=== PATIENT | male | born 1955 | race Caucasian/White ===

== ENCOUNTER 2016-09-24 15:32 | Emergency (ER) | payer MEDICARE, OTHER ==
[2016-09-24] MEDS ORDERED: RX INFO: IV CONTRAST WAS GIVEN 1 EACH MISC MISCELLANE PRN (15:55)
[2016-09-24] MEDS ORDERED: SODIUM CHLORIDE 0.9% 2,000 ML IV ONE (15:57)
[2016-09-24 16:23] LABS: Basophils # (A) 0.1 k/uL (0-0.2); Basophils % (A) 1 %; CH 29.2; CHCM 34.8; Eosinophils # (A) 0.1 k/uL (0-0.7); Eosinophils % (A) 1 %; HCT 47.5 % (39.0-53.0); HDW 3.15; HGB 16.2 gm/dL (13.0-17.5); Luc # (Auto) 0.24; Luc % (Auto) 3; Lymphocytes # (A) 1.4 k/uL (1.0-4.8); Lymphocytes % (A) 15 %; MCH 28.8 pg (25.0-35.0); MCHC 34.2 g/dL (31.0-37.0); MCV 84.3 fL (80.0-100.0); Mean Platelet Volume 6.3; Monocytes # (A) 0.7 k/uL (0-1.0); Monocytes % (A) 8 %; Neutrophils # (A) 6.5 k/uL (1.3-7.7); Neutrophils % (A) 73 %; RBC 5.64 m/uL (4.30-5.90); RDW 13.4 % (11.5-15.5); WBC (Perox) 8.76
[2016-09-24 16:24] LABS: ALT 68 U/L (21-72); AST 43 U/L (17-59); Alkaline Phosphatase 96 U/L (38-126); Anion Gap 14 mmol/L; Blood Urea Nitrogen 24 mg/dL (9-20); Calcium 10.1 mg/dL (8.4-10.2); Carbon Dioxide 19 mmol/L (22-30); Chloride 106 mmol/L (98-107); Glucose 245 mg/dL (74-99); Non-African American GFR(MDRD) >60 (>60 ml/min/1.73 sqM); Potassium 4.2 mmol/L (3.5-5.1); Sodium 139 mmol/L (137-145); Total Bilirubin 0.6 mg/dL (0.2-1.3); Total Protein 7.5 g/dL (6.3-8.2)
[2016-09-24 16:25] LABS: Prothrombin Time 10.3 sec (9.0-12.0)
--- NOTE | 2016-09-24 16:27 | CT ---
EXAMINATION TYPE: CT abdomen pelvis w con DATE OF EXAM: 09/24/2016 4:17 PM COMPARISON: NONE INDICATION: Abdominal pain and distension DLP: 2273.5 mGycm, Automated exposure control for dose reduction was used. CONTRAST: 100 mL of Omnipaque 300. Study performed without Oral Contrast TECHNIQUE: Axial images were obtained from above the diaphragm to the pubic rami in the axial plane a t 5 mm thick sections. Reconstructed images are reviewed on the computer in the coronal plane. FINDINGS: Limited CT sections are obtained the lung bases. The lung bases are clear. Minimal pericardial effu syl is noted. CT ABDOMEN: Liver: Moderate fatty infiltration liver. No discrete masses or cysts are evident. Spleen: Normal Pancreas: Normal Adrenal glands: There is a low density structure from the posterior limb left adrenal gland measuring 1.5 cm. Lipoma and adenolipoma could be considered. Right adrenal gland appears normal. Gallbladder: Normal Kidneys: No masses are evident. No hydronephrosis is present. No cysts are present. Delayed images were obtained through the kidneys which remain unremarkable. Aorta: Vascular calcification is within the aorta. Inferior vena cava: Normal. CT PELVIS: Loops of bowel within the abdomen and pelvis containing fluid. Dilated loops are not evident. Clinica l consideration for ileus and gastroenteritis could be considered. Appendix: Normal as visualized. Urinary bladder: Decompressed with limited evaluation. Genitourinary structures: Prostate is unremarkable. Osseous structures: No suspicious lytic or sclerotic lesions. IMPRESSIONS: 1. Clinical consideration for gastroenteritis and ileus is recommended. No suspicious changes for ob struction. 2. Normal appendix. 3. Moderate fatty infiltration of the liver.
[2016-09-24 16:40] LABS: Partial Thromboplastin Time 20.6 sec (22.0-30.0)
--- NOTE | 2016-09-24 16:58 | XR ---
EXAMINATION TYPE: XR chest 2V DATE OF EXAM: 09/24/2016 4:43 PM COMPARISON: 09/08/2015 INDICATION: Chest pain TECHNIQUE: 2 view chest FINDINGS: The heart size is normal. The pulmonary vasculature is normal. The lungs are clear. IMPRESSION: 1. No acute pulmonary process.
[2016-09-24 17:54] VITALS: PULSE 113
--- NOTE | 2016-09-24 18:21 | ED ---
General Adult HPI - General Chief complaint: Nausea/Vomiting/Diarrhea Stated complaint: abd pain Source: patient, EMS Mode of arrival: EMS Limitations: no limitations - History of Present Illness Initial comments: 60-year-old male presenting with significant past medical history asthma, COPD, diabetes, GERD, hyperlipidemia, hypertension, osteoarthritis, and chronic diarrhea presented for evaluation of abdominal pain. Family states that he's been having his usual diarrhea but the last few days he's been having constipation. Today he had a bowel movement but at 2:30 had sudden onset abdominal pain that is generalized and without focality. He states he had a bowel movement but was small without blood or melena. He also had nausea and an episode of emesis with this. EMS was called for transport. There are no alleviating or exacerbating factors. He does state a past medical history of a hernia repair but denies any other abdominal surgeries. - Related Data Home Medications Medication Instructions Recorded Confirmed Montelukast [Singulair] 10 mg PO DAILY 09/25/13 09/24/16 Acetaminophen-Codeine 300-30mg 1 - 2 tab PO Q6H PRN 02/21/14 09/24/16 [Tylenol w/codeine #3] Albuterol Sulfate [Ventolin HFA] 1 puff INHALATION RT-QID PRN 02/21/14 09/24/16 Fenofibrate [Lofibra] 160 mg PO DAILY 02/21/14 09/24/16 Lisinopril 10 mg PO DAILY 02/21/14 09/24/16 Insulin Detemir [Levemir] 90 unit SQ HS 04/18/15 09/24/16 Fluticasone/Salmeterol [Advair 1 puff INHALATION RT-BID 09/08/15 09/24/16 250-50 Diskus] Diphenox-Atrop 2.5-0.025 mg 1 tab PO Q6H PRN 10/20/15 09/24/16 [Lomotil] Doxazosin Mesylate [Cardura] 16 mg PO HS 10/20/15 09/24/16 Atorvastatin [Lipitor] 80 mg PO HS 09/24/16 09/24/16 Cetirizine HCl [Zyrtec] 10 - 20 mg PO HS PRN 09/24/16 09/24/16 Desvenlafaxine [Pristiq ER] 100 mg PO DAILY 09/24/16 09/24/16 Omeprazole [PriLOSEC] 20 mg PO AC-BID 09/24/16 09/24/16 clonazePAM [KlonoPIN] 1 mg PO BID PRN 09/24/16 09/24/16 sitaGLIPtin PHOS/metFORMIN HCL 2 tab PO HS 09/24/16 09/24/16 [Janumet Xr 50-1,000 mg Tablet] Previous Rx's Medication Instructions Recorded Ciprofloxacin HCl [Cipro] 500 mg PO Q12HR #14 tablet 09/24/16 HYDROcodone/APAP 5-325MG [[place] 1 - 2 tab PO Q6HR PRN #14 tab 09/24/16 5-325] metroNIDAZOLE [Flagyl] 500 mg PO Q8HR #21 tab 09/24/16 Allergies Allergy/AdvReac Type Severity Reaction Status Date / Time No Known Allergies Allergy Verified 09/24/16 22:08 Review of Systems ROS Statement: Those systems with pertinent positive or pertinent negative responses have been documented in the HPI. ROS Other: All systems not noted in ROS Statement are negative. Constitutional: Denies: fever, chills, weakness Eyes: Denies: eye pain, eye discharge, vision change ENT: Denies: ear pain, throat pain Respiratory: Denies: cough, dyspnea Cardiovascular: Denies: chest pain, palpitations, dyspnea on exertion, orthopnea Endocrine: Denies: fatigue, polydipsia, polyuria Gastrointestinal: Reports: abdominal pain, nausea, vomiting, diarrhea, constipation Genitourinary: Denies: urgency, dysuria Musculoskeletal: Denies: back pain, arthralgia, myalgia Skin: Denies: rash, lesions Neurological: Denies: headache, weakness Psychiatric: Denies: anxiety, depression Hematological/Lymphatic: Denies: easy bleeding, easy bruising Past Medical History Past Medical History: Asthma, COPD, Diabetes Mellitus, GERD/Reflux, Hyperlipidemia, Hypertension, Osteoarthritis (OA), Prostate Disorder, Skin Disorder Additional Past Medical History / Comment(s): diarrhea, sores on arms, DDD History of Any Multi-Drug Resistant Organisms: None Reported Past Surgical History: Hernia Repair, Orthopedic Surgery, Tonsillectomy Additional Past Surgical History / Comment(s): right chest wall cyst removed, nerve surgery left elbow Past Anesthesia/Blood Transfusion Reactions: No Reported Reaction Past Psychological History: Anxiety, Panic Disorder Smoking Status: Former smoker Past Alcohol Use History: None Reported Additional Past Alcohol Use History / Comment(s): quit smoking 25 yrs ago, smoked for 17 yrs- 2 PPD Past Drug Use History: None Reported - Past Family History Father Family Medical History: Myocardial Infarction ([place]) Mother Family Medical History: No Reported History General Exam Limitations: no limitations General appearance: alert, in distress, obese Head exam: Present: atraumatic, normocephalic, normal inspection Eye exam: Present: normal appearance, PERRL, EOMI. Absent: scleral icterus, conjunctival injection, periorbital swelling ENT exam: Present: normal exam, mucous membranes moist Neck exam: Present: normal inspection. Absent: tenderness, meningismus, lymphadenopathy Respiratory exam: Present: normal lung sounds bilaterally. Absent: respiratory distress, wheezes, rales, rhonchi, stridor Cardiovascular Exam: Present: regular rate, normal rhythm, normal heart sounds. Absent: systolic murmur, diastolic murmur, rubs, gallop, clicks GI/Abdominal exam: Present: soft, distended, tenderness, normal bowel sounds. Absent: guarding, rebound, rigid Rectal exam: Present: deferred Extremities exam: Present: normal inspection, full ROM, normal capillary refill. Absent: tenderness, pedal edema, joint swelling, calf tenderness Back exam: Present: normal inspection Neurological exam: Present: alert, oriented X3, CN II-XII intact Psychiatric exam: Present: normal affect, normal mood Skin exam: Present: warm, dry, intact, normal color. Absent: rash Course Vital Signs 09/24/16 09/24/16 09/24/16 15:46 15:57 17:52 Temperature 97.7 F 97.6 F Pulse Rate 97 116 H 113 H Respiratory 16 18 16 Rate Blood Pressure 95/53 124/56 131/64 O2 Sat by Pulse 96 94 L 97 Oximetry 09/24/16 18:28 Temperature 97.8 F Pulse Rate Respiratory 116 H Rate Blood Pressure 133/75 O2 Sat by Pulse 95 Oximetry Medical Decision Making - Medical Decision Making 60-year-old male with past medical history of ventral hernia repair presented for evaluation of sudden onset abdominal pain at 2:30 today. EMS was called for transport and upon arrival to the ED he was markedly hypotensive. Upon arrival the patient does appear in mild distress and he does have a large abdomen which is difficult to determine whether it is distended or chest and obese patient. There is [id number] abdominal tenderness to palpation but no peritoneal signs of guarding, rigidity, or rebound. IV access was obtained, labs drawn, and patient was rushed to CT as there was concern for AAA rupture given his hypotension abdominal pain and distended abdomen. Also of concern was bowel obstruction versus perforation. Patient was moved back to exam room and repeat blood pressures were markedly improved despite only a minor amount of IV fluid infusion. This may be explained by the possibility of him producing vagal stimulation while moving from EMS cot to bed. Labs started to return and there was no elevated WBC and lactic acid was only 2.1. The remainder of his labs revealed no significant abnormalities. CT abdomen and pelvis showed clinical consideration for gastroenteritis versus ileus but no suspicious changes for obstruction. There is a normal appendix and only moderate fatty infiltration of the liver. The patient was reevaluated and stated his pain had resolved. He is informed of all labs results and through shared decision making it was determined that he be discharged with instructions to follow-up with his primary care physician but return if his symptoms should worsen or persist. He is further informed to get his prescriptions for anabiotic spelled and to take them as prescribed. The patient acknowledged an understanding of this information and agreed with this plan of care. - Lab Data Result diagrams: 09/24/16 16:05 09/24/16 16:05 Lab Results 09/24/16 09/24/16 09/24/16 Range/Units 16:05 16:05 16:05 WBC 9.0 (3.8-10.6) k/uL RBC 5.64 (4.30-5.90) m/uL Hgb 16.2 (13.0-17.5) gm/dL Hct 47.5 (39.0-53.0) % MCV 84.3 (80.0-100.0) fL MCH 28.8 (25.0-35.0) pg MCHC 34.2 (31.0-37.0) g/dL RDW 13.4 (11.5-15.5) % Plt Count 287 (150-450) k/uL Neutrophils % 73 % Lymphocytes % 15 % Monocytes % 8 % Eosinophils % 1 % Basophils % 1 % Neutrophils # 6.5 (1.3-7.7) k/uL Lymphocytes # 1.4 (1.0-4.8) k/uL Monocytes # 0.7 (0-1.0) k/uL Eosinophils # 0.1 (0-0.7) k/uL Basophils # 0.1 (0-0.2) k/uL PT (9.0-12.0) sec INR (<1.1) APTT (22.0-30.0) sec Sodium 139 (137-145) mmol/L Potassium 4.2 (3.5-5.1) mmol/L Chloride 106 (98-107) mmol/L Carbon Dioxide 19 L (22-30) mmol/L Anion Gap 14 mmol/L BUN 24 H (9-20) mg/dL Creatinine 1.11 (0.66-1.25) mg/dL Est GFR (MDRD) Af Amer >60 (>60 ml/min/1.73 sqM) Est GFR (MDRD) Non-Af >60 (>60 ml/min/1.73 sqM) Glucose 245 H (74-99) mg/dL Plasma Lactic Acid Brooks 2.1 H (0.7-2.0) mmol/L Calcium 10.1 (8.4-10.2) mg/dL Total Bilirubin 0.6 (0.2-1.3) mg/dL AST 43 (17-59) U/L ALT 68 (21-72) U/L Alkaline Phosphatase 96 (38-126) U/L Troponin I (0.000-0.034) ng/mL NT-Pro-B Natriuret Pep pg/mL Total Protein 7.5 (6.3-8.2) g/dL Albumin 4.4 (3.5-5.0) g/dL Lipase 153 (23-300) U/L Blood Type Blood Type Confirm Blood Type Recheck Antibody Screen Spec Expiration Date 09/24/16 09/24/16 09/24/16 Range/Units 16:05 16:05 16:05 WBC (3.8-10.6) k/uL RBC (4.30-5.90) m/uL Hgb (13.0-17.5) gm/dL Hct (39.0-53.0) % MCV (80.0-100.0) fL MCH (25.0-35.0) pg MCHC (31.0-37.0) g/dL RDW (11.5-15.5) % Plt Count (150-450) k/uL Neutrophils % % Lymphocytes % % Monocytes % % Eosinophils % % Basophils % % Neutrophils # (1.3-7.7) k/uL Lymphocytes # (1.0-4.8) k/uL Monocytes # (0-1.0) k/uL Eosinophils # (0-0.7) k/uL Basophils # (0-0.2) k/uL PT 10.3 (9.0-12.0) sec INR 1.0 (<1.1) APTT 20.6 L (22.0-30.0) sec Sodium (137-145) mmol/L Potassium (3.5-5.1) mmol/L Chloride (98-107) mmol/L Carbon Dioxide (22-30) mmol/L Anion Gap mmol/L BUN (9-20) mg/dL Creatinine (0.66-1.25) mg/dL Est GFR (MDRD) Af Amer (>60 ml/min/1.73 sqM) Est GFR (MDRD) Non-Af (>60 ml/min/1.73 sqM) Glucose (74-99) mg/dL Plasma Lactic Acid Brooks (0.7-2.0) mmol/L Calcium (8.4-10.2) mg/dL Total Bilirubin (0.2-1.3) mg/dL AST (17-59) U/L ALT (21-72) U/L Alkaline Phosphatase (38-126) U/L Troponin I <0.012 (0.000-0.034) ng/mL NT-Pro-B Natriuret Pep 41 pg/mL Total Protein (6.3-8.2) g/dL Albumin (3.5-5.0) g/dL Lipase (23-300) U/L Blood Type Blood Type Confirm Blood Type Recheck Antibody Screen Spec Expiration Date 09/24/16 09/24/16 Range/Units 16:05 16:50 WBC (3.8-10.6) k/uL RBC (4.30-5.90) m/uL Hgb (13.0-17.5) gm/dL Hct (39.0-53.0) % MCV (80.0-100.0) fL MCH (25.0-35.0) pg MCHC (31.0-37.0) g/dL RDW (11.5-15.5) % Plt Count (150-450) k/uL Neutrophils % % Lymphocytes % % Monocytes % % Eosinophils % % Basophils % % Neutrophils # (1.3-7.7) k/uL Lymphocytes # (1.0-4.8) k/uL Monocytes # (0-1.0) k/uL Eosinophils # (0-0.7) k/uL Basophils # (0-0.2) k/uL PT (9.0-12.0) sec INR (<1.1) APTT (22.0-30.0) sec Sodium (137-145) mmol/L Potassium (3.5-5.1) mmol/L Chloride (98-107) mmol/L Carbon Dioxide (22-30) mmol/L Anion Gap mmol/L BUN (9-20) mg/dL Creatinine (0.66-1.25) mg/dL Est GFR (MDRD) Af Amer (>60 ml/min/1.73 sqM) Est GFR (MDRD) Non-Af (>60 ml/min/1.73 sqM) Glucose (74-99) mg/dL Plasma Lactic Acid Brooks (0.7-2.0) mmol/L Calcium (8.4-10.2) mg/dL Total Bilirubin (0.2-1.3) mg/dL AST (17-59) U/L ALT (21-72) U/L Alkaline Phosphatase (38-126) U/L Troponin I (0.000-0.034) ng/mL NT-Pro-B Natriuret Pep pg/mL Total Protein (6.3-8.2) g/dL Albumin (3.5-5.0) g/dL Lipase (23-300) U/L Blood Type A Positive Blood Type Confirm A Positive Blood Type Recheck CABO Indicated Antibody Screen NEGATIVE Spec Expiration Date 09/27/2016 - 2304 Disposition Clinical Impression: Abdominal pain, Nausea and vomiting Disposition: HOME SELF-CARE Condition: Stable Instructions: Abdominal Pain (ED) Additional Instructions: Please use medication as discussed. Please follow up with family doctor if symptoms have not improved over the next two days. Please return to the emergency room if your symptoms increase or worsen or for any other concerns. Prescriptions: Ciprofloxacin HCl [Cipro] 500 mg PO Q12HR #14 tablet HYDROcodone/APAP 5-325MG [[place]raham 5-325] 1 - 2 tab PO Q6HR PRN #14 tab PRN Reason: Analgesia metroNIDAZOLE [Flagyl] 500 mg PO Q8HR #21 tab Referrals: Anu Plata MD [Primary Care Provider] - 1-2 days Time of Disposition: 18:21
[2016-09-24 18:29] VITALS: BP 133/75; RESP 116; TEMP 97.8
[2016-09-25 21:51] LABS: Glucose,Whole Blood 297 mg/dL (75-99)
== END 2016-09-24 18:47 | disposition home or self-care (01) ==
LOC: EC 15:32
DX: R10.84 Generalized abdominal pain (principal); R11.2 Nausea with vomiting, unspecified; K76.0 Fatty (change of) liver, not elsewhere classified; K59.00 Constipation, unspecified; E78.5 Hyperlipidemia, unspecified; I10 Essential (primary) hypertension; E11.9 Type 2 diabetes mellitus without complications; J45.909 Unspecified asthma, uncomplicated; J44.9 Chronic obstructive pulmonary disease, unspecified; K21.9 Gastro-esophageal reflux disease without esophagitis; N42.9 Disorder of prostate, unspecified; Z87.891 Personal history of nicotine dependence; Z79.4 Long term (current) use of insulin; Z79.51 Long term (current) use of inhaled steroids; Z79.84 Long term (current) use of oral hypoglycemic drugs; Z79.899 Other long term (current) drug therapy; Z68.34 Body mass index [BMI] 34.0-34.9, adult; Z98.890 Other specified postprocedural states
CPT/HCPCS: 36415; 93005; 86900; 86901; 83880; 80053; 83605; 83690; 84484; 85025; 85610; 85730; 86850; 87040; 71020; 74177; 99285; 96360; 96361; Q9967

== ENCOUNTER 2016-09-24 22:07 | Emergency (ER) | payer MEDICARE, OTHER ==
[2016-09-24 22:12] VITALS: RESP 20
[2016-09-24 23:44] LABS: HDW 2.91; HGB 14.2 gm/dL (13.0-17.5); Immature Gran Flag Marked; MCH 28.5 pg (25.0-35.0); MCHC 32.3 g/dL (31.0-37.0); MCV 88.4 fL (80.0-100.0); Mean Platelet Volume 6.5; RBC 4.98 m/uL (4.30-5.90); RDW 13.6 % (11.5-15.5); WBC 10.6 k/uL (3.8-10.6)
[2016-09-24 23:55] LABS: ALT 62 U/L (21-72); AST 32 U/L (17-59); Alkaline Phosphatase 62 U/L (38-126); Amylase 38 U/L (30-110); Anion Gap 10 mmol/L; Blood Urea Nitrogen 27 mg/dL (9-20); Calcium 8.2 mg/dL (8.4-10.2); Carbon Dioxide 19 mmol/L (22-30); Chloride 110 mmol/L (98-107); Glucose 199 mg/dL (74-99); Non-African American GFR(MDRD) >60 (>60 ml/min/1.73 sqM); Potassium 4.6 mmol/L (3.5-5.1); Sodium 139 mmol/L (137-145); Total Bilirubin 0.6 mg/dL (0.2-1.3)
[2016-09-25 00:06] LABS: Appearance,Urine Clear (Clear); Bilirubin,Urine Negative (Negative); Glucose,Urine (UA) 4+ (Negative); Ketones,Urine Negative (Negative); Leukocyte Esterase,Urine Negative (Negative); Nitrite,Urine Negative (Negative); Protein,Urine Negative (Negative); Specific Gravity,Urine 1.033 (1.001-1.035); UA Billing (MACRO vs. MICRO) CHEM; Urobilinogen,Urine <2.0 mg/dL (<2.0)
--- NOTE | 2016-09-25 00:42 | ED ---
Abdominal Pain HPI - General Chief Complaint: Abdominal Pain Stated Complaint: Abdominal Pain Time Seen by Provider: 09/24/16 22:09 Source: patient, EMS Mode of arrival: EMS Limitations: no limitations - History of Present Illness MD Complaint: abdominal pain Onset/Timin -: year(s) Location: diffuse Radiation: none Migration to: no migration Severity: moderate Quality: cramping, other (Bloating) Consistency: intermittent, now resolved Improves With: nothing Worsens With: nothing Associated Symptoms: nausea - Related Data Home Medications Medication Instructions Recorded Confirmed Montelukast [Singulair] 10 mg PO DAILY 09/25/13 09/24/16 Acetaminophen-Codeine 300-30mg 1 - 2 tab PO Q6H PRN 02/21/14 09/24/16 [Tylenol w/codeine #3] Albuterol Sulfate [Ventolin HFA] 1 puff INHALATION RT-QID PRN 02/21/14 09/24/16 Fenofibrate [Lofibra] 160 mg PO DAILY 02/21/14 09/24/16 Lisinopril 10 mg PO DAILY 02/21/14 09/24/16 Insulin Detemir [Levemir] 90 unit SQ HS 04/18/15 09/24/16 Fluticasone/Salmeterol [Advair 1 puff INHALATION RT-BID 09/08/15 09/24/16 250-50 Diskus] Diphenox-Atrop 2.5-0.025 mg 1 tab PO Q6H PRN 10/20/15 09/24/16 [Lomotil] Doxazosin Mesylate [Cardura] 16 mg PO HS 10/20/15 09/24/16 Atorvastatin [Lipitor] 80 mg PO HS 09/24/16 09/24/16 Cetirizine HCl [Zyrtec] 10 - 20 mg PO HS PRN 09/24/16 09/24/16 Desvenlafaxine [Pristiq ER] 100 mg PO DAILY 09/24/16 09/24/16 Omeprazole [PriLOSEC] 20 mg PO AC-BID 09/24/16 09/24/16 clonazePAM [KlonoPIN] 1 mg PO BID PRN 09/24/16 09/24/16 sitaGLIPtin PHOS/metFORMIN HCL 2 tab PO HS 09/24/16 09/24/16 [Janumet Xr 50-1,000 mg Tablet] Previous Rx's Medication Instructions Recorded Ciprofloxacin HCl [Cipro] 500 mg PO Q12HR #14 tablet 09/24/16 HYDROcodone/APAP 5-325MG [[place] 1 - 2 tab PO Q6HR PRN #14 tab 09/24/16 5-325] metroNIDAZOLE [Flagyl] 500 mg PO Q8HR #21 tab 09/24/16 Allergies Allergy/AdvReac Type Severity Reaction Status Date / Time No Known Allergies Allergy Verified 09/24/16 22:08 Review of Systems ROS Statement: Those systems with pertinent positive or pertinent negative responses have been documented in the HPI. ROS Other: All systems not noted in ROS Statement are negative. Constitutional: Denies: fever, chills, weakness Respiratory: Denies: cough, dyspnea Cardiovascular: Denies: chest pain, palpitations, edema Gastrointestinal: Reports: abdominal pain, nausea. Denies: vomiting, diarrhea, melena, hematochezia Genitourinary: Denies: dysuria, hematuria Musculoskeletal: Denies: back pain Skin: Denies: rash Neurological: Denies: headache, weakness Past Medical History Past Medical History: Asthma, COPD, Diabetes Mellitus, GERD/Reflux, Hyperlipidemia, Hypertension, Osteoarthritis (OA), Prostate Disorder, Skin Disorder Additional Past Medical History / Comment(s): diarrhea, sores on arms, DDD History of Any Multi-Drug Resistant Organisms: None Reported Past Surgical History: Hernia Repair, Orthopedic Surgery, Tonsillectomy Additional Past Surgical History / Comment(s): right chest wall cyst removed, nerve surgery left elbow Past Anesthesia/Blood Transfusion Reactions: No Reported Reaction Past Psychological History: Anxiety, Panic Disorder Smoking Status: Former smoker Past Alcohol Use History: None Reported Additional Past Alcohol Use History / Comment(s): quit smoking 25 yrs ago, smoked for 17 yrs- 2 PPD Past Drug Use History: None Reported - Past Family History Father Family Medical History: Myocardial Infarction ([place]) Mother Family Medical History: No Reported History General Exam Limitations: no limitations General appearance: alert, in no apparent distress Head exam: Present: atraumatic, normocephalic Eye exam: Present: normal appearance. Absent: scleral icterus, conjunctival injection Neck exam: Present: normal inspection Respiratory exam: Present: normal lung sounds bilaterally. Absent: respiratory distress, wheezes, rales, rhonchi Cardiovascular Exam: Present: regular rate, normal rhythm, normal heart sounds. Absent: systolic murmur, diastolic murmur, rubs, gallop GI/Abdominal exam: Present: soft, normal bowel sounds. Absent: distended, tenderness, guarding, rebound, rigid, mass, pulsatile mass, hernia Extremities exam: Present: normal inspection, normal capillary refill. Absent: pedal edema, calf tenderness Back exam: Present: normal inspection. Absent: CVA tenderness (R), CVA tenderness (L) Neurological exam: Present: alert, CN II-XII intact. Absent: normal gait, motor sensory deficit Skin exam: Present: warm, dry, intact, normal color. Absent: rash Course Vital Signs 09/24/16 22:08 Temperature 98.3 F Pulse Rate 121 H Respiratory 20 Rate Blood Pressure 145/67 O2 Sat by Pulse 97 Oximetry Medical Decision Making - Lab Data Result diagrams: 09/24/16 23:10 09/24/16 23:10 Lab Results 09/24/16 09/24/16 09/24/16 Range/Units 23:10 23:10 23:10 WBC 10.6 (3.8-10.6) k/uL RBC 4.98 (4.30-5.90) m/uL Hgb 14.2 (13.0-17.5) gm/dL Hct 44.0 (39.0-53.0) % MCV 88.4 (80.0-100.0) fL MCH 28.5 (25.0-35.0) pg MCHC 32.3 (31.0-37.0) g/dL RDW 13.6 (11.5-15.5) % Plt Count 228 (150-450) k/uL Neutrophils % (Manual) 51.0 % Band Neutrophils % 31.0 % Lymphocytes % (Manual) 5.5 % Monocytes % (Manual) 10.0 % Eosinophils % (Manual) 2.5 % Neutrophils # (Manual) 8.7 H (1.3-7.7) k/uL Lymphocytes # (Manual) 0.6 L (1.0-4.8) k/uL Monocytes # (Manual) 1.1 H (0-1.0) k/uL Eosinophils # (Manual) 0.3 (0-0.7) k/uL Nucleated RBCs 0 (0-0) /100 WBC Poikilocytosis (manual Present Anisocytosis (manual) Present Sodium 139 (137-145) mmol/L Potassium 4.6 (3.5-5.1) mmol/L Chloride 110 H (98-107) mmol/L Carbon Dioxide 19 L (22-30) mmol/L Anion Gap 10 mmol/L BUN 27 H (9-20) mg/dL Creatinine 0.90 (0.66-1.25) mg/dL Est GFR (MDRD) Af Amer >60 (>60 ml/min/1.73 sqM) Est GFR (MDRD) Non-Af >60 (>60 ml/min/1.73 sqM) Glucose 199 H (74-99) mg/dL Plasma Lactic Acid Brooks 1.9 (0.7-2.0) mmol/L Calcium 8.2 L (8.4-10.2) mg/dL Total Bilirubin 0.6 (0.2-1.3) mg/dL AST 32 (17-59) U/L ALT 62 (21-72) U/L Alkaline Phosphatase 62 (38-126) U/L Total Protein 6.0 L (6.3-8.2) g/dL Albumin 3.5 (3.5-5.0) g/dL Amylase 38 (30-110) U/L Lipase 74 (23-300) U/L Urine Color Urine Appearance (Clear) Urine pH (5.0-8.0) Ur Specific [place] (1.001-1.035) Urine Protein (Negative) Urine Glucose (UA) (Negative) Urine Ketones (Negative) Urine Blood (Negative) Urine Nitrite (Negative) Urine Bilirubin (Negative) Urine Urobilinogen (<2.0) mg/dL Ur Leukocyte Esterase (Negative) 09/24/16 Range/Units 23:40 WBC (3.8-10.6) k/uL RBC (4.30-5.90) m/uL Hgb (13.0-17.5) gm/dL Hct (39.0-53.0) % MCV (80.0-100.0) fL MCH (25.0-35.0) pg MCHC (31.0-37.0) g/dL RDW (11.5-15.5) % Plt Count (150-450) k/uL Neutrophils % (Manual) % Band Neutrophils % % Lymphocytes % (Manual) % Monocytes % (Manual) % Eosinophils % (Manual) % Neutrophils # (Manual) (1.3-7.7) k/uL Lymphocytes # (Manual) (1.0-4.8) k/uL Monocytes # (Manual) (0-1.0) k/uL Eosinophils # (Manual) (0-0.7) k/uL Nucleated RBCs (0-0) /100 WBC Poikilocytosis (manual Anisocytosis (manual) Sodium (137-145) mmol/L Potassium (3.5-5.1) mmol/L Chloride (98-107) mmol/L Carbon Dioxide (22-30) mmol/L Anion Gap mmol/L BUN (9-20) mg/dL Creatinine (0.66-1.25) mg/dL Est GFR (MDRD) Af Amer (>60 ml/min/1.73 sqM) Est GFR (MDRD) Non-Af (>60 ml/min/1.73 sqM) Glucose (74-99) mg/dL Plasma Lactic Acid Brooks (0.7-2.0) mmol/L Calcium (8.4-10.2) mg/dL Total Bilirubin (0.2-1.3) mg/dL AST (17-59) U/L ALT (21-72) U/L Alkaline Phosphatase (38-126) U/L Total Protein (6.3-8.2) g/dL Albumin (3.5-5.0) g/dL Amylase (30-110) U/L Lipase (23-300) U/L Urine Color Yellow Urine Appearance Clear (Clear) Urine pH 5.0 (5.0-8.0) Ur Specific [place] 1.033 (1.001-1.035) Urine Protein Negative (Negative) Urine Glucose (UA) 4+ H (Negative) Urine Ketones Negative (Negative) Urine Blood Negative (Negative) Urine Nitrite Negative (Negative) Urine Bilirubin Negative (Negative) Urine Urobilinogen <2.0 (<2.0) mg/dL Ur Leukocyte Esterase Negative (Negative) Disposition Clinical Impression: Abdominal pain Disposition: HOME SELF-CARE Condition: Fair Instructions: Abdominal Pain (ED) Referrals: Anu Plata MD [Primary Care Provider] - 1-2 days
[2016-09-25 02:14] LABS: Add Differential Manual Differential
[2016-09-25 02:20] LABS: Nucleated Red Blood Cells 0 /100 WBC (0-0); Total Cells Counted 200
[2016-09-25 04:51] VITALS: BP 142/75; PULSE 124
[2016-09-25 04:55] VITALS: TEMP 100.3
== END 2016-09-25 03:32 | disposition home or self-care (01) ==
LOC: EC 22:07
DX: R10.84 Generalized abdominal pain (principal); R11.0 Nausea; R14.0 Abdominal distension (gaseous); E78.5 Hyperlipidemia, unspecified; I10 Essential (primary) hypertension; E11.9 Type 2 diabetes mellitus without complications; J45.909 Unspecified asthma, uncomplicated; J44.9 Chronic obstructive pulmonary disease, unspecified; N42.9 Disorder of prostate, unspecified; K21.9 Gastro-esophageal reflux disease without esophagitis; Z87.891 Personal history of nicotine dependence; Z79.4 Long term (current) use of insulin; Z79.51 Long term (current) use of inhaled steroids; Z79.84 Long term (current) use of oral hypoglycemic drugs; Z79.899 Other long term (current) drug therapy
CPT/HCPCS: 99284 ×2; 96360; 96361; 99285; 36415; 93005; 86900; 86901; 83880; 80053; 82150; 83605; 83690; 84484; 85025; 85610; 85730; 86850; 81003; 87040; 71020; 74177; Q9967

== ENCOUNTER 2016-10-29 14:06 | Emergency (ER) | payer MEDICARE, OTHER ==
[2016-10-29] MEDS ORDERED: SODIUM CHLORIDE 0.9% 500 ML IV STA (15:15)
--- NOTE | 2016-10-29 15:38 | ED ---
Nausea/Vomiting/Diarrhea HPI - General Chief complaint: Nausea/Vomiting/Diarrhea Stated complaint: Abd Pain Time Seen by Provider: 10/29/16 14:55 Source: patient Mode of arrival: ambulatory Limitations: no limitations - History of Present Illness Initial comments: This patient is a 61-year-old man who states that he has had years of chronic intermittent diarrhea. At times she has been told that this is due to irritable bowel, at times she has been told that he has colitis. The patient states that he has had a flareup of the diarrhea and also a few episodes of vomiting going on for nearly a week. The patient states that he came in because he does not want to get so dehydrated that he needs an ambulance this time. Patient denies significant abdominal pain though he does have some intermittent cramping. He did recently complete course of azithromycin for some bronchitis. MD complaint: vomiting, diarrhea -: year(s) Description of Vomiting: watery Description of Diarrhea: water Associated Abdominal Pain: No Improves with: none Worsens with: none Associated Symptoms: denies other symptoms - Related Data Home Medications Medication Instructions Recorded Confirmed Montelukast [Singulair] 10 mg PO DAILY 09/25/13 10/29/16 Acetaminophen-Codeine 300-30mg 1 - 2 tab PO Q6H PRN 02/21/14 10/29/16 [Tylenol w/codeine #3] Albuterol Sulfate [Ventolin HFA] 1 puff INHALATION RT-QID PRN 02/21/14 10/29/16 Fenofibrate [Lofibra] 160 mg PO DAILY 02/21/14 10/29/16 Lisinopril 10 mg PO DAILY 02/21/14 10/29/16 Insulin Detemir [Levemir] 95 unit SQ HS 04/18/15 10/29/16 Fluticasone/Salmeterol [Advair 1 puff INHALATION RT-BID 09/08/15 10/29/16 250-50 Diskus] Diphenox-Atrop 2.5-0.025 mg 1 tab PO Q6H PRN 10/20/15 10/29/16 [Lomotil] Doxazosin Mesylate [Cardura] 16 mg PO HS 10/20/15 10/29/16 Atorvastatin [Lipitor] 80 mg PO HS 09/24/16 10/29/16 Cetirizine HCl [Zyrtec] 10 - 20 mg PO HS PRN 09/24/16 10/29/16 Desvenlafaxine [Pristiq ER] 100 mg PO DAILY 09/24/16 10/29/16 Omeprazole [PriLOSEC] 20 mg PO AC-BID 09/24/16 10/29/16 clonazePAM [KlonoPIN] 1 mg PO BID PRN 09/24/16 10/29/16 sitaGLIPtin PHOS/metFORMIN HCL 2 tab PO HS 09/24/16 10/29/16 [Janumet Xr 50-1,000 mg Tablet] Azithromycin [Zithromax] 500 mg PO DAILY 10/29/16 10/29/16 predniSONE See Taper PO DIRECTED 10/29/16 10/29/16 Previous Rx's Medication Instructions Recorded HYDROcodone/APAP 5-325MG [[place] 1 - 2 tab PO Q6HR PRN #14 tab 09/24/16 5-325] Ondansetron Odt [Zofran ODT] 4 mg PO Q8HR PRN #10 tab 10/29/16 Allergies Allergy/AdvReac Type Severity Reaction Status Date / Time No Known Allergies Allergy Verified 10/29/16 14:50 Review of Systems ROS Statement: Those systems with pertinent positive or pertinent negative responses have been documented in the HPI. ROS Other: All systems not noted in ROS Statement are negative. Constitutional: Denies: fever, chills, weakness Respiratory: Denies: cough, dyspnea, wheezes Cardiovascular: Denies: chest pain, palpitations, edema Gastrointestinal: Reports: vomiting, diarrhea. Denies: constipation, melena, hematochezia Genitourinary: Denies: dysuria, hematuria Musculoskeletal: Denies: back pain Skin: Denies: rash Neurological: Denies: headache Past Medical History Past Medical History: Asthma, COPD, Diabetes Mellitus, GERD/Reflux, Hyperlipidemia, Hypertension, Osteoarthritis (OA), Prostate Disorder, Skin Disorder Additional Past Medical History / Comment(s): diarrhea, sores on arms, DDD History of Any Multi-Drug Resistant Organisms: None Reported Past Surgical History: Hernia Repair, Orthopedic Surgery, Tonsillectomy Additional Past Surgical History / Comment(s): right chest wall cyst removed, nerve surgery left elbow Past Anesthesia/Blood Transfusion Reactions: No Reported Reaction Past Psychological History: Anxiety, Panic Disorder Smoking Status: Former smoker Past Alcohol Use History: None Reported Additional Past Alcohol Use History / Comment(s): quit smoking 25 yrs ago, smoked for 17 yrs- 2 PPD Past Drug Use History: None Reported - Past Family History Father Family Medical History: Myocardial Infarction ([place]) Mother Family Medical History: No Reported History General Exam Limitations: no limitations General appearance: alert, in no apparent distress Head exam: Present: atraumatic, normocephalic Eye exam: Present: normal appearance. Absent: scleral icterus, conjunctival injection ENT exam: Present: normal oropharynx Neck exam: Present: normal inspection Respiratory exam: Present: normal lung sounds bilaterally. Absent: respiratory distress, wheezes, rales, rhonchi, stridor Cardiovascular Exam: Present: regular rate (Rate is 92 of my exam), normal rhythm, normal heart sounds. Absent: systolic murmur, diastolic murmur, rubs, gallop GI/Abdominal exam: Present: soft, normal bowel sounds. Absent: distended, tenderness, guarding, rebound, organomegaly, mass, pulsatile mass, hernia Extremities exam: Present: normal inspection, normal capillary refill. Absent: pedal edema, calf tenderness Back exam: Present: normal inspection. Absent: CVA tenderness (R), CVA tenderness (L) Neurological exam: Present: alert Skin exam: Present: warm, dry, intact, normal color. Absent: rash, cyanosis, diaphoretic, erythema, petechiae, pallor, mottled Course Vital Signs 10/29/16 10/29/16 10/29/16 14:23 15:48 16:53 Temperature 97.9 F 98.6 F 99.5 F Pulse Rate 110 H 107 H 111 H Respiratory 20 18 20 Rate Blood Pressure 104/69 143/86 135/80 O2 Sat by Pulse 97 97 96 Oximetry Medical Decision Making - Lab Data Result diagrams: 10/29/16 15:40 10/29/16 15:40 Lab Results 10/29/16 10/29/16 10/29/16 Range/Units 15:40 15:40 16:30 WBC 13.9 H (3.8-10.6) k/uL RBC 5.36 (4.30-5.90) m/uL Hgb 15.3 (13.0-17.5) gm/dL Hct 46.4 (39.0-53.0) % MCV 86.7 (80.0-100.0) fL MCH 28.6 (25.0-35.0) pg MCHC 33.0 (31.0-37.0) g/dL RDW 13.5 (11.5-15.5) % Plt Count 266 (150-450) k/uL Neutrophils % 82 % Lymphocytes % 11 % Monocytes % 5 % Eosinophils % 0 % Basophils % 1 % Neutrophils # 11.4 H (1.3-7.7) k/uL Lymphocytes # 1.5 (1.0-4.8) k/uL Monocytes # 0.7 (0-1.0) k/uL Eosinophils # 0.1 (0-0.7) k/uL Basophils # 0.1 (0-0.2) k/uL Sodium 138 (137-145) mmol/L Potassium 4.3 (3.5-5.1) mmol/L Chloride 102 (98-107) mmol/L Carbon Dioxide 22 (22-30) mmol/L Anion Gap 14 mmol/L BUN 19 (9-20) mg/dL Creatinine 0.90 (0.66-1.25) mg/dL Est GFR (MDRD) Af Amer >60 (>60 ml/min/1.73 sqM) Est GFR (MDRD) Non-Af >60 (>60 ml/min/1.73 sqM) Glucose 229 H (74-99) mg/dL Calcium 9.4 (8.4-10.2) mg/dL Total Bilirubin 0.4 (0.2-1.3) mg/dL AST 69 H (17-59) U/L ALT 76 H (21-72) U/L Alkaline Phosphatase 82 (38-126) U/L Total Protein 7.4 (6.3-8.2) g/dL Albumin 4.5 (3.5-5.0) g/dL Amylase 58 (30-110) U/L Lipase 91 (23-300) U/L Urine Color Yellow Urine Appearance Clear (Clear) Urine pH 6.0 (5.0-8.0) Ur Specific [place] 1.016 (1.001-1.035) Urine Protein Negative (Negative) Urine Glucose (UA) 4+ H (Negative) Urine Ketones Negative (Negative) Urine Blood Negative (Negative) Urine Nitrite Negative (Negative) Urine Bilirubin Negative (Negative) Urine Urobilinogen <2.0 (<2.0) mg/dL Ur Leukocyte Esterase Negative (Negative) Disposition Clinical Impression: Gastroenteritis, Dehydration Disposition: HOME SELF-CARE Condition: Good Instructions: Acute Nausea and Vomiting (ED) Prescriptions: Ondansetron Odt [Zofran ODT] 4 mg PO Q8HR PRN #10 tab PRN Reason: Nausea Referrals: Anu Plata MD [Primary Care Provider] - 1-2 days
[2016-10-29 15:56] LABS: Basophils # (A) 0.1 k/uL (0-0.2); Basophils % (A) 1 %; CHCM 33.6; Eosinophils # (A) 0.1 k/uL (0-0.7); Eosinophils % (A) 0 %; HCT 46.4 % (39.0-53.0); HDW 2.86; HGB 15.3 gm/dL (13.0-17.5); Luc # (Auto) 0.17; Luc % (Auto) 1; Lymphocytes # (A) 1.5 k/uL (1.0-4.8); Lymphocytes % (A) 11 %; MCH 28.6 pg (25.0-35.0); MCV 86.7 fL (80.0-100.0); Mean Platelet Volume 6.5; Monocytes # (A) 0.7 k/uL (0-1.0); Monocytes % (A) 5 %; Neutrophils # (A) 11.4 k/uL (1.3-7.7); Neutrophils % (A) 82 %; RBC 5.36 m/uL (4.30-5.90); RDW 13.5 % (11.5-15.5); WBC 13.9 k/uL (3.8-10.6); WBC (Perox) 13.52
[2016-10-29 16:32] LABS: ALT 76 U/L (21-72); AST 69 U/L (17-59); Alkaline Phosphatase 82 U/L (38-126); Amylase 58 U/L (30-110); Anion Gap 14 mmol/L; Blood Urea Nitrogen 19 mg/dL (9-20); Calcium 9.4 mg/dL (8.4-10.2); Carbon Dioxide 22 mmol/L (22-30); Chloride 102 mmol/L (98-107); Glucose 229 mg/dL (74-99); Non-African American GFR(MDRD) >60 (>60 ml/min/1.73 sqM); Potassium 4.3 mmol/L (3.5-5.1); Sodium 138 mmol/L (137-145); Total Bilirubin 0.4 mg/dL (0.2-1.3); Total Protein 7.4 g/dL (6.3-8.2)
[2016-10-29] MEDS ORDERED: SODIUM CHLORIDE 0.9% 1,000 ML IV ONE (16:41)
[2016-10-29 16:53] LABS: Appearance,Urine Clear (Clear); Bilirubin,Urine Negative (Negative); Glucose,Urine (UA) 4+ (Negative); Ketones,Urine Negative (Negative); Leukocyte Esterase,Urine Negative (Negative); Nitrite,Urine Negative (Negative); Protein,Urine Negative (Negative); Specific Gravity,Urine 1.016 (1.001-1.035); UA Billing (MACRO vs. MICRO) CHEM; Urobilinogen,Urine <2.0 mg/dL (<2.0)
[2016-10-29 18:11] VITALS: BP 135/72; PULSE 108; RESP 18; TEMP 97.9
== END 2016-10-29 18:05 | disposition home or self-care (01) ==
LOC: EC 14:06
DX: K52.9 Noninfective gastroenteritis and colitis, unspecified (principal); E86.0 Dehydration; J44.9 Chronic obstructive pulmonary disease, unspecified; E11.9 Type 2 diabetes mellitus without complications; K21.9 Gastro-esophageal reflux disease without esophagitis; E78.5 Hyperlipidemia, unspecified; I10 Essential (primary) hypertension; M19.90 Unspecified osteoarthritis, unspecified site; N42.9 Disorder of prostate, unspecified; F41.9 Anxiety disorder, unspecified; F41.0 Panic disorder [episodic paroxysmal anxiety]; Z87.891 Personal history of nicotine dependence; Z79.4 Long term (current) use of insulin; Z79.52 Long term (current) use of systemic steroids; Z79.899 Other long term (current) drug therapy
CPT/HCPCS: 36415; 80053; 81003; 82150; 83690; 85025; 87324; 96360; 96361; 99284

== ENCOUNTER 2016-12-13 11:55 | Emergency (ER) | payer MEDICARE, OTHER ==
[2016-12-13] MEDS ORDERED: METOCLOPRAMIDE 5 MG/ML 2 ML VIAL IVP STA (12:28)
[2016-12-13] MEDS ORDERED: MORPHINE SULFATE 4 MG/ML SYRINGE IV STA (12:28)
[2016-12-13] MEDS ORDERED: SODIUM CHLORIDE 0.9% 1,000 ML IV STA (12:28)
--- NOTE | 2016-12-13 12:31 | ED ---
Nausea/Vomiting/Diarrhea HPI - General Chief complaint: Nausea/Vomiting/Diarrhea Stated complaint: abdominal pain/diarrhea Time Seen by Provider: 12/13/16 12:23 Source: patient, RN notes reviewed Mode of arrival: wheelchair Limitations: no limitations - History of Present Illness Initial comments: 61-year-old male presents emergency Department with chief complaint of diarrhea or abdominal pain and swelling. Patient states that symptoms started a few days ago. Patient states she's been having diarrhea several episodes but states the diarrhea seems to slowing down some. He notes last 24 hours that increase abdominal pain generalized with abdominal bloating. Patient had a prior hernia repair no other abdominal surgeries. He does not remember the surgeon. Patient denies any dysuria, hematuria, melena or hematochezia. Denies any nausea vomiting. Denies any fever, chills, chest pain or shortness of breath. Denies any lower extremity swelling no history of CHF no lives disease noted. - Related Data Home Medications Medication Instructions Recorded Confirmed Montelukast [Singulair] 10 mg PO DAILY 09/25/13 12/13/16 Albuterol Sulfate [Ventolin HFA] 1 puff INHALATION RT-QID PRN 02/21/14 12/13/16 Fenofibrate [Lofibra] 160 mg PO DAILY 02/21/14 12/13/16 Lisinopril 10 mg PO DAILY 02/21/14 12/13/16 Insulin Detemir [Levemir] 95 unit SQ HS 04/18/15 12/13/16 Fluticasone/Salmeterol [Advair 1 puff INHALATION RT-BID 09/08/15 12/13/16 250-50 Diskus] Diphenox-Atrop 2.5-0.025 mg 1 tab PO Q6H PRN 10/20/15 12/13/16 [Lomotil] Doxazosin Mesylate [Cardura] 16 mg PO HS 10/20/15 12/13/16 Atorvastatin [Lipitor] 80 mg PO HS 09/24/16 12/13/16 Cetirizine HCl [Zyrtec] 10 - 20 mg PO HS PRN 09/24/16 12/13/16 Desvenlafaxine [Pristiq ER] 100 mg PO DAILY 09/24/16 12/13/16 Omeprazole [PriLOSEC] 20 mg PO AC-BID 09/24/16 12/13/16 clonazePAM [KlonoPIN] 1 mg PO BID PRN 09/24/16 12/13/16 sitaGLIPtin PHOS/metFORMIN HCL 2 tab PO HS 09/24/16 12/13/16 [Janumet Xr 50-1,000 mg Tablet] Allergies Allergy/AdvReac Type Severity Reaction Status Date / Time No Known Allergies Allergy Verified 12/13/16 13:31 Review of Systems ROS Statement: Those systems with pertinent positive or pertinent negative responses have been documented in the HPI. ROS Other: All systems not noted in ROS Statement are negative. Past Medical History Past Medical History: Asthma, COPD, Diabetes Mellitus, GERD/Reflux, Hyperlipidemia, Hypertension, Osteoarthritis (OA), Prostate Disorder, Skin Disorder Additional Past Medical History / Comment(s): diarrhea, sores on arms, DDD History of Any Multi-Drug Resistant Organisms: None Reported Past Surgical History: Hernia Repair, Orthopedic Surgery, Tonsillectomy Additional Past Surgical History / Comment(s): right chest wall cyst removed, nerve surgery left elbow Past Anesthesia/Blood Transfusion Reactions: No Reported Reaction Past Psychological History: Anxiety, Panic Disorder Smoking Status: Former smoker Past Alcohol Use History: None Reported Past Drug Use History: None Reported - Past Family History Father Family Medical History: Myocardial Infarction ([place]) Mother Family Medical History: No Reported History General Exam Limitations: no limitations General appearance: alert, in no apparent distress Neck exam: Present: normal inspection. Absent: tenderness, meningismus, lymphadenopathy Respiratory exam: Present: normal lung sounds bilaterally. Absent: respiratory distress, wheezes, rales, rhonchi, stridor Cardiovascular Exam: Present: normal rhythm, tachycardia, normal heart sounds. Absent: systolic murmur, diastolic murmur, rubs, gallop, clicks GI/Abdominal exam: Present: soft, distended, tenderness (Generalized mild), normal bowel sounds. Absent: guarding, rebound, rigid Back exam: Absent: CVA tenderness (R), CVA tenderness (L) Skin exam: Present: warm, dry, intact, normal color. Absent: rash Course Vital Signs 12/13/16 12/13/16 12/13/16 12:20 12:37 14:16 Temperature 97.2 F L 97.4 F L Pulse Rate 126 H 114 H 114 H Respiratory 18 20 20 Rate Blood Pressure 98/60 125/62 132/73 O2 Sat by Pulse 97 96 Oximetry Medical Decision Making - Medical Decision Making 61-year-old male presented for diarrhea. Patient has had ongoing issues and states that his been told multiple things. Patient now states this is not out of the ordinary for him. He states that he is diarrhea slowing down. Patient is hydrated here. Patient does have uncontrolled diabetes and possible gastroparesis type symptoms. Patient diarrhea most likely related IBS. Return parameters discussed. Patient had recent C. diff testing - Lab Data Result diagrams: 12/13/16 12:42 12/13/16 12:42 Lab Results 12/13/16 12/13/16 12/13/16 Range/Units 12:42 12:42 12:42 WBC 12.3 H (3.8-10.6) k/uL RBC 5.30 (4.30-5.90) m/uL Hgb 15.2 (13.0-17.5) gm/dL Hct 44.9 (39.0-53.0) % MCV 84.6 (80.0-100.0) fL MCH 28.7 (25.0-35.0) pg MCHC 33.9 (31.0-37.0) g/dL RDW 13.3 (11.5-15.5) % Plt Count 258 (150-450) k/uL Neutrophils % 80 % Lymphocytes % 10 % Monocytes % 7 % Eosinophils % 2 % Basophils % 0 % Neutrophils # 9.8 H (1.3-7.7) k/uL Lymphocytes # 1.2 (1.0-4.8) k/uL Monocytes # 0.8 (0-1.0) k/uL Eosinophils # 0.2 (0-0.7) k/uL Basophils # 0.0 (0-0.2) k/uL Sodium 135 L (137-145) mmol/L Potassium 4.4 (3.5-5.1) mmol/L Chloride 100 (98-107) mmol/L Carbon Dioxide 23 (22-30) mmol/L Anion Gap 12 mmol/L BUN 23 H (9-20) mg/dL Creatinine 0.90 (0.66-1.25) mg/dL Est GFR (MDRD) Af Amer >60 (>60 ml/min/1.73 sqM) Est GFR (MDRD) Non-Af >60 (>60 ml/min/1.73 sqM) Glucose 242 H (74-99) mg/dL Plasma Lactic Acid [place] 2.1 H* (0.7-2.0) mmol/L Calcium 10.0 (8.4-10.2) mg/dL Total Bilirubin 0.7 (0.2-1.3) mg/dL AST 31 (17-59) U/L ALT 65 (21-72) U/L Alkaline Phosphatase 91 (38-126) U/L Total Protein 6.7 (6.3-8.2) g/dL Albumin 4.2 (3.5-5.0) g/dL Amylase 47 (30-110) U/L Lipase 93 (23-300) U/L Disposition Clinical Impression: Gastroenteritis Disposition: HOME SELF-CARE Condition: Stable Instructions: Acute Diarrhea (ED) Additional Instructions: Please return to the Emergency Department if symptoms worsen or any other concerns. Referrals: Anu Plata MD [Primary Care Provider] - 1-2 days Time of Disposition: 14:26
[2016-12-13 12:46] VITALS: PULSE 114; RESP 20
[2016-12-13 12:57] LABS: Basophils % (A) 0 %; CH 28.6; CHCM 33.9; Eosinophils # (A) 0.2 k/uL (0-0.7); Eosinophils % (A) 2 %; HCT 44.9 % (39.0-53.0); HDW 2.85; HGB 15.2 gm/dL (13.0-17.5); Luc # (Auto) 0.17; Luc % (Auto) 1; Lymphocytes # (A) 1.2 k/uL (1.0-4.8); Lymphocytes % (A) 10 %; MCH 28.7 pg (25.0-35.0); MCHC 33.9 g/dL (31.0-37.0); MCV 84.6 fL (80.0-100.0); Mean Platelet Volume 6.5; Monocytes # (A) 0.8 k/uL (0-1.0); Monocytes % (A) 7 %; Neutrophils # (A) 9.8 k/uL (1.3-7.7); Neutrophils % (A) 80 %; RDW 13.3 % (11.5-15.5); WBC 12.3 k/uL (3.8-10.6); WBC (Perox) 11.99
[2016-12-13 13:04] LABS: ALT 65 U/L (21-72); AST 31 U/L (17-59); Alkaline Phosphatase 91 U/L (38-126); Amylase 47 U/L (30-110); Anion Gap 12 mmol/L; Blood Urea Nitrogen 23 mg/dL (9-20); Carbon Dioxide 23 mmol/L (22-30); Chloride 100 mmol/L (98-107); Glucose 242 mg/dL (74-99); Non-African American GFR(MDRD) >60 (>60 ml/min/1.73 sqM); Potassium 4.4 mmol/L (3.5-5.1); Sodium 135 mmol/L (137-145); Total Bilirubin 0.7 mg/dL (0.2-1.3); Total Protein 6.7 g/dL (6.3-8.2)
[2016-12-13] MEDS ORDERED: RX INFO: IV CONTRAST WAS GIVEN 1 EACH MISC MISCELLANE PRN (13:33)
--- NOTE | 2016-12-13 13:40 | XR ---
Abdomen HISTORY: Abdominal pain and diarrhea Frontal view of the abdomen on 2 images a left as indicated. Exam is correlated to previous exam 2015 Lung bases are clear. Multiple air-fluid levels are present without bowel distention. No pneumoperito neum. Degenerative disc changes in the visualized spine. IMPRESSION: Correlate for enteritis, follow-up as indicated.
[2016-12-13 14:17] VITALS: BP 132/73; TEMP 97.4
--- NOTE | 2016-12-13 14:17 | CT ---
EXAMINATION TYPE: CT abdomen pelvis w con DATE OF EXAM: 12/13/2016 COMPARISON: NONE HISTORY: Generalized pain and diarrhea CT DLP: 1765 mGycm CONTRAST: CT scan of the abdomen and pelvis is performed without Oral Contrast and with IV Contrast, patient in jected with 100 mL of Omnipaque 300. FINDINGS: LUNG BASES-: No visible nodule. No infiltrate. LIVER/GB: There is fatty hepatic infiltration noted. No calcified gallstones. No space occupying he patic lesion. Biliary tree is of normal caliber. PANCREAS: No inflammation. No distinct mass. SPLEEN: No splenic enlargement. No lesion seen. ADRENALS: No nodule. No thickening. KIDNEYS/BLADDER: No hydronephrosis. No nephrolithiasis. No disctinct renal mass. Urinary bladder g rossly unremarkable. BOWEL: There is fluid filled small and large bowel compatible with the provided history of diarrhea. Correlate for gastroenteritis. Mild proximal small bowel wall thickening noted. Normal appendix. GENITAL ORGANS: No gross abnormality. LYMPH NODES: No greater than 1cm abdominal or pelvic lymph nodes are appreciated. AORTA: No significant abnormality. OSSEOUS STRUCTURES: No significant abnormality is seen. OTHER: No significant additional abnormality is seen. IMPRESSION: 1. There is fluid filled small and large bowel compatible with the provided history of diarrhea. Hugo elate for gastroenteritis. 2. Hepatic steatosis.
== END 2016-12-13 14:36 | disposition home or self-care (01) ==
LOC: EC 11:55
DX: K52.9 Noninfective gastroenteritis and colitis, unspecified (principal); R00.0 Tachycardia, unspecified; E78.5 Hyperlipidemia, unspecified; I10 Essential (primary) hypertension; J44.9 Chronic obstructive pulmonary disease, unspecified; E11.9 Type 2 diabetes mellitus without complications; K21.9 Gastro-esophageal reflux disease without esophagitis; N42.9 Disorder of prostate, unspecified; Z87.891 Personal history of nicotine dependence; Z79.4 Long term (current) use of insulin; Z79.51 Long term (current) use of inhaled steroids; Z79.84 Long term (current) use of oral hypoglycemic drugs; Z79.899 Other long term (current) drug therapy
CPT/HCPCS: 36415; 80053; 82150; 83605; 83690; 85025; 74000; 74177; 99284; 96374; 96375; 96361; J2270; J2765; Q9967

== ENCOUNTER 2017-03-06 17:24 | Emergency (ER) | payer MEDICARE, OTHER ==
[2017-03-06 17:35] VITALS: BP 144/76; PULSE 96; RESP 20; TEMP 98.5
[2017-03-06] MEDS ORDERED: DIPH,PERTUS(ACELL)TETVAC-LF 0.5 ML VIAL IM ONE (17:52)
--- NOTE | 2017-03-06 18:30 | ED ---
General Adult HPI - General Chief complaint: Wound/Laceration Stated complaint: L leg laceration Time Seen by Provider: 03/06/17 17:44 Source: patient Mode of arrival: wheelchair Limitations: no limitations - History of Present Illness Initial comments: This is a 61-year-old male who presents to the emergency department with chief complaint of left leg laceration. Patient states that approximately 1-1/2 hours prior to arrival he was carrying the garbage out when a piece of glass broke through the bag and cut the side of his leg. Patient states that there was moderate amount of bleeding. He states he is not up-to-date with his tetanus vaccination. Patient denies being in any pain at this time. Denies fever, chills, chest pain, shortness of breath, abdominal pain, nausea or vomiting, constipation or diarrhea, dysuria or hematuria, numbness or tingling, headache or vision changes. - Related Data Home Medications Medication Instructions Recorded Confirmed Montelukast [Singulair] 10 mg PO DAILY 09/25/13 03/06/17 Albuterol Sulfate [Ventolin HFA] 1 puff INHALATION RT-QID PRN 02/21/14 03/06/17 Fenofibrate [Lofibra] 160 mg PO DAILY 02/21/14 03/06/17 Lisinopril 10 mg PO DAILY 02/21/14 03/06/17 Insulin Detemir [Levemir] 95 unit SQ HS 04/18/15 03/06/17 Fluticasone/Salmeterol [Advair 1 puff INHALATION RT-BID 09/08/15 03/06/17 250-50 Diskus] Diphenox-Atrop 2.5-0.025 mg 1 tab PO Q6H PRN 10/20/15 03/06/17 [Lomotil] Doxazosin Mesylate [Cardura] 16 mg PO HS 10/20/15 03/06/17 Atorvastatin [Lipitor] 80 mg PO HS 09/24/16 03/06/17 Cetirizine HCl [Zyrtec] 10 - 20 mg PO HS PRN 09/24/16 03/06/17 Desvenlafaxine [Pristiq ER] 100 mg PO DAILY 09/24/16 03/06/17 Omeprazole [PriLOSEC] 20 mg PO AC-BID 09/24/16 03/06/17 clonazePAM [KlonoPIN] 1 mg PO BID PRN 09/24/16 03/06/17 sitaGLIPtin PHOS/metFORMIN HCL 2 tab PO HS 09/24/16 03/06/17 [Janumet Xr 50-1,000 mg Tablet] Allergies Allergy/AdvReac Type Severity Reaction Status Date / Time No Known Allergies Allergy Verified 03/06/17 17:35 Review of Systems ROS Statement: Those systems with pertinent positive or pertinent negative responses have been documented in the HPI. ROS Other: All systems not noted in ROS Statement are negative. Past Medical History Past Medical History: Asthma, COPD, Diabetes Mellitus, GERD/Reflux, Hyperlipidemia, Hypertension, Osteoarthritis (OA), Prostate Disorder, Skin Disorder Additional Past Medical History / Comment(s): diarrhea, sores on arms, DDD History of Any Multi-Drug Resistant Organisms: None Reported Past Surgical History: Hernia Repair, Orthopedic Surgery, Tonsillectomy Additional Past Surgical History / Comment(s): right chest wall cyst removed, nerve surgery left elbow Past Anesthesia/Blood Transfusion Reactions: No Reported Reaction Past Psychological History: No Psychological Hx Reported Smoking Status: Former smoker Past Alcohol Use History: None Reported Past Drug Use History: None Reported - Past Family History Father Family Medical History: Myocardial Infarction ([place]) Mother Family Medical History: No Reported History General Exam - General Exam Comments Initial Comments: General: Awake and alert, well-developed; in no apparent distress. HEENT: Head atraumatic, normocephalic. Pupils are equal, round and reactive to light. Extraocular movements intact. Neck: Supple. Normal ROM. Cardiovascular: Regular rate and rhythm. No murmurs, rubs or gallops. Chest symmetrical. Respiratory: Lungs clear to auscultation bilaterally. No wheezes, rales or rhonchi. Normal respiratory effort with no use of accessory muscles. Skin/Musculoskeletal: There is an approximately 4 cm linear laceration at lateral aspect of mid left lower extremity. Strength 5/5. Sensation is intact. Pulses 2+ equal palpable bilaterally. Neurological: Alert and oriented x3. CN II-XII grossly intact. Speech is fluent and answers are appropriate. No focal neuro deficits. Psychiatric: Normal mood and affect. No overt signs of depression or anxiety noted. Limitations: no limitations Course Vital Signs 03/06/17 17:32 Temperature 98.5 F Pulse Rate 96 Respiratory 20 Rate Blood Pressure 144/76 O2 Sat by Pulse 97 Oximetry Procedures - Laceration Laceration #1 Consent Obtained: verbal consent Indication: laceration Site: lower extremity (lateral aspect of left lower extremity distal to knee ) Size (cm): 4 Description: linear Depth: simple, single layer Anesthetic Used: lidocaine 1% Anesthesia Technique: local infiltration Amount (mls): 6 Pre-repair: wound explored, irrigated extensively, deep structures intact Type of Sutures: nylon Size of Sutures: 4-0 Number of Sutures: 6 Technique: simple, interrupted Patient Tolerated Procedure: well, no complications Medical Decision Making - Medical Decision Making This is a 61-year-old male who presents to emergency department with complaint of left leg laceration. Patient received 6 sutures and tolerated the procedure well. He also received tetanus vaccination. Patient will be discharged home. He was advised to have sutures removed in 10-14 days either here at the ED or with his primary care provider. Patient voices understanding and all questions were answered. Disposition Clinical Impression: Laceration of left lower extremity Disposition: HOME SELF-CARE Condition: Good Instructions: Care For Your Stitches (ED), Laceration (ED) Additional Instructions: Please have sutures removed in 10-14 days either here at the ED or with your primary care provider. Please follow up with primary care provider within 1-2 days. Return to emergency department if symptoms should worsen or any concerns arise. Referrals: Anu Plata MD [Primary Care Provider] - 1-2 days Time of Disposition: 18:37
== END 2017-03-06 18:44 | disposition home or self-care (01) ==
LOC: EC 17:24
DX: S81.812A Laceration without foreign body, left lower leg, initial encounter (principal); E11.9 Type 2 diabetes mellitus without complications; K21.9 Gastro-esophageal reflux disease without esophagitis; E78.5 Hyperlipidemia, unspecified; I10 Essential (primary) hypertension; Z87.891 Personal history of nicotine dependence; Z23 Encounter for immunization; Z79.4 Long term (current) use of insulin; Z79.51 Long term (current) use of inhaled steroids; Z79.84 Long term (current) use of oral hypoglycemic drugs; Z79.899 Other long term (current) drug therapy; W25.XXXA Contact with sharp glass, initial encounter; Y93.89 Activity, other specified
CPT/HCPCS: 12002; 90471; 90715; 99282

== ENCOUNTER 2017-12-10 20:47 | Inpatient (IN) | payer MEDICARE, OTHER ==
[2017-12-10] MEDS ORDERED: ACETAMINOPHEN TAB 500 MG TAB PO STA (20:56)
[2017-12-10] MEDS ORDERED: cefTRIAXone IN SWFI 1,000 MG/10 ML SYRINGE IVP STA (20:56)
[2017-12-10 20:57] LABS: Glucose,Whole Blood 131 mg/dL (75-99)
[2017-12-10] MEDS: SODIUM CHLORIDE 0.9% 500 ML IV SCH ×3 (21:04→21:48)
[2017-12-10 21:24] LABS: Basophils % (A) 0 %; Eosinophils # (A) 0.2 k/uL (0-0.7); Eosinophils % (A) 1 %; HGB 12.7 gm/dL (13.0-17.5); Lymphocytes % (A) 7 %; MCH 28.2 pg (25.0-35.0); MCHC 33.6 g/dL (31.0-37.0); MCV 84.1 fL (80.0-100.0); Mean Platelet Volume 6.5; Monocytes # (A) 0.7 k/uL (0-1.0); Monocytes % (A) 5 %; Neutrophils # (A) 12.2 k/uL (1.3-7.7); Neutrophils % (A) 86 %; Platelet Count 220 k/uL (150-450); RBC 4.51 m/uL (4.30-5.90); RDW 13.6 % (11.5-15.5); WBC 14.3 k/uL (3.8-10.6)
[2017-12-10 21:26] LABS: Appearance,Urine Cloudy (Clear); Bacteria,Urine Moderate /hpf; Bilirubin,Urine Negative (Negative); Blood,Urine Moderate (Negative); Color,Urine Yellow; Glucose,Urine (UA) Trace (Negative); Ketones,Urine Negative (Negative); Leukocyte Esterase,Urine Large (Negative); Mucus,Urine Rare /hpf; Nitrite,Urine Negative (Negative); PH, Urine 5.5 (5.0-8.0); Protein,Urine Trace (Negative); RBC,Urine 17 /hpf (0-5); Specific Gravity,Urine 1.017 (1.001-1.035); Squamous Epithelial Cell,Urine <1 /hpf (0-4); Urobilinogen,Urine <2.0 mg/dL (<2.0); WBC,Urine 131 /hpf (0-5)
[2017-12-10 21:31] LABS: ALT 34 U/L (21-72); AST 32 U/L (17-59); Albumin 3.8 g/dL (3.5-5.0); Alkaline Phosphatase 80 U/L (38-126); Anion Gap 10 mmol/L; Blood Urea Nitrogen 19 mg/dL (9-20); Calcium 9.2 mg/dL (8.4-10.2); Carbon Dioxide 21 mmol/L (22-30); Chloride 105 mmol/L (98-107); Glucose 134 mg/dL (74-99); Sodium 136 mmol/L (137-145); Total Bilirubin 0.7 mg/dL (0.2-1.3); Total Protein 6.3 g/dL (6.3-8.2)
[2017-12-10 21:35] LABS: INR 1.1 (<1.2)
[2017-12-10 21:36] LABS: Partial Thromboplastin Time 22.5 sec (22.0-30.0); Prothrombin Time 10.4 sec (9.0-12.0)
[2017-12-10 21:42] LABS: Creatine Kinase 414 U/L (55-170)
[2017-12-10 21:54] LABS: Troponin I <0.012 ng/mL (0.000-0.034)
--- NOTE | 2017-12-10 21:54 | ED ---
General Adult HPI - General Chief complaint: Weakness Stated complaint: WEAKNESS Time Seen by Provider: 12/10/17 20:53 Source: patient, EMS Mode of arrival: EMS Limitations: no limitations - History of Present Illness Initial comments: Yobani Leblanc is a 62-year-old male who presents to the emergency department today for evaluation of dysuria for a number of days and development of generalized fatigue, fever and chills. Patient reports that he has had difficulty with urination for some period of time, he has been told this is due to his enlarged prostate. However over the past 10 days he's been experiencing urinary frequency, hesitancy and dysuria. He reports that he strains to urinate makes only a little bit of urine, he states that when he does make urine he has discomfort. He reports that over the past couple of days he's been having fevers, chills, generalized weakness. Today he felt like he couldn't get off of the couch. He didn't feel much like eating he felt nauseated throughout the day. He was encouraged to call 911 his family. Patient denies any chest pain, shortness breath, abdominal pain, vomiting. He does report decreased appetite decreased by mouth intake but has been having diarrhea. EMS reports that they found the patient resting at home, he was noted to be febrile to 102F, tachycardic in the 130s, normal blood pressure. They established IV access and gave her 1 L fluid bolus in route to the hospital. - Related Data Home Medications Medication Instructions Recorded Confirmed Montelukast [Singulair] 10 mg PO DAILY 09/25/13 03/06/17 Albuterol Sulfate [Ventolin HFA] 1 puff INHALATION RT-QID PRN 02/21/14 03/06/17 Fenofibrate [Lofibra] 160 mg PO DAILY 02/21/14 03/06/17 Lisinopril 10 mg PO DAILY 02/21/14 03/06/17 Insulin Detemir [Levemir] 95 unit SQ HS 04/18/15 03/06/17 Fluticasone/Salmeterol [Advair 1 puff INHALATION RT-BID 09/08/15 03/06/17 250-50 Diskus] Diphenox-Atrop 2.5-0.025 mg 1 tab PO Q6H PRN 10/20/15 03/06/17 [Lomotil] Doxazosin Mesylate [Cardura] 16 mg PO HS 10/20/15 03/06/17 Atorvastatin [Lipitor] 80 mg PO HS 09/24/16 03/06/17 Cetirizine HCl [Zyrtec] 10 - 20 mg PO HS PRN 09/24/16 03/06/17 Desvenlafaxine [Pristiq ER] 100 mg PO DAILY 09/24/16 03/06/17 Omeprazole [PriLOSEC] 20 mg PO AC-BID 09/24/16 03/06/17 clonazePAM [KlonoPIN] 1 mg PO BID PRN 09/24/16 03/06/17 sitaGLIPtin PHOS/metFORMIN HCL 2 tab PO HS 09/24/16 03/06/17 [Janumet Xr 50-1,000 mg Tablet] Allergies Allergy/AdvReac Type Severity Reaction Status Date / Time No Known Allergies Allergy Verified 06/25/17 15:30 Review of Systems ROS Statement: Those systems with pertinent positive or pertinent negative responses have been documented in the HPI. ROS Other: All systems not noted in ROS Statement are negative. Constitutional: Reports: fever, chills, weakness ENT: Denies: throat pain Respiratory: Denies: cough, dyspnea Cardiovascular: Reports: palpitations. Denies: chest pain Endocrine: Reports: fatigue Gastrointestinal: Reports: nausea. Denies: abdominal pain, vomiting Genitourinary: Reports: urgency, dysuria, frequency, hematuria. Denies: discharge Musculoskeletal: Denies: back pain Skin: Denies: rash, lesions Neurological: Reports: weakness. Denies: headache Psychiatric: Denies: anxiety, depression Hematological/Lymphatic: Denies: easy bleeding, easy bruising Past Medical History Past Medical History: Asthma, COPD, Diabetes Mellitus, GERD/Reflux, Hyperlipidemia, Hypertension, Osteoarthritis (OA), Prostate Disorder, Skin Disorder Additional Past Medical History / Comment(s): diarrhea, sores on arms, DDD History of Any Multi-Drug Resistant Organisms: None Reported Past Surgical History: Hernia Repair, Orthopedic Surgery, Tonsillectomy Additional Past Surgical History / Comment(s): right chest wall cyst removed, nerve surgery left elbow Past Anesthesia/Blood Transfusion Reactions: No Reported Reaction Past Psychological History: No Psychological Hx Reported Smoking Status: Former smoker Past Alcohol Use History: None Reported Past Drug Use History: None Reported - Past Family History Father Family Medical History: Myocardial Infarction (MD) Mother Family Medical History: No Reported History General Exam Limitations: no limitations General appearance: alert, other (Ill-appearing) Head exam: Present: atraumatic, normocephalic Eye exam: Present: normal appearance, PERRL ENT exam: Present: mucous membranes dry Neck exam: Present: normal inspection Respiratory exam: Absent: respiratory distress Cardiovascular Exam: Present: regular rate, tachycardia GI/Abdominal exam: Present: soft, distended, tenderness (Tenderness to palpation in the suprapubic region) Rectal exam: Present: deferred Extremities exam: Present: normal inspection Neurological exam: Present: alert, oriented X3 Psychiatric exam: Present: normal affect, normal mood Skin exam: Present: warm (Patient is hot to the touch), dry Course Vital Signs 12/10/17 12/10/17 12/10/17 20:49 21:53 22:00 Temperature 103.1 F H 101.4 F H Pulse Rate 125 H 117 H 116 H Respiratory 18 18 18 Rate Blood Pressure 149/105 114/56 131/61 O2 Sat by Pulse 97 94 L 97 Oximetry 12/10/17 23:15 Temperature 98.6 F Pulse Rate 120 H Respiratory 16 Rate Blood Pressure 145/66 O2 Sat by Pulse 96 Oximetry EKG Findings - EKG Comments: EKG Findings:: EKG at 2052, rate is 125, rhythm is sinus tach. There is noted be a PVC. There is no acute ST elevations or depressions. No evidence of acute ischemia or infarction. Medical Decision Making - Medical Decision Making Patient was seen and evaluated, history was obtained from the patient and EMS Patient with lower urinary tract symptoms and vital signs consistent with Sirs criteria Sepsis workup was ordered Rocephin was ordered empirically for treatment of urinary tract infection Labs reveal leukocytosis Urinalysis this reveals a urinary tract infection, culture was ordered Post void residual was 140 no indication for Correa catheter at this time Patient's heart rate improving after IV fluids, fever has improved from 103-101 patient reports he is more comfortable. This time I do feel the patient requires admission of the hospital for treatment of sepsis secondary to urinary tract infection. Patient is agreeable to this. Patient care was discussed with Dr. Prasad who accepts the admission for sepsis secondary to urinary tract infection - Lab Data Result diagrams: 12/10/17 21:07 12/10/17 21:07 Lab Results 12/10/17 12/10/17 12/10/17 Range/Units 20:55 21:07 21:07 WBC 14.3 H (3.8-10.6) k/uL RBC 4.51 (4.30-5.90) m/uL Hgb 12.7 L (13.0-17.5) gm/dL Hct 38.0 L (39.0-53.0) % MCV 84.1 (80.0-100.0) fL MCH 28.2 (25.0-35.0) pg MCHC 33.6 (31.0-37.0) g/dL RDW 13.6 (11.5-15.5) % Plt Count 220 (150-450) k/uL Neutrophils % 86 % Lymphocytes % 7 % Monocytes % 5 % Eosinophils % 1 % Basophils % 0 % Neutrophils # 12.2 H (1.3-7.7) k/uL Lymphocytes # 1.0 (1.0-4.8) k/uL Monocytes # 0.7 (0-1.0) k/uL Eosinophils # 0.2 (0-0.7) k/uL Basophils # 0.0 (0-0.2) k/uL PT (9.0-12.0) sec INR (<1.2) APTT (22.0-30.0) sec Sodium (137-145) mmol/L Potassium (3.5-5.1) mmol/L Chloride (98-107) mmol/L Carbon Dioxide (22-30) mmol/L Anion Gap mmol/L BUN (9-20) mg/dL Creatinine (0.66-1.25) mg/dL Est GFR (CKD-EPI)AfAm (>60 ml/min/1.73 sqM) Est GFR (CKD-EPI)NonAf (>60 ml/min/1.73 sqM) Glucose (74-99) mg/dL POC Glucose (mg/dL) 131 H (75-99) mg/dL POC Glu Manager Study ID Jaden Murphy Plasma Lactic Acid Brooks (0.7-2.0) mmol/L Calcium (8.4-10.2) mg/dL Total Bilirubin (0.2-1.3) mg/dL AST (17-59) U/L ALT (21-72) U/L Alkaline Phosphatase (38-126) U/L Total Creatine Kinase 414 H (55-170) U/L CK-MB (CK-2) 2.5 H* (0.0-2.4) ng/mL CK-MB (CK-2) Rel Index 0.6 Troponin I <0.012 (0.000-0.034) ng/mL Total Protein (6.3-8.2) g/dL Albumin (3.5-5.0) g/dL Urine Color Urine Appearance (Clear) Urine pH (5.0-8.0) Ur Specific [place] (1.001-1.035) Urine Protein (Negative) Urine Glucose (UA) (Negative) Urine Ketones (Negative) Urine Blood (Negative) Urine Nitrite (Negative) Urine Bilirubin (Negative) Urine Urobilinogen (<2.0) mg/dL Ur Leukocyte Esterase (Negative) Urine RBC (0-5) /hpf Urine WBC (0-5) /hpf Ur Squamous Epith Cells (0-4) /hpf Urine Bacteria (None) /hpf Urine Mucus (None) /hpf 12/10/17 12/10/17 12/10/17 Range/Units 21:07 21:07 21:07 WBC (3.8-10.6) k/uL RBC (4.30-5.90) m/uL Hgb (13.0-17.5) gm/dL Hct (39.0-53.0) % MCV (80.0-100.0) fL MCH (25.0-35.0) pg MCHC (31.0-37.0) g/dL RDW (11.5-15.5) % Plt Count (150-450) k/uL Neutrophils % % Lymphocytes % % Monocytes % % Eosinophils % % Basophils % % Neutrophils # (1.3-7.7) k/uL Lymphocytes # (1.0-4.8) k/uL Monocytes # (0-1.0) k/uL Eosinophils # (0-0.7) k/uL Basophils # (0-0.2) k/uL PT 10.4 (9.0-12.0) sec INR 1.1 (<1.2) APTT 22.5 (22.0-30.0) sec Sodium 136 L (137-145) mmol/L Potassium 4.0 (3.5-5.1) mmol/L Chloride 105 (98-107) mmol/L Carbon Dioxide 21 L (22-30) mmol/L Anion Gap 10 mmol/L BUN 19 (9-20) mg/dL Creatinine 0.90 (0.66-1.25) mg/dL Est GFR (CKD-EPI)AfAm >90 (>60 ml/min/1.73 sqM) Est GFR (CKD-EPI)NonAf 90 (>60 ml/min/1.73 sqM) Glucose 134 H (74-99) mg/dL POC Glucose (mg/dL) (75-99) mg/dL POC Glu Manager Study ID Plasma Lactic Acid [place] 1.2 (0.7-2.0) mmol/L Calcium 9.2 (8.4-10.2) mg/dL Total Bilirubin 0.7 (0.2-1.3) mg/dL AST 32 (17-59) U/L ALT 34 (21-72) U/L Alkaline Phosphatase 80 (38-126) U/L Total Creatine Kinase (55-170) U/L CK-MB (CK-2) (0.0-2.4) ng/mL CK-MB (CK-2) Rel Index Troponin I (0.000-0.034) ng/mL Total Protein 6.3 (6.3-8.2) g/dL Albumin 3.8 (3.5-5.0) g/dL Urine Color Urine Appearance (Clear) Urine pH (5.0-8.0) Ur Specific [place] (1.001-1.035) Urine Protein (Negative) Urine Glucose (UA) (Negative) Urine Ketones (Negative) Urine Blood (Negative) Urine Nitrite (Negative) Urine Bilirubin (Negative) Urine Urobilinogen (<2.0) mg/dL Ur Leukocyte Esterase (Negative) Urine RBC (0-5) /hpf Urine WBC (0-5) /hpf Ur Squamous Epith Cells (0-4) /hpf Urine Bacteria (None) /hpf Urine Mucus (None) /hpf 12/10/17 Range/Units 21:10 WBC (3.8-10.6) k/uL RBC (4.30-5.90) m/uL Hgb (13.0-17.5) gm/dL Hct (39.0-53.0) % MCV (80.0-100.0) fL MCH (25.0-35.0) pg MCHC (31.0-37.0) g/dL RDW (11.5-15.5) % Plt Count (150-450) k/uL Neutrophils % % Lymphocytes % % Monocytes % % Eosinophils % % Basophils % % Neutrophils # (1.3-7.7) k/uL Lymphocytes # (1.0-4.8) k/uL Monocytes # (0-1.0) k/uL Eosinophils # (0-0.7) k/uL Basophils # (0-0.2) k/uL PT (9.0-12.0) sec INR (<1.2) APTT (22.0-30.0) sec Sodium (137-145) mmol/L Potassium (3.5-5.1) mmol/L Chloride (98-107) mmol/L Carbon Dioxide (22-30) mmol/L Anion Gap mmol/L BUN (9-20) mg/dL Creatinine (0.66-1.25) mg/dL Est GFR (CKD-EPI)AfAm (>60 ml/min/1.73 sqM) Est GFR (CKD-EPI)NonAf (>60 ml/min/1.73 sqM) Glucose (74-99) mg/dL POC Glucose (mg/dL) (75-99) mg/dL POC Glu Manager Study ID Plasma Lactic Acid [place] (0.7-2.0) mmol/L Calcium (8.4-10.2) mg/dL Total Bilirubin (0.2-1.3) mg/dL AST (17-59) U/L ALT (21-72) U/L Alkaline Phosphatase (38-126) U/L Total Creatine Kinase (55-170) U/L CK-MB (CK-2) (0.0-2.4) ng/mL CK-MB (CK-2) Rel Index Troponin I (0.000-0.034) ng/mL Total Protein (6.3-8.2) g/dL Albumin (3.5-5.0) g/dL Urine Color Yellow Urine Appearance Cloudy (Clear) Urine pH 5.5 (5.0-8.0) Ur Specific [place] 1.017 (1.001-1.035) Urine Protein Trace H (Negative) Urine Glucose (UA) Trace H (Negative) Urine Ketones Negative (Negative) Urine Blood Moderate H (Negative) Urine Nitrite Negative (Negative) Urine Bilirubin Negative (Negative) Urine Urobilinogen <2.0 (<2.0) mg/dL Ur Leukocyte Esterase Large H (Negative) Urine RBC 17 H (0-5) /hpf Urine WBC 131 H (0-5) /hpf Ur Squamous Epith Cells <1 (0-4) /hpf Urine Bacteria Moderate H (None) /hpf Urine Mucus Rare H (None) /hpf Disposition Clinical Impression: Sepsis, UTI (urinary tract infection) Disposition: ADMITTED IP TO THIS HOSP Referrals: Anu Plata MD [Primary Care Provider] - 1-2 days Decision Time: 23:39
[2017-12-10 22:03] LABS: Creatine Kinase MB 2.5 ng/mL (0.0-2.4)
--- NOTE | 2017-12-10 22:33 | XR ---
EXAMINATION TYPE: XR chest 2V DATE OF EXAM: 12/10/2017 COMPARISON: 10/25/2016 HISTORY: Cough TECHNIQUE: Frontal and lateral views of the chest are obtained. FINDINGS: Heart and mediastinum are normal. There is some linear density at the left lung base. The other lung rizo are clear. There is no pleural effusion. There are chest leads. Bony thorax is inta ct. IMPRESSION: There is subsegmental atelectasis in the left lower lobe that is increased slightly comp ared to last exam. Normal heart.
[2017-12-10] MEDS ORDERED: NALOXONE 0.4 MG/ML 1 ML VIAL IV PRN (23:37)
[2017-12-11] MEDS: SODIUM CHLORIDE 0.9% 1,000 ML IV SCH ×7 (00:31→21:34)
[2017-12-11] MEDS: SODIUM CHLORIDE 0.9% 500 ML IV SCH (00:31)
[2017-12-11 01:10] VITALS: BMI 37.6
[2017-12-11] MEDS: ACETAMINOPHEN TAB 325 MG TAB PO PRN ×4 (04:32→22:56)
[2017-12-11 06:01] LABS: Glucose,Whole Blood 55 mg/dL (75-99)
[2017-12-11 06:23] LABS: Glucose,Whole Blood 71 mg/dL (75-99)
[2017-12-11 06:43] LABS: Basophils % (A) 0 %; Eosinophils % (A) 0 %; HCT 35.5 % (39.0-53.0); HGB 11.7 gm/dL (13.0-17.5); Lymphocytes # (A) 1.2 k/uL (1.0-4.8); Lymphocytes % (A) 8 %; MCH 27.8 pg (25.0-35.0); MCV 84.3 fL (80.0-100.0); Mean Platelet Volume 6.6; Monocytes # (A) 1.1 k/uL (0-1.0); Monocytes % (A) 8 %; Neutrophils # (A) 11.9 k/uL (1.3-7.7); Neutrophils % (A) 83 %; Platelet Count 212 k/uL (150-450); RDW 13.7 % (11.5-15.5); WBC 14.4 k/uL (3.8-10.6)
[2017-12-11 06:56] LABS: Anion Gap 8 mmol/L; Blood Urea Nitrogen 15 mg/dL (9-20); Calcium 8.4 mg/dL (8.4-10.2); Carbon Dioxide 23 mmol/L (22-30); Chloride 110 mmol/L (98-107); Potassium 3.3 mmol/L (3.5-5.1); Sodium 141 mmol/L (137-145)
[2017-12-11 07:20] LABS: Glucose 46 mg/dL (74-99)
[2017-12-11] MEDS: LISINOPRIL 10 MG TAB PO SCH (08:43)
[2017-12-11] MEDS: FENOFIBRATE 160 MG TAB PO SCH (08:43)
[2017-12-11] MEDS ORDERED: LORATADINE 10 MG TAB PO PRN (09:02)
[2017-12-11] MEDS ORDERED: Potassium Replacement Protocol 1 EACH MISC MISCELLANE PRN (09:04)
[2017-12-11] MEDS: clonazePAM 1 MG TAB PO PRN ×2 (09:23→22:33)
[2017-12-11] MEDS: POTASSIUM CHLORIDE ER 20 MEQ TAB.ER PO SCH ×2 (09:23→10:00)
--- NOTE | 2017-12-11 11:04 | P.HPIM ---
History of Present Illness H&P Date: 12/11/17 This is a 62-year-old male patient of Dr. Plata. Patient states that for the past week he has not been feeling well with symptoms of fatigue, poor appetite , fever and chills. Patient also states he has been experiencing urinary frequency, hesitancy and dysuria. Also states he had couple episodes of diarrhea but has not had any in the past few days. Patient has a known past medical history of asthma, COPD, diabetes mellitus, GERD, hyperlipidemia, hypertension, osteoarthritis, prostate disorder and sick. Chest x-ray completed emergency room showing segmental atelectasis in the left lower lobe that has increased slightly compared to last exam. Normal heart. Patient does complain that he's had a non-productive cough for the past month. EKG completed showing sinus tachycardia with occasional premature ventricular complexes and fusion complexes. Urinary analysis completed showing large amount of leukocyte Estrace, WBCs and bacteria. Urine and blood cultures have been ordered. Patient was given 2 L of normal saline bolus and IV antibiotic Rocephin. Patient is having temperatures as high as 102.3. White blood cell 14.4. Plasma lactic acid 1.2. Blood glucose 46 this morning, has been Corrected per nursing staff. Patient does tresiba insulin and Junament. Home diabetes medications currently on hold sliding scale insulin has been ordered. Patient denies chest pain or shortness breath at this time. Does state urinary frequency has improved. Currently denies nausea vomiting or diarrhea. Patient does report that he still having episodes of chills and muscle aches. Review of Systems Please refer to HPI otherwise unremarkable Past Medical History Past Medical History: Asthma, COPD, Diabetes Mellitus, GERD/Reflux, Hyperlipidemia, Hypertension, Osteoarthritis (OA), Prostate Disorder, Skin Disorder Additional Past Medical History / Comment(s): diarrhea, sores on arms, DDD History of Any Multi-Drug Resistant Organisms: None Reported Past Surgical History: Hernia Repair, Orthopedic Surgery, Tonsillectomy Additional Past Surgical History / Comment(s): right chest wall cyst removed, nerve surgery left elbow Past Anesthesia/Blood Transfusion Reactions: No Reported Reaction Past Psychological History: No Psychological Hx Reported Smoking Status: Former smoker Past Alcohol Use History: None Reported Additional Past Alcohol Use History / Comment(s): quit smoking 25 yrs ago, smoked for 17 yrs- 2 PPD Past Drug Use History: None Reported - Past Family History Father Family Medical History: Myocardial Infarction (CT) Mother Family Medical History: No Reported History Medications and Allergies Home Medications Medication Instructions Recorded Confirmed Type Montelukast [Singulair] 10 mg PO DAILY 09/25/13 12/11/17 History Albuterol Sulfate [Ventolin HFA] 1 puff INHALATION RT-QID PRN 02/21/14 12/11/17 History Fenofibrate [Lofibra] 160 mg PO DAILY 02/21/14 12/11/17 History Lisinopril 10 mg PO DAILY 02/21/14 12/11/17 History Fluticasone/Salmeterol [Advair 1 puff INHALATION RT-BID 09/08/15 12/11/17 History 250-50 Diskus] Doxazosin Mesylate [Cardura] 16 mg PO HS 10/20/15 12/11/17 History Atorvastatin [Lipitor] 80 mg PO HS 09/24/16 12/11/17 History Cetirizine HCl [Zyrtec] 10 - 20 mg PO HS PRN 09/24/16 12/11/17 History Desvenlafaxine [Pristiq ER] 100 mg PO DAILY 09/24/16 12/11/17 History clonazePAM [KlonoPIN] 1 mg PO BID PRN 09/24/16 12/11/17 History sitaGLIPtin PHOS/metFORMIN HCL 2 tab PO HS 09/24/16 12/11/17 History [Janumet Xr 50-1,000 mg Tablet] Insulin Degludec [Tresiba 100 unit SQ DAILY 12/11/17 12/11/17 History Flextouch U-100] Allergies Allergy/AdvReac Type Severity Reaction Status Date / Time No Known Allergies Allergy Verified 06/25/17 15:30 Physical Exam Vitals: Vital Signs Temp Pulse Pulse Resp BP BP BP 12/11/17 05:41 98.5 F 12/11/17 04:00 102.3 F H 118 H 18 137/65 12/11/17 01:00 99.7 F H 122 H 17 144/67 12/11/17 00:57 99.7 F H 122 H 17 144/68 12/11/17 00:00 99.3 F 116 H 18 132/61 12/10/17 23:15 98.6 F 120 H 16 145/66 12/10/17 22:00 116 H 18 131/61 12/10/17 21:53 101.4 F H 117 H 18 114/56 12/10/17 20:49 103.1 F H 125 H 18 149/105 Pulse Ox 12/11/17 05:41 12/11/17 04:00 96 12/11/17 01:00 97 12/11/17 00:57 97 12/11/17 00:00 96 12/10/17 23:15 96 12/10/17 22:00 97 12/10/17 21:53 94 L 12/10/17 20:49 97 Intake and Output 12/10/17 12/11/17 12/11/17 22:59 06:59 14:59 Intake Total 625 240 Output Total 140 1200 Balance -140 -575 240 Intake: Intake, IV Titration 625 Amount Sodium Chloride 0.9% 1, 625 000 ml @ 125 mls/hr IV . Q8H JAYNE Rx#:[id number] Oral 240 Output: Urine 1200 Post Void Residual 140 Other: # Voids 1 Weight 127.006 kg 133 kg Head normocephalic Neck supple Lungs clear to auscultation bilaterally no wheezing or crackles Heart sinus tachycardia and rhythm S1-S2, no rub or gallop Abdomen is soft nontender nondistended positive bowel sounds no hepatosplenomegaly Extremities no edema Neuro alert and orientated to 3 Results CBC & Chem 7: 12/11/17 06:03 12/11/17 06:03 Labs: Abnormal Lab Results - Last 24 Hours (Table) 12/10/17 12/10/17 12/10/17 Range/Units 20:55 21:07 21:07 WBC 14.3 H (3.8-10.6) k/uL RBC (4.30-5.90) m/uL Hgb 12.7 L (13.0-17.5) gm/dL Hct 38.0 L (39.0-53.0) % Neutrophils # 12.2 H (1.3-7.7) k/uL Monocytes # (0-1.0) k/uL Sodium (137-145) mmol/L Potassium (3.5-5.1) mmol/L Chloride (98-107) mmol/L Carbon Dioxide (22-30) mmol/L Glucose (74-99) mg/dL POC Glucose (mg/dL) 131 H (75-99) mg/dL Total Creatine Kinase 414 H (55-170) U/L CK-MB (CK-2) 2.5 H* (0.0-2.4) ng/mL Urine Protein (Negative) Urine Glucose (UA) (Negative) Urine Blood (Negative) Ur Leukocyte Esterase (Negative) Urine RBC (0-5) /hpf Urine WBC (0-5) /hpf Urine Bacteria (None) /hpf Urine Mucus (None) /hpf 12/10/17 12/10/17 12/11/17 Range/Units 21:07 21:10 06:01 WBC (3.8-10.6) k/uL RBC (4.30-5.90) m/uL Hgb (13.0-17.5) gm/dL Hct (39.0-53.0) % Neutrophils # (1.3-7.7) k/uL Monocytes # (0-1.0) k/uL Sodium 136 L (137-145) mmol/L Potassium (3.5-5.1) mmol/L Chloride (98-107) mmol/L Carbon Dioxide 21 L (22-30) mmol/L Glucose 134 H (74-99) mg/dL POC Glucose (mg/dL) 55 L (75-99) mg/dL Total Creatine Kinase (55-170) U/L CK-MB (CK-2) (0.0-2.4) ng/mL Urine Protein Trace H (Negative) Urine Glucose (UA) Trace H (Negative) Urine Blood Moderate H (Negative) Ur Leukocyte Esterase Large H (Negative) Urine RBC 17 H (0-5) /hpf Urine WBC 131 H (0-5) /hpf Urine Bacteria Moderate H (None) /hpf Urine Mucus Rare H (None) /hpf 12/11/17 12/11/17 12/11/17 Range/Units 06:03 06:03 06:22 WBC 14.4 H (3.8-10.6) k/uL RBC 4.20 L (4.30-5.90) m/uL Hgb 11.7 L (13.0-17.5) gm/dL Hct 35.5 L (39.0-53.0) % Neutrophils # 11.9 H (1.3-7.7) k/uL Monocytes # 1.1 H (0-1.0) k/uL Sodium (137-145) mmol/L Potassium 3.3 L (3.5-5.1) mmol/L Chloride 110 H (98-107) mmol/L Carbon Dioxide (22-30) mmol/L Glucose 46 L* (74-99) mg/dL POC Glucose (mg/dL) 71 L (75-99) mg/dL Total Creatine Kinase (55-170) U/L CK-MB (CK-2) (0.0-2.4) ng/mL Urine Protein (Negative) Urine Glucose (UA) (Negative) Urine Blood (Negative) Ur Leukocyte Esterase (Negative) Urine RBC (0-5) /hpf Urine WBC (0-5) /hpf Urine Bacteria (None) /hpf Urine Mucus (None) /hpf Thrombosis Risk Factor Assmnt - Choose All That Apply Any of the Below Risk Factors Present?: Yes Each Factor Represents 1 point: Obesity (BMI >25) Other Risk Factors: Yes Each Risk Factor Represents 2 Points: Age 61-74 years Thrombosis Risk Factor Assessment Total Risk Factor Score: 3 Thrombosis Risk Factor Assessment Level: Moderate Risk Assessment and Plan Assessment: 1. Sepsis related to Urinary tract infection. Patient remains febrile having temps as high as 102.3. White blood cell 14.4. Patient received 2L bolus and rocephin antibiotic. Lactic acid 1.2. Urinary analysis showing large amount of leukocyte Estrace along with moderate amount of bacteria and high amounts of WBCs. Urine along with blood cultures have been ordered. Normal saline remains at 125. Rocephen 1G q12hrs has been Ordered. Along with repeat Lactic Acid. Dr. Navarrete per Infectious disease has been consulted. 2. Tachycardia. EKG completed showing sinus tachycardia with occasional premature ventricular complexes and fusion complexes. Does have a temperature as high as 102.3, has been treated with Tylenol. Home Medications of [place] and lisinopril have been reordered. Troponin negative 3. Chronic non productive cough. Patient does have a significant history for asthma and COPD. Chest x-ray completed emergency room showing segmental atelectasis in the left lower lobe that is increased slightly compared to last exam normal heart. Patient's home albuterol breathing treatments along with Singulair and Symbicort have been reordered. 4. Hypoglycemia. Blood sugar this a.m. 46. Patient does report that he has had episodes of diarrhea throughout the week. Home medications of Tresiba and Junamet on hold. Sliding scale insulin coverage ordered. We'll continue to monitor closely. 5. Hypokalemia. Potassium 3.3. Replacement per protocol has been ordered. 6. History of diabetes mellitus. Home medications currently on hold due to hypoglycemia. Sliding scale coverage has been ordered 7. History of hyperlipidemia. Medications Fenofibrate and Liptor have been reordered 8. History of hypertension. Home medications of Cardura and lisinopril has been reordered 9. History of prostate disorder. DVT prophylaxis Lovenox. GI prophylaxis Pepcid Time with Patient: Greater than 30 (Greater than 60% of the total time spent in counseling and coordination of care. He stated)
[2017-12-11 11:10] LABS: Glucose,Whole Blood 67 mg/dL (75-99)
[2017-12-11] MEDS: INSULIN ASPART 100 UNIT/ML 1 ML 10 ML VIAL SQ SCH ×3 (11:15→21:34)
[2017-12-11 11:26] LABS: Glucose,Whole Blood 94 mg/dL (75-99)
[2017-12-11 12:09] LABS: Hemoglobin A1C 6.5 % (4.0-6.0)
--- NOTE | 2017-12-11 13:53 | XR ---
EXAMINATION TYPE: XR chest 2V DATE OF EXAM: 12/11/2017 COMPARISON: 12/10/2017 TECHNIQUE: PA and lateral views submitted. HISTORY: Cough FINDINGS: The lungs are clear and there is no pneumothorax, pleural effusion, or focal pneumonia. Biapical pl eural thickening. Linear changes involving the left lung are most typical scar or atelectasis. No com pression deformities. No overt failure. Hyperinflation noted correlate for COPD. IMPRESSION: 1. Persistent subsegmental changes at the left lung base which is felt to be most typical of atelecta sis or scar rather than pneumonia. Correlate clinically.
[2017-12-11 16:42] LABS: Glucose,Whole Blood 74 mg/dL (75-99)
[2017-12-11] MEDS: DOXAZOSIN 4 MG TAB PO SCH (20:13)
[2017-12-11 20:53] LABS: Glucose,Whole Blood 114 mg/dL (75-99)
[2017-12-11] MEDS ORDERED: cefTRIAXone IN SWFI 1,000 MG/10 ML SYRINGE IVP SCH (21:00)
[2017-12-11] MEDS ORDERED: ATORVASTATIN 40 MG TAB PO SCH (21:00)
[2017-12-11] MEDS: SYMBICORT 80-4.5 MCG INHALER INHALATION SCH (21:12)
[2017-12-11] MEDS: ALBUTEROL NEBULIZED 2.5 MG/3 ML INHALATION PRN (21:13)
[2017-12-12] MEDS: SODIUM CHLORIDE 0.9% 1,000 ML IV SCH ×8 (00:23→21:28)
[2017-12-12] MEDS: CEFEPIME 2 GM in SODIUM CHLORIDE 0.9% 50 ML IVPB SCH ×3 (00:41→21:26)
--- NOTE | 2017-12-12 05:29 | CONS ---
CONSULTATION DATE OF SERVICE: 12/11/2017 REASON FOR CONSULTATION: Fever, sepsis. HISTORY OF PRESENT ILLNESS: The patient is a 62-year-old male who presented to the ER at [facility] last evening with chief complaints of generalized weakness and dysuria. The patient's symptoms has been going on for about a few days prior to presentation to hospital. The patient did have difficulty with urination for some period of time and has been complaining of more burning of urine, some frequency, but denies any significant suprapubic or any flank pain. The patient started having symptoms of fever with rigors and chills that did concern him and the patient was subsequently brought into the ER by the EMS. On arrival to the ER the patient did have fever of 102 degrees Fahrenheit. The patient was tachycardic. His white count was elevated at 14.3. The patient urine was positive with moderate blood and large leukocyte esterase, 131 WBC and moderate bacteria. The patient has been started on Rocephin. Infectious Disease was consulted for further recommendation regarding antibiotic therapy. The patient did have a chest x-ray that was negative for any pneumonia though it did show some subsegmental atelectasis left lower lobe. REVIEW OF SYSTEMS: CONSTITUTIONAL: Positive for weakness along with fever. EYES: No complaint. ENT: No complaint. RESPIRATORY: As per HPI. CARDIOVASCULAR: No complaint. GENITOURINARY: As per HPI. GASTROINTESTINAL : No complaint. MUSCULOSKELETAL: No complaint. INTEGUMENTARY: No complaint. PSYCHOLOGICAL: No complaint. ENDOCRINE: No complaint. NEUROLOGIC: No complaint. PAST MEDICAL HISTORY: Hyperlipidemia, diabetes mellitus, COPD, asthma, gastroesophageal reflux disease, hypertension, history of prostate disorder. PAST SURGICAL HISTORY: Tonsillectomy, hernia repair, right chest wall cyst removal, nerve surgery left elbow. SOCIAL HISTORY: The patient quit smoking 25 years ago. Has about 17 pack year smoking. No drinking or any drug use. FAMILY HISTORY: Father history of [place]. ALLERGIES: No known drug allergies. MEDICATION: Mediations currently include the patient is on Rocephin 1 gram q.12. He is on Narcan, Singulair, Claritin, Zestril, NovoLog, fenofibrate, Pepcid, Lovenox, Cardura, Pristiq, Lipitor and Tylenol. PHYSICAL EXAMINATION: On examination, blood pressure is 120/67 with a pulse of 98, temperature of 99.9, T-max 101.5. He is 95% on room air. General description is a middle-aged male lying in bed in no distress with no tachypnea or accessory muscle of respiration use. HEENT examination shows no pallor or scleral icterus. Oral mucous membrane is dry. No pharyngeal erythema or thrush. NECK: Trachea central. No thyromegaly. LUNGS: Unlabored breathing with decreased breath sounds in the bases, no wheeze. HEART: S1, S2. Regular rate and rhythm. ABDOMEN: Soft, no tenderness. EXTREMITIES: No edema of the feet. LABS: Hemoglobin 11.7, white count 14.3. His UA has been positive. Blood culture has been obtained, which is currently pending. Chest x-ray report . DIAGNOSTIC IMPRESSION AND PLAN: Patient admitted to the hospital with sepsis in a patient who did have a fever of 103 degrees Fahrenheit. The patient did have a elevated white count 14.3. He is tachycardic. Source is urinary tract infection in a patient who did have a history of benign prostatic hypertrophy and more likely representing a complicated urinary tract infection likely from gram-negative pathogen with persistent fever despite being on the Rocephin. PLAN: 1. Discontinue Rocephin. 2. Start the patient on cefepime 2 grams q.12 hours. 3. Will obtain ultrasound of his kidney and bladder area to make sure no evidence of any hydronephrosis . 4. We will follow on his clinical condition and culture to further adjust medication if needed. Thank you for this consultation. Will follow this patient along with you. MMODL / IJN: [id number] /
[2017-12-12 06:06] LABS: Glucose,Whole Blood 98 mg/dL (75-99)
[2017-12-12] MEDS: ALBUTEROL NEBULIZED 2.5 MG/3 ML INHALATION PRN ×2 (06:22→13:09)
[2017-12-12] MEDS: INSULIN ASPART 100 UNIT/ML 1 ML 10 ML VIAL SQ SCH ×4 (06:26→21:30)
[2017-12-12 06:29] LABS: Basophils % (A) 0 %; Eosinophils % (A) 0 %; HGB 10.3 gm/dL (13.0-17.5); Lymphocytes # (A) 1.2 k/uL (1.0-4.8); Lymphocytes % (A) 10 %; MCH 28.2 pg (25.0-35.0); MCHC 33.1 g/dL (31.0-37.0); MCV 85.1 fL (80.0-100.0); Mean Platelet Volume 7.1; Monocytes # (A) 0.7 k/uL (0-1.0); Monocytes % (A) 6 %; Neutrophils # (A) 10.2 k/uL (1.3-7.7); Neutrophils % (A) 83 %; Platelet Count 203 k/uL (150-450); RBC 3.64 m/uL (4.30-5.90); RDW 13.8 % (11.5-15.5); WBC 12.2 k/uL (3.8-10.6)
[2017-12-12 06:42] LABS: Anion Gap 6 mmol/L; Blood Urea Nitrogen 15 mg/dL (9-20); Calcium 8.1 mg/dL (8.4-10.2); Carbon Dioxide 21 mmol/L (22-30); Chloride 113 mmol/L (98-107); Glucose 97 mg/dL (74-99); Potassium 3.4 mmol/L (3.5-5.1); Sodium 140 mmol/L (137-145)
[2017-12-12] MEDS ORDERED: ENOXAPARIN 40 MG/0.4 ML SYRINGE SQ SCH (09:00)
[2017-12-12] MEDS: POTASSIUM CHLORIDE ER 20 MEQ TAB.ER PO SCH ×3 (09:27→16:31)
[2017-12-12] MEDS: FAMOTIDINE 20 MG TAB PO SCH (09:28)
[2017-12-12] MEDS: LISINOPRIL 10 MG TAB PO SCH (09:28)
[2017-12-12] MEDS: DESVENLAFAXINE SUCCINATE 50 MG TAB.ER.24H PO SCH (09:28)
[2017-12-12] MEDS: MONTELUKAST 10 MG TAB PO SCH (09:28)
[2017-12-12] MEDS: FENOFIBRATE 160 MG TAB PO SCH (09:28)
[2017-12-12] MEDS: SYMBICORT 80-4.5 MCG INHALER INHALATION SCH ×2 (09:33→20:15)
[2017-12-12] MEDS: clonazePAM 1 MG TAB PO PRN ×2 (09:38→21:29)
[2017-12-12] MEDS: ACETAMINOPHEN TAB 325 MG TAB PO PRN ×2 (09:38→21:29)
--- NOTE | 2017-12-12 09:39 | US ---
EXAMINATION TYPE: US kidneys/renal and bladder DATE OF EXAM: 12/12/2017 COMPARISON: None CLINICAL HISTORY: UTI/ R/o abscess /hydronephrosis. UTI. No flank pain. EXAM MEASUREMENTS: Right Kidney: 13.1 x 6.5 x 6.2 cm Left Kidney: 12.9 x 6.2 x 6.4 cm Right Kidney: No hydronephrosis or masses seen Left Kidney: No hydronephrosis or masses seen Bladder: bladder wall = 4.0 mm Right jet seen There is no evidence for hydronephrosis at this point in time. No nephrolithiasis is seen. No caren s are identified. The urinary bladder is anechoic. IMPRESSION: 1. Circumferential prominent of the urinary bladder wall may relate to the patient's known urinary tr act infection or incomplete distention. No focal thickening is appreciated. 2. No hydronephrosis or nephrolithiasis.
[2017-12-12 11:30] LABS: Glucose,Whole Blood 173 mg/dL (75-99)
[2017-12-12] MEDS ORDERED: POTASSIUM CHLORIDE ER 20 MEQ TAB.ER PO STA (13:33)
--- NOTE | 2017-12-12 13:47 | P.PN ---
Subjective Progress Note Date: 12/12/17 This is a 62-year-old male patient of Dr. Plata. Patient states that for the past week he has not been feeling well with symptoms of fatigue, poor appetite , fever and chills. Patient also states he has been experiencing urinary frequency, hesitancy and dysuria. Also states he had couple episodes of diarrhea but has not had any in the past few days. Patient has a known past medical history of asthma, COPD, diabetes mellitus, GERD, hyperlipidemia, hypertension, osteoarthritis, prostate disorder and sick. Chest x-ray completed emergency room showing segmental atelectasis in the left lower lobe that has increased slightly compared to last exam. Normal heart. Patient does complain that he's had a non-productive cough for the past month. EKG completed showing sinus tachycardia with occasional premature ventricular complexes and fusion complexes. Urinary analysis completed showing large amount of leukocyte Estrace, WBCs and bacteria. Urine and blood cultures have been ordered. Patient was given 2 L of normal saline bolus and IV antibiotic Rocephin. Patient is having temperatures as high as 102.3. White blood cell 14.4. Plasma lactic acid 1.2. Blood glucose 46 this morning, has been Corrected per nursing staff. Patient does tresiba insulin and Junament. Home diabetes medications currently on hold sliding scale insulin has been ordered. Patient denies chest pain or shortness breath at this time. Does state urinary frequency has improved. Currently denies nausea vomiting or diarrhea. Patient does report that he still having episodes of chills and muscle aches. 12/12/2017 patient still having low-grade temps 100.5. White count decreased from 14-12.2 heart rate 105. Patient seen by infectious disease antibiotics adjusted to cefepime. Ultrasound showed no evidence of hydronephrosis. Blood sugars are showing improvement. Patient reports improvement in his appetite. Denies any chest pain or shortness of breath. Denies any nausea or vomiting. Does report still having some burning with urination. Also cough that is productive at times. He is complaining of some shortness of breath. Slight wheezing on exam. Nebulizers will be adjusted to albuterol and Atrovent and 4 times a day and as needed or if he does have a history of COPD. He is on room air at 94% Objective - Vital Signs Vital signs: Vital Signs Temp 98.7 F 12/12/17 12:00 Pulse 100 07/24/18 13:20 Resp 16 12/12/17 13:20 BP 110/58 12/12/17 12:00 Pulse Ox 94 L 12/12/17 12:00 Intake & Output 12/11/17 12/12/17 12/12/17 18:59 06:59 18:59 Intake Total 720 480 Output Total 1150 2450 650 Balance -430 -2450 -170 Weight 135.1 kg Intake: Oral 720 480 Output: Urine 1150 2450 650 Other: # Voids 1 - Exam Head normocephalic Neck supple Lungs few scattered wheezes noted bilaterally Heart regular rate and rhythm S1-S2, no rub or gallop Abdomen is soft nontender nondistended positive bowel sounds no hepatosplenomegaly Extremities no edema Neuro alert and orientated to 3 - Labs CBC & Chem 7: 12/12/17 06:08 12/12/17 06:08 Labs: Abnormal Lab Results - Last 24 Hours (Table) 12/11/17 12/11/17 12/12/17 Range/Units 16:30 20:52 06:08 WBC 12.2 H (3.8-10.6) k/uL RBC 3.64 L (4.30-5.90) m/uL Hgb 10.3 L (13.0-17.5) gm/dL Hct 31.0 L (39.0-53.0) % Neutrophils # 10.2 H (1.3-7.7) k/uL Potassium (3.5-5.1) mmol/L Chloride (98-107) mmol/L Carbon Dioxide (22-30) mmol/L POC Glucose (mg/dL) 74 L 114 H (75-99) mg/dL Calcium (8.4-10.2) mg/dL 12/12/17 12/12/17 Range/Units 06:08 11:24 WBC (3.8-10.6) k/uL RBC (4.30-5.90) m/uL Hgb (13.0-17.5) gm/dL Hct (39.0-53.0) % Neutrophils # (1.3-7.7) k/uL Potassium 3.4 L (3.5-5.1) mmol/L Chloride 113 H (98-107) mmol/L Carbon Dioxide 21 L (22-30) mmol/L POC Glucose (mg/dL) 173 H (75-99) mg/dL Calcium 8.1 L (8.4-10.2) mg/dL Microbiology - Last 24 Hours (Table) 12/10/17 21:07 Blood Culture - Preliminary Blood No Growth after 24 hours 12/10/17 21:10 Urine Culture - Preliminary Urine,Clean Catch Assessment and Plan Assessment: 1. Urinary tract infection with sepsis present on admission: Fever, leukocytosis , tachycardia present on admission. Seen by infectious disease. Antibiotics adjusted to cefepime. Urine culture pending. Blood culture negative so far. Patient is still having some low-grade temps. White count trending down. Ultrasounds showed no evidence of hydronephrosis. Infectious disease following closely 2. Tachycardia. Secondary to sepsis. Improving with IV fluids. EKG completed showing sinus tachycardia with occasional premature ventricular complexes and fusion complexes. Does have a temperature as high as 102.3, has been treated with Tylenol. Home Medications of Cadura and lisinopril have been reordered. Troponin negative 3. Cough now productive with wheezing. Patient has a known history of COPD. Chest x-ray showing evidence of atelectasis and scarring. No new pneumonia. Adjust nebulizer treatments to albuterol and Atrovent and changed to 4 times a day and as needed. Continue to monitor 4. Diabetes mellitus type 2 with Hypoglycemia. Home medications of Tresiba and Junamet on hold. Continue Sliding scale insulin coverage ordered. Glucose levels have shown improvement. No further episodes of hypoglycemia. Patient's appetite improving. We'll continue to monitor closely. A1c 6.5 5. Hypokalemia. Potassium 3.4. Give K-Dur 20 milliequivalents 1. Potassium continues to be low. Check magnesium level 6. History of diabetes mellitus. Home medications currently on hold due to hypoglycemia. Sliding scale coverage has been ordered 7. History of hyperlipidemia. Medications Fenofibrate and Liptor have been reordered 8. History of hypertension. Home medications of Cardura and lisinopril has been reordered 9. History of prostate disorder. DVT prophylaxis Lovenox. GI prophylaxis Pepcid I performed an examination of the patient and discussed their management with the physician Hard Hat Diver. I have reviewed the Physician Hard Hat Diver's notes and agree with the documented findings and plan of care
[2017-12-12] MEDS: IPRATROPIUM-ALBUTEROL 3 ML NEB INHALATION SCH ×2 (16:24→20:15)
[2017-12-12 16:54] LABS: Glucose,Whole Blood 217 mg/dL (75-99)
[2017-12-12 21:17] LABS: Glucose,Whole Blood 209 mg/dL (75-99)
[2017-12-12] MEDS: DOXAZOSIN 4 MG TAB PO SCH (21:29)
[2017-12-12] MEDS: ATORVASTATIN 80 MG TAB PO SCH (21:34)
--- NOTE | 2017-12-12 22:53 | PN ---
PROGRESS NOTE DATE OF SERVICE: 12/12/2017. REASON FOR FOLLOWUP: Urinary tract infection with sepsis. INTERVAL HISTORY: The patient's fever has slightly improved. He did have a T-max of 100.8 today compared to 103.1 when he presented. The patient is still feeling weak and lethargic, but denies having any chest pain or shortness of breath or cough. No abdominal pain or any diarrhea. EXAMINATION: Blood pressure is 115/59 with a pulse of 100, temperature of 98.7. He is 95% on room air. General description is a middle-aged male lying in bed in no distress. RESPIRATORY SYSTEM: Unlabored breathing. Clear to auscultation anteriorly. HEART: S1, S2. Regular rate and rhythm. ABDOMEN: Soft. No tenderness. EXTREMITIES: No edema of the feet. LABS: Hemoglobin is 10.8, white count 4.2 with a BUN of 15, creatinine 0.95. Urine showing gram-negative. Blood culture so far negative. He did have an ultrasound of the abdomen and bladder area which shows a circumferential prominence of the bladder wall that may relate to the patient's urinary tract infection and complaint of distension. No hydronephrosis or nephrolithiasis. DIAGNOSTIC IMPRESSION AND PLAN: Patient admitted to the hospital with sepsis, also urinary with a gram-negative urinary tract infection. The patient currently to continue with cefepime 2 g daily while waiting for the culture to finalize. Continue with supportive care. MMODL / IJN: [id number] /
[2017-12-13] MEDS: IPRATROPIUM-ALBUTEROL 3 ML NEB INHALATION PRN (01:41)
[2017-12-13] MEDS: ACETAMINOPHEN TAB 325 MG TAB PO PRN ×2 (03:02→20:21)
[2017-12-13] MEDS: SODIUM CHLORIDE 0.9% 1,000 ML IV SCH ×3 (03:06→20:08)
[2017-12-13 03:43] LABS: Anion Gap 8 mmol/L; Blood Urea Nitrogen 14 mg/dL (9-20); Calcium 8.4 mg/dL (8.4-10.2); Carbon Dioxide 21 mmol/L (22-30); Chloride 110 mmol/L (98-107); Glucose 138 mg/dL (74-99); Magnesium 1.6 mg/dL (1.6-2.3); Potassium 3.8 mmol/L (3.5-5.1); Sodium 139 mmol/L (137-145)
[2017-12-13 03:52] LABS: Basophils % (A) 0 %; Eosinophils % (A) 0 %; HCT 31.5 % (39.0-53.0); HGB 10.5 gm/dL (13.0-17.5); Lymphocytes % (A) 10 %; MCH 27.9 pg (25.0-35.0); MCHC 33.3 g/dL (31.0-37.0); MCV 83.8 fL (80.0-100.0); Mean Platelet Volume 6.9; Monocytes # (A) 0.6 k/uL (0-1.0); Monocytes % (A) 6 %; Neutrophils # (A) 8.4 k/uL (1.3-7.7); Neutrophils % (A) 82 %; Platelet Count 237 k/uL (150-450); RBC 3.76 m/uL (4.30-5.90); RDW 13.7 % (11.5-15.5); WBC 10.3 k/uL (3.8-10.6)
[2017-12-13 05:46] LABS: Glucose,Whole Blood 160 mg/dL (75-99)
[2017-12-13] MEDS: INSULIN ASPART 100 UNIT/ML 1 ML 10 ML VIAL SQ SCH ×4 (06:00→20:21)
--- NOTE | 2017-12-13 06:45 | CT ---
ADDENDUM - Added by Yobani Sibley MD on 12/15/2017 3:55 AM (-04:00) The report should read that there is NO definitive evidence of PE. EXAM: CT Angiography Chest With Intravenous Contrast CLINICAL HISTORY: elevated D-Dimer TECHNIQUE: Axial computed tomographic angiography images of the chest with intravenous contrast using pulmonary embolism protocol. CTDI is 146.9 mGy and DLP is 983.4 mGy-cm. This CT exam was performed using one or more of the following dose reduction techniques: automated exposure control, adjustment of the mA and/or kV according to patient size, and/or use of iterative reconstruction technique. MIP reconstructed images were created and reviewed. COMPARISON: 04/18/2015. FINDINGS: Pulmonary arteries: Definitive evidence of PE. Aorta: No acute findings. No thoracic aortic aneurysm. Lungs: Mild bronchiectasis again noted. Minimal interstitial pulmonary edema suggested. Mild bronchial wall thickening may be reactive to this finding. Infectious versus inflammatory airways disease cannot be definitively excluded. Pleural space: Small bilateral pleural effusions resulting in compressive atelectasis of both lower lobes. Superimposed infection cannot be definitively excluded. No pneumothorax. Heart: Pericardial effusion again seen, measuring up to 1.7 cm in greatest thickness anteriorly. No evidence of RV dysfunction. Bones/joints: No acute fracture. No dislocation. Soft tissues: Bilateral mild gynecomastia. Lymph nodes: Mild mediastinal and bilateral hilar lymphadenopathy is likely reactive. Liver: Hepatic steatosis is suspected. IMPRESSION: 1. Definitive evidence of PE. 2. Pericardial effusion again seen, measuring up to 1.7 cm in greatest thickness anteriorly. Correlate clinically. 3. Mild bronchiectasis again noted. Minimal interstitial pulmonary edema suggested. Mild bronchial wall thickening may be reactive to this finding. Infectious versus inflammatory airways disease cannot be definitively excluded. 4. Small bilateral pleural effusions resulting in compressive atelectasis of both lower lobes. Superimposed infection cannot be definitively excluded. 5. Mild mediastinal and bilateral hilar lymphadenopathy is likely reactive. [employer] 12/15/17 05:53 Verify Receipt with Nurse Verified receipt with [employer] rate clerkclerk Valdov[employer] given to Nurse Pavon on 12/15 05:53 (-04:00)
[2017-12-13] MEDS ORDERED: HEPARIN SODIUM,PORCINE 10,000 UNIT/ML 1 ML VIAL IV ONE (06:48)
[2017-12-13] MEDS ORDERED: HEPARIN SODIUM,PORCINE 5,000 UNIT/ML 1 ML VIAL IV PRN (06:48)
[2017-12-13] MEDS ORDERED: HEPARIN SOD,PORK IN 0.45% NACL 25,000 UNIT in 0.45% NACL 1 500ML.BAG IV SCH (07:00)
[2017-12-13] MEDS: SYMBICORT 80-4.5 MCG INHALER INHALATION SCH ×2 (08:03→18:53)
[2017-12-13] MEDS: IPRATROPIUM-ALBUTEROL 3 ML NEB INHALATION SCH ×4 (08:03→18:53)
[2017-12-13] MEDS: FENOFIBRATE 160 MG TAB PO SCH (08:11)
[2017-12-13] MEDS: FAMOTIDINE 20 MG TAB PO SCH (08:11)
[2017-12-13] MEDS: DESVENLAFAXINE SUCCINATE 50 MG TAB.ER.24H PO SCH (08:11)
[2017-12-13] MEDS: MONTELUKAST 10 MG TAB PO SCH (08:11)
[2017-12-13] MEDS: LISINOPRIL 10 MG TAB PO SCH (08:11)
[2017-12-13] MEDS: clonazePAM 1 MG TAB PO PRN (08:16)
[2017-12-13] MEDS: CEFEPIME 2 GM in SODIUM CHLORIDE 0.9% 50 ML IVPB SCH ×2 (09:25→20:10)
[2017-12-13] MEDS ORDERED: Magnesium Replacement Protocol 1 EACH MISC MISCELLANE PRN (10:20)
--- NOTE | 2017-12-13 10:31 | P.CRDCN ---
History of Present Illness Consult date: 12/13/17 Requesting physician: Martine Prasad Reason for Consult (text): Pericardial effusion Chief complaint: Dysuria frequency History of present illness: This is a pleasant 62-year-old gentleman who for the past week his been experiencing extreme fatigue, fever chills, he also states that he's been urinating quite frequently and having burning when he urinates. He has past medical history significant for COPD, diabetes, hyperlipidemia, hypertension, GERD. Patient denies any overt shortness of breath but does state that recently with exertion he has noticed himself to be short of breath. Chest x- ray on admission here revealed a segmental atelectasis in the left lower lobe that increased compared with prior exam. He does state that he's had a mild cough, nonproductive. EKG on admission showed sinus tachycardia with PVCs, nonspecific ST-T wave changes. Urinalysis completed showed a large amount of leukocyte esterase, wbc's and bacteria. Urine and blood cultures have been ordered. Patient was given IV fluids on admission and started on antibiotics. Temperature on admission was 103 and he continues to run temperatures in the range of 102. White blood cell count 14.4, lactic acid 1.2. CTA of the chest was performed which revealed a thin noted above evidence of pulmonary embolism, pericardial effusion of 1.7 cm, small bilateral pleural effusions. Mild mediastinotomy bilateral hilar lymphadenopathy patient was initiated on IV heparin, he is also currently on IV antibiotics. At pressure this morning 134/ 60, temperature 101.9, 96% on room air, heart rate 1:15. Hemoglobin 10.5, white blood cell count 10.3, platelet count 237. D-dimer 1.5, sodium 139, potassium 3.8, BUN 14, creatinine 0.9, magnesium 1.6. At the time of my examination this morning, patient states he feels extremely weak. Past Medical History Past Medical History: Asthma, COPD, Diabetes Mellitus, GERD/Reflux, Hyperlipidemia, Hypertension, Osteoarthritis (OA), Prostate Disorder, Skin Disorder Additional Past Medical History / Comment(s): diarrhea, sores on arms, DDD History of Any Multi-Drug Resistant Organisms: None Reported Past Surgical History: Hernia Repair, Orthopedic Surgery, Tonsillectomy Additional Past Surgical History / Comment(s): right chest wall cyst removed, nerve surgery left elbow Past Anesthesia/Blood Transfusion Reactions: No Reported Reaction Past Psychological History: No Psychological Hx Reported Smoking Status: Former smoker Past Alcohol Use History: None Reported Additional Past Alcohol Use History / Comment(s): quit smoking 25 yrs ago, smoked for 17 yrs- 2 PPD Past Drug Use History: None Reported - Past Family History Father Family Medical History: Myocardial Infarction ([place]) Mother Family Medical History: No Reported History Medications and Allergies Home Medications Medication Instructions Recorded Confirmed Type Montelukast [Singulair] 10 mg PO DAILY 09/25/13 12/11/17 History Albuterol Sulfate [Ventolin HFA] 1 puff INHALATION RT-QID PRN 02/21/14 12/11/17 History Fenofibrate [Lofibra] 160 mg PO DAILY 02/21/14 12/11/17 History Lisinopril 10 mg PO DAILY 02/21/14 12/11/17 History Fluticasone/Salmeterol [Advair 1 puff INHALATION RT-BID 09/08/15 12/11/17 History 250-50 Diskus] Doxazosin Mesylate [Cardura] 16 mg PO HS 10/20/15 12/11/17 History Atorvastatin [Lipitor] 80 mg PO HS 09/24/16 12/11/17 History Cetirizine HCl [Zyrtec] 10 - 20 mg PO HS PRN 09/24/16 12/11/17 History Desvenlafaxine [Pristiq ER] 100 mg PO DAILY 09/24/16 12/11/17 History clonazePAM [KlonoPIN] 1 mg PO BID PRN 09/24/16 12/11/17 History sitaGLIPtin PHOS/metFORMIN HCL 2 tab PO HS 09/24/16 12/11/17 History [Janumet Xr 50-1,000 mg Tablet] Insulin Degludec [Tresiba 100 unit SQ DAILY 12/11/17 12/11/17 History Flextouch U-100] Allergies Allergy/AdvReac Type Severity Reaction Status Date / Time No Known Allergies Allergy Verified 06/25/17 15:30 Physical Exam Vitals: Vital Signs Temp Pulse Pulse Resp BP Pulse Ox 12/13/17 08:13 98 12/13/17 08:03 96 12/13/17 03:24 115 H 18 12/13/17 03:07 101.9 F H 115 H 18 135/63 96 07/25/18 02:00 102 H 12/13/17 01:42 102 H 12/13/17 00:00 101.2 F H 102 H 18 131/68 96 12/12/17 20:29 103 H 12/12/17 20:16 102 H 12/12/17 20:00 102.3 F H 104 H 18 126/76 96 12/12/17 16:35 104 H 12/12/17 16:25 101 H 12/12/17 16:00 100 18 115/59 95 12/12/17 13:20 100 16 12/12/17 13:10 96 16 12/12/17 12:00 98.7 F 102 H 18 110/58 94 L Intake and Output 12/12/17 12/13/17 12/13/17 22:59 06:59 14:59 Intake Total 440 167.07 Output Total 445 675 Balance -5 -675 167.07 Intake: IV 20 Invasive Line 2 20 Intake, IV Titration 147.07 Amount Heparin Sod,Pork in 0.45% 147.07 NaCl 25,000 unit In 0.45 % NaCl 1 500ml.bag @ 17 UNITS/KG/HR 46.2 mls/hr IV .[id number] [facility] Rx#: [id number] Oral 440 Output: Urine 445 675 Other: # Voids 1 1 Weight 135.9 kg PHYSICAL EXAMINATION: GENERAL: 62-year-old gentleman appears weak and fatigued the time of my examination HEENT: Head is atraumatic, normocephalic. Pupils equal, round. Sclera anicteric. Conjunctiva are clear. Mucous membranes of the mouth are moist. Neck is supple. There is no elevated jugular venous pressure.] bruit is heard. HEART EXAMINATION: Heart S1, S2 normal. No murmur or gallop heard. CHEST EXAMINATION: Lungs reveal coarse crackles to bilateral bases. ABDOMEN: Soft, nontender. Bowel sounds are heard. No organomegaly noted. EXTREMITIES: 2+ peripheral pulses with trace evidence of peripheral edema and no calf tenderness noted. NEUROLOGIC patient is awake, alert and oriented ?-3. . Results 12/13/17 03:12 12/13/17 03:12 CBC 12/13/17 Range/Units 03:12 WBC 10.3 (3.8-10.6) k/uL RBC 3.76 L (4.30-5.90) m/uL Hgb 10.5 L (13.0-17.5) gm/dL Hct 31.5 L (39.0-53.0) % Plt Count 237 (150-450) k/uL Comprehensive Metabolic Panel 12/13/17 Range/Units 03:12 Sodium 139 (137-145) mmol/L Potassium 3.8 (3.5-5.1) mmol/L Chloride 110 H (98-107) mmol/L Carbon Dioxide 21 L (22-30) mmol/L BUN 14 (9-20) mg/dL Creatinine 0.90 (0.66-1.25) mg/dL Glucose 138 H (74-99) mg/dL Calcium 8.4 (8.4-10.2) mg/dL Current Medications Generic Name Dose Route Start Last Admin Trade Name Freq PRN Reason Stop Dose Admin Acetaminophen 650 mg 12/10/17 23:37 12/13/17 03:02 Tylenol Tab PO 650 mg Q6HR PRN Administration Mild Pain or Fever > 100.5 Albuterol/Ipratropium 3 ml 12/12/17 16:00 12/13/17 08:03 Duoneb 0.5 Mg-3 Mg/3 Ml Soln INHALATION 3 ml RT-QID JAYNE Administration Albuterol/Ipratropium 3 ml 12/12/17 13:37 12/13/17 01:41 Duoneb 0.5 Mg-3 Mg/3 Ml Soln INHALATION 3 ml RT-Q2H PRN Administration Shortness Of Breath Or Wheezing Atorvastatin Calcium 80 mg 12/12/17 19:10 12/12/17 21:34 Lipitor PO 80 mg HS JAYNE Administration Budesonide/Formoterol Fumarate 2 puff 12/11/17 20:00 12/13/17 08:03 Symbicort 80-4.5 Mcg Inhaler INHALATION 2 puff RT-BID JAYNE Administration Clonazepam 1 mg 12/10/17 23:48 12/13/17 08:16 Klonopin PO 1 mg BID PRN Administration Anxiety Desvenlafaxine Succinate 100 mg 12/12/17 09:00 12/13/17 08:11 Pristiq Er PO 100 mg DAILY JAYNE Administration Doxazosin Mesylate 16 mg 12/11/17 21:00 12/12/17 21:29 Cardura PO 16 mg HS JAYNE Administration Famotidine 20 mg 12/12/17 09:00 12/13/17 08:11 Pepcid PO 20 mg DAILY JAYNE Administration Fenofibrate 160 mg 12/11/17 09:00 12/13/17 08:11 Lofibra PO 160 mg DAILY JAYNE Administration Heparin Sodium (Porcine) 0 unit 12/13/17 06:48 Heparin IV PER PROTOCOL PRN Low PTT Protocol Sodium Chloride 1,000 mls @ 125 mls/hr 12/10/17 23:45 12/13/17 07:12 Saline 0.9% IV 125 mls/hr .Q8H JAYNE Administration Cefepime HCl 2 gm/ Sodium 50 mls @ 100 mls/hr 12/11/17 23:45 12/13/17 09:25 Chloride IVPB 100 mls/hr Q12HR JAYNE Administration Heparin Sodium/Sodium Chloride 500 mls @ 46.2 mls/hr 12/13/17 07:00 12/13/17 10:18 25,000 unit/ Sodium Chloride IV 0 units/kg/hr .[id number] JAYNE 0 mls/hr Titration Protocol 17 UNITS/KG/HR Magnesium Sulfate/Dextrose 1 100 mls @ 100 mls/hr 12/13/17 10:30 gm/ IV Solution IVPB 12/13/17 12:29 Q1H J[facility]NE Insulin Aspart 0 unit 12/11/17 12:30 12/13/17 06:00 Novolog SQ 2 unit ACHS JAYNE Administration Protocol Lisinopril 10 mg 12/11/17 09:00 12/13/17 08:11 Zestril PO 10 mg DAILY JAYNE Administration Loratadine 10 mg 12/11/17 09:02 Claritin PO HS PRN Allergy Symptoms Miscellaneous Information 1 each 12/11/17 09:04 Potassium Per Protocol MISCELLANE DAILY PRN Per Protocol Protocol Miscellaneous Information 1 each 12/13/17 10:20 Magnesium Per Protocol MISCELLANE DAILY PRN Per Protocol Protocol Montelukast Sodium 10 mg 12/12/17 09:00 12/13/17 08:11 Singulair PO 10 mg DAILY JAYNE Administration Naloxone HCl 0.2 mg 12/10/17 23:37 Narcan IV Q2M PRN Opioid Reversal Intake and Output 12/12/17 12/13/17 12/13/17 22:59 06:59 14:59 Intake Total 440 167.07 Output Total 445 675 Balance -5 -675 167.07 Intake: IV 20 Invasive Line 2 20 Intake, IV Titration 147.07 Amount Heparin Sod,Pork in 0.45% 147.07 NaCl 25,000 unit In 0.45 % NaCl 1 500ml.bag @ 17 UNITS/KG/HR 46.2 mls/hr IV .[id number] [facility] Rx#: [id number] Oral 440 Output: Urine 445 675 Other: # Voids 1 1 Weight 135.9 kg 12/13/17 03:12 12/13/17 03:12 EKG Interpretations (text) EKG shows sinus tachycardia with nonspecific ST-T wave changes. Assessment and Plan Plan: Assessment and plan #1 symptoms of urinary frequency, dysuria, and fevers with evidence of UTI, currently on IV antibiotics. #2 abnormal d-dimer with evidence of pulmonary embolism on CAT scan, patient is currently on IV heparin, pulmonary consultation has been requested. #3 pericardial effusion per CTA of the chest #4 hypertension 5 diabetes #6 hyperlipidemia Plan We will obtain an echocardiogram with Doppler study. We will also request a venous duplex study be performed to rule out a DVT in this patient. Pulmonary has been consulted regarding pulmonary embolism. We will also obtain subsequent troponins and BNP level. Further recommendations to follow. DNP note has been reviewed, I agree with a documented findings and plan of care. Patient was seen and examined.
--- NOTE | 2017-12-13 11:39 | P.CNPUL ---
History of Present Illness Consult date: 12/13/17 Reason for consult: pulmonary embolism, abnormal CXR/CT Chief complaint: Possible pulmonary embolism History of present illness: Pulmonary consult dated 12/13/2017 This is a 62-year-old male who presents to the emergency department on December 10 for for dysuria. The patient also complains of generalized fatigue fever and chills. The patient apparently has had difficulty urinating for some period of time. Apparently he was told that he had benign prostatic hypertrophy. He has also been experiencing some frequency hasn't see an dysuria. He does strain occasionally to produce only a small amount of urine. With that, he does have discomfort. He apparently felt so bad that he needed to call 911. He denies any chest pain shortness of breath abdominal pain nausea vomiting. Does admit to some diminished appetite. He apparently was found to be febrile at home by EMS. His temperature was 102 and his heart rate was 1:30. Blood pressure was normal. He was given some fluid resuscitation by IV by the EMS team. He apparently has a history of COPD from previous tobacco use diabetes GERD hyperlipidemia hypertension DJD BPH and degenerative disc disease. He is a former smoker. Denies any alcohol or illicit drug use. Apparently, CT angiogram was done and apparently it was read as showing evidence of pulmonary embolism. There was no mention of pulmonary embolism in the body of the report nor where the clot was noted whether was 1 clot are multiple. The primary service was concerned and asked me to look at the scan which I did. I did not see any central pulmonary emboli. I do not see anything that resembled pulmonary embolism at all. I didn't call the radiologist and asked him. He looked at the report and then looked at the computed tomography scan and agreed that the computed tomography scan was negative for PE and said that he would recommend the report. IV heparin per should be discontinued. Review of Systems A 12 point review of systems is positive for fever and weakness dysuria frequency urgency impaired appetite and generalized fatigue. Apparently the patient has had nothing to suggest complaints that would be consistent with pulmonary embolism. Past Medical History Past Medical History: Asthma, COPD, Diabetes Mellitus, GERD/Reflux, Hyperlipidemia, Hypertension, Osteoarthritis (OA), Prostate Disorder, Skin Disorder Additional Past Medical History / Comment(s): diarrhea, sores on arms, DDD History of Any Multi-Drug Resistant Organisms: None Reported Past Surgical History: Hernia Repair, Orthopedic Surgery, Tonsillectomy Additional Past Surgical History / Comment(s): right chest wall cyst removed, nerve surgery left elbow Past Anesthesia/Blood Transfusion Reactions: No Reported Reaction Past Psychological History: No Psychological Hx Reported Smoking Status: Former smoker Past Alcohol Use History: None Reported Additional Past Alcohol Use History / Comment(s): quit smoking 25 yrs ago, smoked for 17 yrs- 2 PPD Past Drug Use History: None Reported - Past Family History Father Family Medical History: Myocardial Infarction ([place]) Mother Family Medical History: No Reported History Medications and Allergies Home Medications Medication Instructions Recorded Confirmed Type Montelukast [Singulair] 10 mg PO DAILY 09/25/13 12/11/17 History Albuterol Sulfate [Ventolin HFA] 1 puff INHALATION RT-QID PRN 02/21/14 12/11/17 History Fenofibrate [Lofibra] 160 mg PO DAILY 02/21/14 12/11/17 History Lisinopril 10 mg PO DAILY 02/21/14 12/11/17 History Fluticasone/Salmeterol [Advair 1 puff INHALATION RT-BID 09/08/15 12/11/17 History 250-50 Diskus] Doxazosin Mesylate [Cardura] 16 mg PO HS 10/20/15 12/11/17 History Atorvastatin [Lipitor] 80 mg PO HS 09/24/16 12/11/17 History Cetirizine HCl [Zyrtec] 10 - 20 mg PO HS PRN 09/24/16 12/11/17 History Desvenlafaxine [Pristiq ER] 100 mg PO DAILY 09/24/16 12/11/17 History clonazePAM [KlonoPIN] 1 mg PO BID PRN 09/24/16 12/11/17 History sitaGLIPtin PHOS/metFORMIN HCL 2 tab PO HS 09/24/16 12/11/17 History [Janumet Xr 50-1,000 mg Tablet] Insulin Degludec [Tresiba 100 unit SQ DAILY 12/11/17 12/11/17 History Flextouch U-100] Allergies Allergy/AdvReac Type Severity Reaction Status Date / Time No Known Allergies Allergy Verified 06/25/17 15:30 Physical Exam Osteopathic Statement: *. No significant issues noted on an osteopathic structural exam other than those noted in the History and Physical/Consult. Vitals: Vital Signs Temp Pulse Pulse Resp BP Pulse Ox 12/13/17 11:21 104 H 12/13/17 11:11 100 12/13/17 08:13 98 12/13/17 08:03 96 12/13/17 03:24 115 H 18 12/13/17 03:07 101.9 F H 115 H 18 135/63 96 12/13/17 02:00 102 H 12/13/17 01:42 102 H 12/13/17 00:00 101.2 F H 102 H 18 131/68 96 12/12/17 20:29 103 H 12/12/17 20:16 102 H 12/12/17 20:00 102.3 F H 104 H 18 126/76 96 12/12/17 16:35 104 H 12/12/17 16:25 101 H 12/12/17 16:00 100 18 115/59 95 12/12/17 13:20 100 16 12/12/17 13:10 96 16 12/12/17 12:00 98.7 F 102 H 18 110/58 94 L Intake and Output 12/12/17 12/13/17 12/13/17 22:59 06:59 14:59 Intake Total 440 167.07 Output Total 445 675 Balance -5 -675 167.07 Intake: IV 20 Invasive Line 2 20 Intake, IV Titration 147.07 Amount Heparin Sod,Pork in 0.45% 147.07 NaCl 25,000 unit In 0.45 % NaCl 1 500ml.bag @ 17 UNITS/KG/HR 46.2 mls/hr IV .[id number] [facility] Rx#: [id number] Oral 440 Output: Urine 445 675 Other: # Voids 1 1 Weight 135.9 kg No acute distress, oriented 3. HEENT examination is grossly unremarkable. Mucous membranes are moist. No oral lesions. Neck supple. Full range of motion. No adenopathy thyromegaly or neck vein distention. Cardiovascular examination reveals regular rhythm rate. S1-S2 normal. No S3 or S4. No discernible murmur noted.HS's are distant. Lungs reveal clear breath sounds. His breath sounds are equal bilaterally. No adventitious lung sounds including wheezes rhonchi or crackles. Abdomen soft bowel sounds are heard. No masses or tenderness. Extremities are intact. No cyanosis clubbing or edema. Skin is without rash or lesion. Neurologic examination is brief but nonfocal. Results - Laboratory Findings CBC and BMP: 12/13/17 03:12 12/13/17 03:12 PT/INR, D-dimer PT 10.4 sec (9.0-12.0) 12/10/17 21:07 INR 1.1 (<1.2) 12/10/17 21:07 D-Dimer 1.59 mg/L FEU (<0.60) H 12/13/17 03:12 Abnormal lab findings: Abnormal Labs 12/10/17 12/10/17 12/10/17 20:55 21:07 21:07 WBC 14.3 H RBC Hgb 12.7 L Hct 38.0 L Neutrophils # 12.2 H Monocytes # D-Dimer Sodium Potassium Chloride Carbon Dioxide Glucose POC Glucose (mg/dL) 131 H Hemoglobin A1c Calcium Total Creatine Kinase 414 H CK-MB (CK-2) 2.5 H* Urine Protein Urine Glucose (UA) Urine Blood Ur Leukocyte Esterase Urine RBC Urine WBC Urine Bacteria Urine Mucus 12/10/17 12/10/17 12/11/17 21:07 21:10 06:01 WBC RBC Hgb Hct Neutrophils # Monocytes # D-Dimer Sodium 136 L Potassium Chloride Carbon Dioxide 21 L Glucose 134 H POC Glucose (mg/dL) 55 L Hemoglobin A1c Calcium Total Creatine Kinase CK-MB (CK-2) Urine Protein Trace H Urine Glucose (UA) Trace H Urine Blood Moderate H Ur Leukocyte Esterase Large H Urine RBC 17 H Urine WBC 131 H Urine Bacteria Moderate H Urine Mucus Rare H 12/11/17 12/11/17 12/11/17 06:03 06:03 06:03 WBC 14.4 H RBC 4.20 L Hgb 11.7 L Hct 35.5 L Neutrophils # 11.9 H Monocytes # 1.1 H D-Dimer Sodium Potassium 3.3 L Chloride 110 H Carbon Dioxide Glucose 46 L* POC Glucose (mg/dL) Hemoglobin A1c 6.5 H Calcium Total Creatine Kinase CK-MB (CK-2) Urine Protein Urine Glucose (UA) Urine Blood Ur Leukocyte Esterase Urine RBC Urine WBC Urine Bacteria Urine Mucus 12/11/17 12/11/17 12/11/17 06:22 11:07 16:30 WBC RBC Hgb Hct Neutrophils # Monocytes # D-Dimer Sodium Potassium Chloride Carbon Dioxide Glucose POC Glucose (mg/dL) 71 L 67 L 74 L Hemoglobin A1c Calcium Total Creatine Kinase CK-MB (CK-2) Urine Protein Urine Glucose (UA) Urine Blood Ur Leukocyte Esterase Urine RBC Urine WBC Urine Bacteria Urine Mucus 12/11/17 12/12/17 12/12/17 20:52 06:08 06:08 WBC 12.2 H RBC 3.64 L Hgb 10.3 L Hct 31.0 L Neutrophils # 10.2 H Monocytes # D-Dimer Sodium Potassium 3.4 L Chloride 113 H Carbon Dioxide 21 L Glucose POC Glucose (mg/dL) 114 H Hemoglobin A1c Calcium 8.1 L Total Creatine Kinase CK-MB (CK-2) Urine Protein Urine Glucose (UA) Urine Blood Ur Leukocyte Esterase Urine RBC Urine WBC Urine Bacteria Urine Mucus 12/12/17 12/12/17 12/12/17 11:24 16:34 21:16 WBC RBC Hgb Hct Neutrophils # Monocytes # D-Dimer Sodium Potassium Chloride Carbon Dioxide Glucose POC Glucose (mg/dL) 173 H 217 H 209 H Hemoglobin A1c Calcium Total Creatine Kinase CK-MB (CK-2) Urine Protein Urine Glucose (UA) Urine Blood Ur Leukocyte Esterase Urine RBC Urine WBC Urine Bacteria Urine Mucus 12/13/17 12/13/17 12/13/17 03:12 03:12 03:12 WBC RBC 3.76 L Hgb 10.5 L Hct 31.5 L Neutrophils # 8.4 H Monocytes # D-Dimer 1.59 H Sodium Potassium Chloride 110 H Carbon Dioxide 21 L Glucose 138 H POC Glucose (mg/dL) Hemoglobin A1c Calcium Total Creatine Kinase CK-MB (CK-2) Urine Protein Urine Glucose (UA) Urine Blood Ur Leukocyte Esterase Urine RBC Urine WBC Urine Bacteria Urine Mucus 12/13/17 05:44 WBC RBC Hgb Hct Neutrophils # Monocytes # D-Dimer Sodium Potassium Chloride Carbon Dioxide Glucose POC Glucose (mg/dL) 160 H Hemoglobin A1c Calcium Total Creatine Kinase CK-MB (CK-2) Urine Protein Urine Glucose (UA) Urine Blood Ur Leukocyte Esterase Urine RBC Urine WBC Urine Bacteria Urine Mucus - Diagnostic Findings Chest x-ray: report reviewed (Chest x-ray labs and medications are reviewed.), image reviewed Assessment and Plan Assessment: Assessment No evidence of pulmonary embolism on CT angiogram. Multiple other medical problems include booties including COPD, diabetes, GERD, hyperlipidemia, hypertension, DJD, and BPH. Obesity Plan: Plan dated 12/13/2017 We will see the patient only as needed. I relayed the fact that there was no pulmonary embolism to the primary service and to the nurse practitioner working with the primary service. I also discussed the case with cardiology. Additional recommendations and suggestions are forthcoming. Time with Patient: Greater than 30
[2017-12-13] MEDS: MAGNESIUM SULFATE-D5W PMX 1 GM in DEXTROSE/WATER 1 100ML.BAG IVPB SCH ×2 (11:43→13:31)
--- NOTE | 2017-12-13 11:59 | ECHOF ---
Referral Reason:assess lvf MEASUREMENTS -------- HEIGHT: 188.0 cm WEIGHT: 135.6 kg BP: 135/63 RVIDd: 3.3 cm (< 3.3) IVSd: 1.0 cm (0.6 - 1.1) LVIDd: 5.6 cm (3.9 - 5.3) LVPWd: 1.3 cm (0.6 - 1.1) IVSs: 1.7 cm LVIDs: 3.3 cm LVPWs: 1.9 cm LA Diam: 3.6 cm (2.7 - 3.8) LAESV Index (A-L): 22.91 ml/m Ao Diam: 3.7 cm (2.0 - 3.7) AV Cusp: 2.6 cm (1.5 - 2.6) MV EXCURSION: 17.310 mm (> 18.000) MV EF SLOPE: 236 mm/s (70 - 150) EPSS: 0.4 cm MV E Luis Antonio: 1.10 m/s MV DecT: 170 ms MV A Luis Antonio: 0.72 m/s MV E/A Ratio: 1.52 FINDINGS -------- Resting tachycardia (HR>100bpm). This was a technically difficult study with suboptimal views. The left ventricular size is normal. There is mild concentric left ventricular hypertrophy. Overa ll left ventricular systolic function is normal with, an EF between 55 - 60 %. The right ventricle is mildly enlarged. Normal LA size by volume 22+/-6 ml/m2. The right atrium is normal in size. Lumason used The aortic valve is trileaflet and appears structurally normal. Mild mitral annular calcification present. Mild mitral regurgitation is present. The tricuspid valve was not well visualized. The pulmonic valve was not well visualized. The aortic root is dilated measuring 3.7cm. The inferior vena cava is mildly dilated. There is a trivial pericardial effusion present. CONCLUSIONS -------- 1. Resting tachycardia (HR>100bpm). 2. This was a technically difficult study with suboptimal views. 3. The left ventricular size is normal. 4. There is mild concentric left ventricular hypertrophy. 5. Overall left ventricular systolic function is normal with, an EF between 55 - 60 %. 6. The right ventricle is mildly enlarged. 7. Normal LA size by volume 22+/-6 ml/m2. 8. The right atrium is normal in size. 9. Lumason used 10. The aortic valve is trileaflet and appears structurally normal. 11. Mild mitral annular calcification present. 12. Mild mitral regurgitation is present. 13. The tricuspid valve was not well visualized. 14. The pulmonic valve was not well visualized. 15. The aortic root is dilated measuring 3.7cm. 16. The inferior vena cava is mildly dilated. 17. There is a trivial pericardial effusion present. [employer]TE[employer]CE INSTRUCTOR: Marcy Montilla RDCS
[2017-12-13 12:38] LABS: Glucose,Whole Blood 165 mg/dL (75-99)
--- NOTE | 2017-12-13 14:52 | US ---
EXAMINATION TYPE: US venous doppler duplex LE DATE OF EXAM: 12/13/2017 2:08 PM COMPARISON: NONE CLINICAL HISTORY: r/o dvt. UTI, sepsis, patient states no leg complaints SIDE PERFORMED: Bilateral TECHNIQUE: The lower extremity deep venous system is examined utilizing real time linear array sonog jerman with graded compression, doppler sonography and color-flow sonography. VESSELS IMAGED: External Iliac Vein (EIV) Common Femoral Vein Deep Femoral Vein Greater Saphenous Vein * Femoral Vein Popliteal Vein Small Saphenous Vein * Proximal Calf Veins (* superficial vessels) *Large body habitus* Right Leg: Appears negative for DVT Left Leg: Appears negative for DVT IMPRESSION: 1. No diagnostic evidence of DVT as visualized.
--- NOTE | 2017-12-13 16:06 | P.PN ---
Subjective Progress Note Date: 12/13/17 This is a 62-year-old male patient of Dr. Plata. Patient states that for the past week he has not been feeling well with symptoms of fatigue, poor appetite , fever and chills. Patient also states he has been experiencing urinary frequency, hesitancy and dysuria. Also states he had couple episodes of diarrhea but has not had any in the past few days. Patient has a known past medical history of asthma, COPD, diabetes mellitus, GERD, hyperlipidemia, hypertension, osteoarthritis, prostate disorder and sick. Chest x-ray completed emergency room showing segmental atelectasis in the left lower lobe that has increased slightly compared to last exam. Normal heart. Patient does complain that he's had a non-productive cough for the past month. EKG completed showing sinus tachycardia with occasional premature ventricular complexes and fusion complexes. Urinary analysis completed showing large amount of leukocyte Estrace, WBCs and bacteria. Urine and blood cultures have been ordered. Patient was given 2 L of normal saline bolus and IV antibiotic Rocephin. Patient is having temperatures as high as 102.3. White blood cell 14.4. Plasma lactic acid 1.2. Blood glucose 46 this morning, has been Corrected per nursing staff. Patient does tresiba insulin and Junament. Home diabetes medications currently on hold sliding scale insulin has been ordered. Patient denies chest pain or shortness breath at this time. Does state urinary frequency has improved. Currently denies nausea vomiting or diarrhea. Patient does report that he still having episodes of chills and muscle aches. 12/12/2017 patient still having low-grade temps 100.5. White count decreased from 14-12.2 heart rate 105. Patient seen by infectious disease antibiotics adjusted to cefepime. Ultrasound showed no evidence of hydronephrosis. Blood sugars are showing improvement. Patient reports improvement in his appetite. Denies any chest pain or shortness of breath. Denies any nausea or vomiting. Does report still having some burning with urination. Also cough that is productive at times. He is complaining of some shortness of breath. Slight wheezing on exam. Nebulizers will be adjusted to albuterol and Atrovent and 4 times a day and as needed or if he does have a history of COPD. He is on room air at 94% On 12/13/2017 throughout night patient had episode of chest pain and d-dimer was ordered. D-dimer was elevated at 1.59. CTA was further ordered. CTA initially reporting pulmonary embolism and patient was started on heparin drip. Case was discussed with Dr. Abarca. Per Dr. Abarca no pulmonary embolisms was seen on CT discussed case with radiologist and agreed that the CT was negative for PE. Heparin drip was further DC'd. Cardiology also consulted for pericardial effusion per CTA of the chest. 2D echo completed showing EF between 55 and 60%. Venous Doppler also completed and was negative for bilateral DVTs. Patient continuing to have elevated temperatures throughout night. Remains on IV antibiotic Maxipime per ID. Objective - Vital Signs Vital signs: Vital Signs Temp 99.3 F 12/13/17 11:30 Pulse 102 H 12/13/17 15:30 Resp 18 12/13/17 11:30 BP 161/81 12/13/17 11:30 Pulse Ox 97 12/13/17 11:30 Intake & Output 12/12/17 12/13/17 12/13/17 18:59 06:59 18:59 Intake Total 720 200 892.07 Output Total 870 900 Balance -150 -700 892.07 Weight 135.9 kg Intake: IV 745 Cefepime 2 gm In Sodium 100 Chloride 0.9% 50 ml @ 100 mls/hr IVPB Q12HR [facility] Rx #:[id number] Invasive Line 2 20 Sodium Chloride 0.9% 1, 625 000 ml @ 125 mls/hr IV . Q8H [facility] Rx#:[id number] Intake, IV Titration 147.07 Amount Heparin Sod,Pork in 0.45% 147.07 NaCl 25,000 unit In 0.45 % NaCl 1 500ml.bag @ 17 UNITS/KG/HR 46.2 mls/hr IV .[id number] [facility] Rx#: [id number] Oral 720 200 Output: Urine 870 900 Other: # Voids 1 1 - Exam Head normocephalic Neck supple Lungs few scattered wheezes noted bilaterally Heart regular rate and rhythm S1-S2, no rub or gallop Abdomen is soft nontender nondistended positive bowel sounds no hepatosplenomegaly Extremities no edema Neuro alert and orientated to 3 - Labs CBC & Chem 7: 12/13/17 03:12 12/13/17 03:12 Labs: Abnormal Lab Results - Last 24 Hours (Table) 12/12/17 12/12/17 12/13/17 Range/Units 16:34 21:16 03:12 RBC (4.30-5.90) m/uL Hgb (13.0-17.5) gm/dL Hct (39.0-53.0) % Neutrophils # (1.3-7.7) k/uL APTT (22.0-30.0) sec D-Dimer (<0.60) mg/L FEU Chloride 110 H (98-107) mmol/L Carbon Dioxide 21 L (22-30) mmol/L Glucose 138 H (74-99) mg/dL POC Glucose (mg/dL) 217 H 209 H (75-99) mg/dL Troponin I (0.000-0.034) ng/mL 12/13/17 12/13/17 12/13/17 Range/Units 03:12 03:12 05:44 RBC 3.76 L (4.30-5.90) m/uL Hgb 10.5 L (13.0-17.5) gm/dL Hct 31.5 L (39.0-53.0) % Neutrophils # 8.4 H (1.3-7.7) k/uL APTT (22.0-30.0) sec D-Dimer 1.59 H (<0.60) mg/L FEU Chloride (98-107) mmol/L Carbon Dioxide (22-30) mmol/L Glucose (74-99) mg/dL POC Glucose (mg/dL) 160 H (75-99) mg/dL Troponin I (0.000-0.034) ng/mL 12/13/17 12/13/17 12/13/17 Range/Units 10:50 10:50 12:18 RBC (4.30-5.90) m/uL Hgb (13.0-17.5) gm/dL Hct (39.0-53.0) % Neutrophils # (1.3-7.7) k/uL APTT 32.3 H (22.0-30.0) sec D-Dimer (<0.60) mg/L FEU Chloride (98-107) mmol/L Carbon Dioxide (22-30) mmol/L Glucose (74-99) mg/dL POC Glucose (mg/dL) 165 H (75-99) mg/dL Troponin I 0.046 H* (0.000-0.034) ng/mL Microbiology - Last 24 Hours (Table) 12/10/17 21:10 Urine Culture - Final Urine,Clean Catch Serratia marcescens 12/10/17 21:07 Blood Culture - Preliminary Blood No Growth after 48 hours Assessment and Plan Assessment: 1. Urinary tract infection with sepsis present on admission: Fever, leukocytosis , tachycardia present on admission. Seen by infectious disease. Antibiotics adjusted to cefepime. Urine culture pending. Blood culture negative so far. Patient is still having some low-grade temps. White count trending down. Ultrasounds showed no evidence of hydronephrosis. Infectious disease following closely. Patient remains on maxpime 2. Tachycardia. Secondary to sepsis. Improving with IV fluids. EKG completed showing sinus tachycardia with occasional premature ventricular complexes and fusion complexes. Does have a temperature as high as 102.3, has been treated with Tylenol. Home Medications of Cadura and lisinopril have been reordered. Troponin negative 3. Cough now productive with wheezing. Patient has a known history of COPD. Chest x-ray showing evidence of atelectasis and scarring. No new pneumonia. Adjust nebulizer treatments to albuterol and Atrovent and changed to 4 times a day and as needed. Continue to monitor 4. Diabetes mellitus type 2 with Hypoglycemia. Home medications of Tresiba and Junamet on hold. Continue Sliding scale insulin coverage ordered. Glucose levels have shown improvement. No further episodes of hypoglycemia. Patient's appetite improving. We'll continue to monitor closely. A1c 6.5 5. Hypokalemia. Potassium 3.4. Give K-Dur 20 milliequivalents 1. Potassium continues to be low. Check magnesium level. Magnesium level 1.6 will replace per protocal 6. History of diabetes mellitus. Home medications currently on hold due to hypoglycemia. Sliding scale coverage has been ordered 7. History of hyperlipidemia. Medications Fenofibrate and Liptor have been reordered 8. History of hypertension. Home medications of Cardura and lisinopril has been reordered 9. History of prostate disorder. 10. Chest pain. D-dimer was elevated at 1.59. CTA was further ordered. CTA initially reporting pulmonary embolism and patient was started on heparin drip. Case was discussed with Dr. Abarca. Per Dr. Abarca no pulmonary embolisms was seen on CT discussed case with radiologist and agreed that the CT was negative for PE. Heparin gtt has been d/c. CTA showing per color effusion measuring up to 1.7 of an centimeters, mild bronchia tightness. Mild bronchial wall thickening. Infectious versus inflammatory airways disease cannot be definitely excluded. Small bilateral pleural effusions resulting in compressive atelectasis of both lower lobes. Cardiology has been consulted. Pulmonary services have been consulted. 2-D echo has been completed showing an EF between 55 and 60%. DVT prophylaxis Lovenox. GI prophylaxis Pepcid I performed an examination of the patient and discussed their management with the Nurse Practitioner. I have reviewed the Nurse Practitioner's notes and agree with the documented findings and plan of care
[2017-12-13 17:02] LABS: Glucose,Whole Blood 202 mg/dL (75-99)
[2017-12-13] MEDS: DOXAZOSIN 4 MG TAB PO SCH (20:08)
[2017-12-13] MEDS: ATORVASTATIN 80 MG TAB PO SCH (20:08)
[2017-12-13 20:30] LABS: Glucose,Whole Blood 139 mg/dL (75-99)
[2017-12-14] MEDS ORDERED: IPRATROPIUM-ALBUTEROL 3 ML NEB ONE (02:30)
[2017-12-14] MEDS: SODIUM CHLORIDE 0.9% 1,000 ML IV SCH ×3 (05:56→14:27)
[2017-12-14 06:26] LABS: Glucose,Whole Blood 125 mg/dL (75-99)
[2017-12-14 06:29] LABS: Basophils % (A) 0 %; Eosinophils # (A) 0.1 k/uL (0-0.7); Eosinophils % (A) 1 %; HCT 29.9 % (39.0-53.0); Lymphocytes % (A) 13 %; MCH 28.1 pg (25.0-35.0); MCHC 33.4 g/dL (31.0-37.0); MCV 84.1 fL (80.0-100.0); Mean Platelet Volume 6.3; Monocytes # (A) 0.6 k/uL (0-1.0); Monocytes % (A) 7 %; Neutrophils % (A) 76 %; Platelet Count 242 k/uL (150-450); RBC 3.56 m/uL (4.30-5.90); RDW 13.8 % (11.5-15.5); WBC 7.9 k/uL (3.8-10.6)
[2017-12-14] MEDS: INSULIN ASPART 100 UNIT/ML 1 ML 10 ML VIAL SQ SCH ×4 (06:37→22:30)
[2017-12-14 07:09] LABS: Anion Gap 8 mmol/L; Blood Urea Nitrogen 12 mg/dL (9-20); Carbon Dioxide 23 mmol/L (22-30); Chloride 108 mmol/L (98-107); Glucose 120 mg/dL (74-99); Magnesium 1.7 mg/dL (1.6-2.3); Potassium 3.6 mmol/L (3.5-5.1); Sodium 139 mmol/L (137-145)
--- NOTE | 2017-12-14 07:18 | PN ---
PROGRESS NOTE DATE OF SERVICE: 12/13/2017 REASON FOR FOLLOWUP: Complicated urinary tract infection with possible sepsis. INTERVAL HISTORY: The patient is still running a fever this morning of 101.9. Afebrile this afternoon. The patient denies having any chest pain or shortness of breath or cough. No abdominal pain or any diarrhea. PHYSICAL EXAMINATION: On examination, blood pressure is 147/73 with a pulse of 99, temperature 97.4. He is 97% on 2 L nasal cannula. General description is a middle-aged male lying in bed in no distress. RESPIRATORY SYSTEM: Unlabored breathing, clear to auscultation anteriorly. HEART: S1, S2. Regular rate and rhythm. ABDOMEN: Soft, no tenderness. EXTREMITIES: No edema of feet. LABS: Hemoglobin is 10.3. UA with gram-negative. Blood culture so far negative. The ultrasound of the abdomen did show some circumferential compression wall thickening, but no hydronephrosis or any abscess. DIAGNOSTIC IMPRESSION AND PLAN: Patient admitted to the hospital with sepsis. Source is the gram-negative urinary tract infection. Patient is currently covered with cefepime 2 grams q.12 hours. Will continue while waiting for the cultures to finalize. Continue to monitor his clinical course closely. Continue with supportive care. MMODL / IJN: [id number] /
[2017-12-14] MEDS: IPRATROPIUM-ALBUTEROL 3 ML NEB INHALATION SCH ×4 (07:32→19:19)
[2017-12-14] MEDS: SYMBICORT 80-4.5 MCG INHALER INHALATION SCH ×2 (07:32→19:19)
[2017-12-14] MEDS ORDERED: POTASSIUM CHLORIDE ER 20 MEQ TAB.ER PO SCH (08:00)
[2017-12-14] MEDS: CEFEPIME 2 GM in SODIUM CHLORIDE 0.9% 50 ML IVPB SCH ×2 (08:33→22:34)
[2017-12-14] MEDS: FENOFIBRATE 160 MG TAB PO SCH (08:34)
[2017-12-14] MEDS: DESVENLAFAXINE SUCCINATE 50 MG TAB.ER.24H PO SCH (08:34)
[2017-12-14] MEDS: LISINOPRIL 10 MG TAB PO SCH (08:35)
[2017-12-14] MEDS: MONTELUKAST 10 MG TAB PO SCH (08:35)
[2017-12-14] MEDS: FAMOTIDINE 20 MG TAB PO SCH (08:35)
[2017-12-14] MEDS: clonazePAM 1 MG TAB PO PRN ×2 (08:42→22:34)
[2017-12-14] MEDS: MAGNESIUM SULFATE-D5W PMX 1 GM in DEXTROSE/WATER 1 100ML.BAG IVPB SCH ×2 (09:47→11:08)
[2017-12-14 11:59] LABS: Glucose,Whole Blood 166 mg/dL (75-99)
--- NOTE | 2017-12-14 13:21 | XR ---
EXAMINATION TYPE: XR chest 2V DATE OF EXAM: 12/14/2017 COMPARISON: 12/11/2017 TECHNIQUE: PA and lateral views submitted. HISTORY: Shortness of breath FINDINGS: There is an interstitial pattern with small bilateral effusions and basilar consolidation. No pneumo thorax. Biapical pleural thickening. Heart size stable. Degenerative change of the spine. IMPRESSION: 1. Interval development of bilateral infiltrate and small effusion and interstitial pattern. Differen tial diagnosis would include CHF. Pneumonia also in the differential diagnosis.
--- NOTE | 2017-12-14 13:58 | P.PN ---
Subjective Progress Note Date: 12/14/17 This is a 62-year-old male patient of Dr. Plata. Patient states that for the past week he has not been feeling well with symptoms of fatigue, poor appetite , fever and chills. Patient also states he has been experiencing urinary frequency, hesitancy and dysuria. Also states he had couple episodes of diarrhea but has not had any in the past few days. Patient has a known past medical history of asthma, COPD, diabetes mellitus, GERD, hyperlipidemia, hypertension, osteoarthritis, prostate disorder and sick. Chest x-ray completed emergency room showing segmental atelectasis in the left lower lobe that has increased slightly compared to last exam. Normal heart. Patient does complain that he's had a non-productive cough for the past month. EKG completed showing sinus tachycardia with occasional premature ventricular complexes and fusion complexes. Urinary analysis completed showing large amount of leukocyte Estrace, WBCs and bacteria. Urine and blood cultures have been ordered. Patient was given 2 L of normal saline bolus and IV antibiotic Rocephin. Patient is having temperatures as high as 102.3. White blood cell 14.4. Plasma lactic acid 1.2. Blood glucose 46 this morning, has been Corrected per nursing staff. Patient does tresiba insulin and Junament. Home diabetes medications currently on hold sliding scale insulin has been ordered. Patient denies chest pain or shortness breath at this time. Does state urinary frequency has improved. Currently denies nausea vomiting or diarrhea. Patient does report that he still having episodes of chills and muscle aches. 12/12/2017 patient still having low-grade temps 100.5. White count decreased from 14-12.2 heart rate 105. Patient seen by infectious disease antibiotics adjusted to cefepime. Ultrasound showed no evidence of hydronephrosis. Blood sugars are showing improvement. Patient reports improvement in his appetite. Denies any chest pain or shortness of breath. Denies any nausea or vomiting. Does report still having some burning with urination. Also cough that is productive at times. He is complaining of some shortness of breath. Slight wheezing on exam. Nebulizers will be adjusted to albuterol and Atrovent and 4 times a day and as needed or if he does have a history of COPD. He is on room air at 94% On 12/13/2017 throughout night patient had episode of chest pain and d-dimer was ordered. D-dimer was elevated at 1.59. CTA was further ordered. CTA initially reporting pulmonary embolism and patient was started on heparin drip. Case was discussed with Dr. Abarca. Per Dr. Abarca no pulmonary embolisms was seen on CT discussed case with radiologist and agreed that the CT was negative for PE. Heparin drip was further DC'd. Cardiology also consulted for pericardial effusion per CTA of the chest. 2D echo completed showing EF between 55 and 60%. Venous Doppler also completed and was negative for bilateral DVTs. Patient continuing to have elevated temperatures throughout night. Remains on IV antibiotic Maxipime per ID. 12/14/2017 patient still having some shortness of breath. Chest pain resolved. He had a temp of 102.2 last night low-grade temps this morning. White count normal at 7.9. He denies any burning with urination. He doesn't to some shortness of breath and cough he is requiring 2 L of oxygen which she is not on oxygen at home. BNP elevated at 1540. Fluids will be decreased to 50 mL an hour. Discussed case with cardiology. Patient is also reporting diarrhea. Stool for C. diff was ordered as well as chest x-ray. Chest x-ray showing interval development of bilateral infiltrate and small effusion and interstitial pattern. Differential diagnosis would include CHF and pneumonia. Cardiology consultation regards to possible pericardial effusion. Echo ordered showing EF of 55-60% with only a trivial pericardial effusion Objective - Vital Signs Vital signs: Vital Signs Temp 97.8 F 12/14/17 11:30 Pulse 100 12/14/17 11:30 Resp 18 12/14/17 11:30 BP 168/78 12/14/17 11:30 Pulse Ox 98 12/14/17 11:30 Intake & Output 12/13/17 12/14/17 12/14/17 18:59 06:59 18:59 Intake Total 902.07 625 582 Output Total 550 1000 Balance 902.07 75 -418 Weight 135.1 kg Intake: IV 755 625 Cefepime 2 gm In Sodium 100 Chloride 0.9% 50 ml @ 100 mls/hr IVPB Q12HR [facility] Rx #:[id number] Invasive Line 2 20 Invasive Line 3 10 Sodium Chloride 0.9% 1, 625 625 000 ml @ 125 mls/hr IV . Q8H [facility] Rx#:[id number] Intake, IV Titration 147.07 Amount Heparin Sod,Pork in 0.45% 147.07 NaCl 25,000 unit In 0.45 % NaCl 1 500ml.bag @ 17 UNITS/KG/HR 46.2 mls/hr IV .[id number] [facility] Rx#: [id number] Oral 582 Output: Urine 550 1000 - Exam Head normocephalic Neck supple Lungs crackles at bases Heart regular rate and rhythm S1-S2, no rub or gallop Abdomen is soft nontender nondistended positive bowel sounds no hepatosplenomegaly Extremities no edema Neuro alert and orientated to 3 - Labs CBC & Chem 7: 12/14/17 06:10 12/14/17 06:10 Labs: Abnormal Lab Results - Last 24 Hours (Table) 12/13/17 12/13/17 12/13/17 Range/Units 16:41 16:54 20:19 RBC (4.30-5.90) m/uL Hgb (13.0-17.5) gm/dL Hct (39.0-53.0) % Chloride (98-107) mmol/L Glucose (74-99) mg/dL POC Glucose (mg/dL) 202 H 139 H (75-99) mg/dL Calcium (8.4-10.2) mg/dL Troponin I 0.040 H* (0.000-0.034) ng/mL 12/14/17 12/14/17 12/14/17 Range/Units 00:25 06:10 06:10 RBC 3.56 L (4.30-5.90) m/uL Hgb 10.0 L (13.0-17.5) gm/dL Hct 29.9 L (39.0-53.0) % Chloride 108 H (98-107) mmol/L Glucose 120 H (74-99) mg/dL POC Glucose (mg/dL) (75-99) mg/dL Calcium 8.0 L (8.4-10.2) mg/dL Troponin I 0.045 H* (0.000-0.034) ng/mL 12/14/17 12/14/17 Range/Units 06:22 11:37 RBC (4.30-5.90) m/uL Hgb (13.0-17.5) gm/dL Hct (39.0-53.0) % Chloride (98-107) mmol/L Glucose (74-99) mg/dL POC Glucose (mg/dL) 125 H 166 H (75-99) mg/dL Calcium (8.4-10.2) mg/dL Troponin I (0.000-0.034) ng/mL Microbiology - Last 24 Hours (Table) 12/10/17 21:07 Blood Culture - Preliminary Blood No Growth after 72 hours Assessment and Plan Assessment: 1. Urinary tract infection with sepsis present on admission: Fever, leukocytosis , tachycardia present on admission. Seen by infectious disease. Antibiotics adjusted to cefepime. Urine culture growing Serratia marcescens. Sensitive to the cefepime. Blood culture negative so far. Ultrasound showed no evidence of hydronephrosis. Patient is still having fevers. Patient followed closely by infectious disease 2. Tachycardia. Secondary to sepsis. Improving with IV fluids. EKG completed showing sinus tachycardia with occasional premature ventricular complexes and fusion complexes. Does have a temperature as high as 102.3, has been treated with Tylenol. Home Medications of Cadura and lisinopril have been reordered. Troponin negative 3. Cough now productive with wheezing. Patient has a known history of COPD. Chest x-ray showing evidence of atelectasis and scarring. No new pneumonia. Adjust nebulizer treatments to albuterol and Atrovent and changed to 4 times a day and as needed. Continue to monitor. No further wheezing noted. 4. Diabetes mellitus type 2 with Hypoglycemia. Home medications of Tresiba and Junamet on hold. Continue Sliding scale insulin coverage ordered. Glucose levels have shown improvement. No further episodes of hypoglycemia. Patient's appetite improving. We'll continue to monitor closely. A1c 6.5 5. Hypokalemia. Resolved 6. History of diabetes mellitus. Home medications currently on hold due to hypoglycemia. Sliding scale coverage has been ordered 7. History of hyperlipidemia. Medications Fenofibrate and Liptor have been reordered 8. History of hypertension. Home medications of Cardura and lisinopril has been reordered 9. History of prostate disorder. 10. Chest pain with elevated d-dimer. PE ruled out. Per pulmonary service. 11. Fluid overload noted on chest x-ray and elevated BNP of 1540. Decrease IV fluids to 50 mL an hour. Case discussed with cardiology service will await their further recommendations. 12. Mildly elevated troponins likely related to sepsis. discussed with cardiology nurse practitioner 13. Fever spikes: Patient having diarrhea. Check stool for C. diff. Also chest x-ray showing developing bilateral infiltrates which mostly CHF but possibly could be pneumonia. We'll monitor DVT prophylaxis Lovenox. GI prophylaxis Pepcid I performed an examination of the patient and discussed their management with the physician Manager Emergency. I have reviewed the Physician Manager Emergency's notes and agree with the documented findings and plan of care
--- NOTE | 2017-12-14 14:28 | P.PN ---
Subjective Progress Note Date: 12/14/17 This is a pleasant 62-year-old gentleman who for the past week his been experiencing extreme fatigue, fever chills, he also states that he's been urinating quite frequently and having burning when he urinates. He has past medical history significant for COPD, diabetes, hyperlipidemia, hypertension, GERD. Patient denies any overt shortness of breath but does state that recently with exertion he has noticed himself to be short of breath. Chest x- ray on admission here revealed a segmental atelectasis in the left lower lobe that increased compared with prior exam. He does state that he's had a mild cough, nonproductive. EKG on admission showed sinus tachycardia with PVCs, nonspecific ST-T wave changes. Urinalysis completed showed a large amount of leukocyte esterase, wbc's and bacteria. Urine and blood cultures have been ordered. Patient was given IV fluids on admission and started on antibiotics. Temperature on admission was 103 and he continues to run temperatures in the range of 102. White blood cell count 14.4, lactic acid 1.2. CTA of the chest was performed which revealed a thin noted above evidence of pericardial effusion of 1.7 cm, small bilateral pleural effusions. Mild mediastinotomy bilateral hilar lymphadenopathy patient was initiated on IV heparin, he is also currently on IV antibiotics. At pressure this morning 134/60, temperature 101.9 , 96% on room air, heart rate 1:15. Hemoglobin 10.5, white blood cell count 10.3, platelet count 237. D-dimer 1.5, sodium 139, potassium 3.8, BUN 14, creatinine 0.9, magnesium 1.6. At the time of my examination this morning, patient states he feels extremely weak. 12/14/2017 Patient seen and examined this morning, continues to be febrile. Does state that he is feeling somewhat better today. He does have a cough and is mildly short of breath, is coughing up thick yellow sputum. Repeat chest x-ray was performed today which revealed interval development of bilateral infiltrates Temperature 11:30 this morning 97.8, but pressure 168/78, 98% on 2 L. White blood cell count 7.9, hemoglobin 10.0, platelet count 242. 139, potassium 3.6, BUN 12, creatinine 0.8. Magnesium 1.7. Echocardiogram with Doppler study was performed which revealed an ejection fraction of 55-60%. No pericardial effusion. Patient's troponin abnormality likely secondary to sepsis. Hemodynamically the patient is stable today. P Objective - Vital Signs Vital signs: Vital Signs Temp 97.8 F 12/14/17 11:30 Pulse 100 12/14/17 11:30 Resp 18 12/14/17 11:30 BP 168/78 12/14/17 11:30 Pulse Ox 98 12/14/17 11:30 Intake & Output 12/13/17 12/14/17 12/14/17 18:59 06:59 18:59 Intake Total 902.07 625 582 Output Total 550 1000 Balance 902.07 75 -418 Weight 135.1 kg Intake: IV 755 625 Cefepime 2 gm In Sodium 100 Chloride 0.9% 50 ml @ 100 mls/hr IVPB Q12HR JAYNE Rx #:[id number] Invasive Line 2 20 Invasive Line 3 10 Sodium Chloride 0.9% 1, 625 625 000 ml @ 125 mls/hr IV . Q8H JAYNE Rx#:[id number] Intake, IV Titration 147.07 Amount Heparin Sod,Pork in 0.45% 147.07 NaCl 25,000 unit In 0.45 % NaCl 1 500ml.bag @ 17 UNITS/KG/HR 46.2 mls/hr IV .[id number] JAYNE Rx#: [id number] Oral 582 Output: Urine 550 1000 - Exam PHYSICAL EXAMINATION: GENERAL: 62-year-old gentleman appears weak and fatigued the time of my examination HEENT: Head is atraumatic, normocephalic. Pupils equal, round. Sclera anicteric. Conjunctiva are clear. Mucous membranes of the mouth are moist. Neck is supple. There is no elevated jugular venous pressure.] bruit is heard. HEART EXAMINATION: Heart S1, S2 normal. No murmur or gallop heard. CHEST EXAMINATION: Lungs reveal coarse crackles to bilateral bases. ABDOMEN: Soft, nontender. Bowel sounds are heard. No organomegaly noted. EXTREMITIES: 2+ peripheral pulses with trace evidence of peripheral edema and no calf tenderness noted. NEUROLOGIC patient is awake, alert and oriented ?-3. - Labs CBC & Chem 7: 12/14/17 06:10 12/14/17 06:10 Labs: Abnormal Lab Results - Last 24 Hours (Table) 12/13/17 12/13/1718 Range/Units 16:41 16:54 20:19 RBC (4.30-5.90) m/uL Hgb (13.0-17.5) gm/dL Hct (39.0-53.0) % Chloride (98-107) mmol/L Glucose (74-99) mg/dL POC Glucose (mg/dL) 202 H 139 H (75-99) mg/dL Calcium (8.4-10.2) mg/dL Troponin I 0.040 H* (0.000-0.034) ng/mL 12/14/17 12/14/17 12/14/17 Range/Units 00:25 06:10 06:10 RBC 3.56 L (4.30-5.90) m/uL Hgb 10.0 L (13.0-17.5) gm/dL Hct 29.9 L (39.0-53.0) % Chloride 108 H (98-107) mmol/L Glucose 120 H (74-99) mg/dL POC Glucose (mg/dL) (75-99) mg/dL Calcium 8.0 L (8.4-10.2) mg/dL Troponin I 0.045 H* (0.000-0.034) ng/mL 12/14/17 12/14/17 Range/Units 06:22 11:37 RBC (4.30-5.90) m/uL Hgb (13.0-17.5) gm/dL Hct (39.0-53.0) % Chloride (98-107) mmol/L Glucose (74-99) mg/dL POC Glucose (mg/dL) 125 H 166 H (75-99) mg/dL Calcium (8.4-10.2) mg/dL Troponin I (0.000-0.034) ng/mL Microbiology - Last 24 Hours (Table) 12/10/17 21:07 Blood Culture - Preliminary Blood No Growth after 72 hours Assessment and Plan Plan: Assessment and plan #1 symptoms of urinary frequency, dysuria, and fevers with evidence of UTI, currently on IV antibiotics. #2 abnormal d-dimer with no evidence of pulmonary embolism on CAT scan, #3 pericardial effusion per CTA of the chest #4 hypertension 5 diabetes #6 hyperlipidemia #7 possible pneumonia #8 abnormal troponin likely secondary to sepsis Plan From cardiology's perspective, we'll recommend to continue the patient on his current medications. We will follow him along with you now on an as-needed basis only, please don't hesitate to call with any questions. DNP note has been reviewed, I agree with a documented findings and plan of care. Patient was seen and examined.
--- NOTE | 2017-12-14 15:19 | P.PN ---
Subjective Progress Note Date: 12/14/17 Principal diagnosis: Possible pulmonary embolism Progress note dated 12/14/2017 This is a 62-year-old male who presented to the emergency department on December 10 for dysuria. He also has some generalized fatigue fever and chills. The patient apparently been having some difficulty urinating for some time. He was told that he had benign prostatic hypertrophy. Because of these complaints, he was admitted to the hospital from the emergency department. The patient was not having any chest pain or shortness of breath abdominal pain nausea or vomiting. He did have some diminished appetite. The patient had a CT angiogram that was initially read as being positive for pulmonary embolism by the radiologist. I reviewed the CT angiogram is no evidence of a central clot. I called radiology. They can be interpreted the CT angiogram and added addendum which basically said there was no evidence of pulmonary embolism at all. The patient really never had any pulmonary complaints per se. The patient is doing reasonably well. Chest x-ray suggested possibly some interstitial edema and heart failure. We did tell the primary team and they could stop the IV heparin. The patient is feeling better today. No major issues. Certainly no lung issues at this time. Objective - Vital Signs Vital signs: Vital Signs Temp 97.8 F 12/14/17 11:30 Pulse 100 12/14/17 11:30 Resp 18 12/14/17 11:30 BP 168/78 12/14/17 11:30 Pulse Ox 98 12/14/17 11:30 Intake & Output 12/13/17 12/14/17 12/14/17 18:59 06:59 18:59 Intake Total 902.07 625 1432 Output Total 550 1000 Balance 902.07 75 432 Weight 135.1 kg Intake: IV 755 625 650 Cefepime 2 gm In Sodium 100 50 Chloride 0.9% 50 ml @ 100 mls/hr IVPB Q12HR JAYNE Rx #:[id number] Invasive Line 2 20 Invasive Line 3 10 Sodium Chloride 0.9% 1, 625 625 600 000 ml @ 50 mls/hr IV . Q20H JAYNE Rx#:[id number] Intake, IV Titration 147.07 200 Amount Heparin Sod,Pork in 0.45% 147.07 NaCl 25,000 unit In 0.45 % NaCl 1 500ml.bag @ 17 UNITS/KG/HR 46.2 mls/hr IV .[id number] JAYNE Rx#: [id number] Magnesium Sulfate-D5w Pmx 200 1 gm In Dextrose/Water 1 100ml.bag @ 100 mls/hr IVPB Q1H JAYNE Rx#: [id number] Oral 582 Output: Urine 550 1000 - Exam No acute distress, oriented 3. Nasal O2 in place. HEENT examination is grossly unremarkable. Mucous membranes are moist. No oral lesions. Neck supple. Full range of motion. No adenopathy thyromegaly or neck vein distention. Cardiovascular examination reveals regular rhythm rate. S1-S2 normal. No S3 or S4. No discernible murmur noted. Heart sounds are distant. Lungs reveal bibasilar crackles. No rhonchi or wheezes. Breath sounds equal bilaterally. Abdomen soft bowel sounds are heard. No masses or tenderness. Extremities are intact. No cyanosis clubbing or edema. Skin is without rash or lesion. Neurologic examination is brief but nonfocal. - Labs CBC & Chem 7: 12/14/17 06:10 12/14/17 06:10 Labs: Abnormal Lab Results - Last 24 Hours (Table) 12/13/17 12/13/17 12/13/17 Range/Units 16:41 16:54 20:19 RBC (4.30-5.90) m/uL Hgb (13.0-17.5) gm/dL Hct (39.0-53.0) % Chloride (98-107) mmol/L Glucose (74-99) mg/dL POC Glucose (mg/dL) 202 H 139 H (75-99) mg/dL Calcium (8.4-10.2) mg/dL Troponin I 0.040 H* (0.000-0.034) ng/mL 12/14/17 12/14/17 12/14/17 Range/Units 00:25 06:10 06:10 RBC 3.56 L (4.30-5.90) m/uL Hgb 10.0 L (13.0-17.5) gm/dL Hct 29.9 L (39.0-53.0) % Chloride 108 H (98-107) mmol/L Glucose 120 H (74-99) mg/dL POC Glucose (mg/dL) (75-99) mg/dL Calcium 8.0 L (8.4-10.2) mg/dL Troponin I 0.045 H* (0.000-0.034) ng/mL 12/14/17 12/14/17 Range/Units 06:22 11:37 RBC (4.30-5.90) m/uL Hgb (13.0-17.5) gm/dL Hct (39.0-53.0) % Chloride (98-107) mmol/L Glucose (74-99) mg/dL POC Glucose (mg/dL) 125 H 166 H (75-99) mg/dL Calcium (8.4-10.2) mg/dL Troponin I (0.000-0.034) ng/mL Microbiology - Last 24 Hours (Table) 12/10/17 21:07 Blood Culture - Preliminary Blood No Growth after 72 hours Assessment and Plan Assessment: Assessment No evidence of pulmonary embolism on CT angiogram. History of diabetes mellitus Vague history of asthma/COPD, which is inactive/stable History of hyperlipidemia History of hypertension History of DJD Acute urinary tract infection secondary to Serratia marcescens Mild heart failure Chronic anemia Multiple other medical problems and comorbidities. Plan: Plan dated 12/13/2017 We will see the patient only as needed. I relayed the fact that there was no pulmonary embolism to the primary service and to the nurse practitioner working with the primary service. I also discussed the case with cardiology. Additional recommendations and suggestions are forthcoming. Plan dated 12/14/2017 The patient had no evidence of pulmonary embolism on CT angiogram. The patient does have a history of mild asthma/COPD which is inactive. The patient's chest x-rays consistent with mild heart failure. The patient seemed to be doing relatively well. Please do not hesitate to call us back should we be of any additional help in the future. Labs x-rays a medications are all reviewed. Time with Patient: Less than 30
[2017-12-14 17:29] LABS: Glucose,Whole Blood 172 mg/dL (75-99)
[2017-12-14] MEDS: ACETAMINOPHEN TAB 325 MG TAB PO PRN (20:09)
[2017-12-14 20:21] VITALS: RESP 18
[2017-12-14 20:42] LABS: Glucose,Whole Blood 154 mg/dL (75-99)
[2017-12-14] MEDS: ATORVASTATIN 80 MG TAB PO SCH (22:29)
[2017-12-14] MEDS: DOXAZOSIN 4 MG TAB PO SCH (22:29)
--- NOTE | 2017-12-14 22:42 | PN ---
PROGRESS NOTE DATE OF SERVICE: 12/14/2017. REASON FOR FOLLOWUP: Serratia marcescens urinary tract infection. INTERVAL HISTORY: The patient overall feels better and has improved. The last temperature he had last night was 102.2 degrees Fahrenheit. The patient is hemodynamically stable. Denies significant chest pain. Occasional cough. No abdominal pain. No nausea, vomiting and no diarrhea. His urinary symptoms have improved. EXAMINATION: Blood pressure is 160/76 with a pulse of 101, temperature of 99.3. He is 97% on room air. General description is a middle-aged male up in the bed in no distress. RESPIRATORY SYSTEM: Unlabored breathing. Clear to auscultation anteriorly. HEART: S1, S2. Regular rate and rhythm. ABDOMEN: Soft. No tenderness. EXTREMITIES: No edema of the feet. LABS: Hemoglobin is 10, white count is 7.9. BUN of 12, creatinine 0.84. Blood culture negative. Urine with Serratia marcescens. DIAGNOSTIC IMPRESSION AND PLAN: Patient with Serratia marcescens urinary tract infection with a complicated urinary tract infection. Patient at this time to continue with cefepime, hopefully transition to oral Cipro on discharge to finish a course of therapy. Family is present at bedside. Their questions were answered. MMODL / IJN: [id number] /
[2017-12-14] MEDS: IPRATROPIUM-ALBUTEROL 3 ML NEB INHALATION PRN (23:14)
[2017-12-15 01:27] LABS: Iron Saturation 4.42 (15.00-50.00)
[2017-12-15 05:43] LABS: Glucose,Whole Blood 146 mg/dL (75-99)
[2017-12-15 06:28] LABS: Basophils # (A) 0.1 k/uL (0-0.2); Basophils % (A) 1 %; Eosinophils # (A) 0.1 k/uL (0-0.7); Eosinophils % (A) 1 %; HCT 30.4 % (39.0-53.0); Lymphocytes # (A) 1.2 k/uL (1.0-4.8); Lymphocytes % (A) 13 %; MCH 27.3 pg (25.0-35.0); MCHC 32.8 g/dL (31.0-37.0); MCV 83.4 fL (80.0-100.0); Mean Platelet Volume 6.5; Monocytes # (A) 0.6 k/uL (0-1.0); Monocytes % (A) 6 %; Neutrophils # (A) 6.8 k/uL (1.3-7.7); Neutrophils % (A) 76 %; Platelet Count 289 k/uL (150-450); RBC 3.65 m/uL (4.30-5.90); RDW 13.6 % (11.5-15.5); WBC 8.9 k/uL (3.8-10.6)
[2017-12-15 06:39] LABS: ALT 53 U/L (21-72); AST 42 U/L (17-59); Albumin 2.9 g/dL (3.5-5.0); Alkaline Phosphatase 73 U/L (38-126); Anion Gap 7 mmol/L; Blood Urea Nitrogen 11 mg/dL (9-20); Calcium 8.4 mg/dL (8.4-10.2); Carbon Dioxide 26 mmol/L (22-30); Chloride 106 mmol/L (98-107); Glucose 144 mg/dL (74-99); Magnesium 1.8 mg/dL (1.6-2.3); Potassium 3.7 mmol/L (3.5-5.1); Sodium 139 mmol/L (137-145); Total Bilirubin 0.7 mg/dL (0.2-1.3); Total Protein 5.5 g/dL (6.3-8.2)
[2017-12-15] MEDS: INSULIN ASPART 100 UNIT/ML 1 ML 10 ML VIAL SQ SCH ×2 (07:21→12:36)
[2017-12-15] MEDS ORDERED: POTASSIUM CHLORIDE ER 20 MEQ TAB.ER PO ONE (08:00)
[2017-12-15] MEDS: SYMBICORT 80-4.5 MCG INHALER INHALATION SCH (08:13)
[2017-12-15] MEDS: IPRATROPIUM-ALBUTEROL 3 ML NEB INHALATION SCH ×3 (08:13→16:17)
[2017-12-15 09:37] VITALS: TEMP 97.9
[2017-12-15] MEDS: CEFEPIME 2 GM in SODIUM CHLORIDE 0.9% 50 ML IVPB SCH (09:37)
[2017-12-15] MEDS: SODIUM CHLORIDE 0.9% 1,000 ML IV SCH (09:39)
[2017-12-15] MEDS: LISINOPRIL 10 MG TAB PO SCH (09:39)
[2017-12-15] MEDS: MONTELUKAST 10 MG TAB PO SCH (09:39)
[2017-12-15] MEDS: FAMOTIDINE 20 MG TAB PO SCH (09:39)
[2017-12-15] MEDS: FENOFIBRATE 160 MG TAB PO SCH (09:39)
[2017-12-15] MEDS: DESVENLAFAXINE SUCCINATE 50 MG TAB.ER.24H PO SCH (09:39)
[2017-12-15 11:30] LABS: Glucose,Whole Blood 169 mg/dL (75-99)
[2017-12-15] MEDS: MAGNESIUM SULFATE-D5W PMX 1 GM in DEXTROSE/WATER 1 100ML.BAG IVPB SCH ×2 (11:52→12:35)
[2017-12-15 12:14] VITALS: BP 146/66; PULSE 98
--- NOTE | 2017-12-15 13:31 | PN ---
PROGRESS NOTE Mr. Leblanc is a 62-year-old male who presented with evidence of infection. There was a question of pericardial effusion and pulmonary embolism initially, but no pulmonary embolism was documented and he had no evidence of significant pericardial effusion. He is still weak, but he is feeling better. He has no chest pain. No dizziness. No palpitation. He is ambulating without much difficulty. He continues to be at this time on Lipitor 80 mg daily, fenofibrate, lisinopril 10 mg daily. PHYSICAL EXAMINATION: Blood pressure is 146/60 with the heart rate in 90s. LUNGS: Clear. HEART: Regular rate and rhythm. S1, S2. No S3. No rub. ABDOMEN: Soft, obese, nontender. EXTREMITIES: No edema. LAB DATA: Lab data revealed BUN and creatinine of 11 and 0.82. Hemoglobin of 10. IMPRESSION: 1. Sepsis, improving. 2. Hypertension. 3. Hyperlipidemia. RECOMMENDATION: Patient should be able to be discharged home today from the cardiac standpoint and follow up as an outpatient. MMODL / ANKURN: [id number] /
--- NOTE | 2017-12-15 14:40 | P.DS ---
Providers Date of admission: 12/10/17 23:38 Expected date of discharge: 12/15/17 Attending physician: Martine Prasad Consults: 12/11/17 10:59 Consult Physician Routine Consulting Provider: Arsen Navarrete Consult Reason/Comments: UTI/sepsis Do you want consulting provider notified?: Yes 12/13/17 06:53 Consult Physician Routine Consulting Provider: Rosendo Shaver Consult Reason/Comments: pericardial infusion Do you want consulting provider notified?: Yes 12/13/17 06:55 Consult Physician Routine Consulting Provider: Imelda Garduno Consult Reason/Comments: pleural effusions, shortness of breath Do you want consulting provider notified?: Yes Primary care physician: Anu Plata Hospital Course: Discharge diagnosis 1. Urinary tract infection with sepsis present on admission: Fever, leukocytosis , tachycardia present on admission. Seen by infectious disease. Antibiotics adjusted to cefepime. Urine culture growing Serratia marcescens. Blood culture negative. Ultrasound showed no evidence of hydronephrosis. Patient is followed closely by infectious disease. High-grade fevers have resolved. Blood culture remains negative. White count normalized to 8.9. They're recommending Cipro 750 mg twice a day for 10 more days. And he'll follow-up with infectious disease outpatient 2. Tachycardia. Secondary to sepsis. Improving with IV fluids. EKG completed showing sinus tachycardia with occasional premature ventricular complexes and fusion complexes. Does have a temperature as high as 102.3, has been treated with Tylenol. Home Medications of Cadura and lisinopril have been reordered. Troponin negative 3. Cough: Patient has a known history of COPD. Chest x-ray showing evidence of atelectasis and scarring. No new pneumonia. Resume home inhalers 4. Diabetes mellitus type 2 with Hypoglycemia. Tresiba discontinued. We'll continue patient's Janumet. A1c 6.5 5. Hypokalemia. Resolved 6. History of diabetes mellitus. Home medications currently on hold due to hypoglycemia. Sliding scale coverage has been ordered 7. History of hyperlipidemia. Medications Fenofibrate and Liptor have been reordered 8. History of hypertension. Home medications of Cardura and lisinopril has been reordered 9. History of prostate disorder. 10. Chest pain with elevated d-dimer. PE ruled out. Per pulmonary service. 11. Fluid overload noted on chest x-ray and elevated BNP of 1540. IV fluids hep-locked 12. Mildly elevated troponins likely related to sepsis. discussed with cardiology nurse practitioner 13. Diarrhea resolved stool for C. diff negative. 14. Iron deficiency anemia: Hemoglobin 10 at discharge. Total iron was 11. Patient be placed on ferrous sulfate 325 mg twice a day Hospital course This is a 62-year-old male patient of Dr. Plata. Patient states that for the past week he has not been feeling well with symptoms of fatigue, poor appetite , fever and chills. Patient also states he has been experiencing urinary frequency, hesitancy and dysuria. Also states he had couple episodes of diarrhea but has not had any in the past few days. Patient has a known past medical history of asthma, COPD, diabetes mellitus, GERD, hyperlipidemia, hypertension, osteoarthritis, prostate disorder and sick. Chest x-ray completed emergency room showing segmental atelectasis in the left lower lobe that has increased slightly compared to last exam. Normal heart. Patient does complain that he's had a non-productive cough for the past month. EKG completed showing sinus tachycardia with occasional premature ventricular complexes and fusion complexes. Urinary analysis completed showing large amount of leukocyte Estrace, WBCs and bacteria. Urine and blood cultures have been ordered. Patient was given 2 L of normal saline bolus and IV antibiotic Rocephin. Patient is having temperatures as high as 102.3. White blood cell 14.4. Plasma lactic acid 1.2. Blood glucose 46 this morning, has been Corrected per nursing staff. Patient does tresiba insulin and Junament. Home diabetes medications currently on hold sliding scale insulin has been ordered. Patient denies chest pain or shortness breath at this time. Does state urinary frequency has improved. Currently denies nausea vomiting or diarrhea. Patient does report that he still having episodes of chills and muscle aches. 12/12/2017 patient still having low-grade temps 100.5. White count decreased from 14-12.2 heart rate 105. Patient seen by infectious disease antibiotics adjusted to cefepime. Ultrasound showed no evidence of hydronephrosis. Blood sugars are showing improvement. Patient reports improvement in his appetite. Denies any chest pain or shortness of breath. Denies any nausea or vomiting. Does report still having some burning with urination. Also cough that is productive at times. He is complaining of some shortness of breath. Slight wheezing on exam. Nebulizers will be adjusted to albuterol and Atrovent and 4 times a day and as needed or if he does have a history of COPD. He is on room air at 94% On 12/13/2017 throughout night patient had episode of chest pain and d-dimer was ordered. D-dimer was elevated at 1.59. CTA was further ordered. CTA initially reporting pulmonary embolism and patient was started on heparin drip. Case was discussed with Dr. Abarca. Per Dr. Abarca no pulmonary embolisms was seen on CT discussed case with radiologist and agreed that the CT was negative for PE. Heparin drip was further DC'd. Cardiology also consulted for pericardial effusion per CTA of the chest. 2D echo completed showing EF between 55 and 60%. Venous Doppler also completed and was negative for bilateral DVTs. Patient continuing to have elevated temperatures throughout night. Remains on IV antibiotic Maxipime per ID. 12/14/2017 patient still having some shortness of breath. Chest pain resolved. He had a temp of 102.2 last night low-grade temps this morning. White count normal at 7.9. He denies any burning with urination. He doesn't to some shortness of breath and cough he is requiring 2 L of oxygen which she is not on oxygen at home. BNP elevated at 1540. Fluids will be decreased to 50 mL an hour. Discussed case with cardiology. Patient is also reporting diarrhea. Stool for C. diff was ordered as well as chest x-ray. Chest x-ray showing interval development of bilateral infiltrate and small effusion and interstitial pattern. Differential diagnosis would include CHF and pneumonia. Cardiology consultation regards to possible pericardial effusion. Echo ordered showing EF of 55-60% with only a trivial pericardial effusion Patient's symptoms have improved. He was was found have evidence of UTI with sepsis and treated with IV fluids and antibiotics. Infectious diseases recommending Cipro 750 mg twice a day for 10 more days. He was also seen by cardiology and pulmonary services during this admission for for possible PE and pericardial effusion that was noted on a computed tomography scan of the chest. Further evaluation of computed tomography scan of the chest by accountant clerk and there was no actual PE. Also echo shows no evidence of a pericardial effusion. Patient has been cleared by pulmonary and cardiology services. Patient is off of oxygen. He has been up and ambulating. His appetite has improved. He is medically stable for discharge Patient follow-up with his PCP, Dr. Carpenter and Dr. Navarrete outpatient I performed an examination of the patient and discussed their management with the physician [place] [facility]. I have reviewed the Physician [place]'s notes and agree with the documented findings and plan of care Patient Condition at Discharge: Stable Plan - Discharge Summary Discharge Rx Participant: No New Discharge Prescriptions: New Ferrous Sulfate [Iron (65 MG Elemental)] 325 mg PO BID #60 tab Ciprofloxacin HCl [Cipro] 750 mg PO BID #20 tablet Continue Montelukast [Singulair] 10 mg PO DAILY Lisinopril 10 mg PO DAILY Fenofibrate [Lofibra] 160 mg PO DAILY Albuterol Sulfate [Ventolin HFA] 1 puff INHALATION RT-QID PRN PRN Reason: Shortness Of Breath Fluticasone/Salmeterol [Advair 250-50 Diskus] 1 puff INHALATION RT-BID Doxazosin Mesylate [Cardura] 16 mg PO HS Desvenlafaxine [Pristiq ER] 100 mg PO DAILY clonazePAM [KlonoPIN] 1 mg PO BID PRN PRN Reason: Anxiety Cetirizine HCl [Zyrtec] 10 - 20 mg PO HS PRN PRN Reason: Allergy Symptoms Atorvastatin [Lipitor] 80 mg PO HS sitaGLIPtin PHOS/metFORMIN HCL [Janumet Xr 50-1,000 mg Tablet] 2 tab PO HS Discontinued Insulin Degludec [Tresiba Flextouch U-100] 100 unit SQ DAILY Discharge Medication List Montelukast [Singulair] 10 mg PO DAILY 09/25/13 [History] Albuterol Sulfate [Ventolin HFA] 1 puff INHALATION RT-QID PRN 02/21/14 [History] Fenofibrate [Lofibra] 160 mg PO DAILY 02/21/14 [History] Lisinopril 10 mg PO DAILY 02/21/14 [History] Fluticasone/Salmeterol [Advair 250-50 Diskus] 1 puff INHALATION RT-BID 09/08/15 [History] Doxazosin Mesylate [Cardura] 16 mg PO HS 10/20/15 [History] Atorvastatin [Lipitor] 80 mg PO HS 09/24/16 [History] Cetirizine HCl [Zyrtec] 10 - 20 mg PO HS PRN 09/24/16 [History] Desvenlafaxine [Pristiq ER] 100 mg PO DAILY 09/24/16 [History] clonazePAM [KlonoPIN] 1 mg PO BID PRN 09/24/16 [History] sitaGLIPtin PHOS/metFORMIN HCL [Janumet Xr 50-1,000 mg Tablet] 2 tab PO HS 09/24 [History] Ciprofloxacin HCl [Cipro] 750 mg PO BID #20 tablet 12/15/17 [Rx] Ferrous Sulfate [Iron (65 MG Elemental)] 325 mg PO BID #60 tab 12/15/17 [Rx] Follow up Appointment(s)/Referral(s): Mitul Carpenter MD [STAFF PHYSICIAN] - 4 Weeks Anu Plata MD [Primary Care Provider] - 12/18/17 1:00 pm (Monday) Arsen Navarrete MD [STAFF PHYSICIAN] - 2 Weeks Patient Instructions/Handouts: Urinary Tract Infection in Men (DC), Sepsis (GEN ) Activity/Diet/Wound Care/Special Instructions: Diet: cardiac, diabetic Activity: as tolerated Discharge Disposition: HOME SELF-CARE
--- NOTE | 2017-12-15 16:19 | PN ---
PROGRESS NOTE DATE OF SERVICE: 12/15/2017. REASON FOR FOLLOW UP: Sedation versus urinary tract infection. INTERVAL HISTORY: The patient has been afebrile with no fever recorded now for 48 hours. The patient is breathing comfortably, feeling fine. Denies having any chest pain. No cough. No abdominal pain, no diarrhea. EXAMINATION: Blood pressure 146/66, pulse of 90, temperature 98. He is 93% on room air. General description is a middle-aged male lying in bed in no distress. RESPIRATORY SYSTEM: Unlabored breathing. Clear to auscultation anteriorly. HEART: S1, S2. Regular rate and rhythm. ABDOMEN: Soft, no tenderness. LABS: Hemoglobin is 10 with white count 8.9. BUN of 11, creatinine 0.8. DIAGNOSTIC IMPRESSION AND PLAN: Patient with Serratia marcescens urinary tract infection. Blood culture has been negative. The patient afebrile for the last 48 hours. The ultrasound was negative for any acute abnormality such as hydronephrosis or abscess. Antibiotic will be transitioned to Cipro 750 twice a day for another 10 days with close outpatient followup. MMODL / IJN: [id number] /
[2017-12-15] MEDS ORDERED: FERROUS SULFATE 325 MG TAB PO SCH (21:00)
== END 2017-12-15 16:20 | disposition home or self-care (01) | DRG 872 ==
LOC: EC 20:47 → 6SEL 23:38
PROVIDERS: ADMIT Internal Medicine; ATTEND Internal Medicine
DX: A41.53 Sepsis due to Serratia (principal); N39.0 Urinary tract infection, site not specified; J98.11 Atelectasis; D50.9 Iron deficiency anemia, unspecified; E11.649 Type 2 diabetes mellitus with hypoglycemia without coma; E66.9 Obesity, unspecified; Z68.37 Body mass index [BMI] 37.0-37.9, adult; E78.5 Hyperlipidemia, unspecified; E87.6 Hypokalemia; I11.0 Hypertensive heart disease with heart failure; I49.3 Ventricular premature depolarization; I50.9 Heart failure, unspecified; J44.9 Chronic obstructive pulmonary disease, unspecified; K21.9 Gastro-esophageal reflux disease without esophagitis; M19.90 Unspecified osteoarthritis, unspecified site; N40.1 Benign prostatic hyperplasia with lower urinary tract symptoms; R35.0 Frequency of micturition; R79.1 Abnormal coagulation profile; Z79.4 Long term (current) use of insulin; Z79.899 Other long term (current) drug therapy; Z82.49 Family history of ischemic heart disease and other diseases of the circulatory system; Z87.891 Personal history of nicotine dependence; F41.9 Anxiety disorder, unspecified; R74.8 Abnormal levels of other serum enzymes
CPT/HCPCS: 36415; 51798; 71046; 71275; 76770; 80048; 80053; 81001; 82550; 82553; 82728; 83036; 83540; 83550; 83605; 83735; 83880; 84484; 85025; 85379; 85610; 85730; 87040; 87077; 87086; 87186; 87324; 93005; 93306; 93970; 94640; 94760; 96374; 99285

== ENCOUNTER 2017-12-27 11:24 | Observation (INO) | payer MEDICARE, OTHER ==
[2017-12-27] MEDS ORDERED: SODIUM CHLORIDE 0.9% 500 ML IV STA (11:30)
[2017-12-27] MEDS ORDERED: SODIUM CHLORIDE 0.9% 1,000 ML IV STA (11:30)
[2017-12-27] MEDS ORDERED: KETOROLAC 30 MG/ML 1 ML VIAL IVP STA (11:30)
--- NOTE | 2017-12-27 11:33 | ED ---
Abdominal Pain HPI - General Stated Complaint: Weakness/nvd Time Seen by Provider: 12/27/17 11:24 Source: patient, EMS, RN notes reviewed, old records reviewed Mode of arrival: EMS - History of Present Illness Initial Comments: This is a 62-year-old male with a recent history of admission for urinary tract infection and sepsis who is back today with complaints of the onset around 4 AM this morning of generalized abdominal pain. He states it hurts all over 67/10 severity. Is brought in by EMS he was found have a heart rate of about 116. No overt nausea vomiting or diarrhea at this time. No other modifying factors other than generalized weakness today. MD Complaint: abdominal pain - Related Data Home Medications Medication Instructions Recorded Confirmed Montelukast [Singulair] 10 mg PO DAILY 09/25/13 12/27/17 Albuterol Sulfate [Ventolin HFA] 1 puff INHALATION RT-QID PRN 02/21/14 12/27/17 Fenofibrate [Lofibra] 160 mg PO DAILY 02/21/14 12/27/17 Lisinopril 10 mg PO DAILY 02/21/14 12/27/17 Fluticasone/Salmeterol [Advair 1 puff INHALATION RT-BID 09/08/15 12/27/17 250-50 Diskus] Doxazosin Mesylate [Cardura] 16 mg PO HS 10/20/15 12/27/17 Atorvastatin [Lipitor] 80 mg PO HS 09/24/16 12/27/17 Cetirizine HCl [Zyrtec] 10 - 20 mg PO HS PRN 09/24/16 12/27/17 Desvenlafaxine [Pristiq ER] 100 mg PO DAILY 09/24/16 12/27/17 clonazePAM [KlonoPIN] 1 mg PO BID PRN 09/24/16 12/27/17 sitaGLIPtin PHOS/metFORMIN HCL 2 tab PO HS 09/24/16 12/27/17 [Janumet Xr 50-1,000 mg Tablet] Previous Rx's Medication Instructions Recorded Ferrous Sulfate [Iron (65 MG 325 mg PO BID #60 tab 12/15/17 Elemental)] Allergies Allergy/AdvReac Type Severity Reaction Status Date / Time No Known Allergies Allergy Verified 12/27/17 11:41 Review of Systems ROS Statement: Those systems with pertinent positive or pertinent negative responses have been documented in the HPI. ROS Other: All systems not noted in ROS Statement are negative. Past Medical History Past Medical History: Asthma, COPD, Diabetes Mellitus, GERD/Reflux, Hyperlipidemia, Hypertension, Osteoarthritis (OA), Prostate Disorder, Skin Disorder Additional Past Medical History / Comment(s): diarrhea, sores on arms, DDD History of Any Multi-Drug Resistant Organisms: None Reported Past Surgical History: Hernia Repair, Orthopedic Surgery, Tonsillectomy Additional Past Surgical History / Comment(s): right chest wall cyst removed, nerve surgery left elbow Past Anesthesia/Blood Transfusion Reactions: No Reported Reaction Past Psychological History: No Psychological Hx Reported Smoking Status: Former smoker Past Alcohol Use History: None Reported Additional Past Alcohol Use History / Comment(s): quit smoking 25 yrs ago, smoked for 17 yrs- 2 PPD Past Drug Use History: None Reported - Past Family History Father Family Medical History: Myocardial Infarction ([place]) Mother Family Medical History: No Reported History General Exam - General Exam Comments Initial Comments: This is a well-developed well-nourished awake alert oriented 3 male General appearance: alert, in no apparent distress Head exam: Present: atraumatic, normocephalic, normal inspection Eye exam: Present: normal appearance, PERRL, EOMI. Absent: scleral icterus, conjunctival injection, periorbital swelling ENT exam: Present: mucous membranes dry Neck exam: Present: normal inspection. Absent: tenderness, meningismus, lymphadenopathy Respiratory exam: Present: normal lung sounds bilaterally. Absent: respiratory distress, wheezes, rales, rhonchi, stridor Cardiovascular Exam: Present: regular rate, normal rhythm, normal heart sounds. Absent: systolic murmur, diastolic murmur, rubs, gallop, clicks GI/Abdominal exam: Present: soft, tenderness (Tenderness palpation no focal guarding or rebound.), normal bowel sounds. Absent: distended, guarding, rebound, rigid, bruit, pulsatile mass, hernia Rectal exam: Present: deferred Extremities exam: Present: normal inspection, full ROM, normal capillary refill. Absent: tenderness, pedal edema, joint swelling, calf tenderness Back exam: Present: normal inspection Neurological exam: Present: alert, oriented X3, CN II-XII intact Psychiatric exam: Present: normal affect, normal mood Skin exam: Present: warm, dry, intact, normal color. Absent: rash Course Vital Signs 12/27/17 12/27/17 11:28 14:17 Temperature 98.2 F Pulse Rate 104 H Respiratory 16 18 Rate Blood Pressure 95/63 127/65 O2 Sat by Pulse 99 Oximetry Medical Decision Making - Medical Decision Making The patient persists in having abdominal pain at did discuss case with him and his family and with Dr. Segura patient will be admitted for further evaluation - Lab Data Result diagrams: 12/27/17 11:40 12/27/17 11:40 Lab Results 12/27/17 12/27/17 12/27/17 Range/Units 11:40 11:40 11:40 WBC 22.2 H (3.8-10.6) k/uL RBC 5.39 (4.30-5.90) m/uL Hgb 15.1 D (13.0-17.5) gm/dL Hct 46.6 (39.0-53.0) % MCV 86.6 (80.0-100.0) fL MCH 28.0 (25.0-35.0) pg MCHC 32.4 (31.0-37.0) g/dL RDW 14.3 (11.5-15.5) % Plt Count 327 (150-450) k/uL Neutrophils % 87 % Lymphocytes % 6 % Monocytes % 6 % Eosinophils % 1 % Basophils % 0 % Neutrophils # 19.3 H (1.3-7.7) k/uL Lymphocytes # 1.3 (1.0-4.8) k/uL Monocytes # 1.2 H (0-1.0) k/uL Eosinophils # 0.2 (0-0.7) k/uL Basophils # 0.1 (0-0.2) k/uL PT (9.0-12.0) sec INR (<1.2) APTT (22.0-30.0) sec Sodium 140 (137-145) mmol/L Potassium 4.6 (3.5-5.1) mmol/L Chloride 107 (98-107) mmol/L Carbon Dioxide 19 L (22-30) mmol/L Anion Gap 14 mmol/L BUN 21 H (9-20) mg/dL Creatinine 0.96 (0.66-1.25) mg/dL Est GFR (CKD-EPI)AfAm >90 (>60 ml/min/1.73 sqM) Est GFR (CKD-EPI)NonAf 84 (>60 ml/min/1.73 sqM) Glucose 157 H (74-99) mg/dL Plasma Lactic Acid Brooks (0.7-2.0) mmol/L Calcium 10.2 (8.4-10.2) mg/dL Total Bilirubin 0.4 (0.2-1.3) mg/dL AST 26 (17-59) U/L ALT 36 (21-72) U/L Alkaline Phosphatase 90 (38-126) U/L Total Creatine Kinase 205 H (55-170) U/L CK-MB (CK-2) 4.5 H* (0.0-2.4) ng/mL CK-MB (CK-2) Rel Index 2.2 Troponin I <0.012 (0.000-0.034) ng/mL Total Protein 7.8 (6.3-8.2) g/dL Albumin 4.7 (3.5-5.0) g/dL Amylase 69 (30-110) U/L Lipase 125 (23-300) U/L Urine Color Urine Appearance (Clear) Urine pH (5.0-8.0) Ur Specific [place] (1.001-1.035) Urine Protein (Negative) Urine Glucose (UA) (Negative) Urine Ketones (Negative) Urine Blood (Negative) Urine Nitrite (Negative) Urine Bilirubin (Negative) Urine Urobilinogen (<2.0) mg/dL Ur Leukocyte Esterase (Negative) 12/27/17 12/27/17 12/27/17 Range/Units 11:40 11:40 11:45 WBC (3.8-10.6) k/uL RBC (4.30-5.90) m/uL Hgb (13.0-17.5) gm/dL Hct (39.0-53.0) % MCV (80.0-100.0) fL MCH (25.0-35.0) pg MCHC (31.0-37.0) g/dL RDW (11.5-15.5) % Plt Count (150-450) k/uL Neutrophils % % Lymphocytes % % Monocytes % % Eosinophils % % Basophils % % Neutrophils # (1.3-7.7) k/uL Lymphocytes # (1.0-4.8) k/uL Monocytes # (0-1.0) k/uL Eosinophils # (0-0.7) k/uL Basophils # (0-0.2) k/uL PT 10.0 (9.0-12.0) sec INR 1.0 (<1.2) APTT 22.8 (22.0-30.0) sec Sodium (137-145) mmol/L Potassium (3.5-5.1) mmol/L Chloride (98-107) mmol/L Carbon Dioxide (22-30) mmol/L Anion Gap mmol/L BUN (9-20) mg/dL Creatinine (0.66-1.25) mg/dL Est GFR (CKD-EPI)AfAm (>60 ml/min/1.73 sqM) Est GFR (CKD-EPI)NonAf (>60 ml/min/1.73 sqM) Glucose (74-99) mg/dL Plasma Lactic Acid Brooks 1.9 (0.7-2.0) mmol/L Calcium (8.4-10.2) mg/dL Total Bilirubin (0.2-1.3) mg/dL AST (17-59) U/L ALT (21-72) U/L Alkaline Phosphatase (38-126) U/L Total Creatine Kinase (55-170) U/L CK-MB (CK-2) (0.0-2.4) ng/mL CK-MB (CK-2) Rel Index Troponin I (0.000-0.034) ng/mL Total Protein (6.3-8.2) g/dL Albumin (3.5-5.0) g/dL Amylase (30-110) U/L Lipase (23-300) U/L Urine Color Yellow Urine Appearance Clear (Clear) Urine pH 5.5 (5.0-8.0) Ur Specific [place] 1.021 (1.001-1.035) Urine Protein Trace H (Negative) Urine Glucose (UA) 3+ H (Negative) Urine Ketones Negative (Negative) Urine Blood Negative (Negative) Urine Nitrite Negative (Negative) Urine Bilirubin Negative (Negative) Urine Urobilinogen <2.0 (<2.0) mg/dL Ur Leukocyte Esterase Negative (Negative) - EKG Data -: EKG Interpreted by [place] EKG shows normal: sinus rhythm (Sinus tachycardia rate 120. 168 QRS 86 QT since QTC 36/432 evidence a left atrial enlargement nonspecific ST configuration some artifact is present) - Radiology Data Radiology results: report reviewed (Review the imaging and reports no acute findings.), image reviewed Disposition Clinical Impression: Abdominal pain, Leukocytosis Disposition: ADMITTED IP TO THIS HOSP Condition: Stable Referrals: Anu Plata MD [Primary Care Provider] - 1-2 days
[2017-12-27 12:01] LABS: Basophils # (A) 0.1 k/uL (0-0.2); Basophils % (A) 0 %; Eosinophils # (A) 0.2 k/uL (0-0.7); Eosinophils % (A) 1 %; HCT 46.6 % (39.0-53.0); Lymphocytes # (A) 1.3 k/uL (1.0-4.8); Lymphocytes % (A) 6 %; MCHC 32.4 g/dL (31.0-37.0); MCV 86.6 fL (80.0-100.0); Mean Platelet Volume 6.5; Monocytes # (A) 1.2 k/uL (0-1.0); Monocytes % (A) 6 %; Neutrophils # (A) 19.3 k/uL (1.3-7.7); Neutrophils % (A) 87 %; Platelet Count 327 k/uL (150-450); RBC 5.39 m/uL (4.30-5.90); RDW 14.3 % (11.5-15.5); WBC 22.2 k/uL (3.8-10.6)
[2017-12-27 12:03] LABS: ALT 36 U/L (21-72); AST 26 U/L (17-59); Albumin 4.7 g/dL (3.5-5.0); Alkaline Phosphatase 90 U/L (38-126); Amylase 69 U/L (30-110); Anion Gap 14 mmol/L; Blood Urea Nitrogen 21 mg/dL (9-20); Calcium 10.2 mg/dL (8.4-10.2); Carbon Dioxide 19 mmol/L (22-30); Chloride 107 mmol/L (98-107); Glucose 157 mg/dL (74-99); Lipase 125 U/L (23-300); Potassium 4.6 mmol/L (3.5-5.1); Sodium 140 mmol/L (137-145); Total Bilirubin 0.4 mg/dL (0.2-1.3); Total Protein 7.8 g/dL (6.3-8.2)
[2017-12-27 12:11] LABS: Appearance,Urine Clear (Clear); Bilirubin,Urine Negative (Negative); Blood,Urine Negative (Negative); Color,Urine Yellow; Glucose,Urine (UA) 3+ (Negative); Ketones,Urine Negative (Negative); Leukocyte Esterase,Urine Negative (Negative); Nitrite,Urine Negative (Negative); PH, Urine 5.5 (5.0-8.0); Protein,Urine Trace (Negative); Specific Gravity,Urine 1.021 (1.001-1.035); Urobilinogen,Urine <2.0 mg/dL (<2.0)
[2017-12-27 12:12] LABS: HGB 15.1 gm/dL (13.0-17.5)
[2017-12-27 12:21] LABS: Partial Thromboplastin Time 22.8 sec (22.0-30.0)
[2017-12-27 12:23] LABS: Creatine Kinase 205 U/L (55-170)
[2017-12-27 12:36] LABS: Troponin I <0.012 ng/mL (0.000-0.034)
[2017-12-27 12:54] LABS: Creatine Kinase MB 4.5 ng/mL (0.0-2.4)
--- NOTE | 2017-12-27 13:52 | XR ---
EXAMINATION TYPE: XR chest 2V DATE OF EXAM: 12/27/2017 COMPARISON: Prior chest 12/14/2017 HISTORY: Shortness of breath, cough TECHNIQUE: Frontal and lateral views of the chest are obtained. FINDINGS: There is some improvement in the interstitium compared to prior exam from improvement in l tammy volume. No pneumothorax or pleural effusion. Cardiac mediastinal silhouette, pulmonary vascularit y and jenna within normal limits. Prominent lung volumes suggest COPD. IMPRESSION: Findings suggest improvement in patient's volume status.
--- NOTE | 2017-12-27 13:54 | XR ---
2 view abdomen HISTORY: Abdomen pain, nausea and vomiting 2 views of the abdomen submitted on 4 images, correlation to prior abdomen film dated 12/13/2016 Lung bases are clear. There are air-fluid levels without bowel distention. No pneumoperitoneum. No ev ident bowel obstruction. No pathologic calcification. Bone mineralization is normal. IMPRESSION: Correlate for enteritis, ileus, follow-up as indicated.
--- NOTE | 2017-12-27 15:11 | CT ---
EXAMINATION TYPE: CT ChestAbdPelvis w con DATE OF EXAM: 12/27/2017 COMPARISON: CTA chest December 13, 2017. CT abdomen pelvis December 13, 2016 HISTORY: weakness/n/v/d ab pain x [address] DLP: 2837.10 mGycm. Automated Exposure Control for Dose Reduction was Utilized. CONTRAST: CT scan of the thorax, abdomen and pelvis is performed without oral but with IV Contrast, patient inj ected with 100 mL of Isovue 300. FINDINGS: LUNGS: There is patchy bibasilar linear scarring and/or atelectasis redemonstrated. No suspicious foc al consolidation or groundglass opacity is seen. No concerning parenchymal nodule or mass is present bilaterally. No pleural effusion or pneumothorax is seen bilaterally. Mild central peribronchial wall thickening is again seen. MEDIASTINUM: There are no greater than 1 cm hilar or mediastinal lymph nodes. No cardiomegaly is se en. Coronary artery calcification is redemonstrated which is noted marker for coronary artery diseas e. Persistent tiny to small pericardial effusion anteriorly inferiorly axial image 53 diminished in s ize from most recent CT. OTHER: Bilateral gynecomastia is redemonstrated LIVER/GB: Liver remains hypodense relative to spleen suggesting fatty infiltration. PANCREAS: No significant abnormality is seen. SPLEEN: No significant abnormality is seen. ADRENALS: No significant abnormality is seen. KIDNEYS: No significant abnormality is seen. BOWEL: Evaluation of bowel slightly suboptimal secondary to lack of enteric contrast. No suspicious bowel dilatation. GENITAL ORGANS: No gross abnormality seen. LYMPH NODES: No greater than 1cm abdominal or pelvic lymph nodes are appreciated. OSSEOUS STRUCTURES: There is moderate multilevel spurring and disc space narrowing throughout the lum bar spine. Facet arthropathy lower lumbar levels is seen. OTHER: There is small caliber abdominal aorta redemonstrated measuring 1.5 cm in diameter distally wi th stable moderate calcified peripheral plaque extending into iliac branch vessels. IMPRESSION: 1. No bowel obstruction is seen. Interval resolution of lung findings and small bilateral pleural eff usions. No suspicious new or acute process identified on current exam.
[2017-12-27] MEDS ORDERED: NALOXONE 0.4 MG/ML 1 ML VIAL IV PRN (15:37)
[2017-12-27] MEDS ORDERED: clonazePAM 1 MG TAB PO PRN (15:39)
[2017-12-27] MEDS ORDERED: ALBUTEROL NEBULIZED 2.5 MG/3 ML INHALATION PRN (15:39)
[2017-12-27] MEDS ORDERED: LORATADINE 10 MG TAB PO PRN (15:39)
--- NOTE | 2017-12-27 16:24 | P.HPIM ---
History of Present Illness H&P Date: 12/27/17 Chief Complaint: Abdominal pain some nausea and loose stool with diarrhea started 2 days ago 62-year-old male who was seen evaluated examined in the emergency department this patient was recently hospitalized 2 weeks ago with urinary tract infection was treated with Cipro stopped taking antibiotics few days ago, patient has not been feeling well for some abdominal distention intermittent pain started about 3-4 days ago today started having severe diarrhea and loose stool with those problem came into emergency department for further evaluation and intervention and treatment patient does feel tired fatigued and weak on evaluation in emergency department noted to be tachycardic with heart rate of 110. Patient does have a history of chronic persistent asthma hypertension and obesity and depression patient also has type 2 diabetes mellitus, in the emergency department patient was found to be have significant leukocytosis, chronic sore mildly elevated patient denies any night sweats fever or chills, denies any seizure-like activity loss of consciousness), denies any chest pain or radiation of pain Review of Systems All systems: negative Past Medical History Past Medical History: Asthma, COPD, Diabetes Mellitus, GERD/Reflux, Hyperlipidemia, Hypertension, Osteoarthritis (OA), Prostate Disorder, Skin Disorder Additional Past Medical History / Comment(s): diarrhea, sores on arms, DDD History of Any Multi-Drug Resistant Organisms: None Reported Past Surgical History: Hernia Repair, Orthopedic Surgery, Tonsillectomy Additional Past Surgical History / Comment(s): right chest wall cyst removed, nerve surgery left elbow Past Anesthesia/Blood Transfusion Reactions: No Reported Reaction Past Psychological History: No Psychological Hx Reported Smoking Status: Former smoker Past Alcohol Use History: None Reported Additional Past Alcohol Use History / Comment(s): quit smoking 25 yrs ago, smoked for 17 yrs- 2 PPD Past Drug Use History: None Reported - Past Family History Father Family Medical History: Myocardial Infarction ([place]) Mother Family Medical History: No Reported History Medications and Allergies Home Medications Medication Instructions Recorded Confirmed Type Montelukast [Singulair] 10 mg PO DAILY 09/25/13 12/27/17 History Albuterol Sulfate [Ventolin HFA] 1 puff INHALATION RT-QID PRN 02/21/14 12/27/17 History Fenofibrate [Lofibra] 160 mg PO DAILY 02/21/14 12/27/17 History Lisinopril 10 mg PO DAILY 02/21/14 12/27/17 History Fluticasone/Salmeterol [Advair 1 puff INHALATION RT-BID 09/08/15 12/27/17 History 250-50 Diskus] Doxazosin Mesylate [Cardura] 16 mg PO HS 10/20/15 12/27/17 History Atorvastatin [Lipitor] 80 mg PO HS 09/24/16 12/27/17 History Cetirizine HCl [Zyrtec] 10 - 20 mg PO HS PRN 09/24/16 12/27/17 History Desvenlafaxine [Pristiq ER] 100 mg PO DAILY 09/24/16 12/27/17 History clonazePAM [KlonoPIN] 1 mg PO BID PRN 09/24/16 12/27/17 History sitaGLIPtin PHOS/metFORMIN HCL 2 tab PO HS 09/24/16 12/27/17 History [Janumet Xr 50-1,000 mg Tablet] Ferrous Sulfate [Iron (65 MG 325 mg PO BID #60 tab 12/15/17 12/27/17 Rx Elemental)] Allergies Allergy/AdvReac Type Severity Reaction Status Date / Time No Known Allergies Allergy Verified 12/27/17 11:41 Physical Exam Vitals: Vital Signs Temp Pulse Resp BP Pulse Ox 12/27/17 14:17 18 127/65 99 12/27/17 11:28 98.2 F 104 H 16 95/63 Intake and Output 12/27/17 12/27/17 12/27/17 06:59 14:59 22:59 Other: Weight 127.006 kg - Constitutional General appearance: cooperative, disheveled, morbidly obese - EENT Eyes: EOMI, PERRLA, dentition normal, normal appearance ENT: normal oropharynx Ears: bilateral: normal - Neck Carotids: bilateral: upstroke normal, bruit absent Thyroid: bilateral: normal size - Respiratory Respiratory: bilateral: CTA - Cardiovascular Rhythm: regular Heart sounds: normal: S1, S2 - Gastrointestinal General gastrointestinal: distended, hyperactive bowel sounds, soft, tenderness - Integumentary Integumentary: normal, normal turgor - Neurologic Neurologic: CNII-XII intact - Musculoskeletal Musculoskeletal: gait normal, generalized weakness, strength equal bilaterally - Psychiatric Psychiatric: A&O x's 3, appropriate affect, intact judgment & insight Results CBC & Chem 7: 12/27/17 11:40 12/27/17 11:40 Labs: Abnormal Lab Results - Last 24 Hours (Table) 12/27/17 12/27/17 12/27/17 Range/Units 11:40 11:40 11:40 WBC 22.2 H (3.8-10.6) k/uL Neutrophils # 19.3 H (1.3-7.7) k/uL Monocytes # 1.2 H (0-1.0) k/uL Carbon Dioxide 19 L (22-30) mmol/L BUN 21 H (9-20) mg/dL Glucose 157 H (74-99) mg/dL Total Creatine Kinase 205 H (55-170) U/L CK-MB (CK-2) 4.5 H* (0.0-2.4) ng/mL Urine Protein (Negative) Urine Glucose (UA) (Negative) 12/27/17 Range/Units 11:45 WBC (3.8-10.6) k/uL Neutrophils # (1.3-7.7) k/uL Monocytes # (0-1.0) k/uL Carbon Dioxide (22-30) mmol/L BUN (9-20) mg/dL Glucose (74-99) mg/dL Total Creatine Kinase (55-170) U/L CK-MB (CK-2) (0.0-2.4) ng/mL Urine Protein Trace H (Negative) Urine Glucose (UA) 3+ H (Negative) Abdominal x-ray: report reviewed, image reviewed (Abdominal x-ray suggestive of ileus, chest x-ray unremarkable, computed tomography scan of the abdominal and pelvis no significant bowel obstruction is seen resolving bilateral pleural effusion at the bases) Assessment and Plan Assessment: Early sepsis associated with gastroenteritis Ileus C. difficile colitis associated diarrhea cannot be excluded S patient has received recent antibiotics for UTI as well as pneumonia Leukocytosis Abdominal discomfort and pain Recent urinary tract infection and pneumonia History of small bilateral pleural effusion Severe morbid obesity Dyslipidemia hypertension hypertensive cardiovascular disease 2 diabetes mellitus Plan: Gentle rehydration Repeat labs tomorrow Stool for C. diff Continue home medications We'll keep patient on clear liquid diet Repeat abdominal x-ray tomorrow or ileus Further recommendations pending Resume home medications Repeat labs tomorrow Time with Patient: Greater than 30
[2017-12-27 17:40] VITALS: BMI 35.9
[2017-12-27] MEDS: SODIUM CHLORIDE 0.9% 1,000 ML IV SCH (18:01)
[2017-12-27] MEDS: HYDROmorphone 1 MG/ML 1 ML SYRINGE IVP PRN ×2 (18:30→22:18)
[2017-12-27] MEDS: ASPIRIN 81 MG PO SCH (19:11)
[2017-12-27] MEDS: METOPROLOL TARTRATE 12.5 MG TAB PO SCH (19:11)
[2017-12-27 19:27] LABS: Troponin I <0.012 ng/mL (0.000-0.034)
[2017-12-27 19:29] LABS: Creatine Kinase MB 3.6 ng/mL (0.0-2.4)
[2017-12-27] MEDS: FERROUS SULFATE 325 MG TAB PO SCH (20:08)
[2017-12-27] MEDS: FAMOTIDINE 20 MG TAB PO SCH (20:09)
[2017-12-27] MEDS: SYMBICORT 80-4.5 MCG INHALER INHALATION SCH (20:31)
[2017-12-27] MEDS ORDERED: DOXAZOSIN 4 MG TAB PO SCH (21:00)
[2017-12-27] MEDS ORDERED: ATORVASTATIN 80 MG TAB PO SCH (21:00)
[2017-12-27 23:28] LABS: Creatine Kinase 143 U/L (55-170)
[2017-12-27 23:39] LABS: Troponin I <0.012 ng/mL (0.000-0.034)
[2017-12-28] LABS: Creatine Kinase MB 3.4 ng/mL (0.0-2.4)
[2017-12-28] MEDS: HEPARIN SODIUM,PORCINE 5,000 UNIT/ML 1 ML VIAL SQ SCH ×2 (01:00→09:26)
[2017-12-28] MEDS: HYDROmorphone 1 MG/ML 1 ML SYRINGE IVP PRN ×2 (05:38→11:22)
[2017-12-28] MEDS: SODIUM CHLORIDE 0.9% 1,000 ML IV SCH ×2 (05:39→09:35)
[2017-12-28 06:19] LABS: Basophils % (A) 0 %; Eosinophils # (A) 0.3 k/uL (0-0.7); Eosinophils % (A) 3 %; HCT 39.4 % (39.0-53.0); HGB 12.8 gm/dL (13.0-17.5); Lymphocytes % (A) 24 %; MCH 27.9 pg (25.0-35.0); MCHC 32.4 g/dL (31.0-37.0); MCV 86.1 fL (80.0-100.0); Mean Platelet Volume 6.4; Monocytes # (A) 0.6 k/uL (0-1.0); Monocytes % (A) 7 %; Neutrophils # (A) 5.3 k/uL (1.3-7.7); Neutrophils % (A) 64 %; Platelet Count 272 k/uL (150-450); RBC 4.58 m/uL (4.30-5.90); RDW 14.2 % (11.5-15.5); WBC 8.3 k/uL (3.8-10.6)
[2017-12-28 06:28] LABS: ALT 34 U/L (21-72); AST 18 U/L (17-59); Albumin 3.4 g/dL (3.5-5.0); Alkaline Phosphatase 64 U/L (38-126); Anion Gap 8 mmol/L; Blood Urea Nitrogen 24 mg/dL (9-20); Calcium 8.6 mg/dL (8.4-10.2); Carbon Dioxide 22 mmol/L (22-30); Chloride 105 mmol/L (98-107); Glucose 137 mg/dL (74-99); Potassium 4.1 mmol/L (3.5-5.1); Sodium 135 mmol/L (137-145); Total Bilirubin 0.5 mg/dL (0.2-1.3); Total Protein 6.1 g/dL (6.3-8.2)
[2017-12-28] MEDS: SYMBICORT 80-4.5 MCG INHALER INHALATION SCH (08:11)
[2017-12-28] MEDS ORDERED: DESVENLAFAXINE SUCCINATE 50 MG TAB.ER.24H PO SCH (09:00)
[2017-12-28] MEDS ORDERED: MONTELUKAST 10 MG TAB PO SCH (09:00)
[2017-12-28] MEDS ORDERED: FENOFIBRATE 160 MG TAB PO SCH (09:00)
[2017-12-28] MEDS ORDERED: LISINOPRIL 10 MG TAB PO SCH (09:00)
--- NOTE | 2017-12-28 09:05 | P.PN ---
Subjective Progress Note Date: 12/28/17 Principal diagnosis: Abdominal pain and diarrhea Patient Yobani Leblanc is seen and examined on 12/28/2017 he is admitted to the telemetry 6 floor at [facility] he presented yesterday with abdominal pain and diarrhea. He was seen by Dr. Yossi Segura who was covering for me until yesterday H&P was done by Dr. Segura. Today patient is seen and examined by myself he is alert and oriented 3, in no apparent distress he is sitting on the edge of the bed he reports significant improvement in his abdominal pain, his last bowel movement was at 3 AM no more episodes of diarrhea today, stool sample was sent to the lab for C. diff toxin check results are still pending. Clinically patient is feeling better there is no nausea and vomiting he is tolerating diet well, his lab results also revealed significant improvement with white blood count down from 22.2-8.3. X- ray of the chest, abdomen, and computed tomography scan of the abdomen and pelvis were reviewed and no significant abnormality noted. Objective - Vital Signs Vital signs: Vital Signs Temp 98.5 F 12/28/17 04:00 Pulse 130 H 12/28/17 04:00 Resp 20 12/28/17 04:00 BP 135/65 12/28/17 04:00 Pulse Ox 93 L 12/28/17 04:00 Intake & Output 12/27/17 12/28/17 12/28/17 18:59 06:59 18:59 Intake Total 600 360 Balance 600 360 Weight 127.006 kg 126.5 kg Intake: Oral 600 360 Other: # Voids 1 # Bowel Movements 1 - Exam HEENT head normocephalic and atraumatic Neck is supple no JVD no goiter no lymphadenopathy Chest exam reveals a few scattered rhonchi no wheezing Cardiac exam reveals regular heart sounds no gallops no murmurs Abdomen is soft nontender no organomegaly with normal bowel sounds Extremity exam reveals no edema no cyanosis or clubbing Neurological examination reveals no gross focal deficit - Labs CBC & Chem 7: 12/28/17 06:00 12/28/17 06:00 Labs: Abnormal Lab Results - Last 24 Hours (Table) 12/27/17 12/27/17 12/27/17 Range/Units 11:40 11:40 11:40 WBC 22.2 H (3.8-10.6) k/uL Hgb (13.0-17.5) gm/dL Neutrophils # 19.3 H (1.3-7.7) k/uL Monocytes # 1.2 H (0-1.0) k/uL Sodium (137-145) mmol/L Carbon Dioxide 19 L (22-30) mmol/L BUN 21 H (9-20) mg/dL Glucose 157 H (74-99) mg/dL Total Creatine Kinase 205 H (55-170) U/L CK-MB (CK-2) 4.5 H* (0.0-2.4) ng/mL Total Protein (6.3-8.2) g/dL Albumin (3.5-5.0) g/dL Urine Protein (Negative) Urine Glucose (UA) (Negative) 12/27/17 12/27/17 12/27/17 Range/Units 11:45 18:20 22:50 WBC (3.8-10.6) k/uL Hgb (13.0-17.5) gm/dL Neutrophils # (1.3-7.7) k/uL Monocytes # (0-1.0) k/uL Sodium (137-145) mmol/L Carbon Dioxide (22-30) mmol/L BUN (9-20) mg/dL Glucose (74-99) mg/dL Total Creatine Kinase (55-170) U/L CK-MB (CK-2) 3.6 H* 3.4 H* (0.0-2.4) ng/mL Total Protein (6.3-8.2) g/dL Albumin (3.5-5.0) g/dL Urine Protein Trace H (Negative) Urine Glucose (UA) 3+ H (Negative) 12/28/17 12/28/17 Range/Units 06:00 06:00 WBC (3.8-10.6) k/uL Hgb 12.8 L (13.0-17.5) gm/dL Neutrophils # (1.3-7.7) k/uL Monocytes # (0-1.0) k/uL Sodium 135 L (137-145) mmol/L Carbon Dioxide (22-30) mmol/L BUN 24 H (9-20) mg/dL Glucose 137 H (74-99) mg/dL Total Creatine Kinase (55-170) U/L CK-MB (CK-2) (0.0-2.4) ng/mL Total Protein 6.1 L (6.3-8.2) g/dL Albumin 3.4 L (3.5-5.0) g/dL Urine Protein (Negative) Urine Glucose (UA) (Negative) Assessment and Plan Plan: #1 patient admitted with abdominal pain, diarrhea, and significant leukocytosis. He was kept on clear liquid diet and was given IV fluid, he improved significantly both clinically and on laboratory data. Stool was sent to rule out Clostridium difficile colitis results are still pending. Will advance diet to regular diet, will transfer off telemetry floor, possible discharge later today or tomorrow, awaiting stool study will recheck on patient in a few hours to reassess.
[2017-12-28] MEDS: ASPIRIN 81 MG PO SCH (09:27)
[2017-12-28] MEDS: FAMOTIDINE 20 MG TAB PO SCH (09:27)
[2017-12-28] MEDS: FERROUS SULFATE 325 MG TAB PO SCH (09:27)
[2017-12-28] MEDS: METOPROLOL TARTRATE 12.5 MG TAB PO SCH (09:27)
[2017-12-28 09:39] VITALS: RESP 16
[2017-12-28 11:24] VITALS: BP 127/75; PULSE 95; TEMP 97.7
[2017-12-29] MEDS ORDERED: PANTOPRAZOLE 40 MG TABLET PO SCH (07:30)
== END 2017-12-28 14:28 | disposition home or self-care (01) ==
LOC: EC 11:24 → 4MS4W 15:37 → 6SEL 18:57
PROVIDERS: ADMIT Internal Medicine; ATTEND Internal Medicine
DX: A41.9 Sepsis, unspecified organism (principal); K52.9 Noninfective gastroenteritis and colitis, unspecified; K56.7 Ileus, unspecified; I11.9 Hypertensive heart disease without heart failure; E78.5 Hyperlipidemia, unspecified; E11.9 Type 2 diabetes mellitus without complications; J90 Pleural effusion, not elsewhere classified; K21.9 Gastro-esophageal reflux disease without esophagitis; J44.9 Chronic obstructive pulmonary disease, unspecified; N42.9 Disorder of prostate, unspecified; M19.90 Unspecified osteoarthritis, unspecified site; L98.9 Disorder of the skin and subcutaneous tissue, unspecified; E66.01 Morbid (severe) obesity due to excess calories; Z68.35 Body mass index [BMI] 35.0-35.9, adult; Z79.84 Long term (current) use of oral hypoglycemic drugs; Z79.51 Long term (current) use of inhaled steroids; Z79.899 Other long term (current) drug therapy; Z87.891 Personal history of nicotine dependence; Z87.01 Personal history of pneumonia (recurrent); Z87.440 Personal history of urinary (tract) infections; Z82.49 Family history of ischemic heart disease and other diseases of the circulatory system
CPT/HCPCS: 99285 ×2; 96374 ×2; 96361 ×9; 96376 ×2; 96372; 96375; 36415; 94640 ×3; 80053 ×2; 82150; 82550; 82553; 83605; 83690; 84484; 85025 ×2; 85610; 85730; 81003; 87040; 87324; 71046; 74019; 71260; 74177; G0378 ×2; J1644; J1885; J1170 ×2; Q9967

== ENCOUNTER 2018-10-21 07:49 | Emergency (ER) | payer MEDICARE, OTHER ==
[2018-10-21] MEDS ORDERED: SODIUM CHLORIDE 0.9% 2,000 ML IV STA (07:56)
[2018-10-21] MEDS ORDERED: KETOROLAC 30 MG/ML 1 ML VIAL IVP STA (08:02)
[2018-10-21] MEDS ORDERED: DICYCLOMINE 10 MG/ML 2 ML AMP IM STA (08:02)
--- NOTE | 2018-10-21 08:02 | ED ---
Abdominal Pain HPI - General Stated Complaint: abd pain, nausea Time Seen by Provider: 10/21/18 07:55 Source: patient, EMS, RN notes reviewed Mode of arrival: EMS Limitations: no limitations - History of Present Illness Initial Comments: This a 62-year-old male presents emergency department via EMS chief complaint of abdominal pain, nausea vomiting. Patient states started yesterday with severe diarrhea which has been persistent. Patient does have a history of diabetes, hypertension, asthma, hyperlipidemia. Patient denies any chest pain or shortness of breath. Patient reports subjective fever and complaints of chills. Patient denies any dysuria or hematuria. Patient has had no prior abdominal surgeries. He was given Zofran by EMS which has helped his nausea at this time. - Related Data Home Medications Medication Instructions Recorded Confirmed Montelukast [Singulair] 10 mg PO DAILY 09/25/13 10/21/18 Albuterol Sulfate [Ventolin HFA] 1 puff INHALATION RT-QID PRN 02/21/14 10/21/18 Fenofibrate [Lofibra] 160 mg PO DAILY 02/21/14 10/21/18 Lisinopril 10 mg PO BID 02/21/14 10/21/18 Fluticasone/Salmeterol [Advair 1 puff INHALATION RT-BID 09/08/15 10/21/18 250-50 Diskus] Doxazosin Mesylate [Cardura] 16 mg PO HS 10/20/15 10/21/18 Atorvastatin [Lipitor] 80 mg PO HS 09/24/16 10/21/18 Cetirizine HCl [Zyrtec] 10 - 20 mg PO HS PRN 09/24/16 10/21/18 Desvenlafaxine [Pristiq ER] 100 mg PO DAILY 09/24/16 10/21/18 clonazePAM [KlonoPIN] 1 mg PO BID PRN 09/24/16 10/21/18 Acetaminophen-Codeine 300-30mg 1 - 2 tab PO Q6H PRN 10/21/18 10/21/18 [Tylenol w/codeine #3] Metoprolol Tartrate [Lopressor] 25 mg PO BID 10/21/18 10/21/18 sitaGLIPtin PHOS/metFORMIN HCL 1 tab PO HS 10/21/18 10/21/18 [Janumet Xr 50-500 mg Tablet] Allergies Allergy/AdvReac Type Severity Reaction Status Date / Time No Known Allergies Allergy Verified 10/21/18 08:40 Review of Systems ROS Statement: Those systems with pertinent positive or pertinent negative responses have been documented in the HPI. ROS Other: All systems not noted in ROS Statement are negative. Past Medical History Past Medical History: Asthma, COPD, Diabetes Mellitus, GERD/Reflux, Hyperlipidemia, Hypertension, Osteoarthritis (OA), Prostate Disorder, Skin Disorder Additional Past Medical History / Comment(s): diarrhea, sores on arms, DDD History of Any Multi-Drug Resistant Organisms: None Reported Past Surgical History: Hernia Repair, Orthopedic Surgery, Tonsillectomy Additional Past Surgical History / Comment(s): right chest wall cyst removed, nerve surgery left elbow Past Anesthesia/Blood Transfusion Reactions: No Reported Reaction Past Psychological History: No Psychological Hx Reported Smoking Status: Former smoker Past Alcohol Use History: None Reported Past Drug Use History: None Reported - Past Family History Father Family Medical History: Myocardial Infarction ([place]) Mother Family Medical History: No Reported History General Exam General appearance: alert, in no apparent distress Head exam: Present: atraumatic, normocephalic, normal inspection Eye exam: Present: normal appearance, PERRL, EOMI. Absent: scleral icterus, conjunctival injection, periorbital swelling ENT exam: Present: normal exam, normal oropharynx, mucous membranes moist Neck exam: Present: normal inspection. Absent: tenderness, meningismus, lymphadenopathy Respiratory exam: Present: normal lung sounds bilaterally. Absent: respiratory distress, wheezes, rales, rhonchi, stridor Cardiovascular Exam: Present: regular rate, normal rhythm, normal heart sounds. Absent: systolic murmur, diastolic murmur, rubs, gallop, clicks GI/Abdominal exam: Present: soft, tenderness (Mild diffuse), normal bowel sounds. Absent: distended, guarding, rebound, rigid Back exam: Absent: CVA tenderness (R), CVA tenderness (L) Neurological exam: Present: alert, oriented X3, CN II-XII intact Skin exam: Present: warm, dry, intact, normal color. Absent: rash Course Vital Signs 10/21/18 08:25 Temperature 98.1 F Pulse Rate 105 H Respiratory 20 Rate Blood Pressure 99/65 O2 Sat by Pulse 98 Oximetry Medical Decision Making - Medical Decision Making 62-year-old male presents emergency from for nausea vomiting diarrhea. Patient did have some abdominal discomfort which is unusual for the patient. Labs CT and urinalysis ordered no acute abnormality's. Patient had mild lactic acidosis related to dehydration. Patient will be discharged with Zofran return parameters were discussed - Lab Data Result diagrams: 10/21/18 08:17 10/21/18 08:17 Lab Results 10/21/18 10/21/18 10/21/18 Range/Units 08:17 08:17 08:31 WBC 14.1 H (3.8-10.6) k/uL RBC 5.69 (4.30-5.90) m/uL Hgb 15.6 (13.0-17.5) gm/dL Hct 47.7 (39.0-53.0) % MCV 83.8 (80.0-100.0) fL MCH 27.3 (25.0-35.0) pg MCHC 32.6 (31.0-37.0) g/dL RDW 15.1 (11.5-15.5) % Plt Count 259 (150-450) k/uL Neutrophils % 83 % Lymphocytes % 6 % Monocytes % 8 % Eosinophils % 1 % Basophils % 0 % Neutrophils # 11.7 H (1.3-7.7) k/uL Lymphocytes # 0.9 L (1.0-4.8) k/uL Monocytes # 1.1 H (0-1.0) k/uL Eosinophils # 0.2 (0-0.7) k/uL Basophils # 0.1 (0-0.2) k/uL Sodium 138 (137-145) mmol/L Potassium 4.8 (3.5-5.1) mmol/L Chloride 109 H (98-107) mmol/L Carbon Dioxide 17 L (22-30) mmol/L Anion Gap 12 mmol/L BUN 32 H (9-20) mg/dL Creatinine 1.16 (0.66-1.25) mg/dL Est GFR (CKD-EPI)AfAm 77 (>60 ml/min/1.73 sqM) Est GFR (CKD-EPI)NonAf 67 (>60 ml/min/1.73 sqM) Glucose 172 H (74-99) mg/dL Plasma Lactic Acid Brooks (0.7-2.0) mmol/L Calcium 8.8 (8.4-10.2) mg/dL Total Bilirubin 0.4 (0.2-1.3) mg/dL AST 18 (17-59) U/L ALT 34 (21-72) U/L Alkaline Phosphatase 80 (38-126) U/L Total Protein 6.3 (6.3-8.2) g/dL Albumin 3.9 (3.5-5.0) g/dL Amylase 32 (30-110) U/L Lipase 34 (23-300) U/L Urine Color Yellow Urine Appearance Cloudy (Clear) Urine pH 5.0 (5.0-8.0) Ur Specific Gilchrist 1.032 (1.001-1.035) Urine Protein 1+ H (Negative) Urine Glucose (UA) Trace H (Negative) Urine Ketones Negative (Negative) Urine Blood Negative (Negative) Urine Nitrite Negative (Negative) Urine Bilirubin 1+ H (Negative) Urine Urobilinogen 2.0 (<2.0) mg/dL Ur Leukocyte Esterase Small H (Negative) Urine RBC 2 (0-5) /hpf Urine WBC 6 H (0-5) /hpf Ur Squamous Epith Cells 4 (0-4) /hpf Urine Bacteria Rare H (None) /hpf Hyaline Casts 87 H (0-2) /lpf Urine Mucus Occasional H (None) /hpf 10/21/18 Range/Units 09:30 WBC (3.8-10.6) k/uL RBC (4.30-5.90) m/uL Hgb (13.0-17.5) gm/dL Hct (39.0-53.0) % MCV (80.0-100.0) fL MCH (25.0-35.0) pg MCHC (31.0-37.0) g/dL RDW (11.5-15.5) % Plt Count (150-450) k/uL Neutrophils % % Lymphocytes % % Monocytes % % Eosinophils % % Basophils % % Neutrophils # (1.3-7.7) k/uL Lymphocytes # (1.0-4.8) k/uL Monocytes # (0-1.0) k/uL Eosinophils # (0-0.7) k/uL Basophils # (0-0.2) k/uL Sodium (137-145) mmol/L Potassium (3.5-5.1) mmol/L Chloride (98-107) mmol/L Carbon Dioxide (22-30) mmol/L Anion Gap mmol/L BUN (9-20) mg/dL Creatinine (0.66-1.25) mg/dL Est GFR (CKD-EPI)AfAm (>60 ml/min/1.73 sqM) Est GFR (CKD-EPI)NonAf (>60 ml/min/1.73 sqM) Glucose (74-99) mg/dL Plasma Lactic Acid Brooks 2.1 H* (0.7-2.0) mmol/L Calcium (8.4-10.2) mg/dL Total Bilirubin (0.2-1.3) mg/dL AST (17-59) U/L ALT (21-72) U/L Alkaline Phosphatase (38-126) U/L Total Protein (6.3-8.2) g/dL Albumin (3.5-5.0) g/dL Amylase (30-110) U/L Lipase (23-300) U/L Urine Color Urine Appearance (Clear) Urine pH (5.0-8.0) Ur Specific Gilchrist (1.001-1.035) Urine Protein (Negative) Urine Glucose (UA) (Negative) Urine Ketones (Negative) Urine Blood (Negative) Urine Nitrite (Negative) Urine Bilirubin (Negative) Urine Urobilinogen (<2.0) mg/dL Ur Leukocyte Esterase (Negative) Urine RBC (0-5) /hpf Urine WBC (0-5) /hpf Ur Squamous Epith Cells (0-4) /hpf Urine Bacteria (None) /hpf Hyaline Casts (0-2) /lpf Urine Mucus (None) /hpf Disposition Clinical Impression: Gastroenteritis, Dehydration Disposition: HOME SELF-CARE Condition: Stable Instructions (If sedation given, give patient instructions): Gastroenteritis (ED) Additional Instructions: Please return to the Emergency Department if symptoms worsen or any other concerns. Is patient prescribed a controlled substance at d/c from ED?: No Referrals: Imelda Garduno MD [Family Provider] - 1-2 days Time of Disposition: 10:30
[2018-10-21 09:15] LABS: Albumin 3.9 g/dL (3.5-5.0); Calcium 8.8 mg/dL (8.4-10.2); Potassium 4.8 mmol/L (3.5-5.1); Total Bilirubin 0.4 mg/dL (0.2-1.3); Total Protein 6.3 g/dL (6.3-8.2)
[2018-10-21 09:22] LABS: Appearance,Urine Cloudy (Clear); Bacteria,Urine Rare /hpf; Bilirubin,Urine 1+ (Negative); Blood,Urine Negative (Negative); Color,Urine Yellow; Glucose,Urine (UA) Trace (Negative); Hyaline Casts,Urine 87 /lpf (0-2); Ketones,Urine Negative (Negative); Leukocyte Esterase,Urine Small (Negative); Mucus,Urine Occasional /hpf; Nitrite,Urine Negative (Negative); Protein,Urine 1+ (Negative); RBC,Urine 2 /hpf (0-5); Specific Gravity,Urine 1.032 (1.001-1.035); Squamous Epithelial Cell,Urine 4 /hpf (0-4)
[2018-10-21 09:25] LABS: Basophils # (A) 0.1 k/uL (0-0.2); Basophils % (A) 0 %; Eosinophils # (A) 0.2 k/uL (0-0.7); Eosinophils % (A) 1 %; HCT 47.7 % (39.0-53.0); HGB 15.6 gm/dL (13.0-17.5); Lymphocytes # (A) 0.9 k/uL (1.0-4.8); Lymphocytes % (A) 6 %; MCH 27.3 pg (25.0-35.0); MCHC 32.6 g/dL (31.0-37.0); MCV 83.8 fL (80.0-100.0); Mean Platelet Volume 7.1; Monocytes # (A) 1.1 k/uL (0-1.0); Monocytes % (A) 8 %; Neutrophils # (A) 11.7 k/uL (1.3-7.7); Neutrophils % (A) 83 %; Platelet Count 259 k/uL (150-450); RBC 5.69 m/uL (4.30-5.90); RDW 15.1 % (11.5-15.5); WBC 14.1 k/uL (3.8-10.6)
--- NOTE | 2018-10-21 10:12 | CT ---
EXAMINATION TYPE: CT abdomen pelvis w con DATE OF EXAM: 10/21/2018 REFERENCE: Previous CT scan of the chest, abdomen and pelvis dated 12/27/2017. HISTORY: Pain HISTORY: Periumbilical pain CT DLP: 2868.2 mGy Automated exposure control for dose reduction was used. TECHNIQUE: Helical acquisition through the abdomen and pelvis was obtained following the oral ingesti on of without Oral Contrast and following intravenous administration of 100 mL of Isovue 300. The judson a was reformatted in axial, coronal and sagittal projections. FINDINGS: Visualized portions of the lungs are clear. There is no pleural or pericardial fluid. The heart is not enlarged. Within the abdomen, the liver, spleen and gallbladder are normal. Both adrenal glands are normal. Both kidneys demonstrate function and appear morphologically normal. The pancreas is unremarkable. There is no significant retroperitoneal, iliac or inguinal adenopathy. The bladder is not distended. The descending colon and sigmoid colon are fluid-filled. The appendix is normal. There is mild prominence of the proximal small bowel. The more distal small bowel is more normal in c aliber. There is no definite transition zone. There is no free fluid and no free air. There is degenerative disc disease, facet arthropathy and hypertrophic spondylosis involving the spin e. IMPRESSION: 1. FINDINGS MOST CONSISTENT WITH ILEUS. 2. NORMAL APPENDIX. 3. NO EVIDENCE OF HYDRONEPHROSIS OR NEPHROLITHIASIS.
[2018-10-21 10:47] VITALS: PULSE 126; RESP 18; TEMP 97.5
[2018-10-21 10:54] VITALS: BP 112/68
== END 2018-10-21 11:05 | disposition home or self-care (01) ==
LOC: EC 07:49
DX: K52.9 Noninfective gastroenteritis and colitis, unspecified (principal); E86.0 Dehydration; E87.2 Acidosis; J44.9 Chronic obstructive pulmonary disease, unspecified; E11.9 Type 2 diabetes mellitus without complications; I10 Essential (primary) hypertension; E78.5 Hyperlipidemia, unspecified; Z79.51 Long term (current) use of inhaled steroids; Z79.899 Other long term (current) drug therapy; Z79.84 Long term (current) use of oral hypoglycemic drugs; Z87.891 Personal history of nicotine dependence
CPT/HCPCS: 36415; 80053; 82150; 83605; 83690; 85025; 81001; 87040; 74177; 99284; 96374; 96361 ×2; 96372; J0500; J1885; Q9967

== ENCOUNTER 2018-11-22 12:50 | Inpatient (IN) | payer MEDICARE, OTHER ==
[2018-11-22] MEDS ORDERED: SODIUM CHLORIDE 0.9% 1,000 ML IV STA ×3 (13:12→14:02)
[2018-11-22] MEDS ORDERED: MORPHINE SULFATE 4 MG/ML SYRINGE IV STA (13:12)
--- NOTE | 2018-11-22 13:23 | ED ---
Abdominal Pain HPI - General Chief Complaint: Abdominal Pain Stated Complaint: Weakness Time Seen by Provider: 11/22/18 13:08 Source: EMS, RN notes reviewed, old records reviewed Mode of arrival: EMS Limitations: no limitations - History of Present Illness Initial Comments: This is a 63-year-old male the ER for evaluation. Patient presents with diffuse abdominal pain and persistent nausea vomiting and diarrhea. Patient has history of similar with prior ER visit, no inpatient admission. No surgical history. Patient denies significant drug or alcohol history. No fevers. No recent travel history sick contacts. Patient states he is just diffuse abdominal pain and decreased appetite. Patient has history of COPD and asthma, hypertension high cholesterol. Denies any chest pain. No shortness of breath or diaphoresis MD Complaint: abdominal pain (Generalized) -: hour(s) Location: diffuse Radiation: none Migration to: no migration Severity: mild Severity scale (1-10): 3 Quality: cramping, fullness Consistency: intermittent Worsens With: nothing Associated Symptoms: nausea, vomiting, diarrhea, anorexia - Related Data Home Medications Medication Instructions Recorded Confirmed Montelukast [Singulair] 10 mg PO DAILY 09/25/13 11/22/18 Albuterol Sulfate [Ventolin HFA] 1 puff INHALATION RT-QID PRN 02/21/14 11/22/18 Fenofibrate [Lofibra] 160 mg PO DAILY 02/21/14 11/22/18 Lisinopril 10 mg PO BID 02/21/14 11/22/18 Fluticasone/Salmeterol [Advair 1 puff INHALATION RT-BID 09/08/15 11/22/18 250-50 Diskus] Doxazosin Mesylate [Cardura] 16 mg PO HS 10/20/15 11/22/18 Atorvastatin [Lipitor] 80 mg PO HS 09/24/16 11/22/18 Cetirizine HCl [Zyrtec] 10 - 20 mg PO DAILY PRN 09/24/16 11/22/18 Desvenlafaxine [Pristiq ER] 100 mg PO DAILY 09/24/16 11/22/18 clonazePAM [KlonoPIN] 1 mg PO BID PRN 09/24/16 11/22/18 Acetaminophen-Codeine 300-30mg 1 - 2 tab PO Q6H PRN 10/21/18 11/22/18 [Tylenol w/codeine #3] Metoprolol Tartrate [Lopressor] 25 mg PO BID 10/21/18 11/22/18 sitaGLIPtin PHOS/metFORMIN HCL 1 tab PO HS 10/21/18 11/22/18 [Janumet Xr 50-500 mg Tablet] Insulin Degludec [Tresiba 110 units SQ HS 11/22/18 11/22/18 Flextouch U-200] Allergies Allergy/AdvReac Type Severity Reaction Status Date / Time No Known Allergies Allergy Verified 11/22/18 13:17 Review of Systems ROS Statement: Those systems with pertinent positive or pertinent negative responses have been documented in the HPI. ROS Other: All systems not noted in ROS Statement are negative. Past Medical History Past Medical History: Asthma, COPD, Diabetes Mellitus, GERD/Reflux, Hyperlipid emia, Hypertension, Osteoarthritis (OA), Prostate Disorder, Skin Disorder Additional Past Medical History / Comment(s): diarrhea, sores on arms, DDD History of Any Multi-Drug Resistant Organisms: None Reported Past Surgical History: Hernia Repair, Orthopedic Surgery, Tonsillectomy Additional Past Surgical History / Comment(s): right chest wall cyst removed, nerve surgery left elbow Past Anesthesia/Blood Transfusion Reactions: No Reported Reaction Past Psychological History: No Psychological Hx Reported Smoking Status: Former smoker Past Alcohol Use History: None Reported Past Drug Use History: None Reported - Past Family History Father Family Medical History: Myocardial Infarction ([place]) Mother Family Medical History: No Reported History General Exam Limitations: no limitations General appearance: alert, in no apparent distress, obese Head exam: Present: atraumatic, normocephalic, normal inspection Eye exam: Present: normal appearance, PERRL, EOMI. Absent: scleral icterus, conjunctival injection, periorbital swelling ENT exam: Present: normal exam, mucous membranes moist Neck exam: Present: normal inspection. Absent: tenderness, meningismus, lymphadenopathy Respiratory exam: Present: normal lung sounds bilaterally. Absent: respiratory distress, wheezes, rales, rhonchi, stridor Cardiovascular Exam: Present: regular rate, normal rhythm, normal heart sounds. Absent: systolic murmur, diastolic murmur, rubs, gallop, clicks GI/Abdominal exam: Present: soft, normal bowel sounds. Absent: distended, tenderness, guarding, rebound, rigid Extremities exam: Present: normal inspection, full ROM, normal capillary refill. Absent: tenderness, pedal edema, joint swelling, calf tenderness Back exam: Present: normal inspection Neurological exam: Present: alert, oriented X3, CN II-XII intact Psychiatric exam: Present: normal affect, normal mood Skin exam: Present: warm, dry, intact, normal color. Absent: rash Course Vital Signs 11/22/18 11/22/18 11/22/18 12:52 13:33 13:58 Temperature 98.3 F Pulse Rate 108 H 112 H Respiratory 20 20 Rate Blood Pressure 89/51 88/61 O2 Sat by Pulse 96 95 96 Oximetry 11/22/18 11/22/18 14:30 15:00 Temperature 97.9 F Pulse Rate 111 H 102 H Respiratory 20 16 Rate Blood Pressure 96/45 114/98 O2 Sat by Pulse 97 96 Oximetry - Reevaluation(s) Reevaluation #1: 11/22/18 13:40 Medical record and prior ER visit for same are reviewed including prior lab values and CAT scan Reevaluation #2: 11/22/18 15:47 No significant symptom improvement Medical Decision Making - Medical Decision Making 63 male the ER for evaluation, persistent nausea vomiting and dehydration, will admit for continued resuscitation - Lab Data Result diagrams: 11/22/18 13:30 11/22/18 13:30 Lab Results 11/22/18 11/22/18 11/22/18 Range/Units 13:30 13:30 13:30 WBC 18.0 H (3.8-10.6) k/uL RBC 5.48 (4.30-5.90) m/uL Hgb 15.1 (13.0-17.5) gm/dL Hct 46.3 (39.0-53.0) % MCV 84.5 (80.0-100.0) fL MCH 27.5 (25.0-35.0) pg MCHC 32.6 (31.0-37.0) g/dL RDW 13.7 (11.5-15.5) % Plt Count 253 (150-450) k/uL Neutrophils % 82 % Lymphocytes % 9 % Monocytes % 6 % Eosinophils % 2 % Basophils % 0 % Neutrophils # 14.7 H (1.3-7.7) k/uL Lymphocytes # 1.6 (1.0-4.8) k/uL Monocytes # 1.0 (0-1.0) k/uL Eosinophils # 0.3 (0-0.7) k/uL Basophils # 0.1 (0-0.2) k/uL Sodium 141 (137-145) mmol/L Potassium 4.5 (3.5-5.1) mmol/L Chloride 109 H (98-107) mmol/L Carbon Dioxide 20 L (22-30) mmol/L Anion Gap 12 mmol/L BUN 25 H (9-20) mg/dL Creatinine 1.34 H (0.66-1.25) mg/dL Est GFR (CKD-EPI)AfAm 64 (>60 ml/min/1.73 sqM) Est GFR (CKD-EPI)NonAf 56 (>60 ml/min/1.73 sqM) Glucose 162 H (74-99) mg/dL Plasma Lactic Acid Brooks 1.7 (0.7-2.0) mmol/L Calcium 10.2 (8.4-10.2) mg/dL Phosphorus 3.0 (2.5-4.5) mg/dL Magnesium 1.4 L (1.6-2.3) mg/dL Total Bilirubin 0.5 (0.2-1.3) mg/dL AST 28 (17-59) U/L ALT 31 (21-72) U/L Alkaline Phosphatase 83 (38-126) U/L Creatine Kinase 231 H (55-170) U/L Troponin I (0.000-0.034) ng/mL Total Protein 7.1 (6.3-8.2) g/dL Albumin 4.3 (3.5-5.0) g/dL Amylase 63 (30-110) U/L Lipase 130 (23-300) U/L Serum Alcohol <10 mg/dL 11/22/18 Range/Units 13:30 WBC (3.8-10.6) k/uL RBC (4.30-5.90) m/uL Hgb (13.0-17.5) gm/dL Hct (39.0-53.0) % MCV (80.0-100.0) fL MCH (25.0-35.0) pg MCHC (31.0-37.0) g/dL RDW (11.5-15.5) % Plt Count (150-450) k/uL Neutrophils % % Lymphocytes % % Monocytes % % Eosinophils % % Basophils % % Neutrophils # (1.3-7.7) k/uL Lymphocytes # (1.0-4.8) k/uL Monocytes # (0-1.0) k/uL Eosinophils # (0-0.7) k/uL Basophils # (0-0.2) k/uL Sodium (137-145) mmol/L Potassium (3.5-5.1) mmol/L Chloride (98-107) mmol/L Carbon Dioxide (22-30) mmol/L Anion Gap mmol/L BUN (9-20) mg/dL Creatinine (0.66-1.25) mg/dL Est GFR (CKD-EPI)AfAm (>60 ml/min/1.73 sqM) Est GFR (CKD-EPI)NonAf (>60 ml/min/1.73 sqM) Glucose (74-99) mg/dL Plasma Lactic Acid Brooks (0.7-2.0) mmol/L Calcium (8.4-10.2) mg/dL Phosphorus (2.5-4.5) mg/dL Magnesium (1.6-2.3) mg/dL Total Bilirubin (0.2-1.3) mg/dL AST (17-59) U/L ALT (21-72) U/L Alkaline Phosphatase (38-126) U/L Creatine Kinase (55-170) U/L Troponin I <0.012 (0.000-0.034) ng/mL Total Protein (6.3-8.2) g/dL Albumin (3.5-5.0) g/dL Amylase (30-110) U/L Lipase (23-300) U/L Serum Alcohol mg/dL - EKG Data -: EKG Interpreted by Me (Shows sinus tachycardia rate 124, NV 144, QRS 90, QTc 459) - Radiology Data Radiology results: report reviewed (X-ray abdominal series and chest negative for acute disease) Disposition Clinical Impression: Gastroenteritis, Leukocytosis, General weakness, Abdominal pain Disposition: ADMITTED IP TO THIS [facility] Condition: Fair Is patient prescribed a controlled substance at d/c from ED?: No Referrals: Anu Plata MD [Primary Care Provider] - 1-2 days
[2018-11-22] MEDS ORDERED: SODIUM CHLORIDE 0.9% 500 ML 500 ML IV STA (14:02)
[2018-11-22 14:05] LABS: Basophils # (A) 0.1 k/uL (0-0.2); Basophils % (A) 0 %; Eosinophils # (A) 0.3 k/uL (0-0.7); Eosinophils % (A) 2 %; HCT 46.3 % (39.0-53.0); HGB 15.1 gm/dL (13.0-17.5); Lymphocytes # (A) 1.6 k/uL (1.0-4.8); Lymphocytes % (A) 9 %; MCH 27.5 pg (25.0-35.0); MCHC 32.6 g/dL (31.0-37.0); MCV 84.5 fL (80.0-100.0); Mean Platelet Volume 6.5; Monocytes % (A) 6 %; Neutrophils # (A) 14.7 k/uL (1.3-7.7); Neutrophils % (A) 82 %; Platelet Count 253 k/uL (150-450); RBC 5.48 m/uL (4.30-5.90); RDW 13.7 % (11.5-15.5)
[2018-11-22 14:13] LABS: ALT 31 U/L (21-72); AST 28 U/L (17-59); African American GFR (CKD) 64 (>60 ml/min/1.73 sqM); Albumin 4.3 g/dL (3.5-5.0); Alcohol <10 mg/dL; Alkaline Phosphatase 83 U/L (38-126); Amylase 63 U/L (30-110); Anion Gap 12 mmol/L; Blood Urea Nitrogen 25 mg/dL (9-20); Calcium 10.2 mg/dL (8.4-10.2); Carbon Dioxide 20 mmol/L (22-30); Chloride 109 mmol/L (98-107); Creatine Kinase 231 U/L (55-170); Glucose 162 mg/dL (74-99); Lipase 130 U/L (23-300); Magnesium 1.4 mg/dL (1.6-2.3); Potassium 4.5 mmol/L (3.5-5.1); Sodium 141 mmol/L (137-145); Total Bilirubin 0.5 mg/dL (0.2-1.3); Total Protein 7.1 g/dL (6.3-8.2)
--- NOTE | 2018-11-22 14:51 | XR ---
EXAMINATION TYPE: XR abdomen acute w cxr DATE OF EXAM: 11/22/2018 COMPARISON: 12/27/2017 HISTORY: Weakness. Abdominal pain. TECHNIQUE: Chest x-ray with supine and upright abdomen FINDINGS: Heart is normal. There are small linear density in the left lower lung field. The other lung rizo a re clear. There are no hilar masses. Mediastinum is normal. There is no pleural effusion. There are c hest leads. Bowel gas pattern is normal. There is no sign of intestinal obstruction or pneumoperitoneum. Fecal pa ttern is normal. There are spondylotic changes in the lumbar spine. There are no pathologic calcifica tions over the kidneys. IMPRESSION: Nonacute abdomen. Minimal subsegmental atelectasis left lower lobe. Normal heart.
[2018-11-22] MEDS ORDERED: SODIUM CHLORIDE 0.9% 1,000 ML IV ONE (15:48)
[2018-11-22] MEDS ORDERED: MORPHINE SULFATE 4 MG/ML SYRINGE IVP PRN (15:48)
[2018-11-22] MEDS ORDERED: PANTOPRAZOLE 40 MG/10 ML VIAL IVP STA (15:48)
[2018-11-22] MEDS ORDERED: ONDANSETRON 4 MG/2 ML VIAL IVP PRN (15:48)
[2018-11-22] MEDS ORDERED: ONDANSETRON 4 MG/2 ML VIAL IVP STA (15:48)
[2018-11-22 17:11] LABS: Glucose,Whole Blood 149 mg/dL (75-99)
[2018-11-22] MEDS ORDERED: Acetaminophen-Codeine 300-30mg TAB PO PRN (19:19)
[2018-11-22] MEDS ORDERED: LORATADINE 10 MG TAB PO PRN (19:19)
[2018-11-22] MEDS ORDERED: clonazePAM 1 MG TAB PO PRN (19:19)
[2018-11-22] MEDS ORDERED: ALBUTEROL NEBULIZED 2.5 MG/3 ML INHALATION PRN (19:19)
[2018-11-22 20:07] LABS: Glucose,Whole Blood 164 mg/dL (75-99)
[2018-11-22] MEDS: LISINOPRIL 10 MG TAB PO SCH (20:07)
[2018-11-22] MEDS: METOPROLOL TARTRATE 25 MG TAB PO SCH (20:07)
[2018-11-22] MEDS: ATORVASTATIN 80 MG TAB PO SCH (20:07)
[2018-11-22] MEDS: SYMBICORT 80-4.5 MCG INHALER INHALATION SCH (20:07)
[2018-11-22] MEDS: INSULIN ASPART (NovoLOG) 100 UNIT/ML VIAL SQ SCH (20:10)
[2018-11-22] MEDS: DOXAZOSIN 4 MG TAB PO SCH (20:30)
[2018-11-22] MEDS: INSULIN DETEMIR (LEVEMIR) 100 UNIT/ML SYR SQ SCH (20:35)
[2018-11-22] MEDS: VANCOMYCIN ORAL SOLUTION 250 MG/5 ML BOTTLE PO SCH (21:17)
[2018-11-23] MEDS: VANCOMYCIN ORAL SOLUTION 250 MG/5 ML BOTTLE PO SCH ×4 (02:20→20:59)
[2018-11-23 06:35] LABS: Glucose,Whole Blood 84 mg/dL (75-99)
[2018-11-23] MEDS: INSULIN ASPART (NovoLOG) 100 UNIT/ML VIAL SQ SCH ×4 (07:45→20:58)
[2018-11-23] MEDS: MONTELUKAST 10 MG TAB PO SCH (07:50)
[2018-11-23] MEDS: LISINOPRIL 10 MG TAB PO SCH ×2 (07:50→20:58)
[2018-11-23] MEDS: METOPROLOL TARTRATE 25 MG TAB PO SCH ×2 (07:50→20:58)
[2018-11-23] MEDS: FENOFIBRATE 160 MG TAB PO SCH (07:51)
[2018-11-23] MEDS: DESVENLAFAXINE SUCCINATE 50 MG TAB.ER.24H PO SCH (07:51)
[2018-11-23] MEDS ORDERED: PANTOPRAZOLE 40 MG/10 ML VIAL IVP SCH (09:00)
[2018-11-23] MEDS: SYMBICORT 80-4.5 MCG INHALER INHALATION SCH ×2 (09:12→20:06)
[2018-11-23] MEDS ORDERED: CHERRY FLAVOR 60 ML BOTTLE PO PRN (10:58)
[2018-11-23 11:00] LABS: Basophils % (A) 0 %; Eosinophils # (A) 0.3 k/uL (0-0.7); Eosinophils % (A) 3 %; HCT 36.8 % (39.0-53.0); Lymphocytes # (A) 1.8 k/uL (1.0-4.8); Lymphocytes % (A) 25 %; MCH 27.8 pg (25.0-35.0); MCHC 32.8 g/dL (31.0-37.0); MCV 84.8 fL (80.0-100.0); Mean Platelet Volume 6.7; Monocytes # (A) 0.4 k/uL (0-1.0); Monocytes % (A) 5 %; Neutrophils # (A) 4.9 k/uL (1.3-7.7); Neutrophils % (A) 65 %; Platelet Count 212 k/uL (150-450); RBC 4.34 m/uL (4.30-5.90); RDW 14.4 % (11.5-15.5); WBC 7.5 k/uL (3.8-10.6)
[2018-11-23 11:11] LABS: HGB 12.1 gm/dL (13.0-17.5)
--- NOTE | 2018-11-23 11:16 | P.HPIM ---
History of Present Illness H&P Date: 11/23/18 This is a 63-year-old male patient of Dr. Plaat. Patient presents with complaints of nausea vomiting and diarrhea. Patient reports that he's had increased abdominal pain with decreased appetite over the past 3 days. Patient denies fevers. Patient does have past medical history of asthma, COPD, diabetes mellitus, GERD, hyperlipidemia, hypertension, osteoporosis, prostate disorder and ex-smoker. Acute abdominal series completed showing nonacute abdomen. Minimal subsegmental atelectasis left lower lobe. Normal heart. C. diff positive. Patient started on vancomycin. White blood cell elevated 18.0. Patient does report some improvement with abdominal pain. Patient reports that he has not had a bowel movement throughout the night. Patient has been admitted to inpatient. At this time patient denies any chest pain or shortness of breath. Denies nausea vomiting or diarrhea. Patient denies any urinary burning or frequency. Review of Systems please refer to HPI otherwise unremarkable Past Medical History Past Medical History: Asthma, COPD, Diabetes Mellitus, GERD/Reflux, Hyperlipidemia, Hypertension, Osteoarthritis (OA), Prostate Disorder, Skin Disorder Additional Past Medical History / Comment(s): diarrhea, sores on arms, DDD History of Any Multi-Drug Resistant Organisms: None Reported Past Surgical History: Hernia Repair, Orthopedic Surgery, Tonsillectomy Additional Past Surgical History / Comment(s): right chest wall cyst removed, nerve surgery left elbow Past Anesthesia/Blood Transfusion Reactions: No Reported Reaction Past Psychological History: No Psychological Hx Reported Smoking Status: Former smoker Past Alcohol Use History: None Reported Additional Past Alcohol Use History / Comment(s): quit smoking 25 yrs ago, smoked for 17 yrs- 2 PPD Past Drug Use History: None Reported - Past Family History Father Family Medical History: Myocardial Infarction ([place]) Mother Family Medical History: No Reported History Medications and Allergies Home Medications Medication Instructions Recorded Confirmed Type Montelukast [Singulair] 10 mg PO DAILY 09/25/13 11/22/18 History Albuterol Sulfate [Ventolin HFA] 1 puff INHALATION RT-QID PRN 02/21/14 11/22/18 History Fenofibrate [Lofibra] 160 mg PO DAILY 02/21/14 11/22/18 History Lisinopril 10 mg PO BID 02/21/14 11/22/18 History Fluticasone/Salmeterol [Advair 1 puff INHALATION RT-BID 09/08/15 11/22/18 History 250-50 Diskus] Doxazosin Mesylate [Cardura] 16 mg PO HS 10/20/15 11/22/18 History Atorvastatin [Lipitor] 80 mg PO HS 09/24/16 11/22/18 History Cetirizine HCl [Zyrtec] 10 - 20 mg PO DAILY PRN 09/24/16 11/22/18 History Desvenlafaxine [Pristiq ER] 100 mg PO DAILY 09/24/16 11/22/18 History clonazePAM [KlonoPIN] 1 mg PO BID PRN 09/24/16 11/22/18 History Acetaminophen-Codeine 300-30mg 1 - 2 tab PO Q6H PRN 10/21/18 11/22/18 History [Tylenol w/codeine #3] Metoprolol Tartrate [Lopressor] 25 mg PO BID 10/21/18 11/22/18 History sitaGLIPtin PHOS/metFORMIN HCL 1 tab PO HS 10/21/18 11/22/18 History [Janumet Xr 50-500 mg Tablet] Insulin Degludec [Tresiba 110 units SQ HS 11/22/18 11/22/18 History Flextouch U-200] Allergies Allergy/AdvReac Type Severity Reaction Status Date / Time No Known Allergies Allergy Verified 11/22/18 13:17 Physical Exam Vitals: Vital Signs Temp Pulse Pulse Resp BP BP Pulse Ox 11/23/18 08:00 98 18 11/23/18 07:00 97.9 F 98 18 112/63 95 11/23/18 02:49 16 11/22/18 23:28 98.2 F 101 H 16 123/60 93 L 11/22/18 23:10 16 11/22/18 19:57 85 16 11/22/18 17:16 95 16 11/22/18 16:46 98.4 F 95 16 135/83 97 11/22/18 15:48 98 18 117/64 97 11/22/18 15:00 97.9 F 102 H 16 114/98 96 11/22/18 14:30 111 H 20 96/45 97 11/22/18 13:58 112 H 20 88/61 96 11/22/18 13:33 95 11/22/18 12:52 98.3 F 108 H 20 89/51 96 Intake and Output 11/22/18 11/23/18 11/23/18 22:59 06:59 14:59 Intake Total 440 Balance 440 Intake: Oral 240 Other 200 Other: Voiding Method Toilet Toilet Toilet # Voids 1 Head normocephalic Neck supple Lungs clear to auscultation bilaterally no wheezing or crackles Heart regular rate and rhythm S1-S2, no rub or gallop Abdomen is soft nontender nondistended positive bowel sounds no hepatospl enomegaly Extremities no edema Neuro alert and orientated to 3 Results CBC & Chem 7: 11/22/18 13:30 11/22/18 13:30 Labs: Abnormal Lab Results - Last 24 Hours (Table) 11/22/18 11/22/18 11/22/18 Range/Units 13:30 13:30 17:10 WBC 18.0 H (3.8-10.6) k/uL Neutrophils # 14.7 H (1.3-7.7) k/uL Chloride 109 H (98-107) mmol/L Carbon Dioxide 20 L (22-30) mmol/L BUN 25 H (9-20) mg/dL Creatinine 1.34 H (0.66-1.25) mg/dL Glucose 162 H (74-99) mg/dL POC Glucose (mg/dL) 149 H (75-99) mg/dL Magnesium 1.4 L (1.6-2.3) mg/dL Creatine Kinase 231 H (55-170) U/L C. difficile (EIA) Intrp (Negative) 11/22/18 11/22/18 Range/Units 18:09 20:03 WBC (3.8-10.6) k/uL Neutrophils # (1.3-7.7) k/uL Chloride (98-107) mmol/L Carbon Dioxide (22-30) mmol/L BUN (9-20) mg/dL Creatinine (0.66-1.25) mg/dL Glucose (74-99) mg/dL POC Glucose (mg/dL) 164 H (75-99) mg/dL Magnesium (1.6-2.3) mg/dL Creatine Kinase (55-170) U/L C. difficile (EIA) Intrp Positive A (Negative) Thrombosis Risk Factor Assmnt - Choose All That Apply Any of the Below Risk Factors Present?: Yes Each Factor Represents 1 point: Obesity (BMI >25) Other Risk Factors: Yes Each Risk Factor Represents 2 Points: Age 61-74 years Thrombosis Risk Factor Assessment Total Risk Factor Score: 3 Thrombosis Risk Factor Assessment Level: Moderate Risk Assessment and Plan Assessment: 1. Abdominal pain with nausea vomiting and diarrhea related to C. diff infection with leukocytosis. Acute abdominal series completed showing nonacute abdomen. Minimal subsegmental atelectasis left lower lobe. Normal heart. Patient started on vancomycin 250 every 6 hours. WBC 18.0 2. Acute kidney injury. Creatinine elevated 1.34 and bun 25. Repeat labs have been ordered 3. History of diabetes mellitus type 2. Home meds resumed plus sliding scale coverage 4. History of hyperlipidemia 5. History of essential hypertension 6. History of prostate disorder 7. History of COPD no exacerbation at this time 8. History of osteoarthritis DVT prophylaxis Lovenox. GI prophylaxis Protonix Time with Patient: Greater than 30 (Greater than 60% of the total time spent in counseling and coordination of care. I performed an examination of the patient and discussed their management with the Nurse Practitioner. I have reviewed the Nurse Practitioner's notes and agree with the documented findings and plan of care)
[2018-11-23 11:17] LABS: ALT 26 U/L (21-72); AST 20 U/L (17-59); African American GFR (CKD) >90 (>60 ml/min/1.73 sqM); Albumin 3.4 g/dL (3.5-5.0); Alkaline Phosphatase 58 U/L (38-126); Anion Gap 7 mmol/L; Blood Urea Nitrogen 19 mg/dL (9-20); Calcium 8.8 mg/dL (8.4-10.2); Carbon Dioxide 26 mmol/L (22-30); Chloride 109 mmol/L (98-107); Glucose 133 mg/dL (74-99); Potassium 4.1 mmol/L (3.5-5.1); Sodium 142 mmol/L (137-145); Total Bilirubin 0.4 mg/dL (0.2-1.3); Total Protein 5.9 g/dL (6.3-8.2)
[2018-11-23 11:45] LABS: Glucose,Whole Blood 114 mg/dL (75-99)
[2018-11-23 16:33] LABS: Glucose,Whole Blood 149 mg/dL (75-99)
[2018-11-23 20:15] LABS: Glucose,Whole Blood 164 mg/dL (75-99)
[2018-11-23] MEDS: ATORVASTATIN 80 MG TAB PO SCH (20:57)
[2018-11-23] MEDS: DOXAZOSIN 4 MG TAB PO SCH (20:58)
[2018-11-23] MEDS: INSULIN DETEMIR (LEVEMIR) 100 UNIT/ML SYR SQ SCH (20:59)
[2018-11-24] MEDS: VANCOMYCIN ORAL SOLUTION 250 MG/5 ML BOTTLE PO SCH ×3 (02:25→14:59)
[2018-11-24 02:41] LABS: Glucose,Whole Blood 71 mg/dL (75-99)
[2018-11-24 06:24] LABS: Basophils % (A) 0 %; Eosinophils # (A) 0.2 k/uL (0-0.7); Eosinophils % (A) 3 %; HCT 37.1 % (39.0-53.0); HGB 11.8 gm/dL (13.0-17.5); Lymphocytes # (A) 1.9 k/uL (1.0-4.8); Lymphocytes % (A) 22 %; MCHC 31.7 g/dL (31.0-37.0); MCV 85.1 fL (80.0-100.0); Mean Platelet Volume 6.4; Monocytes # (A) 0.4 k/uL (0-1.0); Monocytes % (A) 5 %; Neutrophils # (A) 5.7 k/uL (1.3-7.7); Neutrophils % (A) 68 %; Platelet Count 195 k/uL (150-450); RBC 4.36 m/uL (4.30-5.90); RDW 13.7 % (11.5-15.5); WBC 8.4 k/uL (3.8-10.6)
[2018-11-24 06:34] LABS: ALT 27 U/L (21-72); AST 20 U/L (17-59); African American GFR (CKD) >90 (>60 ml/min/1.73 sqM); Albumin 3.4 g/dL (3.5-5.0); Alkaline Phosphatase 63 U/L (38-126); Anion Gap 7 mmol/L; Blood Urea Nitrogen 17 mg/dL (9-20); Calcium 8.9 mg/dL (8.4-10.2); Carbon Dioxide 27 mmol/L (22-30); Chloride 106 mmol/L (98-107); Glucose 178 mg/dL (74-99); Potassium 3.6 mmol/L (3.5-5.1); Sodium 140 mmol/L (137-145); Total Bilirubin 0.4 mg/dL (0.2-1.3); Total Protein 5.9 g/dL (6.3-8.2)
[2018-11-24 06:52] LABS: Glucose,Whole Blood 154 mg/dL (75-99)
[2018-11-24] MEDS ORDERED: PANTOPRAZOLE 40 MG TABLET PO SCH (07:30)
[2018-11-24] MEDS: SYMBICORT 80-4.5 MCG INHALER INHALATION SCH (07:34)
[2018-11-24] MEDS ORDERED: ENOXAPARIN 40 MG/0.4 ML SYRINGE SQ SCH (09:00)
[2018-11-24 09:09] VITALS: BP 142/81; PULSE 92; RESP 18; TEMP 98.1
[2018-11-24] MEDS: INSULIN ASPART (NovoLOG) 100 UNIT/ML VIAL SQ SCH ×2 (09:50→12:22)
[2018-11-24] MEDS: MONTELUKAST 10 MG TAB PO SCH (09:53)
[2018-11-24] MEDS: DESVENLAFAXINE SUCCINATE 50 MG TAB.ER.24H PO SCH (09:53)
[2018-11-24] MEDS: LISINOPRIL 10 MG TAB PO SCH (09:53)
[2018-11-24] MEDS: METOPROLOL TARTRATE 25 MG TAB PO SCH (09:53)
[2018-11-24] MEDS: FENOFIBRATE 160 MG TAB PO SCH (09:54)
[2018-11-24 11:38] LABS: Glucose,Whole Blood 94 mg/dL (75-99)
--- NOTE | 2018-11-24 15:32 | P.DS ---
Providers Date of admission: 11/24/18 13:06 Expected date of discharge: 11/24/18 Attending physician: Martine Prasad Primary care physician: Anu Plata Hospital Course: Diagnoses on discharge: 1. Abdominal pain with nausea vomiting and diarrhea related to C. diff infection with leukocytosis. Acute abdominal series completed showing nonacute abdomen. Minimal subsegmental atelectasis left lower lobe. Normal heart. Patient started on vancomycin 250 every 6 hours. WBC 18.0 on admission down to 8.4 at the time of discharge 2. Acute kidney injury. Creatinine elevated 1.34 and bun 25. Repeat labs have been ordered 3. History of diabetes mellitus type 2. Home meds resumed plus sliding scale coverage 4. History of hyperlipidemia 5. History of essential hypertension 6. History of prostate disorder 7. History of COPD no exacerbation at this time 8. History of osteoarthritis Hospital course: This is a 63-year-old male patient of Dr. Plata. Patient presents with complaints of nausea vomiting and diarrhea. Patient reports that he's had increased abdominal pain with decreased appetite over the past 3 days. Patient denies fevers. Patient does have past medical history of asthma, COPD, diabetes mellitus, GERD, hyperlipidemia, hypertension, osteoporosis, prostate disorder and ex-smoker. Acute abdominal series completed showing nonacute abdomen. Minimal subsegmental atelectasis left lower lobe. Normal heart. C. diff positive. Patient started on vancomycin. White blood cell elevated 18.0. Patient does report some improvement with abdominal pain. Patient reports that he has not had a bowel movement throughout the night. Patient has been admitted to inpatient. At this time patient denies any chest pain or shortness of breath. Denies nausea vomiting or diarrhea. Patient denies any urinary burning or frequency. On 11/24/2018 patient was seen and examined in the observation unit he is alert and oriented 3 in no apparent distress he is feeling better white blood count is down to 8.4 he had 2 loose bowel movement today abdominal pain has improved significantly, patient wants to be discharged home today, he was counseled in length in regards to Clostridium difficile infection, importance of taking medication religiously for 10 days explained, importance of coming back to the hospital if symptoms recur and explained, patient and seems to understand counseling, he was given a prescription for vancomycin 250 mg every 6 hours for 10 days, follow-up was primary care physician Dr. Plata within one week Patient Condition at Discharge: Fair Plan - Discharge Summary Discharge Rx Participant: No New Discharge Prescriptions: New Vancomycin Oral Solution 250 mg PO Q6H ml Continue Montelukast [Singulair] 10 mg PO DAILY Lisinopril 10 mg PO BID Fenofibrate [Lofibra] 160 mg PO DAILY Albuterol Sulfate [Ventolin HFA] 1 puff INHALATION RT-QID PRN PRN Reason: Shortness Of Breath Fluticasone/Salmeterol [Advair 250-50 Diskus] 1 puff INHALATION RT-BID Doxazosin Mesylate [Cardura] 16 mg PO HS Desvenlafaxine [Pristiq ER] 100 mg PO DAILY clonazePAM [KlonoPIN] 1 mg PO BID PRN PRN Reason: Anxiety Cetirizine HCl [Zyrtec] 10 - 20 mg PO DAILY PRN PRN Reason: Allergy Symptoms Atorvastatin [Lipitor] 80 mg PO HS sitaGLIPtin PHOS/metFORMIN HCL [Janumet Xr 50-500 mg Tablet] 1 tab PO HS Acetaminophen-Codeine 300-30mg [Tylenol w/codeine #3] 1 - 2 tab PO Q6H PRN PRN Reason: Pain Metoprolol Tartrate [Lopressor] 25 mg PO BID Insulin Degludec [Tresiba Flextouch U-200] 110 units SQ HS Discharge Medication List Montelukast [Singulair] 10 mg PO DAILY 09/25/13 [History] Albuterol Sulfate [Ventolin HFA] 1 puff INHALATION RT-QID PRN 02/21/14 [History] Fenofibrate [Lofibra] 160 mg PO DAILY 02/21/14 [History] Lisinopril 10 mg PO BID 02/21/14 [History] Fluticasone/Salmeterol [Advair 250-50 Diskus] 1 puff INHALATION RT-BID 09/08/15 [History] Doxazosin Mesylate [Cardura] 16 mg PO HS 10/20/15 [History] Atorvastatin [Lipitor] 80 mg PO HS 09/24/16 [History] Cetirizine HCl [Zyrtec] 10 - 20 mg PO DAILY PRN 09/24/16 [History] Desvenlafaxine [Pristiq ER] 100 mg PO DAILY 09/24/16 [History] clonazePAM [KlonoPIN] 1 mg PO BID PRN 09/24/16 [History] Acetaminophen-Codeine 300-30mg [Tylenol w/codeine #3] 1 - 2 tab PO Q6H PRN 10/21/18 [History] Metoprolol Tartrate [Lopressor] 25 mg PO BID 10/21/18 [History] sitaGLIPtin PHOS/metFORMIN HCL [Janumet Xr 50-500 mg Tablet] 1 tab PO HS 10/21/18 [History] Insulin Degludec [Tresiba Flextouch U-200] 110 units SQ HS 11/22/18 [History] Vancomycin Oral Solution 250 mg PO Q6H ml 11/24/18 [Rx] Follow up Appointment(s)/Referral(s): Anu Plata MD [Primary Care Provider] - 1-2 days
== END 2018-11-24 15:57 | disposition home or self-care (01) | DRG 372 ==
LOC: EC 12:50 → 1SOBS 15:48 → OBSVTOIN 11-24 13:06
PROVIDERS: ADMIT Internal Medicine; ATTEND Internal Medicine
DX: A04.72 Enterocolitis due to Clostridium difficile, not specified as recurrent (principal); N17.9 Acute kidney failure, unspecified; J98.11 Atelectasis; E11.9 Type 2 diabetes mellitus without complications; E78.00 Pure hypercholesterolemia, unspecified; E78.5 Hyperlipidemia, unspecified; E86.0 Dehydration; I10 Essential (primary) hypertension; J44.9 Chronic obstructive pulmonary disease, unspecified; K21.9 Gastro-esophageal reflux disease without esophagitis; M81.0 Age-related osteoporosis without current pathological fracture; Z79.4 Long term (current) use of insulin; Z79.899 Other long term (current) drug therapy; Z82.49 Family history of ischemic heart disease and other diseases of the circulatory system; Z87.891 Personal history of nicotine dependence; Z79.891 Long term (current) use of opiate analgesic
CPT/HCPCS: 36415; 74022; 80053; 80320; 82150; 82550; 83605; 83690; 83735; 84100; 84484; 85025; 87324; 93005; 96361; 96374; 99285

== ENCOUNTER 2018-12-16 02:06 | Inpatient (IN) | payer MEDICARE, OTHER ==
[2018-12-16] MEDS ORDERED: SODIUM CHLORIDE 0.9% 1,000 ML IV STA (02:18)
[2018-12-16] MEDS ORDERED: cefTRIAXone IN SWFI 1,000 MG/10 ML SYRINGE IVP ONE (02:30)
[2018-12-16] MEDS ORDERED: ONDANSETRON 4 MG/2 ML VIAL IVP STA (02:43)
[2018-12-16 02:50] LABS: Albumin 4.2 g/dL (3.5-5.0); Potassium 3.8 mmol/L (3.5-5.1); Total Bilirubin 0.3 mg/dL (0.2-1.3)
[2018-12-16] MEDS ORDERED: VANCOMYCIN ORAL SOLUTION 250 MG/5 ML BOTTLE PO SCH (03:00)
[2018-12-16 03:01] LABS: Basophils # (A) 0.1 k/uL (0-0.2); Basophils % (A) 0 %; Eosinophils # (A) 0.2 k/uL (0-0.7); Eosinophils % (A) 2 %; HCT 43.3 % (39.0-53.0); HGB 14.3 gm/dL (13.0-17.5); Lymphocytes # (A) 1.7 k/uL (1.0-4.8); Lymphocytes % (A) 12 %; MCH 28.1 pg (25.0-35.0); MCV 85.3 fL (80.0-100.0); Mean Platelet Volume 6.7; Monocytes # (A) 0.9 k/uL (0-1.0); Monocytes % (A) 6 %; Neutrophils # (A) 10.9 k/uL (1.3-7.7); Neutrophils % (A) 79 %; Platelet Count 260 k/uL (150-450); RBC 5.08 m/uL (4.30-5.90); RDW 15.3 % (11.5-15.5); WBC 13.8 k/uL (3.8-10.6)
[2018-12-16] MEDS: metroNIDAZOLE-NS PMX 500 MG in SALINE 1 100ML.BAG IVPB SCH ×3 (03:19→21:22)
[2018-12-16] MEDS ORDERED: METOCLOPRAMIDE 5 MG/ML 2 ML VIAL IVP STA (03:23)
[2018-12-16] MEDS ORDERED: PANTOPRAZOLE 40 MG/10 ML VIAL IVP STA (03:40)
--- NOTE | 2018-12-16 03:49 | ED ---
General Adult HPI - General Source: patient, RN notes reviewed, old records reviewed Mode of arrival: EMS <Edinson Cunningham - Last Filed: 12/16/18 04:10> <Pj Higgins - Last Filed: 12/16/18 04:55> - General Chief complaint: Abdominal Pain Stated complaint: Abd pain Time Seen by Provider: 12/16/18 02:07 - History of Present Illness Initial comments: 63-year-old male patient with past history of C. diff infection presents to ED for approximately 1 month of waxing and waning diarrhea. Patient reports that he developed generalized abdominal pain today as well as diarrhea. Patient denies any rectal bleeding, denies any dark, tarry stools. Patient denies any chest pain, shortness of breath. Denies any other complaints at this time. Systemic: Pt denies fatigue, rash. Pt denies weakness, night sweats, weight loss. Neuro: Pt denies headache, visual disturbances, syncope or pre-syncope. HEENT: Pt denies ocular discharge or irritation, otalgia, rhinorrhea, pharyngitis or notable lymphadenopathy. Cardiopulmonary: Pt denies chest pain, SOB, heart palpitations, dyspnea on exertion. Abdominal/GI: Pt denies n/v. : Pt denies dysuria, burning w/ urination, frequency/urgency. Denies new onset urinary or bowel incontinence. MSK: Pt denies myalgia, loss of strength or function in extremities. Neuro: Pt denies new onset weakness, paresthesias. (Edinson Cunningham) - Related Data Home Medications Medication Instructions Recorded Confirmed Montelukast [Singulair] 10 mg PO DAILY 09/25/13 11/22/18 Albuterol Sulfate [Ventolin HFA] 1 puff INHALATION RT-QID PRN 02/21/14 11/22/18 Fenofibrate [Lofibra] 160 mg PO DAILY 02/21/14 11/22/18 Lisinopril 10 mg PO BID 02/21/14 11/22/18 Fluticasone/Salmeterol [Advair 1 puff INHALATION RT-BID 09/08/15 11/22/18 250-50 Diskus] Doxazosin Mesylate [Cardura] 16 mg PO HS 10/20/15 11/22/18 Atorvastatin [Lipitor] 80 mg PO HS 09/24/16 11/22/18 Cetirizine HCl [Zyrtec] 10 - 20 mg PO DAILY PRN 09/24/16 11/22/18 Desvenlafaxine [Pristiq ER] 100 mg PO DAILY 09/24/16 11/22/18 clonazePAM [KlonoPIN] 1 mg PO BID PRN 09/24/16 11/22/18 Acetaminophen-Codeine 300-30mg 1 - 2 tab PO Q6H PRN 10/21/18 11/22/18 [Tylenol w/codeine #3] Metoprolol Tartrate [Lopressor] 25 mg PO BID 10/21/18 11/22/18 sitaGLIPtin PHOS/metFORMIN HCL 1 tab PO HS 10/21/18 11/22/18 [Janumet Xr 50-500 mg Tablet] Insulin Degludec [Tresiba 110 units SQ HS 11/22/18 11/22/18 Flextouch U-200] Previous Rx's Medication Instructions Recorded Vancomycin Oral Solution 250 mg PO Q6H ml 11/24/18 Allergies Allergy/AdvReac Type Severity Reaction Status Date / Time No Known Allergies Allergy Verified 12/16/18 02:14 Review of Systems ROS Other: All systems not noted in ROS Statement are negative. <Edinson Cunningham - Last Filed: 12/16/18 04:10> ROS Other: All systems not noted in ROS Statement are negative. <Pj Higgins - Last Filed: 12/16/18 04:55> ROS Statement: Those systems with pertinent positive or pertinent negative responses have been documented in the HPI. Past Medical History Past Medical History: Asthma, COPD, Diabetes Mellitus, GERD/Reflux, Hyperlipidemia, Hypertension, Osteoarthritis (OA), Prostate Disorder, Skin Disorder Additional Past Medical History / Comment(s): diarrhea, sores on arms, DDD History of Any Multi-Drug Resistant Organisms: C-DIFF Date of last positivie culture/infection: 11/2018 MDRO Source:: C. diff Past Surgical History: Hernia Repair, Orthopedic Surgery, Tonsillectomy Additional Past Surgical History / Comment(s): right chest wall cyst removed, nerve surgery left elbow Past Anesthesia/Blood Transfusion Reactions: No Reported Reaction Past Psychological History: No Psychological Hx Reported Smoking Status: Former smoker Past Alcohol Use History: None Reported Past Drug Use History: None Reported - Past Family History Father Family Medical History: Myocardial Infarction ([place]) Mother Family Medical History: No Reported History <Edinson Cunningham - Last Filed: 12/16/18 04:10> General Exam <Edinson Cunningham - Last Filed: 12/16/18 04:10> General appearance: alert, in no apparent distress Head exam: Present: atraumatic, normocephalic, normal inspection Eye exam: Present: normal appearance, PERRL, EOMI. Absent: scleral icterus, conjunctival injection, periorbital swelling ENT exam: Present: normal exam, mucous membranes moist Neck exam: Present: normal inspection. Absent: tenderness, meningismus, lymphadenopathy Respiratory exam: Present: normal lung sounds bilaterally. Absent: respiratory distress, wheezes, rales, rhonchi, stridor Cardiovascular Exam: Present: normal rhythm, tachycardia, normal heart sounds. Absent: systolic murmur, diastolic murmur, rubs, gallop, clicks GI/Abdominal exam: Present: soft, normal bowel sounds. Absent: distended, tenderness, guarding, rebound, rigid Extremities exam: Present: normal inspection, full ROM, normal capillary refill. Absent: tenderness, pedal edema, joint swelling, calf tenderness Back exam: Present: normal inspection Neurological exam: Present: alert, oriented X3, CN II-XII intact Psychiatric exam: Present: normal affect, normal mood Skin exam: Present: warm, dry, intact, normal color. Absent: rash <Pj Higgins - Last Filed: 12/16/18 04:55> - General Exam Comments Initial Comments: Constitutional: NAD, AOX3, Pt has pleasant affect. HEENT: NC/AT, trachea midline, neck supple, no lymphadenopathy. Posterior pharynx non erythematous, without exudates. External ears appear normal, without discharge. Mucous membranes moist. Eyes PERRLA, EOM intact. There is no scleral icterus. No pallor noted. Cardiopulmonary: RRR, no murmurs, rubs or gallops, no JVD noted. Lungs CTAB in anterior and posterior rizo. No peripheral edema. Abdominal exam: Abdomen soft and non-distended. Abdomen mildly tender to palpation in periumbilical region. No guarding, no rigidity. Bowel sounds active in LLQ. No hepatosplenomegaly. No ecchymosis Neuro: CN II-XII grossly intact. No nuchal rigidity. No raccon eyes, no anne sign, no hemotympanum. No cervical spinal tenderness. MSK: No posterior calf tenderness bilaterally, homans sign negative bilaterally. Posterior tibialis and radial pulse +2 bilaterally. Sensation intact in upper and lower extremities. Full active ROM in upper and lower extremities, 5/5 stregnth. (Edinson Cunningham) Course <Pj Higgins - Last Filed: 12/16/18 04:55> Vital Signs 12/16/18 12/16/18 12/16/18 02:09 02:19 04:09 Temperature 98.0 F 98.7 F Pulse Rate 110 H 110 H 123 H Respiratory 20 20 20 Rate Blood Pressure 91/72 97/78 119/66 O2 Sat by Pulse 91 L 95 96 Oximetry - Reevaluation(s) Reevaluation #1: 12/16/18 04:54 Medical record reviewed including prior patient hospitalization C. diff (Pj Higgins) Reevaluation #2: 12/16/18 04:54 Patient is significant diarrhea here in the ER with persistent tachycardia (Pj Higgins) Medical Decision Making - Lab Data Result diagrams: 12/16/18 02:15 12/16/18 02:15 - EKG Data -: EKG Interpreted by Me (and Dr. Higgins) <Edinson Cunningham - Last Filed: 12/16/18 04:10> - Lab Data Result diagrams: 12/16/18 02:15 12/16/18 02:15 - Radiology Data Radiology results: report reviewed (CT head and pelvis shows significant diarrheal illness), image reviewed <Pj Higgins - Last Filed: 12/16/18 04:55> - Medical Decision Making 63-year-old male patient has a history of C. diff presents to ED for diarrhea, periumbilical abdominal pain. Patient states the there has been ongoing for approximately 1 month. The abdominal pain began today. Denies any other complaints. Patient vital signs displayed mild tachycardia, mild hypotension. Physical exam displayed mild periumbilical tenderness. No ecchymoses. CBC displayed mild leukocytosis of 13.8. CMP revealed mildly elevated creatinine, around baseline. Troponin negative. Lipase negative. Occult blood positive. C. diff negative. Patient administered 1 L normal saline and ED, was administered 1 L normal saline by EMS. Patient signed out to Dr. Higgins pending CT. (Edinson Cunningham) 63 male, patient has C. diff history, presenting with severe diarrhea tachycardia dehydration. We'll admit for hydration and symptom management. CT does show persistent evaluation of diarrheal disease (Pj Higgins) - Lab Data Lab Results 12/16/18 12/16/18 12/16/18 Range/Units 02:15 02:15 02:15 WBC 13.8 H (3.8-10.6) k/uL RBC 5.08 (4.30-5.90) m/uL Hgb 14.3 (13.0-17.5) gm/dL Hct 43.3 (39.0-53.0) % MCV 85.3 (80.0-100.0) fL MCH 28.1 (25.0-35.0) pg MCHC 33.0 (31.0-37.0) g/dL RDW 15.3 (11.5-15.5) % Plt Count 260 (150-450) k/uL Neutrophils % 79 % Lymphocytes % 12 % Monocytes % 6 % Eosinophils % 2 % Basophils % 0 % Neutrophils # 10.9 H (1.3-7.7) k/uL Lymphocytes # 1.7 (1.0-4.8) k/uL Monocytes # 0.9 (0-1.0) k/uL Eosinophils # 0.2 (0-0.7) k/uL Basophils # 0.1 (0-0.2) k/uL Sodium 142 (137-145) mmol/L Potassium 3.8 (3.5-5.1) mmol/L Chloride 104 (98-107) mmol/L Carbon Dioxide 26 (22-30) mmol/L Anion Gap 12 mmol/L BUN 19 (9-20) mg/dL Creatinine 1.28 H (0.66-1.25) mg/dL Est GFR (CKD-EPI)AfAm 68 (>60 ml/min/1.73 sqM) Est GFR (CKD-EPI)NonAf 58 (>60 ml/min/1.73 sqM) Glucose 120 H (74-99) mg/dL Plasma Lactic Acid Brooks 1.8 (0.7-2.0) mmol/L Calcium 10.0 (8.4-10.2) mg/dL Total Bilirubin 0.3 (0.2-1.3) mg/dL AST 25 (17-59) U/L ALT 20 L (21-72) U/L Alkaline Phosphatase 69 (38-126) U/L Troponin I (0.000-0.034) ng/mL Total Protein 7.0 (6.3-8.2) g/dL Albumin 4.2 (3.5-5.0) g/dL Lipase 71 (23-300) U/L Stool Occult Blood (Negative) C. difficile (EIA) Intrp (Negative) 12/16/18 12/16/18 12/16/18 Range/Units 02:15 02:45 02:45 WBC (3.8-10.6) k/uL RBC (4.30-5.90) m/uL Hgb (13.0-17.5) gm/dL Hct (39.0-53.0) % MCV (80.0-100.0) fL MCH (25.0-35.0) pg MCHC (31.0-37.0) g/dL RDW (11.5-15.5) % Plt Count (150-450) k/uL Neutrophils % % Lymphocytes % % Monocytes % % Eosinophils % % Basophils % % Neutrophils # (1.3-7.7) k/uL Lymphocytes # (1.0-4.8) k/uL Monocytes # (0-1.0) k/uL Eosinophils # (0-0.7) k/uL Basophils # (0-0.2) k/uL Sodium (137-145) mmol/L Potassium (3.5-5.1) mmol/L Chloride (98-107) mmol/L Carbon Dioxide (22-30) mmol/L Anion Gap mmol/L BUN (9-20) mg/dL Creatinine (0.66-1.25) mg/dL Est GFR (CKD-EPI)AfAm (>60 ml/min/1.73 sqM) Est GFR (CKD-EPI)NonAf (>60 ml/min/1.73 sqM) Glucose (74-99) mg/dL Plasma Lactic Acid Brooks (0.7-2.0) mmol/L Calcium (8.4-10.2) mg/dL Total Bilirubin (0.2-1.3) mg/dL AST (17-59) U/L ALT (21-72) U/L Alkaline Phosphatase (38-126) U/L Troponin I <0.012 (0.000-0.034) ng/mL Total Protein (6.3-8.2) g/dL Albumin (3.5-5.0) g/dL Lipase (23-300) U/L Stool Occult Blood Positive (Negative) C. difficile (EIA) Intrp Negative (Negative) - EKG Data EKG Comments: Ventricular rate 124, IA interval 144, QRS 84, QTC is QTC 294/422. Sinus tachycardia. Low voltage QRS. No concern for acute ischemia this time. (Edinson Cunningham) Disposition <Edinson Cunningham - Last Filed: 12/16/18 04:10> Is patient prescribed a controlled substance at d/c from ED?: No <Pj Higgins - Last Filed: 12/16/18 04:55> Clinical Impression: Gastroenteritis, Abdominal pain, General weakness, Dehydration Disposition: ADMITTED IP TO THIS HOSP Condition: Fair Referrals: Anu Plata MD [Primary Care Provider] - 1-2 days
--- NOTE | 2018-12-16 04:26 | CT ---
EXAM: CT Abdomen and Pelvis With Intravenous Contrast CLINICAL HISTORY: abdominal pain TECHNIQUE: Axial computed tomography images of the abdomen and pelvis with intravenous contrast. CTDI is 69.28 mGy and DLP is 2145.6 mGy-cm. This CT exam was performed using one or more of the following dose reduction techniques: automated exposure control, adjustment of the mA and/or kV according to patient size, and/or use of iterative reconstruction technique. COMPARISON: No relevant prior studies available. FINDINGS: Limitations: The lower pelvis was not included on this study, which limits evaluation. Lung bases: Linear atelectasis involving the lingula. ABDOMEN: Liver: Unremarkable. No mass. Gallbladder and bile ducts: Unremarkable. No calcified stones. No ductal dilation. Pancreas: Unremarkable. No mass. No ductal dilation. Spleen: Unremarkable. No splenomegaly. Adrenals: Unremarkable. No mass. Kidneys and ureters: Unremarkable. No solid mass. No hydronephrosis. Stomach and bowel: Fluid is again seen throughout mildly prominent small bowel loops extending throughout the colon to the level of the rectum, likely representing infectious versus inflammatory enterocolitis/diarrheal disease in the correct clinical setting. No obstruction. PELVIS: Appendix: Distended appendix, measuring up to 1.1 cm in diameter, interval increase in size since prior study, although there is no evidence of significant periappendiceal inflammatory changes. Bladder: Unremarkable. No mass. Reproductive: Unremarkable as visualized. ABDOMEN and PELVIS: Intraperitoneal space: Unremarkable. No free air. No significant fluid collection. Bones/joints: Evaluation the osseous structures demonstrates moderate/severe degenerative changes throughout the lumbar spine. No acute fracture. No dislocation. Soft tissues: Unremarkable. Vasculature: Mild/moderate vascular calcifications involving the intra- abdominal aorta. No abdominal aortic aneurysm. Lymph nodes: No significant lymphadenopathy. IMPRESSION: 1. Fluid is again seen throughout mildly prominent small bowel loops extending throughout the colon to the level of the rectum, likely representing infectious versus inflammatory enterocolitis/diarrheal disease in the correct clinical setting. 2. Distended appendix, measuring up to 1.1 cm in diameter, interval increase in size since prior study, although there is no evidence of significant periappendiceal inflammatory changes. This may be reactive. Correlate clinically for early acute appendicitis.
[2018-12-16] MEDS ORDERED: ONDANSETRON 4 MG/2 ML VIAL IVP PRN (04:57)
[2018-12-16] MEDS: SODIUM CHLORIDE 0.9% 1,000 ML IV SCH ×4 (06:17→23:35)
[2018-12-16] MEDS ORDERED: PANTOPRAZOLE 40 MG/10 ML VIAL IVP SCH (09:00)
[2018-12-16] MEDS: ENOXAPARIN 40 MG/0.4 ML SYRINGE SQ SCH (13:02)
--- NOTE | 2018-12-16 13:10 | P.HPIM ---
History of Present Illness H&P Date: 12/16/18 Yobani Leblanc is a 63 -year-old male who presented to [facility] emergency room with a chief complaint of diarrhea and abdominal pain. Patient describes watery diarrhea more than 10 times daily, and he describes a periumbilical abdominal pain radiating to the back, he had 1 episode of vomiting on the day of admission otherwise he denies any complaints there is no fever or chills no headache or dizziness no chest pain no shortness of breath no cough and no urinary symptoms. He was admitted to [facility] on 11/22/2018 and was discharged on 11/24/2018 at that time he had stool positive for C. diff he was discharged home on oral vancomycin and improved significantly however several days after he finished his antibiotic course he started having diarrhea again. Clostridium difficile testing by EIA in the emergency room this morning was negative. Computed tomography scan of the abdomen and pelvis was done in the emergency room and revealed evidence of prominent fluid in the small bowels with inflammatory changes and evidence of distended appendix Past Medical History Past Medical History: Asthma, COPD, Diabetes Mellitus, GERD/Reflux, Hyperlipidemia, Hypertension, Osteoarthritis (OA), Prostate Disorder, Skin D isorder Additional Past Medical History / Comment(s): diarrhea, sores on arms, DDD History of Any Multi-Drug Resistant Organisms: C-DIFF Date of last positivie culture/infection: 11/2018 MDRO Source:: C. diff Past Surgical History: Hernia Repair, Orthopedic Surgery, Tonsillectomy Additional Past Surgical History / Comment(s): right chest wall cyst removed, nerve surgery left elbow Past Anesthesia/Blood Transfusion Reactions: No Reported Reaction Past Psychological History: No Psychological Hx Reported Smoking Status: Former smoker Past Alcohol Use History: None Reported Past Drug Use History: None Reported - Past Family History Father Family Medical History: Myocardial Infarction ([place]) Mother Family Medical History: No Reported History Medications and Allergies Home Medications Medication Instructions Recorded Confirmed Type Montelukast [Singulair] 10 mg PO DAILY 09/25/13 12/16/18 History Albuterol Sulfate [Ventolin HFA] 1 puff INHALATION RT-QID PRN 02/21/14 12/16/18 History Fenofibrate [Lofibra] 160 mg PO DAILY 02/21/14 12/16/18 History Lisinopril 10 mg PO BID 02/21/14 12/16/18 History Fluticasone/Salmeterol [Advair 1 puff INHALATION RT-BID 09/08/15 12/16/18 Hi story 250-50 Diskus] Doxazosin Mesylate [Cardura] 16 mg PO HS 10/20/15 12/16/18 History Atorvastatin [Lipitor] 80 mg PO HS 09/24/16 12/16/18 History Cetirizine HCl [Zyrtec] 10 - 20 mg PO DAILY PRN 09/24/16 12/16/18 History Desvenlafaxine [Pristiq ER] 100 mg PO DAILY 09/24/16 12/16/18 History clonazePAM [KlonoPIN] 1 mg PO BID PRN 09/24/16 12/16/18 History Acetaminophen-Codeine 300-30mg 1 - 2 tab PO Q6H PRN 10/21/18 12/16/18 History [Tylenol w/codeine #3] Metoprolol Tartrate [Lopressor] 25 mg PO BID 10/21/18 12/16/18 History sitaGLIPtin PHOS/metFORMIN HCL 1 tab PO HS 10/21/18 12/16/18 History [Janumet Xr 50-500 mg Tablet] Insulin Degludec [Tresiba 110 units SQ HS 11/22/18 12/16/18 History Flextouch U-200] Vancomycin Oral Solution 250 mg PO Q6H ml 11/24/18 12/16/18 Rx Allergies Allergy/AdvReac Type Severity Reaction Status Date / Time No Known Allergies Allergy Verified 12/16/18 07:33 Physical Exam Vitals: Vital Signs Temp Pulse Resp BP Pulse Ox 12/16/18 08:43 67 20 114/82 99 12/16/18 08:00 112 H 12/16/18 06:22 122 H 20 113/82 96 12/16/18 04:54 124 H 20 119/66 96 12/16/18 04:09 123 H 20 119/66 96 12/16/18 02:19 98.7 F 110 H 20 97/78 95 12/16/18 02:09 98.0 F 110 H 20 91/72 91 L Intake and Output 12/15/18 12/16/18 12/16/18 22:59 06:59 14:59 Other: Weight 131.542 kg In general patient is alert and oriented 3 in no apparent distress HEENT head normocephalic and atraumatic Neck is supple no JVD no goiter no lymphadenopathy no carotid bruit Chest exam reveals a few scattered crackles no wheezing Cardiac exam reveals regular heart sounds S1 and S2 no gallops no murmurs Abdomen is soft with mild adilene umbilical tenderness no organomegaly with normal bowel sounds Extremity exam reveals no edema no cyanosis or clubbing Results CBC & Chem 7: 12/16/18 02:15 12/16/18 02:15 Labs: Abnormal Lab Results - Last 24 Hours (Table) 12/16/18 12/16/18 Range/Units 02:15 02:15 WBC 13.8 H (3.8-10.6) k/uL Neutrophils # 10.9 H (1.3-7.7) k/uL Creatinine 1.28 H (0.66-1.25) mg/dL Glucose 120 H (74-99) mg/dL ALT 20 L (21-72) U/L Microbiology - Last 24 Hours (Table) 12/16/18 02:45 Stool Culture - Preliminary Stool Assessment and Plan Plan: #1 abdominal pain and diarrhea, C. diff check was negative this morning #2 recent Clostridium difficile colitis diagnosed on 11/22/2018 patient received a course of oral vancomycin #3 evidence of dehydration was elevated creatinine at 1.28 #4 underlying history of hypertension #5 underlying history of hyperlipidemia maintained on Lipitor and fenofibrate #6 underlying history of gastroesophageal reflux disease At this time patient was started on oral vancomycin and IV Flagyl in the emergency room will continue. Consultation for surgery was initiated in regard to distended appendix Consultation for infectious disease was initiated Will follow closely
[2018-12-16] MEDS: VANCOMYCIN ORAL SOLUTION 250 MG/5 ML BOTTLE PO SCH ×3 (15:16→23:34)
[2018-12-16] MEDS: CHERRY FLAVOR 60 ML BOTTLE PO SCH ×3 (15:17→23:34)
[2018-12-16 15:43] VITALS: BMI 38.2
[2018-12-16] MEDS ORDERED: SODIUM CHLORIDE 0.9% 1,000 ML IV ONE (16:33)
[2018-12-16] MEDS: Acetaminophen-Codeine 300-30mg TAB PO PRN ×2 (17:05→23:38)
[2018-12-16 17:14] LABS: Glucose,Whole Blood 143 mg/dL (75-99)
[2018-12-16 19:03] LABS: Appearance,Urine Clear (Clear); Bilirubin,Urine Negative (Negative); Blood,Urine Negative (Negative); Color,Urine Yellow; Glucose,Urine (UA) 1+ (Negative); Ketones,Urine Negative (Negative); Leukocyte Esterase,Urine Negative (Negative); Nitrite,Urine Negative (Negative); PH, Urine 5.5 (5.0-8.0); Protein,Urine Trace (Negative); Specific Gravity,Urine 1.038 (1.001-1.035); Urobilinogen,Urine <2.0 mg/dL (<2.0)
[2018-12-16 20:41] LABS: Glucose,Whole Blood 159 mg/dL (75-99)
[2018-12-16] MEDS: DOXAZOSIN 4 MG TAB PO SCH (21:21)
[2018-12-16] MEDS: LISINOPRIL 10 MG TAB PO SCH (21:21)
[2018-12-16] MEDS: INSULIN DETEMIR (LEVEMIR) 100 UNIT/ML SYR SQ SCH (21:21)
[2018-12-16] MEDS: PANTOPRAZOLE 40 MG/10 ML VIAL IVP SCH (21:21)
[2018-12-16] MEDS: ATORVASTATIN 80 MG TAB PO SCH (21:22)
[2018-12-16] MEDS: LINAGLIPTIN 5 MG TABLET PO SCH (21:22)
[2018-12-16] MEDS: METOPROLOL TARTRATE 25 MG TAB PO SCH (21:22)
[2018-12-16] MEDS: metFORMIN 500 MG TAB PO SCH (21:22)
[2018-12-16] MEDS: SYMBICORT 80-4.5 MCG INHALER INHALATION SCH (21:25)
--- NOTE | 2018-12-16 22:56 | CONS ---
CONSULTATION DATE OF SERVICE: 12/16/2018. REASON FOR CONSULTATION: Diarrhea and question of C difficile colitis. HISTORY OF PRESENT ILLNESS: The patient is a 63 -year-old male who was recently admitted to this facility in the beginning of November 2018. The patient at that time, did have diarrhea and was diagnosed for C difficile colitis. Patient said he did well post discharge with some improvement in his diarrhea. However, he completed his medication that he received for it. However about 2-3 days ago started having diarrhea in this patient who did have multiple loose stool. Denies any blood or mucus in the stool. Has been complaining of crampy lower abdominal pain. The patient has been complaining of feeling nauseous. Did have an episode of vomiting. Abdominal pain he describes as 5 to 6/10, and no radiation. No chest pain, shortness of breath or cough. With these symptoms, the patient was evaluated by the ER physician. The patient did have a CT abdomen and pelvis which shows. A fluid noted throughout mildly prominent small bowel loops extending through to colon at the level of the rectum with underlying infectious or inflammatory enterocolitis secondary to appendix interval increasing in size from prior study. No evidence of significant clinical inflammatory changes. The patient did not have any fever on presentation. Did have elevated white count of 13.8. Initial stool for C diff came back negative. The patient was started on vancomycin and IV Flagyl. Infectious disease was consulted for further recommendations regarding antibiotic therapy. REVIEW OF SYSTEMS: Positive points have been mentioned in HPI. Rest of systems are negative. PAST MEDICAL HISTORY: Significant for recent episode of Clostridium difficile colitis, asthma, COPD, diabetes mellitus, gastroesophageal reflux disease. hyperlipidemia, hypertension, osteoarthritis, prostate disorder. PAST SURGICAL HISTORY: Hernia repair, right chest wall cyst removal, surgery left elbow. SOCIAL HISTORY: Remote history of smoking. No drinking or drug use. FAMILY HISTORY: Father history of [place]. ALLERGIES: No known drug allergies. MEDICATION: The patient is currently on Tylenol, Lipitor, Symbicort, Klonopin, Pristiq, Cardura, Lovenox, Lofibra, Levemir, Tradjenta, Zestril, Claritin, Lopressor, Flagyl, Zofran, Protonix, and vancomycin 250 q.6 hours. PHYSICAL EXAMINATION: Blood pressure 120/72 with a pulse of 180, temperature 97.6. He is 96% on room air. General description is an elderly male lying in bed in no distress. No tachypnea or accessory muscles of respiration use. HEENT: Shows no pallor or scleral icterus. Oral mucosa membranes are dry. No pharyngeal erythema or thrush. Neck: Trachea central. No thyromegaly. Lungs: Unlabored breathing. Clear to auscultation anteriorly. No wheeze or crackles. Heart S1, S2. Regular rate and rhythm. ABDOMEN: Soft, mildly distended. No guarding. No rigidity. No organomegaly. EXTREMITIES: No edema of the feet. SKIN examination: No rashes. No masses palpable. NEUROLOGICAL: Patient is awake, alert, oriented x3. Mood and affect is normal. LABS: Hemoglobin is 14.1, white count 13.8. BUN of 19, creatinine 1.28. Electrolytes have been normal. DIAGNOSTIC IMPRESSION AND PLAN: Patient admitted to the hospital with intractable diarrhea in this patient who did have a recent history of Clostridium difficile colitis, likely suspicious for another episode of C difficile colitis , underlying ischemic etiology not entirely excluded but less likely. PLAN: 1. We will check stool for C diff by PCR. 2. Vancomycin 250 p.o. q.6 hours. 3. Gentle IV fluid. 4. We will follow up on clinical condition and culture to further adjust medication if needed. Thank you for this consultation. We will follow this patient along with you. MMODL / IJN: [id number] / [id number]
[2018-12-16] MEDS: clonazePAM 1 MG TAB PO PRN (23:38)
[2018-12-17 02:12] LABS: Glucose,Whole Blood 98 mg/dL (75-99)
[2018-12-17] MEDS: metroNIDAZOLE-NS PMX 500 MG in SALINE 1 100ML.BAG IVPB SCH ×3 (02:59→17:06)
[2018-12-17] MEDS: ALBUTEROL NEBULIZED 2.5 MG/3 ML INHALATION PRN (04:08)
[2018-12-17] MEDS: CHERRY FLAVOR 60 ML BOTTLE PO SCH ×4 (06:21→23:12)
[2018-12-17] MEDS: VANCOMYCIN ORAL SOLUTION 250 MG/5 ML BOTTLE PO SCH ×4 (06:21→23:13)
[2018-12-17] MEDS: SYMBICORT 80-4.5 MCG INHALER INHALATION SCH ×2 (07:04→19:38)
[2018-12-17 07:31] LABS: Glucose,Whole Blood 79 mg/dL (75-99)
[2018-12-17] MEDS: MONTELUKAST 10 MG TAB PO SCH (08:43)
[2018-12-17] MEDS: Acetaminophen-Codeine 300-30mg TAB PO PRN ×2 (08:43→17:05)
[2018-12-17] MEDS: LISINOPRIL 10 MG TAB PO SCH ×2 (08:43→21:00)
[2018-12-17] MEDS: METOPROLOL TARTRATE 25 MG TAB PO SCH ×2 (08:43→21:00)
[2018-12-17] MEDS: ENOXAPARIN 40 MG/0.4 ML SYRINGE SQ SCH (08:44)
[2018-12-17] MEDS: DESVENLAFAXINE SUCCINATE 50 MG TAB.ER.24H PO SCH (08:44)
[2018-12-17] MEDS: FENOFIBRATE 160 MG TAB PO SCH (08:44)
[2018-12-17] MEDS: PANTOPRAZOLE 40 MG/10 ML VIAL IVP SCH (08:45)
--- NOTE | 2018-12-17 10:37 | P.PN ---
Subjective Progress Note Date: 12/17/18 Yobani Leblanc is a 63 -year-old male who presented to [facility] emergency room with a chief complaint of diarrhea and abdominal pain. Patient describes watery diarrhea more than 10 times daily, and he describes a periumbilical abdominal pain radiating to the back, he had 1 episode of vomiting on the day of admission otherwise he denies any complaints there is no fever or chills no headache or dizziness no chest pain no shortness of breath no cough and no urinary symptoms. He was admitted to [facility] on 11/22/2018 and was discharged on 11/24/2018 at that time he had stool positive for C. diff he was discharged home on oral vancomycin and improved significantly however several days after he finished his antibiotic course he started having diarrhea again. Clostridium difficile testing by EIA in the emergency room this morning was negative. Computed tomography scan of the abdomen and pelvis was done in the emergency room and revealed evidence of prominent fluid in the small bowels with inflammatory changes and evidence of distended appendix On 12/17/2018 patient alert and oriented 3. Patient does report improvement with abdominal pain. Patient reports 3 episodes of loose stools throughout night. remains on vancomycin and Flagyl per infectious disease. At this time patient denies chest pain or shortness breath. Patient denies nausea or vomi ting. Patient denies any urinary burning or frequency. Objective - Vital Signs Vital signs: Vital Signs Temp 98.2 F 12/17/18 06:52 Pulse 97 12/17/18 08:30 Resp 17 12/17/18 08:30 BP 126/66 12/17/18 06:52 Pulse Ox 95 12/17/18 06:52 Intake & Output 12/16/18 12/17/18 12/17/18 18:59 06:59 18:59 Intake Total 480 2390 240 Output Total 400 Balance 480 1990 240 Intake: Intake, IV Titration 1850 Amount Sodium Chloride 0.9% 1, 1650 000 ml @ 150 mls/hr IV . Q6H40M JAYNE Rx#:[id number]-NS PMX 500 200 mg In Saline 1 100ml.bag @ 100 mls/hr IVPB Q8H JAYNE Rx#:[id number] Oral 480 540 240 Output: Stool 400 Other: Voiding Method Toilet Toilet # Voids 2 # Bowel Movements 1 - Exam In general patient is alert and oriented 3 in no apparent distress HEENT head normocephalic and atraumatic Neck is supple no JVD no goiter no lymphadenopathy no carotid bruit Chest exam reveals a few scattered crackles no wheezing Cardiac exam reveals regular heart sounds S1 and S2 no gallops no murmurs Abdomen is soft with mild adilene umbilical tenderness no organomegaly with normal bowel sounds Extremity exam reveals no edema no cyanosis or clubbing - Labs CBC & Chem 7: 12/16/18 02:15 12/16/18 02:15 Labs: Abnormal Lab Results - Last 24 Hours (Table) 12/16/18 12/16/18 12/16/18 Range/Units 17:02 18:45 20:30 POC Glucose (mg/dL) 143 H 159 H (75-99) mg/dL Ur Specific [place] 1.038 H (1.001-1.035) Urine Protein Trace H (Negative) Urine Glucose (UA) 1+ H (Negative) Microbiology - Last 24 Hours (Table) 12/16/18 03:30 Blood Culture - Preliminary Blood No Growth after 24 hours 12/16/18 02:45 Stool Culture - Preliminary Stool Assessment and Plan Assessment: #1 abdominal pain and diarrhea, C. diff check was negative this morning #2 recent Clostridium difficile colitis diagnosed on 11/22/2018 patient received a course of oral vancomycin #3 evidence of dehydration was elevated creatinine at 1.28 #4 underlying history of hypertension #5 underlying history of hyperlipidemia maintained on Lipitor and fenofibrate #6 underlying history of gastroesophageal reflux disease Consultation for surgery was initiated in regard to distended appendix Per infectious disease patient maintained on Flagyl and vancomycin Will follow closely DVT prophylaxis Lovenox. GI prophylaxis Protonix I performed an examination of the patient and discussed their management with the Nurse Practitioner. I have reviewed the Nurse Practitioner's notes and agree with the documented findings and plan of care
[2018-12-17] MEDS: SODIUM CHLORIDE 0.9% 1,000 ML IV SCH ×3 (10:40→21:05)
[2018-12-17 11:04] LABS: Glucose,Whole Blood 80 mg/dL (75-99)
[2018-12-17 12:03] LABS: Albumin 3.4 g/dL (3.5-5.0); Calcium 8.8 mg/dL (8.4-10.2); Total Bilirubin 0.3 mg/dL (0.2-1.3); Total Protein 5.9 g/dL (6.3-8.2)
[2018-12-17 12:05] LABS: Basophils % (A) 1 %; Eosinophils # (A) 0.2 k/uL (0-0.7); Eosinophils % (A) 4 %; HCT 35.4 % (39.0-53.0); HGB 11.4 gm/dL (13.0-17.5); Lymphocytes # (A) 1.5 k/uL (1.0-4.8); Lymphocytes % (A) 27 %; MCH 28.2 pg (25.0-35.0); MCHC 32.3 g/dL (31.0-37.0); MCV 87.4 fL (80.0-100.0); Mean Platelet Volume 6.9; Monocytes # (A) 0.4 k/uL (0-1.0); Monocytes % (A) 6 %; Neutrophils # (A) 3.5 k/uL (1.3-7.7); Neutrophils % (A) 61 %; Platelet Count 182 k/uL (150-450); RBC 4.05 m/uL (4.30-5.90); RDW 14.6 % (11.5-15.5); WBC 5.8 k/uL (3.8-10.6)
--- NOTE | 2018-12-17 13:58 | P.GSCN ---
History of Present Illness Consult date: 12/17/18 Reason for Consult: diarrhea, abdominal pain Requesting physician: Martine Prasad History of present illness: CHIEF COMPLAINT: Diarrhea, abdominal pain HISTORY OF PRESENT ILLNESS: 63 year old male who presented to the hospital with diarrhea and abdominal pain. Patient was recently hospitalized in the beginning of November for CDiff. He reports he completed his antibiotic course about 7-10 days ago and began having abdominal pain and increased diarrhea shortly afterwards. Patient was placed on a regular diet. He reports he has been tolerating it well. Denies nausea or vomiting. He appears comfortable at the bedside in no acute distress. PAST MEDICAL HISTORY: See list. PAST SURGICAL HISTORY: See list. MEDICATIONS: See list. ALLERGIES: See list. SOCIAL HISTORY: No illicit drug use. REVIEW OF SYSTEMS: CONSTITUTIONAL: Denies fever or chills. HEENT: Denies blurred vision, vision changes, or eye pain. Denies hemoptysis ENDOCRINE: Denies heat or cold intolerance. CARDIOVASCULAR: Denies chest pain or pressure. RESPIRATORY: No shortness of breath. GASTROINTESTINAL: See HPI for pertinent information NEURO: Denies history of seizures. PSYCH: No depression or suicidal ideation HEMATOLOGIC: Denies bleeding disorders. LYMPHATIC: The patient denies any lumps and bumps around the neck. GENITOURINARY: Denies any blood in urine or increased urinary frequency. MUSCULOSKELETAL: Denies myalgias. Denies joint swelling. Denies decreased range of motion beyond patients baseline. SKIN: Denies pruitis. Denies rash. PHYSICAL EXAM: VITAL SIGNS: Reviewed GENERAL: Well-developed in no acute distress. HEENT: No sclera icterus. Extraocular movements grossly intact. Moist buccal mucosa. Head is atraumatic, normocephalic. Hears conversational speech. No nasal drainage. NECK: Supple without lymphadenopathy. CHEST: Non-labored respirations and equal bilateral excursions. CARDIOVASCULAR: Regular rate with regular rhythm. Palpable 2+ radial pulses. ABDOMEN: Soft. Obese. Nondistended. Tenderness to palpation of periumbilical region. No right lower quadrant pain or tenderness. MUSCULOSKELETAL: No clubbing, cyanosis or edema. NEUROLOGIC: No focal or lateralizing signs. Cranial nerves II through XII grossly intact. PSYCH: Appropriate affect. Alert and oriented to person, place and time. SKIN: Well perfused. Good skin turgor. LABORATORY DATA: Laboratory data this morning reveals white count 5.8. Hemoglobin 11.4. Sodium 143. Potassium 4.0. Bilirubin 0.3. AST 21. ALT 26. IMAGING: CT abdomen and pelvis: Fluid was again seen throughout mildly prominent small bowel loops extending throughout the colon to the level of the rectum, likely representing infectious versus inflammatory enterocolitis/diarrheal disease in the correct clinical setting. Distended appendix measuring up to 1.1 cm in diameter. Interval increase in size since prior study. Although there is no evidence of significant periappendiceal inflammatory changes. This may be react radha. ASSESSMENT: 1. Enterocolitis, CT reveals mildly prominent small bowel loops extending through colon 2. Dilated appendix, no clinical evidence of acute appendicitis, suspect reactive in nature 3. Recent diagnosis of Clostridium difficile colitis PLAN: 1. Patient is tolerating current diet. May continue at this time. If abdominal pain increases, downgrade diet to NPO 2. Continue antibiotics. Infectious disease following 3. Await results of stool culture 4. CDiff EIA negative. CDiff PCR ordered per infectious disease 4. Further recommendations pending evaluation by Dr. Mullins this afternoon Nurse practitioner note has been reviewed by physician. Signing provider agrees with the documented findings, assessment, and plan of care. Past Medical History Past Medical History: Asthma, COPD, Diabetes Mellitus, GERD/Reflux, Hyperlipidemia, Hypertension, Osteoarthritis (OA), Prostate Disorder, Skin Disorder Additional Past Medical History / Comment(s): diarrhea, sores on arms, DDD History of Any Multi-Drug Resistant Organisms: C-DIFF Year Discovered:: 11/2018 MDRO Source:: C. diff Past Surgical History: Hernia Repair, Orthopedic Surgery, Tonsillectomy Additional Past Surgical History / Comment(s): right chest wall cyst removed, nerve surgery left elbow Past Anesthesia/Blood Transfusion Reactions: No Reported Reaction Past Psychological History: No Psychological Hx Reported Smoking Status: Former smoker Past Alcohol Use History: None Reported Past Drug Use History: None Reported - Past Family History Father Family Medical History: Myocardial Infarction ([place]) Mother Family Medical History: No Reported History Medications and Allergies Home Medications Medication Instructions Recorded Confirmed Type Montelukast [Singulair] 10 mg PO DAILY 09/25/13 12/16/18 History Albuterol Sulfate [Ventolin HFA] 1 puff INHALATION RT-QID PRN 02/21/14 12/16/18 History Fenofibrate [Lofibra] 160 mg PO DAILY 02/21/14 12/16/18 History Lisinopril 10 mg PO BID 02/21/14 12/16/18 History Fluticasone/Salmeterol [Advair 1 puff INHALATION RT-BID 09/08/15 12/16/18 Hi story 250-50 Diskus] Doxazosin Mesylate [Cardura] 16 mg PO HS 10/20/15 12/16/18 History Atorvastatin [Lipitor] 80 mg PO HS 09/24/16 12/16/18 History Cetirizine HCl [Zyrtec] 10 - 20 mg PO DAILY PRN 09/24/16 12/16/18 History Desvenlafaxine [Pristiq ER] 100 mg PO DAILY 09/24/16 12/16/18 History clonazePAM [KlonoPIN] 1 mg PO BID PRN 09/24/16 12/16/18 History Acetaminophen-Codeine 300-30mg 1 - 2 tab PO Q6H PRN 10/21/18 12/16/18 History [Tylenol w/codeine #3] Metoprolol Tartrate [Lopressor] 25 mg PO BID 10/21/18 12/16/18 History sitaGLIPtin PHOS/metFORMIN HCL 1 tab PO HS 10/21/18 12/16/18 History [Janumet Xr 50-500 mg Tablet] Insulin Degludec [Tresiba 110 units SQ HS 11/22/18 12/16/18 History Flextouch U-200] Vancomycin Oral Solution 250 mg PO Q6H ml 11/24/18 12/16/18 Rx Allergies Allergy/AdvReac Type Severity Reaction Status Date / Time No Known Allergies Allergy Verified 12/16/18 07:33 Surgical - Exam Vital Signs Temp Pulse Resp BP Pulse Ox 98.0 F 110 H 20 91/72 91 L 12/16/18 02:09 12/16/18 02:09 12/16/18 02:09 12/16/18 02:09 12/16/18 02:09 Results - Labs 12/17/18 11:10 12/17/18 11:10 Abnormal Lab Results - Last 24 Hours (Table) 12/16/18 12/16/18 12/16/18 Range/Units 17:02 18:45 20:30 RBC (4.30-5.90) m/uL Hgb (13.0-17.5) gm/dL Hct (39.0-53.0) % Chloride (98-107) mmol/L POC Glucose (mg/dL) 143 H 159 H (75-99) mg/dL Total Protein (6.3-8.2) g/dL Albumin (3.5-5.0) g/dL Ur Specific [place] 1.038 H (1.001-1.035) Urine Protein Trace H (Negative) Urine Glucose (UA) 1+ H (Negative) 12/17/18 12/17/18 Range/Units 11:10 11:10 RBC 4.05 L (4.30-5.90) m/uL Hgb 11.4 L (13.0-17.5) gm/dL Hct 35.4 L (39.0-53.0) % Chloride 111 H (98-107) mmol/L POC Glucose (mg/dL) (75-99) mg/dL Total Protein 5.9 L (6.3-8.2) g/dL Albumin 3.4 L (3.5-5.0) g/dL Ur Specific [place] (1.001-1.035) Urine Protein (Negative) Urine Glucose (UA) (Negative) Microbiology - Last 24 Hours (Table) 12/16/18 03:30 Blood Culture - Preliminary Blood No Growth after 24 hours 12/16/18 02:45 Stool Culture - Preliminary Stool Diabetes panel 12/17/18 Range/Units 11:10 Sodium 143 (137-145) mmol/L Potassium 4.0 (3.5-5.1) mmol/L Chloride 111 H (98-107) mmol/L Carbon Dioxide 24 (22-30) mmol/L BUN 19 (9-20) mg/dL Creatinine 1.04 (0.66-1.25) mg/dL Glucose 80 (74-99) mg/dL Calcium 8.8 (8.4-10.2) mg/dL AST 21 (17-59) U/L ALT 26 (21-72) U/L Alkaline Phosphatase 49 (38-126) U/L Total Protein 5.9 L (6.3-8.2) g/dL Albumin 3.4 L (3.5-5.0) g/dL Calcium panel 12/17/18 Range/Units 11:10 Calcium 8.8 (8.4-10.2) mg/dL Albumin 3.4 L (3.5-5.0) g/dL Pituitary panel 12/17/18 Range/Units 11:10 Sodium 143 (137-145) mmol/L Potassium 4.0 (3.5-5.1) mmol/L Chloride 111 H (98-107) mmol/L Carbon Dioxide 24 (22-30) mmol/L BUN 19 (9-20) mg/dL Creatinine 1.04 (0.66-1.25) mg/dL Glucose 80 (74-99) mg/dL Calcium 8.8 (8.4-10.2) mg/dL Adrenal panel 12/17/18 Range/Units 11:10 Sodium 143 (137-145) mmol/L Potassium 4.0 (3.5-5.1) mmol/L Chloride 111 H (98-107) mmol/L Carbon Dioxide 24 (22-30) mmol/L BUN 19 (9-20) mg/dL Creatinine 1.04 (0.66-1.25) mg/dL Glucose 80 (74-99) mg/dL Calcium 8.8 (8.4-10.2) mg/dL Total Bilirubin 0.3 (0.2-1.3) mg/dL AST 21 (17-59) U/L ALT 26 (21-72) U/L Alkaline Phosphatase 49 (38-126) U/L Total Protein 5.9 L (6.3-8.2) g/dL Albumin 3.4 L (3.5-5.0) g/dL Assessment and Plan (1) History of Clostridium difficile colitis Current Visit: Yes Status: Acute Code(s): Z86.19 - PERSONAL HISTORY OF OTHER INFECTIOUS AND PARASITIC DISEASES SNOMED Code(s): 605510337 (2) Diarrhea Current Visit: Yes Status: Acute Code(s): R19.7 - DIARRHEA, UNSPECIFIED SNOMED Code(s): 92507145 (3) Abdominal pain Current Visit: Yes Status: Acute Code(s): R10.9 - UNSPECIFIED ABDOMINAL PAIN SNOMED Code(s): 74038792
[2018-12-17 16:35] LABS: Glucose,Whole Blood 141 mg/dL (75-99)
[2018-12-17 20:04] LABS: Glucose,Whole Blood 175 mg/dL (75-99)
--- NOTE | 2018-12-17 20:32 | PN ---
PROGRESS NOTE DATE OF SERVICE: 12/17/2018 REASON FOR FOLLOWUP: Diarrhea and a question of C difficile colitis. INTERVAL HISTORY: The patient is currently afebrile. The patient has been breathing comfortably. The patient continues to have diarrhea. Stool for C difficile PCR was requested; unfortunately not collected. No nausea, no vomiting. No worsening abdominal pain. PHYSICAL EXAMINATION: Blood pressure 143/78 with a pulse of 102, temperature 98.6. He is 94% on room air. General description is an elderly male lying in bed in no distress. RESPIRATORY SYSTEM: Unlabored breathing with decreased breath sounds at the base. HEART: S1, S2. Regular rate and rhythm. ABDOMEN: Soft. No tenderness. LABS: Hemoglobin 11.4, white count 5.8, BUN of 19, creatinine 1.04. DIAGNOSTIC IMPRESSION AND PLAN: Patient presented to the hospital with diarrhea in a patient who does have a history of Clostridium difficile colitis. C. diff stool PCR has been requested, unfortunately not collected. RN has been instructed to send it. Stool for culture is currently pending. To continue vancomycin while waiting for those investigations to be completed. Continue with supportive care. MMODL / IJN: [id number] / GLORIA
[2018-12-17 20:55] LABS: Glucose,Whole Blood 162 mg/dL (75-99)
[2018-12-17] MEDS: LINAGLIPTIN 5 MG TABLET PO SCH (21:00)
[2018-12-17] MEDS: metFORMIN 500 MG TAB PO SCH (21:00)
[2018-12-17] MEDS: ATORVASTATIN 80 MG TAB PO SCH (21:00)
[2018-12-17] MEDS: PANTOPRAZOLE 40 MG TABLET PO SCH (21:01)
[2018-12-17] MEDS: clonazePAM 1 MG TAB PO PRN (21:01)
[2018-12-17] MEDS: DOXAZOSIN 4 MG TAB PO SCH (21:01)
[2018-12-17] MEDS: INSULIN DETEMIR (LEVEMIR) 100 UNIT/ML SYR SQ SCH (21:02)
[2018-12-18 02:07] LABS: Glucose,Whole Blood 114 mg/dL (75-99)
[2018-12-18] MEDS: metroNIDAZOLE-NS PMX 500 MG in SALINE 1 100ML.BAG IVPB SCH ×2 (02:51→11:25)
[2018-12-18] MEDS: Acetaminophen-Codeine 300-30mg TAB PO PRN ×3 (02:55→23:48)
[2018-12-18] MEDS: SODIUM CHLORIDE 0.9% 1,000 ML IV SCH ×4 (04:00→20:38)
[2018-12-18] MEDS: VANCOMYCIN ORAL SOLUTION 250 MG/5 ML BOTTLE PO SCH ×4 (05:09→23:44)
[2018-12-18] MEDS: CHERRY FLAVOR 60 ML BOTTLE PO SCH ×4 (05:09→23:44)
[2018-12-18 06:55] LABS: Glucose,Whole Blood 67 mg/dL (75-99)
[2018-12-18] MEDS: ALBUTEROL NEBULIZED 2.5 MG/3 ML INHALATION PRN ×2 (07:30→20:19)
[2018-12-18] MEDS: SYMBICORT 80-4.5 MCG INHALER INHALATION SCH ×2 (07:30→20:20)
[2018-12-18 07:42] LABS: Glucose,Whole Blood 109 mg/dL (75-99)
[2018-12-18] MEDS: DESVENLAFAXINE SUCCINATE 50 MG TAB.ER.24H PO SCH (08:46)
[2018-12-18] MEDS: FENOFIBRATE 160 MG TAB PO SCH (08:46)
[2018-12-18] MEDS: PANTOPRAZOLE 40 MG TABLET PO SCH ×2 (08:46→20:35)
[2018-12-18] MEDS: LISINOPRIL 10 MG TAB PO SCH ×2 (08:46→20:36)
[2018-12-18 08:47] LABS: Basophils % (A) 0 %; Eosinophils # (A) 0.3 k/uL (0-0.7); Eosinophils % (A) 5 %; HCT 36.1 % (39.0-53.0); HGB 11.6 gm/dL (13.0-17.5); Lymphocytes # (A) 1.7 k/uL (1.0-4.8); Lymphocytes % (A) 28 %; MCH 27.4 pg (25.0-35.0); MCHC 32.1 g/dL (31.0-37.0); MCV 85.5 fL (80.0-100.0); Mean Platelet Volume 6.5; Monocytes # (A) 0.3 k/uL (0-1.0); Monocytes % (A) 5 %; Neutrophils # (A) 3.6 k/uL (1.3-7.7); Neutrophils % (A) 60 %; Platelet Count 196 k/uL (150-450); RBC 4.22 m/uL (4.30-5.90); RDW 13.8 % (11.5-15.5); WBC 6.1 k/uL (3.8-10.6)
[2018-12-18] MEDS: MONTELUKAST 10 MG TAB PO SCH (08:47)
[2018-12-18] MEDS: METOPROLOL TARTRATE 25 MG TAB PO SCH ×2 (08:47→20:35)
[2018-12-18] MEDS: ENOXAPARIN 40 MG/0.4 ML SYRINGE SQ SCH (08:47)
[2018-12-18 08:48] LABS: ALT 27 U/L (21-72); AST 23 U/L (17-59); African American GFR (CKD) >90 (>60 ml/min/1.73 sqM); Albumin 3.5 g/dL (3.5-5.0); Alkaline Phosphatase 51 U/L (38-126); Anion Gap 10 mmol/L; Blood Urea Nitrogen 16 mg/dL (9-20); Calcium 8.8 mg/dL (8.4-10.2); Carbon Dioxide 25 mmol/L (22-30); Chloride 108 mmol/L (98-107); Glucose 98 mg/dL (74-99); Non-African American GFR(CKD) 87 (>60 ml/min/1.73 sqM); Potassium 3.7 mmol/L (3.5-5.1); Sodium 143 mmol/L (137-145); Total Bilirubin 0.3 mg/dL (0.2-1.3); Total Protein 5.9 g/dL (6.3-8.2)
--- NOTE | 2018-12-18 10:30 | P.PN ---
Subjective Progress Note Date: 12/18/18 Yobani Leblanc is a 63 -year-old male who presented to [facility] emergency room with a chief complaint of diarrhea and abdominal pain. Patient describes watery diarrhea more than 10 times daily, and he describes a periumbilical abdominal pain radiating to the back, he had 1 episode of vomiting on the day of admission otherwise he denies any complaints there is no fever or chills no headache or dizziness no chest pain no shortness of breath no cough and no urinary symptoms. He was admitted to [facility] on 11/22/2018 and was discharged on 11/24/2018 at that time he had stool positive for C. diff he was discharged home on oral vancomycin and improved significantly however several days after he finished his antibiotic course he started having diarrhea again. Clostridium difficile testing by EIA in the emergency room this morning was negative. Computed tomography scan of the abdomen and pelvis was done in the emergency room and revealed evidence of prominent fluid in the small bowels with inflammatory changes and evidence of distended appendix On 12/17/2018 patient alert and oriented 3. Patient does report improvement with abdominal pain. Patient reports 3 episodes of loose stools throughout night. remains on vancomycin and Flagyl per infectious disease. At this time patient denies chest pain or shortness breath. Patient denies nausea or vomi ting. Patient denies any urinary burning or frequency. On 12/18/2017 patient is alert and oriented 3. She reports improvement with abdominal pain. Patient also reports improvement with diarrhea. Patient reports 1-2 loose stools 12 hours. Culture pending. Per infectious disease repeat C. diff with PCR has been ordered. Patient remains on vancomycin and Flagyl. At this time patient denies chest pain or shortness of breath. Patient denies any urinary burning or frequency. Patient has been tolerating consistent carb diet Objective - Vital Signs Vital signs: Vital Signs Temp 98.2 F 12/18/18 07:00 Pulse 104 H 12/18/18 07:43 Resp 17 12/18/18 07:00 BP 145/82 12/18/18 07:00 Pulse Ox 96 12/18/18 07:00 Intake & Output 12/17/18 12/18/18 12/18/18 18:59 06:59 18:59 Intake Total 720 1850 240 Balance 720 1850 240 Intake: Intake, IV Titration 450 Amount Sodium Chloride 0.9% 1, 450 000 ml @ 150 mls/hr IV . Q6H40M [facility] Rx#:[id number] Oral 720 1400 240 Other: Voiding Method Toilet Toilet # Voids 1 - Exam In general patient is alert and oriented 3 in no apparent distress HEENT head normocephalic and atraumatic Neck is supple no JVD no goiter no lymphadenopathy no carotid bruit Chest exam reveals a few scattered crackles no wheezing Cardiac exam reveals regular heart sounds S1 and S2 no gallops no murmurs Abdomen is soft with mild adilene umbilical tenderness no organomegaly with normal bowel sounds Extremity exam reveals no edema no cyanosis or clubbing - Labs CBC & Chem 7: 12/18/18 07:27 12/18/18 07:27 Labs: Abnormal Lab Results - Last 24 Hours (Table) 12/17/18 12/17/18 12/17/18 Range/Units 11:10 11:10 16:33 RBC 4.05 L (4.30-5.90) m/uL Hgb 11.4 L (13.0-17.5) gm/dL Hct 35.4 L (39.0-53.0) % Chloride 111 H (98-107) mmol/L POC Glucose (mg/dL) 141 H (75-99) mg/dL Total Protein 5.9 L (6.3-8.2) g/dL Albumin 3.4 L (3.5-5.0) g/dL 12/17/18 12/17/18 12/18/18 Range/Units 20:00 20:53 02:05 RBC (4.30-5.90) m/uL Hgb (13.0-17.5) gm/dL Hct (39.0-53.0) % Chloride (98-107) mmol/L POC Glucose (mg/dL) 175 H 162 H 114 H (75-99) mg/dL Total Protein (6.3-8.2) g/dL Albumin (3.5-5.0) g/dL 12/18/18 12/18/18 12/18/18 Range/Units 06:53 07:27 07:27 RBC 4.22 L (4.30-5.90) m/uL Hgb 11.6 L (13.0-17.5) gm/dL Hct 36.1 L (39.0-53.0) % Chloride 108 H (98-107) mmol/L POC Glucose (mg/dL) 67 L (75-99) mg/dL Total Protein 5.9 L (6.3-8.2) g/dL Albumin (3.5-5.0) g/dL 12/18/18 Range/Units 07:40 RBC (4.30-5.90) m/uL Hgb (13.0-17.5) gm/dL Hct (39.0-53.0) % Chloride (98-107) mmol/L POC Glucose (mg/dL) 109 H (75-99) mg/dL Total Protein (6.3-8.2) g/dL Albumin (3.5-5.0) g/dL Microbiology - Last 24 Hours (Table) 12/16/18 03:30 Blood Culture - Preliminary Blood No Growth after 48 hours Assessment and Plan Assessment: #1 abdominal pain and diarrhea, C. diff check was negative this morning #2 recent Clostridium difficile colitis diagnosed on 11/22/2018 patient received a course of oral vancomycin #3 evidence of dehydration was elevated creatinine at 1.28. Resolved #4 underlying history of hypertension #5 underlying history of hyperlipidemia maintained on Lipitor and fenofibrate #6 underlying history of gastroesophageal reflux disease Per infectious disease patient maintained on Flagyl and vancomycin Stool cultures pending. Repeat C. diff with PCR ordered per ID Per surgical services dilated appendix no clinical evidence of acute appendicitis Will follow closely DVT prophylaxis Lovenox. GI prophylaxis Protonix I performed an examination of the patient and discussed their management with the Nurse Practitioner. I have reviewed the Nurse Practitioner's notes and agree with the documented findings and plan of care
--- NOTE | 2018-12-18 11:11 | P.PN ---
Subjective Progress Note Date: 12/18/18 CHIEF COMPLAINT: Diarrhea, abdominal pain HISTORY OF PRESENT ILLNESS: patient seen and examined this morning at the bedside. Patient is tolerating regular diet. He denies abdominal pain or discomfort. Denies nausea or vomiting. He reports soft stool this morning. Repeat C. diff is pending. PHYSICAL EXAM: VITAL SIGNS: Reviewed GENERAL: Well-developed in no acute distress. HEENT: No sclera icterus. Extraocular movements grossly intact. Moist buccal mucosa. Head is atraumatic, normocephalic. Hears conversational speech. No nasal drainage. NECK: Supple without lymphadenopathy. CHEST: Non-labored respirations and equal bilateral excursions. CARDIOVASCULAR: Regular rate with regular rhythm. Palpable 2+ radial pulses. ABDOMEN: Soft. Obese. Nondistended. Nontender. MUSCULOSKELETAL: No clubbing, cyanosis or edema. NEUROLOGIC: No focal or lateralizing signs. Cranial nerves II through XII grossly intact. PSYCH: Appropriate affect. Alert and oriented to person, place and time. SKIN: Well perfused. Good skin turgor. ASSESSMENT: 1. Enterocolitis, CT reveals mildly prominent small bowel loops extending through colon 2. Dilated appendix, no clinical evidence of acute appendicitis, suspect reactive in nature 3. Recent diagnosis of Clostridium difficile colitis PLAN: Continue antibiotics. Continue current diet. No surgical intervention recommended. Continue management per infectious disease and internal medicine. We will sign off. Please reconsult if needed. Nurse practitioner note has been reviewed by physician. Signing provider agrees with the documented findings, assessment, and plan of care. Objective - Vital Signs Vital signs: Vital Signs Temp 98.2 F 12/18/18 07:00 Pulse 104 H 12/18/18 07:43 Resp 17 12/18/18 07:00 BP 145/82 12/18/18 07:00 Pulse Ox 96 12/18/18 07:00 Intake & Output 12/17/18 12/18/18 12/18/18 18:59 06:59 18:59 Intake Total 720 1850 240 Balance 720 1850 240 Intake: Intake, IV Titration 450 Amount Sodium Chloride 0.9% 1, 450 000 ml @ 150 mls/hr IV . Q6H40M COUNTS INCLUDE 234 BEDS AT [facility] Rx#:[id number] Oral 720 1400 240 Other: Voiding Method Toilet Toilet # Voids 1 - Labs CBC & Chem 7: 12/18/18 07:27 12/18/18 07:27 Labs: Abnormal Lab Results - Last 24 Hours (Table) 12/17/18 12/17/18 12/17/18 Range/Units 11:10 11:10 16:33 RBC 4.05 L (4.30-5.90) m/uL Hgb 11.4 L (13.0-17.5) gm/dL Hct 35.4 L (39.0-53.0) % Chloride 111 H (98-107) mmol/L POC Glucose (mg/dL) 141 H (75-99) mg/dL Total Protein 5.9 L (6.3-8.2) g/dL Albumin 3.4 L (3.5-5.0) g/dL 12/17/18 12/17/18 12/18/18 Range/Units 20:00 20:53 02:05 RBC (4.30-5.90) m/uL Hgb (13.0-17.5) gm/dL Hct (39.0-53.0) % Chloride (98-107) mmol/L POC Glucose (mg/dL) 175 H 162 H 114 H (75-99) mg/dL Total Protein (6.3-8.2) g/dL Albumin (3.5-5.0) g/dL 12/18/18 12/18/18 12/18/18 Range/Units 06:53 07:27 07:27 RBC 4.22 L (4.30-5.90) m/uL Hgb 11.6 L (13.0-17.5) gm/dL Hct 36.1 L (39.0-53.0) % Chloride 108 H (98-107) mmol/L POC Glucose (mg/dL) 67 L (75-99) mg/dL Total Protein 5.9 L (6.3-8.2) g/dL Albumin (3.5-5.0) g/dL 12/18/18 Range/Units 07:40 RBC (4.30-5.90) m/uL Hgb (13.0-17.5) gm/dL Hct (39.0-53.0) % Chloride (98-107) mmol/L POC Glucose (mg/dL) 109 H (75-99) mg/dL Total Protein (6.3-8.2) g/dL Albumin (3.5-5.0) g/dL Microbiology - Last 24 Hours (Table) 12/16/18 03:30 Blood Culture - Preliminary Blood No Growth after 48 hours Assessment and Plan (1) History of Clostridium difficile colitis Current Visit: Yes Status: Acute Code(s): Z86.19 - PERSONAL HISTORY OF OTHER INFECTIOUS AND PARASITIC DISEASES SNOMED Code(s): 188924751 (2) Diarrhea Current Visit: Yes Status: Acute Code(s): R19.7 - DIARRHEA, UNSPECIFIED SNOMED Code(s): 81358832 (3) Abdominal pain Current Visit: Yes Status: Acute Code(s): R10.9 - UNSPECIFIED ABDOMINAL PAIN SNOMED Code(s): 78329765
[2018-12-18 12:19] LABS: Glucose,Whole Blood 78 mg/dL (75-99)
[2018-12-18] MEDS: LORATADINE 10 MG TAB PO PRN (14:40)
[2018-12-18 16:53] LABS: Glucose,Whole Blood 129 mg/dL (75-99)
--- NOTE | 2018-12-18 18:09 | XR ---
EXAMINATION TYPE: XR chest 2V DATE OF EXAM: 12/18/2018 COMPARISON: NONE TECHNIQUE: PA and lateral views submitted. HISTORY: Cough and shortness of breath FINDINGS: The lungs are clear and there is no pneumothorax, pleural effusion, or focal pneumonia. Hyperinflat ion suggests COPD. Subsegmental changes at the lung bases. No pneumothorax or pleural effusion. IMPRESSION: 1. Correlate for COPD subsegmental changes at the lung bases are suggestive of atelectasis.
[2018-12-18 20:17] LABS: Glucose,Whole Blood 133 mg/dL (75-99)
[2018-12-18] MEDS: INSULIN DETEMIR (LEVEMIR) 100 UNIT/ML SYR SQ SCH (20:29)
[2018-12-18] MEDS: metFORMIN 500 MG TAB PO SCH (20:35)
[2018-12-18] MEDS: DOXAZOSIN 4 MG TAB PO SCH (20:35)
[2018-12-18] MEDS: clonazePAM 1 MG TAB PO PRN (20:35)
[2018-12-18] MEDS: metroNIDAZOLE 500 MG TAB PO SCH (20:35)
[2018-12-18] MEDS: ATORVASTATIN 80 MG TAB PO SCH (20:35)
[2018-12-18] MEDS: LINAGLIPTIN 5 MG TABLET PO SCH (20:36)
--- NOTE | 2018-12-18 22:14 | PN ---
PROGRESS NOTE DATE OF SERVICE: 12/18/2018. REASON FOR FOLLOWUP: Diarrhea and possible C difficile colitis. INTERVAL HISTORY: The patient is currently afebrile. Patient has been breathing comfortably. The diarrhea has slightly slowed down with only two episodes last night. Did mention slightly forming up. No nausea, no vomiting. No chest pain, shortness of breath or cough. PHYSICAL EXAMINATION: Blood pressure 170/79, pulse of 87, temperature is 97.8, 96% on room air. General description is an elderly male lying in bed in no distress. Respiratory system: Unlabored breathing. Clear to auscultation anteriorly. Heart S1, S2. Regular. ABDOMEN: Soft. No tenderness. LABS: Hemoglobin 11.5, WBC 6.9, BUN of 16, creatinine 0.92. DIAGNOSTIC IMPRESSION AND PLAN: Patient admitted to the hospital with significant diarrhea in this patient who did have history of C difficile colitis likely same pathogen. Stool for C-dif is currently pending . Continue with oral vancomycin. Monitor clinical course closely. Continue supportive care. MMODL / IJN: [id number] / GLORIA
[2018-12-19] MEDS: SODIUM CHLORIDE 0.9% 1,000 ML IV SCH ×4 (02:40→23:54)
[2018-12-19] MEDS: metroNIDAZOLE 500 MG TAB PO SCH ×3 (02:40→16:58)
[2018-12-19 03:35] LABS: Glucose,Whole Blood 69 mg/dL (75-99)
[2018-12-19 03:48] LABS: Glucose,Whole Blood 86 mg/dL (75-99)
[2018-12-19] MEDS: CHERRY FLAVOR 60 ML BOTTLE PO SCH ×4 (05:17→23:49)
[2018-12-19] MEDS: VANCOMYCIN ORAL SOLUTION 250 MG/5 ML BOTTLE PO SCH ×4 (05:17→23:49)
[2018-12-19 06:53] LABS: Glucose,Whole Blood 120 mg/dL (75-99)
[2018-12-19] MEDS: ALBUTEROL NEBULIZED 2.5 MG/3 ML INHALATION PRN (07:24)
[2018-12-19] MEDS: SYMBICORT 80-4.5 MCG INHALER INHALATION SCH ×2 (07:24→19:45)
[2018-12-19] MEDS: MONTELUKAST 10 MG TAB PO SCH (07:59)
[2018-12-19] MEDS: LORATADINE 10 MG TAB PO PRN (08:00)
[2018-12-19] MEDS: PANTOPRAZOLE 40 MG TABLET PO SCH ×2 (08:00→21:42)
[2018-12-19] MEDS: FENOFIBRATE 160 MG TAB PO SCH (08:00)
[2018-12-19] MEDS: Acetaminophen-Codeine 300-30mg TAB PO PRN ×2 (08:01→16:58)
[2018-12-19] MEDS: LISINOPRIL 10 MG TAB PO SCH ×2 (08:01→21:43)
[2018-12-19] MEDS: ENOXAPARIN 40 MG/0.4 ML SYRINGE SQ SCH (08:02)
[2018-12-19] MEDS: METOPROLOL TARTRATE 25 MG TAB PO SCH ×2 (08:05→21:43)
[2018-12-19] MEDS: DESVENLAFAXINE SUCCINATE 50 MG TAB.ER.24H PO SCH (08:05)
[2018-12-19 08:30] LABS: Basophils # (A) 0.1 k/uL (0-0.2); Basophils % (A) 1 %; Eosinophils # (A) 0.3 k/uL (0-0.7); Eosinophils % (A) 4 %; HCT 36.3 % (39.0-53.0); HGB 11.7 gm/dL (13.0-17.5); Lymphocytes # (A) 1.9 k/uL (1.0-4.8); Lymphocytes % (A) 24 %; MCH 27.3 pg (25.0-35.0); MCHC 32.2 g/dL (31.0-37.0); MCV 84.8 fL (80.0-100.0); Mean Platelet Volume 6.4; Monocytes # (A) 0.4 k/uL (0-1.0); Monocytes % (A) 5 %; Neutrophils # (A) 5.3 k/uL (1.3-7.7); Neutrophils % (A) 65 %; Platelet Count 212 k/uL (150-450); RBC 4.28 m/uL (4.30-5.90); RDW 13.8 % (11.5-15.5); WBC 8.1 k/uL (3.8-10.6)
[2018-12-19 08:49] LABS: ALT 23 U/L (21-72); AST 23 U/L (17-59); African American GFR (CKD) >90 (>60 ml/min/1.73 sqM); Albumin 3.4 g/dL (3.5-5.0); Alkaline Phosphatase 55 U/L (38-126); Anion Gap 9 mmol/L; Blood Urea Nitrogen 14 mg/dL (9-20); Calcium 8.8 mg/dL (8.4-10.2); Carbon Dioxide 24 mmol/L (22-30); Chloride 109 mmol/L (98-107); Glucose 124 mg/dL (74-99); Non-African American GFR(CKD) 84 (>60 ml/min/1.73 sqM); Potassium 3.8 mmol/L (3.5-5.1); Sodium 142 mmol/L (137-145); Total Bilirubin 0.3 mg/dL (0.2-1.3); Total Protein 5.9 g/dL (6.3-8.2)
--- NOTE | 2018-12-19 10:53 | P.PN ---
Subjective Progress Note Date: 12/19/18 Yobani Leblanc is a 63 -year-old male who presented to [facility] emergency room with a chief complaint of diarrhea and abdominal pain. Patient describes watery diarrhea more than 10 times daily, and he describes a periumbilical abdominal pain radiating to the back, he had 1 episode of vomiting on the day of admission otherwise he denies any complaints there is no fever or chills no headache or dizziness no chest pain no shortness of breath no cough and no urinary symptoms. He was admitted to [facility] on 11/22/2018 and was discharged on 11/24/2018 at that time he had stool positive for C. diff he was discharged home on oral vancomycin and improved significantly however several days after he finished his antibiotic course he started having diarrhea again. Clostridium difficile testing by EIA in the emergency room this morning was negative. Computed tomography scan of the abdomen and pelvis was done in the emergency room and revealed evidence of prominent fluid in the small bowels with inflammatory changes and evidence of distended appendix On 12/17/2018 patient alert and oriented 3. Patient does report improvement with abdominal pain. Patient reports 3 episodes of loose stools throughout night. remains on vancomycin and Flagyl per infectious disease. At this time patient denies chest pain or shortness breath. Patient denies nausea or vomi ting. Patient denies any urinary burning or frequency. On 12/18/2017 patient is alert and oriented 3. She reports improvement with abdominal pain. Patient also reports improvement with diarrhea. Patient reports 1-2 loose stools 12 hours. Culture pending. Per infectious disease repeat C. diff with PCR has been ordered. Patient remains on vancomycin and Flagyl. At this time patient denies chest pain or shortness of breath. Patient denies any urinary burning or frequency. Patient has been tolerating consistent carb diet On 12/19/2018 patient is alert and oriented 3. Patient had approximate 4 stools in the past 24 hours. Patient reports improvement with abdominal pain. Repeat stool for C. diff with PCR has been sent per nursing staff. Patient remains on vancomycin Flagyl. Patient denies chest pain or shortness of breath. Patient denies any urinary burning or frequency. Incentive spirometer ordered Objective - Vital Signs Vital signs: Vital Signs Temp 98.4 F 12/19/18 07:00 Pulse 102 H 12/19/18 07:32 Resp 17 12/19/18 08:00 BP 137/87 12/19/18 07:00 Pulse Ox 94 L 12/19/18 07:00 Intake & Output 12/18/18 12/19/18 12/19/18 18:59 06:59 18:59 Intake Total 720 1350 240 Output Total 400 Balance 720 1350 -160 Intake: Intake, IV Titration 1350 Amount Sodium Chloride 0.9% 1, 1350 000 ml @ 150 mls/hr IV . Q6H40M [facility] Rx#:[id number] Oral 720 240 Output: Stool 400 Other: Voiding Method Toilet # Voids 3 2 - Exam In general patient is alert and oriented 3 in no apparent distress HEENT head normocephalic and atraumatic Neck is supple no JVD no goiter no lymphadenopathy no carotid bruit Chest exam reveals a few scattered crackles no wheezing Cardiac exam reveals regular heart sounds S1 and S2 no gallops no murmurs Abdomen is soft with mild adilene umbilical tenderness no organomegaly with normal bowel sounds Extremity exam reveals no edema no cyanosis or clubbing - Labs CBC & Chem 7: 12/19/18 07:52 12/19/18 07:52 Labs: Abnormal Lab Results - Last 24 Hours (Table) 12/18/18 12/18/18 12/19/18 Range/Units 16:51 20:15 03:28 RBC (4.30-5.90) m/uL Hgb (13.0-17.5) gm/dL Hct (39.0-53.0) % Chloride (98-107) mmol/L Glucose (74-99) mg/dL POC Glucose (mg/dL) 129 H 133 H 69 L (75-99) mg/dL Total Protein (6.3-8.2) g/dL Albumin (3.5-5.0) g/dL 12/19/18 12/19/18 12/19/18 Range/Units 06:51 07:52 07:52 RBC 4.28 L (4.30-5.90) m/uL Hgb 11.7 L (13.0-17.5) gm/dL Hct 36.3 L (39.0-53.0) % Chloride 109 H (98-107) mmol/L Glucose 124 H (74-99) mg/dL POC Glucose (mg/dL) 120 H (75-99) mg/dL Total Protein 5.9 L (6.3-8.2) g/dL Albumin 3.4 L (3.5-5.0) g/dL Microbiology - Last 24 Hours (Table) 12/16/18 02:45 Stool Culture - Final Stool 12/16/18 03:30 Blood Culture - Preliminary Blood No Growth after 72 hours Assessment and Plan Assessment: #1 abdominal pain and diarrhea, C. diff check was negative this morning #2 recent Clostridium difficile colitis diagnosed on 11/22/2018 patient received a course of oral vancomycin #3 evidence of dehydration was elevated creatinine at 1.28. Resolved #4 underlying history of hypertension #5 underlying history of hyperlipidemia maintained on Lipitor and fenofibrate #6 underlying history of gastroesophageal reflux disease Per infectious disease patient maintained on Flagyl and vancomycin Stool cultures pending. Repeat C. diff with PCR ordered per ID Per surgical services dilated appendix no clinical evidence of acute appendicitis Will follow closely DVT prophylaxis Lovenox. GI prophylaxis Protonix I performed an examination of the patient and discussed their management with the Nurse Practitioner. I have reviewed the Nurse Practitioner's notes and agree with the documented findings and plan of care
[2018-12-19 11:30] LABS: Glucose,Whole Blood 128 mg/dL (75-99)
--- NOTE | 2018-12-19 15:06 | PN ---
PROGRESS NOTE DATE OF SERVICE: 12/19/2018 REASON FOR FOLLOWUP: Diarrhea, possible C. diff colitis. INTERVAL HISTORY: The patient is currently afebrile. Patient has been breathing comfortably. The patient denies having any nausea, vomiting. Repeat abdominal pain has improved and diarrhea has slightly forming up with no blood in the stools. PHYSICAL EXAMINATION: Blood pressure 137/87 with a pulse of 100, temperature 98.4. He is 94% on room air. General description is an elderly male, lying in bed in no distress. RESPIRATORY SYSTEM: Unlabored breathing, clear to auscultation anteriorly. HEART: S1, S2. Regular rate and rhythm. ABDOMEN: Soft, no tenderness. LABS: Hemoglobin is 11.7, white count 8.1. BUN 14, creatinine 0.95. Stool for C difficile is sent through today negative. DIAGNOSTIC IMPRESSION AND PLAN: Patient admitted to the hospital with significant diarrhea, abdominal pain, nausea, vomiting and this patient did have a recent history of Clostridium difficile colitis. Unfortunately, stool for Clostridium difficile was not sent on time, in view of clinical response to oral vancomycin, recommend to finish therapy with a course of oral vancomycin along with probiotic and yogurt intake and to monitor clinic course closely. MMODL / IJN: [id number] / MTDD
[2018-12-19 16:32] LABS: Glucose,Whole Blood 126 mg/dL (75-99)
[2018-12-19 20:31] LABS: Glucose,Whole Blood 160 mg/dL (75-99)
[2018-12-19] MEDS: INSULIN DETEMIR (LEVEMIR) 100 UNIT/ML SYR SQ SCH (21:31)
[2018-12-19] MEDS: ATORVASTATIN 80 MG TAB PO SCH (21:42)
[2018-12-19] MEDS: LINAGLIPTIN 5 MG TABLET PO SCH (21:43)
[2018-12-19] MEDS: metFORMIN 500 MG TAB PO SCH (21:43)
[2018-12-19] MEDS: DOXAZOSIN 4 MG TAB PO SCH (21:45)
[2018-12-20 01:19] VITALS: TEMP 97.7
[2018-12-20 02:38] LABS: Glucose,Whole Blood 113 mg/dL (75-99)
[2018-12-20] MEDS: metroNIDAZOLE 500 MG TAB PO SCH ×2 (03:12→11:34)
[2018-12-20] MEDS: CHERRY FLAVOR 60 ML BOTTLE PO SCH ×2 (05:15→11:34)
[2018-12-20] MEDS: VANCOMYCIN ORAL SOLUTION 250 MG/5 ML BOTTLE PO SCH ×2 (05:15→11:35)
[2018-12-20] MEDS: Acetaminophen-Codeine 300-30mg TAB PO PRN (05:18)
[2018-12-20 07:01] LABS: Glucose,Whole Blood 131 mg/dL (75-99)
[2018-12-20] MEDS: SYMBICORT 80-4.5 MCG INHALER INHALATION SCH (07:18)
[2018-12-20 07:30] VITALS: BP 145/79; PULSE 93; RESP 16
[2018-12-20 07:38] LABS: Basophils % (A) 1 %; Eosinophils # (A) 0.3 k/uL (0-0.7); Eosinophils % (A) 4 %; HCT 35.2 % (39.0-53.0); HGB 11.4 gm/dL (13.0-17.5); Lymphocytes # (A) 1.7 k/uL (1.0-4.8); Lymphocytes % (A) 23 %; MCH 27.3 pg (25.0-35.0); MCHC 32.5 g/dL (31.0-37.0); MCV 84.2 fL (80.0-100.0); Mean Platelet Volume 6.7; Monocytes # (A) 0.4 k/uL (0-1.0); Monocytes % (A) 6 %; Neutrophils # (A) 4.9 k/uL (1.3-7.7); Neutrophils % (A) 65 %; Platelet Count 196 k/uL (150-450); RBC 4.19 m/uL (4.30-5.90); RDW 13.7 % (11.5-15.5); WBC 7.5 k/uL (3.8-10.6)
[2018-12-20 07:49] LABS: ALT 26 U/L (21-72); AST 22 U/L (17-59); African American GFR (CKD) >90 (>60 ml/min/1.73 sqM); Albumin 3.4 g/dL (3.5-5.0); Alkaline Phosphatase 60 U/L (38-126); Anion Gap 8 mmol/L; Blood Urea Nitrogen 15 mg/dL (9-20); Carbon Dioxide 28 mmol/L (22-30); Chloride 104 mmol/L (98-107); Glucose 131 mg/dL (74-99); Non-African American GFR(CKD) 84 (>60 ml/min/1.73 sqM); Potassium 3.7 mmol/L (3.5-5.1); Sodium 140 mmol/L (137-145); Total Bilirubin 0.3 mg/dL (0.2-1.3); Total Protein 5.9 g/dL (6.3-8.2)
[2018-12-20] MEDS: MONTELUKAST 10 MG TAB PO SCH (07:49)
[2018-12-20] MEDS: LISINOPRIL 10 MG TAB PO SCH (07:49)
[2018-12-20] MEDS: FENOFIBRATE 160 MG TAB PO SCH (07:49)
[2018-12-20] MEDS: METOPROLOL TARTRATE 25 MG TAB PO SCH (07:49)
[2018-12-20] MEDS: PANTOPRAZOLE 40 MG TABLET PO SCH (07:49)
[2018-12-20] MEDS: ENOXAPARIN 40 MG/0.4 ML SYRINGE SQ SCH (07:50)
[2018-12-20] MEDS: DESVENLAFAXINE SUCCINATE 50 MG TAB.ER.24H PO SCH (07:50)
[2018-12-20] MEDS: SODIUM CHLORIDE 0.9% 1,000 ML IV SCH (07:51)
--- NOTE | 2018-12-20 11:13 | P.DS ---
Providers Date of admission: 12/18/18 14:23 Expected date of discharge: 12/20/18 Attending physician: Martine Prasad Consults: 12/16/18 13:10 Consult Physician Routine Consulting Provider: Arsen Navarrete Consult Reason/Comments: diarrhea Do you want consulting provider notified?: Yes Primary care physician: [facility] Course: Discharge diagnosis #1 abdominal pain and diarrhea, C. diff check was negative this morning #2 recent Clostridium difficile colitis diagnosed on 11/22/2018 patient received a course of oral vancomycin #3 evidence of dehydration was elevated creatinine at 1.28. Resolved #4 underlying history of hypertension #5 underlying history of hyperlipidemia maintained on Lipitor and fenofibrate #6 underlying history of gastroesophageal reflux disease Stool cultures pending. Repeat C. diff with PCR ordered per ID Per surgical services dilated appendix no clinical evidence of acute appendicitis. No surgical intervention. Surgical services have signed off Per infectious disease patient to be discharged on by mouth vancomycin 250 every 6 hours for 10 days Hospital course Yobani Leblanc is a 63 -year-old male who presented to [facility] emergency room with a chief complaint of diarrhea and abdominal pain. Patient describes watery diarrhea more than 10 times daily, and he describes a periumbilical abdominal pain radiating to the back, he had 1 episode of vomiting on the day of admission otherwise he denies any complaints there is no fever or chills no headache or dizziness no chest pain no shortness of breath no cough and no urinary symptoms. He was admitted to [facility] on 11/22/2018 and was discharged on 11/24/2018 at that time he had stool positive for C. diff he was discharged home on oral vancomycin and improved significantly however several days after he finished his antibiotic course he started having diarrhea again. Clostridium difficile testing by EIA in the emergency room this morning was negative. Computed tomography scan of the abdomen and pelvis was done in the emergency room and revealed evidence of prominent fluid in the small bowels with inflammatory changes and evidence of distended appendix On 12/17/2018 patient alert and oriented 3. Patient does report improvement with abdominal pain. Patient reports 3 episodes of loose stools throughout night. remains on vancomycin and Flagyl per infectious disease. At this time patient denies chest pain or shortness breath. Patient denies nausea or vomiting. Patient denies any urinary burning or frequency. On 12/18/2017 patient is alert and oriented 3. She reports improvement with abdominal pain. Patient also reports improvement with diarrhea. Patient reports 1-2 loose stools 12 hours. Culture pending. Per infectious disease repeat C. diff with PCR has been ordered. Patient remains on vancomycin and Flagyl. At this time patient denies chest pain or shortness of breath. Patient denies any urinary burning or frequency. Patient has been tolerating consistent carb diet On 12/19/2018 patient is alert and oriented 3. Patient had approximate 4 stools in the past 24 hours. Patient reports improvement with abdominal pain. Repeat stool for C. diff with PCR has been sent per nursing staff. Patient remains on vancomycin Flagyl. Patient denies chest pain or shortness of breath. Patient denies any urinary burning or frequency. Incentive spirometer ordered On 12/20/2018 patient is alert and oriented 3. Patient had a proximally 2 stools in the past 24 hours abdominal pain has completely subsided. Discussed case with infectious disease Dr. Navarrete. Patient can be discharged on oral vancomycin 250 every 6 hours for 10 days. Patient follow-up PCP and infectious disease for further management. Patient denies chest pain or shortness breath. Patient denies nausea vomiting. Patient denies urinary burning or frequency I performed an examination of the patient and discussed their management with the Nurse Practitioner. I have reviewed the Nurse Practitioner's notes and agree with the documented findings and plan of care Patient Condition at Discharge: Stable Plan - Discharge Summary Discharge Rx Participant: Yes New Discharge Prescriptions: New Vancomycin HCl 250 mg PO Q6HR 10 Days #40 capsule Pantoprazole [Protonix] 40 mg PO DAILY 30 Days #30 tablet. Continue Montelukast [Singulair] 10 mg PO DAILY Lisinopril 10 mg PO BID Fenofibrate [Lofibra] 160 mg PO DAILY Albuterol Sulfate [Ventolin HFA] 1 puff INHALATION RT-QID PRN PRN Reason: Shortness Of Breath Fluticasone/Salmeterol [Advair 250-50 Diskus] 1 puff INHALATION RT-BID Doxazosin Mesylate [Cardura] 16 mg PO HS Desvenlafaxine [Pristiq ER] 100 mg PO DAILY clonazePAM [KlonoPIN] 1 mg PO BID PRN PRN Reason: Anxiety Cetirizine HCl [Zyrtec] 10 - 20 mg PO DAILY PRN PRN Reason: Allergy Symptoms Atorvastatin [Lipitor] 80 mg PO HS sitaGLIPtin PHOS/metFORMIN HCL [Janumet Xr 50-500 mg Tablet] 1 tab PO HS Acetaminophen-Codeine 300-30mg [Tylenol w/codeine #3] 1 - 2 tab PO Q6H PRN PRN Reason: Pain Metoprolol Tartrate [Lopressor] 25 mg PO BID Insulin Degludec [Tresiba Flextouch U-200] 110 units SQ HS Discontinued Vancomycin Oral Solution 250 mg PO Q6H ml Discharge Medication List Montelukast [Singulair] 10 mg PO DAILY 09/25/13 [History] Albuterol Sulfate [Ventolin HFA] 1 puff INHALATION RT-QID PRN 02/21/14 [History] Fenofibrate [Lofibra] 160 mg PO DAILY 02/21/14 [History] Lisinopril 10 mg PO BID 02/21/14 [History] Fluticasone/Salmeterol [Advair 250-50 Diskus] 1 puff INHALATION RT-BID 09/08/15 [History] Doxazosin Mesylate [Cardura] 16 mg PO HS 10/20/15 [History] Atorvastatin [Lipitor] 80 mg PO HS 09/24/16 [History] Cetirizine HCl [Zyrtec] 10 - 20 mg PO DAILY PRN 09/24/16 [History] Desvenlafaxine [Pristiq ER] 100 mg PO DAILY 09/24/16 [History] clonazePAM [KlonoPIN] 1 mg PO BID PRN 09/24/16 [History] Acetaminophen-Codeine 300-30mg [Tylenol w/codeine #3] 1 - 2 tab PO Q6H PRN 10/21/18 [History] Metoprolol Tartrate [Lopressor] 25 mg PO BID 10/21/18 [History] sitaGLIPtin PHOS/metFORMIN HCL [Janumet Xr 50-500 mg Tablet] 1 tab PO HS 10/21/18 [History] Insulin Degludec [Tresiba Flextouch U-200] 110 units SQ HS 11/22/18 [History] Pantoprazole [Protonix] 40 mg PO DAILY 30 Days #30 tablet. 12/20/18 [Rx] Vancomycin HCl 250 mg PO Q6HR 10 Days #40 capsule 12/20/18 [Rx] Follow up Appointment(s)/Referral(s): Anu Plata MD [Primary Care Provider] - 1-2 days Arsen Navarrete MD [STAFF PHYSICIAN] - 1 Week Activity/Diet/Wound Care/Special Instructions: Activity as tolerated Diet consistent carb Discharge Disposition: HOME SELF-CARE
[2018-12-20 11:56] LABS: Glucose,Whole Blood 131 mg/dL (75-99)
--- NOTE | 2018-12-20 12:39 | PN ---
PROGRESS NOTE DATE OF SERVICE: 12/20/2018 REASON FOR FOLLOWUP: Diarrhea and a question of C difficile colitis. INTERVAL HISTORY: The patient is currently afebrile. The patient has been breathing comfortably. The patient denies having any chest pain or shortness of breath or cough. No nausea or vomiting. PHYSICAL EXAMINATION: Blood pressure 145/79 with a pulse of 93, temperature 97.7. He is 96% on room air. General description is an elderly male lying in bed in no distress. RESPIRATORY SYSTEM: Unlabored breathing. Clear to auscultation anteriorly. HEART: S1, S2. Regular rate and rhythm. ABDOMEN: Soft. No tenderness. LABS: Hemoglobin 11.4, white count 7.5. BUN of 15, creatinine 0.95. DIAGNOSTIC IMPRESSION AND PLAN: Patient admitted to hospital with significant diarrhea in this patient who did have a recent history of Clostridium difficile colitis; possibly recurrent Clostridium difficile colitis. The patient was advised to increase his yogurt intake. Discharge antibiotic in the form of p.o. vancomycin 250 q.6 hours for 10 days with close outpatient followup. MMODL / IJN: [id number] /
== END 2018-12-20 12:52 | disposition home or self-care (01) | DRG 392 ==
LOC: EC 02:06 → 4MS4W 04:55 → 3NMEDONC 05:05 → 4SSUR 12:08 → OBSVTOIN 12-18 14:23
PROVIDERS: ADMIT Internal Medicine; ATTEND Internal Medicine
DX: K52.9 Noninfective gastroenteritis and colitis, unspecified (principal); E86.0 Dehydration; E11.9 Type 2 diabetes mellitus without complications; E78.5 Hyperlipidemia, unspecified; I10 Essential (primary) hypertension; J44.9 Chronic obstructive pulmonary disease, unspecified; K21.9 Gastro-esophageal reflux disease without esophagitis; Z79.4 Long term (current) use of insulin; Z79.899 Other long term (current) drug therapy; Z82.49 Family history of ischemic heart disease and other diseases of the circulatory system; Z86.19 Personal history of other infectious and parasitic diseases; Z87.891 Personal history of nicotine dependence
CPT/HCPCS: 36415; 71046; 74177; 80053; 81003; 82272; 83605; 83690; 84484; 85025; 87040; 87045; 87046; 87324; 87493; 93005; 94640; 96365; 96375; 96376; 99285

== ENCOUNTER 2019-02-05 06:42 | Day surgery (SDC) | payer MEDICARE, OTHER ==
[2019-02-01 10:31] VITALS: BMI 37.2
[~2019-02-05 06:42] MED LIST: LACTATED RINGERS 1,000 ML IV SCH; LIDOCAINE 1% 20 ML VIAL (10MG/ML) FOR IV START INTRADERMA PRN
[2019-02-05 07:09] VITALS: TEMP 98.7
[2019-02-05 07:16] LABS: Glucose,Whole Blood 80 mg/dL (75-99)
[2019-02-05] MEDS ORDERED: LACTATED RINGERS 1,000 ML IV ONE ×2 (07:20)
[2019-02-05] MEDS ORDERED: PROPOFOL 10 MG/ML 20 ML VIAL IV ONE (07:39)
[2019-02-05] MEDS ORDERED: LIDOCAINE 1% INJ 10MG/ML (20 ML MDV) ONE (07:39)
--- NOTE | 2019-02-05 08:28 | P.PCN ---
Date of Procedure: 02/05/19 Description of Procedure: BRIEF HISTORY: Patient is a 63-year-old pleasant male scheduled for an elective colonoscopy as a part of surveillance after personal history of colon polyps. The patient's last colonoscopy was in 10/2015 at which time multiple small polyps were snared as well as biopsies taken from the right colon. Polyps were from the cecum, right colon and sigmoid. Patient has a history of chronic diarrhea baseline. Also reports some abdominal pain and distention. PROCEDURE PERFORMED: Colonoscopy with polypectomy. PREOPERATIVE DIAGNOSIS: Personal history of colon polyps, last colonoscopy significant for polyps in 2015. ESTIMATED BLOOD LOSS: Minimal. IV sedation per Anesthesia. PROCEDURE: After informed consent was obtained, the patient, was brought into the endoscopy unit. IV sedation was administered by Anesthesia under continuous monitoring. Digital rectal examination was normal. Initially the Olympus CF-190 flexible video colonoscope was then inserted in the rectum, gradually advanced into the cecum without any difficulty. Careful examination was performed as the scope was gradually being withdrawn. Ileocecal valve and the appendiceal orifice were visualized and appeared normal. Prep was excellent. Mucosa of the cecum, ascending colon, transverse colon, descending colon, sigmoid colon, and rectum appeared normal. 2 diminutive polyps measuring 1 mm and 3 mm removed from the ascending colon with cold forcep polypectomy. One diminutive sessile 2 mm rectal polyp removed with cold forcep polypectomy. A few small left sided diverticula noted. Random biopsies of the right colon. Retroflexion was performed in the rectum and no lesions were seen. The patient tolerated the procedure well. IMPRESSION: 3 diminutive polyps removed with cold forcep polypectomy to from the ascending colon and one from the rectum. Mild sigmoid diverticulosis. Random biopsies of the right colon and left colon to rule out microscopic colitis. RECOMMENDATIONS: Findings of this examination were discussed with the patient in his . Okay to resume medications. Await pathology from polypectomies. Anticipate repeat colonoscopy in 5 years pending pathology from polypectomies.
[2019-02-05 08:30] VITALS: RESP 18
[2019-02-05 08:48] VITALS: BP 117/76; PULSE 57
== END 2019-02-05 08:51 | disposition home or self-care (01) ==
LOC: ORWHC2ENDO 06:42
PROVIDERS: ATTEND Internal Medicine
DX: K52.832 Lymphocytic colitis (principal); D12.2 Benign neoplasm of ascending colon; K62.1 Rectal polyp; K57.30 Diverticulosis of large intestine without perforation or abscess without bleeding; Z86.010 Personal history of colon polyps; I10 Essential (primary) hypertension; E78.5 Hyperlipidemia, unspecified; E11.9 Type 2 diabetes mellitus without complications; J44.9 Chronic obstructive pulmonary disease, unspecified; Z79.4 Long term (current) use of insulin; Z79.899 Other long term (current) drug therapy; Z87.891 Personal history of nicotine dependence; Z79.51 Long term (current) use of inhaled steroids
CPT/HCPCS: 88305; 45380; J2001; J2704

== ENCOUNTER 2020-12-09 17:56 | Emergency (ER) | payer MEDICARE, OTHER ==
[2020-12-09 18:02] VITALS: BP 120/77; PULSE 103; RESP 17; TEMP 98.6
[2020-12-09] MEDS ORDERED: DIPH,PERTUS(ACELL)TETVAC-LF 0.5 ML VIAL IM ONE (18:21)
[2020-12-09] MEDS ORDERED: TOPICAL SKIN ADHESIVE 1 EACH AMP TOPICAL ONE (18:31)
--- NOTE | 2020-12-09 18:31 | ED ---
Wound/Laceration HPI - General Chief Complaint: Wound/Laceration Stated Complaint: Head Injury Source: patient, family, RN notes reviewed Mode of arrival: ambulatory Limitations: no limitations - History of Present Illness Initial Comments: 65-year-old white male, alert and oriented 4, presents to the emergency room after tripping over a chair and falling forward hitting the top of his head on the wall. Patient sustained a vertical 1 cm laceration to the center of his forehead at hairline. Patient does not take any blood thinners. He denies any loss of consciousness. Denies any other injuries and denies pain. Patient does not know his tetanus shot is up-to-date. -: hour(s) (1) Location: scalp Place: home Patient Tetanus UTD: No Context: accidental, fall (Tripped over a chair hitting His head on the wall no LOC) Associated Symptoms: none - Related Data Home Medications Medication Instructions Recorded Confirmed Montelukast [Singulair] 10 mg PO DAILY 09/25/13 02/01/19 Albuterol Sulfate [Ventolin HFA] 1 puff INHALATION RT-QID PRN 02/21/14 02/01/19 Fenofibrate [Lofibra] 160 mg PO DAILY 02/21/14 02/01/19 lisinopriL [Lisinopril] 10 mg PO BID 02/21/14 02/01/19 Fluticasone/Salmeterol [Advair 1 puff INHALATION RT-BID 09/08/15 02/01/19 250-50 Diskus] Doxazosin Mesylate [Cardura] 16 mg PO HS 10/20/15 02/01/19 Atorvastatin [Lipitor] 80 mg PO HS 09/24/16 02/01/19 Cetirizine HCl [Zyrtec] 10 - 20 mg PO DAILY PRN 09/24/16 02/01/19 Desvenlafaxine [Pristiq ER] 100 mg PO DAILY 09/24/16 02/01/19 clonazePAM [KlonoPIN] 1 mg PO BID PRN 09/24/16 02/01/19 Acetaminophen-Codeine 300-30mg 1 - 2 tab PO Q6H PRN 10/21/18 02/01/19 [Tylenol w/codeine #3] Metoprolol Tartrate [Lopressor] 25 mg PO BID 10/21/18 02/01/19 sitaGLIPtin PHOS/metFORMIN HCL 1 tab PO HS 10/21/18 02/01/19 [Janumet Xr 50-500 mg Tablet] Insulin Degludec [Tresiba 100 units SQ HS 11/22/18 02/01/19 Flextouch U-200] Allergies Allergy/AdvReac Type Severity Reaction Status Date / Time No Known Allergies Allergy Verified 12/09/20 18:01 Review of Systems ROS Statement: Those systems with pertinent positive or pertinent negative responses have been documented in the HPI. ROS Other: All systems not noted in ROS Statement are negative. Past Medical History Past Medical History: Asthma, COPD, Diabetes Mellitus, GERD/Reflux, Hyperlipidemia, Hypertension, Osteoarthritis (OA), Prostate Disorder, Skin Disorder Additional Past Medical History / Comment(s): positive c-diff 11/22/18, relapse of diarrhea after course of antibx, but stool was neg for C-diff, hx of colon polyps, DDD History of Any Multi-Drug Resistant Organisms: C-DIFF Date of last positivie culture/infection: 11-22-18 MDRO Source:: stool Past Surgical History: Hernia Repair, Orthopedic Surgery, Tonsillectomy Additional Past Surgical History / Comment(s): right chest wall cyst removed, nerve surgery left elbow Past Anesthesia/Blood Transfusion Reactions: No Reported Reaction Past Psychological History: Anxiety, Panic Disorder Smoking Status: Never smoker Past Alcohol Use History: None Reported Past Drug Use History: None Reported - Past Family History Father Family Medical History: Myocardial Infarction ([place]) Mother Family Medical History: No Reported History General Exam Limitations: no limitations General appearance: alert, in no apparent distress Head exam: Present: normocephalic, normal inspection, other (1 cm laceration to forehead) Eye exam: Present: normal appearance, PERRL, EOMI. Absent: scleral icterus, conjunctival injection, periorbital swelling Pupils: Present: normal accommodation ENT exam: Present: normal exam, normal oropharynx, mucous membranes moist Neck exam: Present: normal inspection, full ROM. Absent: tenderness, meningismus, lymphadenopathy, thyromegaly Respiratory exam: Present: normal lung sounds bilaterally. Absent: respiratory distress, wheezes, rales, rhonchi, stridor, chest wall tenderness, accessory muscle use, decreased breath sounds, prolonged expiratory Cardiovascular Exam: Present: regular rate, normal rhythm GI/Abdominal exam: Present: soft, normal bowel sounds. Absent: distended, tenderness, guarding, rebound, rigid Extremities exam: Present: normal inspection, full ROM, normal capillary refill. Absent: tenderness, pedal edema, joint swelling, calf tenderness Back exam: Present: normal inspection, full ROM. Absent: tenderness, CVA tenderness (R), CVA tenderness (L), muscle spasm, paraspinal tenderness, vertebral tenderness, rash noted Neurological exam: Present: alert, oriented X3, CN II-XII intact Psychiatric exam: Present: normal affect, normal mood Skin exam: Present: warm, dry, normal color. Absent: rash, cyanosis, diaphoretic, erythema, petechiae, pallor, mottled Course Vital Signs 12/09/20 17:58 Temperature 98.6 F Pulse Rate 103 H Respiratory 17 Rate Blood Pressure 120/77 O2 Sat by Pulse 96 Oximetry Medical Decision Making - Medical Decision Making Wound irrigated with 50 mL of normal saline and approximated with Dermabond glue. Patient's tetanus shot was updated. He is not on any blood thinners. Did not lose consciousness. Has no focal neurological deficits. Patient's at bedside. Directed to return to the emergency room with any worsening symptoms and follow up with his primary care doctor next week. Case discussed with Dr. Glass. Disposition Clinical Impression: Laceration Disposition: HOME SELF-CARE Condition: Good Instructions (If sedation given, give patient instructions): Skin Adhesive Care (ED), Laceration (ED), Head Injury (ED) Additional Instructions: Return to the emergency room with any worsening symptoms including headache, a ltered mental status or signs of infection from the wound including fever or drainage. Follow-up with your primary care doctor in 1 week. Do not put any lotions on glue. Is patient prescribed a controlled substance at d/c from ED?: No Referrals: Anu Plata MD [Primary Care Provider] - 1-2 days Time of Disposition: 18:56
== END 2020-12-09 19:08 | disposition home or self-care (01) ==
LOC: EC 17:56
DX: S01.81XA Laceration without foreign body of other part of head, initial encounter (principal); E11.9 Type 2 diabetes mellitus without complications; E78.5 Hyperlipidemia, unspecified; I10 Essential (primary) hypertension; J44.9 Chronic obstructive pulmonary disease, unspecified; K21.9 Gastro-esophageal reflux disease without esophagitis; M19.90 Unspecified osteoarthritis, unspecified site; Z79.4 Long term (current) use of insulin; Z79.51 Long term (current) use of inhaled steroids; Z79.899 Other long term (current) drug therapy; Z23 Encounter for immunization; W07.XXXA Fall from chair, initial encounter; W22.01XA Walked into wall, initial encounter; Y92.009 Unspecified place in unspecified non-institutional (private) residence as the place of occurrence of the external cause
CPT/HCPCS: 12011; 90471; 90715; 99282

== ENCOUNTER 2021-06-28 13:30 | Emergency (ER) | payer MEDICARE, OTHER ==
[2021-06-28 13:38] VITALS: RESP 18
[2021-06-28] MEDS ORDERED: PANTOPRAZOLE 40 MG/10 ML VIAL IVP STA (13:59)
[2021-06-28] MEDS ORDERED: DICYCLOMINE 10 MG/ML 2 ML AMP IM STA (14:03)
--- NOTE | 2021-06-28 14:05 | ED ---
General Adult HPI - General Chief complaint: Abdominal Pain Stated complaint: ABdominal pain Time Seen by Provider: 06/28/21 13:43 Source: patient, EMS, RN notes reviewed Mode of arrival: EMS Limitations: no limitations - History of Present Illness Initial comments: Patient is a pleasant 65-year-old male presenting to the emergency Department with abdominal complaints. Onset of symptoms was a couple of days ago. Patient has had several episodes of diarrhea. Patient has bloating of the abdomen. Patient has nausea and has vomited several times. Nausea has improved with Zofran by EMS. No fevers. Patient does have history of similar symptoms mu ltiple times previously however has never been given any formal diagnosis. Patient denies any abdominal discomfort at this time however has had cramping previously. - Related Data Home Medications Medication Instructions Recorded Confirmed Montelukast [Singulair] 10 mg PO DAILY 09/25/13 06/28/21 Albuterol Sulfate [Ventolin HFA] 1 - 2 puff INHALATION RT-QID PRN 02/21/14 06/28/21 Fenofibrate [Lofibra] 160 mg PO DAILY 02/21/14 06/28/21 Doxazosin Mesylate [Cardura] 16 mg PO HS 10/20/15 06/28/21 Cetirizine HCl [Zyrtec] 10 - 20 mg PO DAILY PRN 09/24/16 06/28/21 Desvenlafaxine [Pristiq ER] 100 mg PO DAILY 09/24/16 06/28/21 clonazePAM [KlonoPIN] 1 mg PO BID PRN 09/24/16 06/28/21 Acetaminophen-Codeine 300-30mg 1 - 2 tab PO Q6H PRN 10/21/18 06/28/21 [Tylenol w/codeine #3] Metoprolol Tartrate [Lopressor] 25 mg PO BID 10/21/18 06/28/21 sitaGLIPtin PHOS/metFORMIN HCL 1 tab PO HS 10/21/18 06/28/21 [Janumet Xr 50-500 mg Tablet] Insulin Degludec [Tresiba 100 units SQ HS 11/22/18 06/28/21 Flextouch U-200 Pen] Losartan [Cozaar] 50 mg PO DAILY 06/28/21 06/28/21 Rosuvastatin Calcium [Crestor] 40 mg PO HS 06/28/21 06/28/21 Allergies Allergy/AdvReac Type Severity Reaction Status Date / Time cat dander Allergy watery Verified 06/28/21 14:35 eyes, congestion, sneezing dog dander Allergy watery Verified 06/28/21 14:35 eyes, congestion, sneezing Review of Systems ROS Statement: Those systems with pertinent positive or pertinent negative responses have been documented in the HPI. ROS Other: All systems not noted in ROS Statement are negative. Constitutional: Denies: fever Eyes: Denies: eye pain ENT: Denies: ear pain Respiratory: Denies: cough Cardiovascular: Denies: chest pain Endocrine: Denies: fatigue Gastrointestinal: Reports: as per HPI, nausea, vomiting, diarrhea Genitourinary: Denies: dysuria Musculoskeletal: Denies: back pain Skin: Denies: rash Neurological: Denies: weakness Past Medical History Past Medical History: Asthma, COPD, Diabetes Mellitus, GERD/Reflux, Hyperlipidemia, Hypertension, Osteoarthritis (OA), Prostate Disorder, Skin Disorder Additional Past Medical History / Comment(s): positive c-diff 11/22/18, relapse of diarrhea after course of antibx, but stool was neg for C-diff, hx of colon polyps, DDD History of Any Multi-Drug Resistant Organisms: C-DIFF Date of last positivie culture/infection: 11-22-18 MDRO Source:: stool Past Surgical History: Hernia Repair, Orthopedic Surgery, Tonsillectomy Additional Past Surgical History / Comment(s): right chest wall cyst removed, nerve surgery left elbow Past Anesthesia/Blood Transfusion Reactions: No Reported Reaction Past Psychological History: Anxiety, Panic Disorder Smoking Status: Never smoker Past Alcohol Use History: None Reported Past Drug Use History: None Reported - Past Family History Father Family Medical History: Myocardial Infarction ([place]) Mother Family Medical History: No Reported History General Exam Limitations: no limitations General appearance: alert, in no apparent distress Head exam: Present: normocephalic Eye exam: Present: normal appearance Neck exam: Present: normal inspection Respiratory exam: Present: normal lung sounds bilaterally Cardiovascular Exam: Present: regular rate, normal rhythm Expanded Peripheral pulses: 2+: Posterior Tibialis (R), Posterior Tibialis (L) GI/Abdominal exam: Present: soft, normal bowel sounds. Absent: distended, tend erness, guarding, rebound, rigid, pulsatile mass Extremities exam: Present: normal inspection Neurological exam: Present: alert Psychiatric exam: Present: normal affect, normal mood Skin exam: Present: normal color Course Vital Signs 06/28/21 13:34 Temperature 97.9 F Pulse Rate 90 Respiratory 18 Rate Blood Pressure 149/83 O2 Sat by Pulse 97 Oximetry EKG Findings - EKG Comments: EKG Findings:: Normal sinus rhythm rate 98. AK 12. QRS 84. QT 342. QTC 436. Normal axis. Normal QRS. No acute ST change. Medical Decision Making - Medical Decision Making Patient reevaluated and resting comfortably in bed. Patient feeling much better and requests discharge home. Patient updated on results as well as concern regarding elevation of white blood cell count. Patient does not feel further evaluation is needed and like to go home. Patient states he has had similar symptoms and then told similar things previously. Patient is agreeable to close follow-up with primary care physician and to return if worsening symptoms, fever or increased pain. - Lab Data Result diagrams: 06/28/21 14:16 06/28/21 14:16 Lab Results 06/28/21 06/28/21 06/28/21 Range/Units 14:16 14:16 14:16 WBC 20.2 H (3.8-10.6) k/uL RBC 5.13 (4.30-5.90) m/uL Hgb 14.6 (13.0-17.5) gm/dL Hct 44.9 (39.0-53.0) % MCV 87.5 (80.0-100.0) fL MCH 28.4 (25.0-35.0) pg MCHC 32.5 (31.0-37.0) g/dL RDW 13.6 (11.5-15.5) % Plt Count 241 (150-450) k/uL MPV 6.9 Neutrophils % 88 % Lymphocytes % 5 % Monocytes % 5 % Eosinophils % 1 % Basophils % 0 % Neutrophils # 17.6 H (1.3-7.7) k/uL Lymphocytes # 1.0 (1.0-4.8) k/uL Monocytes # 0.9 (0-1.0) k/uL Eosinophils # 0.3 (0-0.7) k/uL Basophils # 0.1 (0-0.2) k/uL PT 10.3 (9.0-12.0) sec INR 0.9 (<1.2) APTT 21.8 L (22.0-30.0) sec Sodium 139 (137-145) mmol/L Potassium 4.6 (3.5-5.1) mmol/L Chloride 105 (98-107) mmol/L Carbon Dioxide 22 (22-30) mmol/L Anion Gap 12 mmol/L BUN 24 H (9-20) mg/dL Creatinine 0.85 (0.66-1.25) mg/dL Est GFR (CKD-EPI)AfAm >90 (>60 ml/min/1.73 sqM) Est GFR (CKD-EPI)NonAf >90 (>60 ml/min/1.73 sqM) Glucose 248 H (74-99) mg/dL Calcium 8.6 (8.4-10.2) mg/dL Total Bilirubin 0.5 (0.2-1.3) mg/dL AST 29 (17-59) U/L ALT 29 (4-49) U/L Alkaline Phosphatase 66 (38-126) U/L Total Protein 6.7 (6.3-8.2) g/dL Albumin 4.2 (3.5-5.0) g/dL Amylase 72 (30-110) U/L Lipase 431 H (23-300) U/L Urine Color Urine Appearance (Clear) Urine pH (5.0-8.0) Ur Specific [place] (1.001-1.035) Urine Protein (Negative) Urine Glucose (UA) (Negative) Urine Ketones (Negative) Urine Blood (Negative) Urine Nitrite (Negative) Urine Bilirubin (Negative) Urine Urobilinogen (<2.0) mg/dL Ur Leukocyte Esterase (Negative) 06/28/21 Range/Units 14:57 WBC (3.8-10.6) k/uL RBC (4.30-5.90) m/uL Hgb (13.0-17.5) gm/dL Hct (39.0-53.0) % MCV (80.0-100.0) fL MCH (25.0-35.0) pg MCHC (31.0-37.0) g/dL RDW (11.5-15.5) % Plt Count (150-450) k/uL MPV Neutrophils % % Lymphocytes % % Monocytes % % Eosinophils % % Basophils % % Neutrophils # (1.3-7.7) k/uL Lymphocytes # (1.0-4.8) k/uL Monocytes # (0-1.0) k/uL Eosinophils # (0-0.7) k/uL Basophils # (0-0.2) k/uL PT (9.0-12.0) sec INR (<1.2) APTT (22.0-30.0) sec Sodium (137-145) mmol/L Potassium (3.5-5.1) mmol/L Chloride (98-107) mmol/L Carbon Dioxide (22-30) mmol/L Anion Gap mmol/L BUN (9-20) mg/dL Creatinine (0.66-1.25) mg/dL Est GFR (CKD-EPI)AfAm (>60 ml/min/1.73 sqM) Est GFR (CKD-EPI)NonAf (>60 ml/min/1.73 sqM) Glucose (74-99) mg/dL Calcium (8.4-10.2) mg/dL Total Bilirubin (0.2-1.3) mg/dL AST (17-59) U/L ALT (4-49) U/L Alkaline Phosphatase (38-126) U/L Total Protein (6.3-8.2) g/dL Albumin (3.5-5.0) g/dL Amylase (30-110) U/L Lipase (23-300) U/L Urine Color Yellow Urine Appearance Clear (Clear) Urine pH 5.5 (5.0-8.0) Ur Specific [place] 1.038 H (1.001-1.035) Urine Protein Trace H (Negative) Urine Glucose (UA) 4+ H (Negative) Urine Ketones Negative (Negative) Urine Blood Negative (Negative) Urine Nitrite Negative (Negative) Urine Bilirubin Negative (Negative) Urine Urobilinogen <2.0 (<2.0) mg/dL Ur Leukocyte Esterase Negative (Negative) - Radiology Data Radiology results: image reviewed (Abdominal x-ray shows no acute process) Disposition Clinical Impression: Diarrhea, Vomiting Disposition: HOME SELF-CARE Condition: Stable Instructions (If sedation given, give patient instructions): Acute Nausea and Vomiting (ED), Acute Diarrhea (ED) Additional Instructions: Please do follow-up with your doctor in the next day or 2 for recheck. You'll need to have blood work done. Return for abdominal pain, fever, vomiting, increased diarrhea, worsening or changing symptoms or any other concerns. Is patient prescribed a controlled substance at d/c from ED?: No Referrals: Anu Plata MD [Primary Care Provider] - 1-2 days Time of Disposition: 15:34
[2021-06-28 14:30] LABS: Basophils # (A) 0.1 k/uL (0-0.2); Basophils % (A) 0 %; Eosinophils # (A) 0.3 k/uL (0-0.7); Eosinophils % (A) 1 %; HCT 44.9 % (39.0-53.0); HGB 14.6 gm/dL (13.0-17.5); Lymphocytes % (A) 5 %; MCH 28.4 pg (25.0-35.0); MCHC 32.5 g/dL (31.0-37.0); MCV 87.5 fL (80.0-100.0); Mean Platelet Volume 6.9; Monocytes # (A) 0.9 k/uL (0-1.0); Monocytes % (A) 5 %; Neutrophils # (A) 17.6 k/uL (1.3-7.7); Neutrophils % (A) 88 %; Platelet Count 241 k/uL (150-450); RBC 5.13 m/uL (4.30-5.90); RDW 13.6 % (11.5-15.5); WBC 20.2 k/uL (3.8-10.6)
[2021-06-28 14:42] LABS: ALT 29 U/L (4-49); AST 29 U/L (17-59); African American GFR (CKD) >90 (>60 ml/min/1.73 sqM); Albumin 4.2 g/dL (3.5-5.0); Alkaline Phosphatase 66 U/L (38-126); Amylase 72 U/L (30-110); Blood Urea Nitrogen 24 mg/dL (9-20); Calcium 8.6 mg/dL (8.4-10.2); Carbon Dioxide 22 mmol/L (22-30); Chloride 105 mmol/L (98-107); Glucose 248 mg/dL (74-99); Lipase 431 U/L (23-300); Non-African American GFR(CKD) >90 (>60 ml/min/1.73 sqM); Total Bilirubin 0.5 mg/dL (0.2-1.3); Total Protein 6.7 g/dL (6.3-8.2)
[2021-06-28 14:45] LABS: INR 0.9 (<1.2); Partial Thromboplastin Time 21.8 sec (22.0-30.0); Prothrombin Time 10.3 sec (9.0-12.0)
[2021-06-28 14:47] LABS: Anion Gap 12 mmol/L; Potassium 4.6 mmol/L (3.5-5.1); Sodium 139 mmol/L (137-145)
[2021-06-28 15:06] LABS: Appearance,Urine Clear (Clear); Bilirubin,Urine Negative (Negative); Blood,Urine Negative (Negative); Color,Urine Yellow; Glucose,Urine (UA) 4+ (Negative); Ketones,Urine Negative (Negative); Leukocyte Esterase,Urine Negative (Negative); Nitrite,Urine Negative (Negative); PH, Urine 5.5 (5.0-8.0); Protein,Urine Trace (Negative); Specific Gravity,Urine 1.038 (1.001-1.035); Urobilinogen,Urine <2.0 mg/dL (<2.0)
--- NOTE | 2021-06-28 15:15 | XR ---
EXAMINATION TYPE: XR KUB DATE OF EXAM: 06/28/2021 COMPARISON: NONE HISTORY: Pain TECHNIQUE: Single supine KUB image of the abdomen is obtained FINDINGS: Small bowel demonstrates no evidence for dilatation or air fluid levels. Gas and fecal material is seen in non-distended colon. No convincing evidence for pneumoperitoneum. No unusual calcifications. The lung bases are clear. The osseous structures are intact. IMPRESSION: 1. Overall nonobstructive bowel gas pattern.
[2021-06-28 16:04] VITALS: BP 135/66; PULSE 101; TEMP 98
== END 2021-06-28 15:43 | disposition home or self-care (01) ==
LOC: EC 13:30
DX: R11.10 Vomiting, unspecified (principal); R19.7 Diarrhea, unspecified; J45.909 Unspecified asthma, uncomplicated; E11.9 Type 2 diabetes mellitus without complications; I10 Essential (primary) hypertension; Z91.09 Other allergy status, other than to drugs and biological substances
CPT/HCPCS: 99284; 96374; 96372; 36415; 80053; 82150; 83690; 85025; 85610; 85730; 81003; 74018; J0500; C9113

== ENCOUNTER 2022-08-08 07:06 | Emergency (ER) | payer MEDICARE, OTHER ==
[2022-08-08 07:15] VITALS: RESP 20; TEMP 98.2
[2022-08-08] MEDS ORDERED: ONDANSETRON 4 MG/2 ML VIAL IVP STA (07:16)
[2022-08-08] MEDS ORDERED: SODIUM CHLORIDE 0.9% 1,000 ML IV STA (07:16)
[2022-08-08] MEDS ORDERED: FAMOTIDINE 20 MG/2 ML VIAL IV STA (07:17)
--- NOTE | 2022-08-08 07:18 | ED ---
General Adult HPI - General Chief complaint: Abdominal Pain Stated complaint: Abdominal Pain, Nausea, Vomiting, Diarrhea Time Seen by Provider: 08/08/22 07:11 Source: patient, EMS, RN notes reviewed Mode of arrival: EMS Limitations: no limitations - History of Present Illness Initial comments: Patient is a pleasant 66-year-old male presenting to the emergency department with concerns for diarrhea. Onset of symptoms was yesterday. Patient has had multiple episodes. Patient has also vomited a few times. Patient is mild abdominal discomfort. No fever. No history of chronic similar symptoms. Patient did receive antiemetic by EMS however still feels nauseated. - Related Data Home Medications Medication Instructions Recorded Confirmed Montelukast [Singulair] 10 mg PO DAILY 09/25/13 06/28/21 Albuterol Sulfate [Ventolin HFA] 1 - 2 puff INHALATION RT-QID PRN 02/21/14 06/28/21 Fenofibrate [Lofibra] 160 mg PO DAILY 02/21/14 06/28/21 Doxazosin Mesylate [Cardura] 16 mg PO HS 10/20/15 06/28/21 Cetirizine HCl [Zyrtec] 10 - 20 mg PO DAILY PRN 09/24/16 06/28/21 Desvenlafaxine [Pristiq ER] 100 mg PO DAILY 09/24/16 06/28/21 clonazePAM [KlonoPIN] 1 mg PO BID PRN 09/24/16 06/28/21 Acetaminophen-Codeine 300-30mg 1 - 2 tab PO Q6H PRN 10/21/18 06/28/21 [Tylenol w/codeine #3] Metoprolol Tartrate [Lopressor] 25 mg PO BID 10/21/18 06/28/21 sitaGLIPtin PHOS/metFORMIN HCL 1 tab PO HS 10/21/18 06/28/21 [Janumet Xr 50-500 mg Tablet] Insulin Degludec [Tresiba 100 units SQ HS 11/22/18 06/28/21 Flextouch U-200 Pen] Losartan [Cozaar] 50 mg PO DAILY 06/28/21 06/28/21 Rosuvastatin Calcium [Crestor] 40 mg PO HS 06/28/21 06/28/21 Previous Rx's Medication Instructions Recorded Dicyclomine [Bentyl] 20 mg PO QID PRN #15 tablet 08/08/22 Ondansetron Odt [Zofran Odt] 4 mg PO Q8HR PRN #10 tab 08/08/22 Allergies Allergy/AdvReac Type Severity Reaction Status Date / Time cat dander Allergy watery Verified 08/08/22 07:17 eyes, congestion, sneezing dog dander Allergy watery Verified 08/08/22 07:17 eyes, congestion, sneezing Review of Systems ROS Statement: Those systems with pertinent positive or pertinent negative responses have been documented in the HPI. ROS Other: All systems not noted in ROS Statement are negative. Constitutional: Denies: fever Eyes: Denies: eye pain ENT: Denies: ear pain Respiratory: Denies: cough Cardiovascular: Denies: chest pain Endocrine: Denies: fatigue Gastrointestinal: Reports: as per HPI, nausea, vomiting, diarrhea Genitourinary: Denies: dysuria Musculoskeletal: Denies: back pain Skin: Denies: rash Neurological: Denies: weakness Past Medical History Past Medical History: Asthma, COPD, Diabetes Mellitus, GERD/Reflux, Hyperlipidemia, Hypertension, Osteoarthritis (OA), Prostate Disorder, Skin Disorder Additional Past Medical History / Comment(s): positive c-diff 11/22/18, relapse of diarrhea after course of antibx, but stool was neg for C-diff, hx of colon polyps, DDD History of Any Multi-Drug Resistant Organisms: C-DIFF Date of last positivie culture/infection: 11-22-18 MDRO Source:: stool Past Surgical History: Hernia Repair, Orthopedic Surgery, Tonsillectomy Additional Past Surgical History / Comment(s): right chest wall cyst removed, nerve surgery left elbow Past Anesthesia/Blood Transfusion Reactions: No Reported Reaction Past Psychological History: Anxiety, Panic Disorder Smoking Status: Never smoker Past Alcohol Use History: None Reported Past Drug Use History: None Reported - Past Family History Father Family Medical History: Myocardial Infarction ([place]) Mother Family Medical History: No Reported History General Exam Limitations: no limitations General appearance: alert, in no apparent distress Eye exam: Present: normal appearance ENT exam: Present: normal oropharynx Neck exam: Present: normal inspection Respiratory exam: Present: normal lung sounds bilaterally Cardiovascular Exam: Present: regular rate, normal rhythm GI/Abdominal exam: Present: soft, normal bowel sounds. Absent: distended, tenderness, guarding, rebound, rigid, pulsatile mass Extremities exam: Present: normal inspection Neurological exam: Present: alert Psychiatric exam: Present: normal affect, normal mood Skin exam: Present: normal color Course Vital Signs 08/08/22 08/08/22 07:11 09:41 Temperature 98.2 F Pulse Rate 112 H 93 Respiratory 20 Rate Blood Pressure 140/81 O2 Sat by Pulse 93 L 97 Oximetry Medical Decision Making - Medical Decision Making Was pt. sent in by a medical professional or institution (, PA, MANAGER LANDSCAPE, urgent c are, hospital, or intermediate...) When possible be specific @ -[No] Did you speak to anyone other than the patient for history (EMS, parent, family, police, friend...)? What history was obtained from this source @ -[No] Did you review nursing and triage notes (agree or disagree)? Why? @ -[I reviewed and agree with nursing and triage notes] Were old charts reviewed (outside hosp., previous admission, EMS record, old EKG, old radiological studies, urgent care reports/EKG's, intermediate records)? Report findings @ -[No old charts were reviewed] Differential Diagnosis (chest pain, altered mental status, abdominal pain women, abdominal pain men, vaginal bleeding, weakness, fever, dyspnea, syncope, headache, dizziness, GI bleed, back pain, seizure, CVA, palpatations, mental health)? @ -[Differential Abdominal Pain Men: Appendicitis, cholecystitis, diverticulosis, ischemic bowel, pancreatitis, hepatitis, UTI, gastroenteritis, AAA, incarcerated hernia, bowel obstruction, constipation, inflammatory bowel, hepatitis, peptic ulcer disease, splenic infarction, perforated viscus, testicular torsion, this is not meant to be an all-inclusive list] EKG interpreted by me (3pts min.). @ -[As above] X-rays interpreted by me (1pt min.). @ -[Abdominal x-ray shows air-fluid levels and borderline dilated intestine] CT interpreted by me (1pt min.). @ -[Report reviewed] U/S interpreted by me (1pt. min.). @ -[None done] What testing was considered but not performed or refused? (CT, X-rays, U/S, labs)? Why? @ -[None] What meds were considered but not given or refused? Why? @ -[None] Did you discuss the management of the patient with other professionals (professionals i.e. , PA, MANAGER LANDSCAPE, lab, RT, psych nurse, social security assessor, plant scientist, teacher, strategic intelligence officer, rn case management)? Give summary @ -[No] Was smoking cessation discussed for >3mins.? @ -[No] Was critical care preformed (if so, how long)? @ -[No] Were there social determinants of health that impacted care today? How? (Homelessness, low income, unemployed, alcoholism, drug addiction, transportation, low edu. Level, literacy, decrease access to med. care, long-term, rehab)? @ -[No] Was there de-escalation of care discussed even if they declined (Discuss DNR or withdrawal of care, Hospice)? DNR status @ -[No] What co-morbidities impacted this encounter? (DM, HTN, Smoking, COPD, CAD, Cancer, CVA, ARF, Chemo, Hep., AIDS, mental health diagnosis, sleep apnea, morbid obesity)? @ -[None] Was patient admitted / discharged? Hospital course, mention meds given and route, prescriptions, significant lab abnormalities, going to OR and other pertinent info. @ -[Patient reevaluated and feeling better. Patient and family updated on results. Patient is comfortable with discharge] Undiagnosed new problem with uncertain prognosis? @ -[No] Drug Therapy requiring intensive monitoring for toxicity (Heparin, Nitro, Insulin, Cardizem)? @ -[No] Were any procedures done? @ -[No] Diagnosis/symptom? @ -Vomiting, diarrhea Acute, or Chronic, or Acute on Chronic? @ -Acute, acute Uncomplicated (without systemic symptoms) or Complicated (systemic symptoms)? @ -[default] Side effects of treatment? @ -[No] Exacerbation, Progression, or Severe Exacerbation? @ -[No] Poses a threat to life or bodily function? How? (Chest pain, [place], [place], pneumonia, PE, COPD, DKA, ARF, appy, cholecystitis, CVA, Diverticulitis, Homicidal, Suicidal, threat to staff... and all critical care pts) @ -[No] - Lab Data Result diagrams: 08/08/22 07:22 08/08/22 09:10 Lab Results 08/08/22 08/08/22 08/08/22 Range/Units 07:22 07:25 09:10 WBC 8.0 (3.8-10.6) k/uL RBC 4.91 (4.30-5.90) m/uL Hgb 14.4 (13.0-17.5) gm/dL Hct 42.2 (39.0-53.0) % MCV 86.1 (80.0-100.0) fL MCH 29.4 (25.0-35.0) pg MCHC 34.1 (31.0-37.0) g/dL RDW 13.3 (11.5-15.5) % Plt Count 237 (150-450) k/uL MPV 8.5 Neutrophils % 74 % Lymphocytes % 14 % Monocytes % 8 % Eosinophils % 2 % Basophils % 0 % Neutrophils # 5.9 (1.3-7.7) k/uL Lymphocytes # 1.1 (1.0-4.8) k/uL Monocytes # 0.7 (0-1.0) k/uL Eosinophils # 0.2 (0-0.7) k/uL Basophils # 0.0 (0-0.2) k/uL Sodium 137 (137-145) mmol/L Potassium 4.1 (3.5-5.1) mmol/L Chloride 103 (98-107) mmol/L Carbon Dioxide 24 (22-30) mmol/L Anion Gap 10 mmol/L BUN 20 (9-20) mg/dL Creatinine 0.93 (0.66-1.25) mg/dL Est GFR (CKD-EPI)AfAm >90 (>60 ml/min/1.73 sqM) Est GFR (CKD-EPI)NonAf 84 (>60 ml/min/1.73 sqM) Glucose 189 H (74-99) mg/dL Calcium 8.6 (8.4-10.2) mg/dL Total Bilirubin 0.4 (0.2-1.3) mg/dL AST 22 (17-59) U/L ALT 24 (4-49) U/L Alkaline Phosphatase 51 (38-126) U/L Total Protein 6.5 (6.3-8.2) g/dL Albumin 3.9 (3.5-5.0) g/dL Amylase 44 (30-110) U/L Lipase 94 (23-300) U/L Urine Color Yellow Urine Appearance Clear (Clear) Urine pH 6.0 (5.0-8.0) Ur Specific [place] 1.028 (1.001-1.035) Urine Protein Trace H (Negative) Urine Glucose (UA) 4+ H (Negative) Urine Ketones Negative (Negative) Urine Blood Negative (Negative) Urine Nitrite Negative (Negative) Urine Bilirubin Negative (Negative) Urine Urobilinogen <2.0 (<2.0) mg/dL Ur Leukocyte Esterase Negative (Negative) Disposition Clinical Impression: Diarrhea, Vomiting Disposition: HOME SELF-CARE Condition: Stable Instructions (If sedation given, give patient instructions): Acute Nausea and Vomiting (ED), Acute Diarrhea (ED) Additional Instructions: Prescriptions have been sent to pharmacy. Please do follow-up with primary care physician in the next day or 2 for recheck. Return for not tolerating fluids, increased pain, fever, worsening symptoms or other concerns. Prescriptions: Dicyclomine [Bentyl] 20 mg PO QID PRN #15 tablet PRN Reason: Pain Ondansetron Odt [Zofran Odt] 4 mg PO Q8HR PRN #10 tab PRN Reason: Nausea Is patient prescribed a controlled substance at d/c from ED?: No Referrals: Kenny Allison MD [STAFF PHYSICIAN] - 1-2 days Time of Disposition: 10:32
[2022-08-08] MEDS: DICYCLOMINE 10 MG/ML 2 ML AMP IM STA ×2 (07:29→07:33)
[2022-08-08 07:37] LABS: Basophils % (A) 0 %; Eosinophils # (A) 0.2 k/uL (0-0.7); Eosinophils % (A) 2 %; HCT 42.2 % (39.0-53.0); HGB 14.4 gm/dL (13.0-17.5); Lymphocytes # (A) 1.1 k/uL (1.0-4.8); Lymphocytes % (A) 14 %; MCH 29.4 pg (25.0-35.0); MCHC 34.1 g/dL (31.0-37.0); MCV 86.1 fL (80.0-100.0); Mean Platelet Volume 8.5; Monocytes # (A) 0.7 k/uL (0-1.0); Monocytes % (A) 8 %; Neutrophils # (A) 5.9 k/uL (1.3-7.7); Neutrophils % (A) 74 %; Platelet Count 237 k/uL (150-450); RBC 4.91 m/uL (4.30-5.90); RDW 13.3 % (11.5-15.5)
[2022-08-08 07:58] LABS: Appearance,Urine Clear (Clear); Bilirubin,Urine Negative (Negative); Blood,Urine Negative (Negative); Color,Urine Yellow; Glucose,Urine (UA) 4+ (Negative); Ketones,Urine Negative (Negative); Leukocyte Esterase,Urine Negative (Negative); Nitrite,Urine Negative (Negative); Protein,Urine Trace (Negative); Specific Gravity,Urine 1.028 (1.001-1.035); Urobilinogen,Urine <2.0 mg/dL (<2.0)
--- NOTE | 2022-08-08 08:08 | XR ---
EXAMINATION TYPE: XR KUB DATE OF EXAM: 08/08/2022 Comparison: 06/28/2021 Clinical History: 66-year-old male abdominal pain Findings: Lung bases are clear. No evidence for free intraperitoneal air. Air-fluid level in the stomach. Some of the colon is mildly dilated up to 7.6 cm. There are air-fluid levels present throughout the colon and also scattered within small bowel loops. No suspicious calcifications seen. Impression: Air-fluid levels throughout. Colon is distended up to 7.6 cm wide. Consider marked generalized enteri tis or ileus. Follow-up to exclude distal colonic obstruction.
[2022-08-08 09:43] LABS: ALT 24 U/L (4-49); AST 22 U/L (17-59); African American GFR (CKD) >90 (>60 ml/min/1.73 sqM); Albumin 3.9 g/dL (3.5-5.0); Alkaline Phosphatase 51 U/L (38-126); Amylase 44 U/L (30-110); Anion Gap 10 mmol/L; Blood Urea Nitrogen 20 mg/dL (9-20); Calcium 8.6 mg/dL (8.4-10.2); Carbon Dioxide 24 mmol/L (22-30); Chloride 103 mmol/L (98-107); Glucose 189 mg/dL (74-99); Lipase 94 U/L (23-300); Non-African American GFR(CKD) 84 (>60 ml/min/1.73 sqM); Potassium 4.1 mmol/L (3.5-5.1); Sodium 137 mmol/L (137-145); Total Bilirubin 0.4 mg/dL (0.2-1.3); Total Protein 6.5 g/dL (6.3-8.2)
--- NOTE | 2022-08-08 10:23 | CT ---
EXAMINATION TYPE: CT abdomen pelvis w con DATE OF EXAM: 08/08/2022 COMPARISON: 12/16/2018 HISTORY: 66-year-old male abdominal pain, nausea, vomiting TECHNIQUE: Contiguous axial scanning of the abdomen and pelvis following administration of 100 ml Iso corinne 300 IV contrast. Delayed images through the kidneys and coronal/sagittal reconstructions perform ed. CT DLP: 2912.4 mGycm Automated exposure control for dose reduction was used. FINDINGS: Heart normal size without pericardial effusion. Mild to moderate bibasilar bronchial wall thickening with scattered strandy scarring or atelectasis. Liver enlarged at 20.5 cm versus 18.0 cm, previously. Diminished attenuation of the liver parenchyma. No focal liver lesion. Portal venous system is patent. No biliary ductal dilatation. Gallbladder, adrenal glands, kidneys, spleen, and pancreas within normal limits. Mild to moderate atherosclerotic calcifications infrarenal abdominal aorta and left common iliac bernardino ry. No dilated small bowel, free fluid, or free air. No mesenteric or retroperitoneal lymphadenopathy. Scattered prominent fluid-filled small bowel loops are present throughout the mid and lower abdomen a nd there is liquid stool which extends throughout the colon distally to the rectum. No significant so lid stool and no pericolonic inflammatory change. Normal appendix. Transverse colon by CT borderline distended up to 6.2 cm. Bladder partially distended. Prostate gland measures 5.5 cm wide. No abnormal fluid collection in the pelvis or pelvic lymphadenopathy. Bones: Moderate to advanced degenerative disc disease throughout. Grade 1 retrolisthesis L2-L3, and L 3-L4. Hypertrophic arthropathy mid to lower lumbar spine. IMPRESSION: 1. LIQUID STOOL THROUGHOUT THE COLON AND PROMINENT FLUID-FILLED SMALL BOWEL LOOPS. OVERALL FINDINGS S UGGEST DIARRHEAL STATE/ENTERITIS. NO EVIDENCE FOR OBSTRUCTION. 2. 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 CORRELATE WITH LFT's, LIPID PROF ILE, AND PATIENT RISK FACTORS.
[2022-08-08 10:41] VITALS: BP 107/64; PULSE 72
== END 2022-08-08 10:48 | disposition home or self-care (01) ==
LOC: EC 07:06
DX: R19.7 Diarrhea, unspecified (principal); R11.2 Nausea with vomiting, unspecified; E11.9 Type 2 diabetes mellitus without complications; I10 Essential (primary) hypertension; E78.5 Hyperlipidemia, unspecified; J44.9 Chronic obstructive pulmonary disease, unspecified; K21.9 Gastro-esophageal reflux disease without esophagitis; M19.90 Unspecified osteoarthritis, unspecified site; F41.0 Panic disorder [episodic paroxysmal anxiety]; Z79.4 Long term (current) use of insulin; Z79.84 Long term (current) use of oral hypoglycemic drugs; Z79.899 Other long term (current) drug therapy; Z91.048 Other nonmedicinal substance allergy status
CPT/HCPCS: 36415; 80053; 82150; 83690; 85025; 81003; 74018; 74177; 99285; 96374; 96375; 96361 ×3; 96372; J0500; J2405; Q9967

== ENCOUNTER 2022-08-13 15:01 | Emergency (ER) | payer MEDICARE, OTHER ==
[2022-08-13] MEDS ORDERED: SODIUM CHLORIDE 0.9% 1,000 ML IV STA (15:17)
[2022-08-13 15:47] LABS: Basophils # (A) 0.1 k/uL (0-0.2); Basophils % (A) 0 %; Eosinophils # (A) 0.3 k/uL (0-0.7); Eosinophils % (A) 2 %; HCT 42.3 % (39.0-53.0); HGB 14.3 gm/dL (13.0-17.5); Lymphocytes # (A) 1.1 k/uL (1.0-4.8); Lymphocytes % (A) 8 %; MCHC 33.8 g/dL (31.0-37.0); MCV 85.9 fL (80.0-100.0); Mean Platelet Volume 7.4; Monocytes # (A) 1.1 k/uL (0-1.0); Monocytes % (A) 8 %; Neutrophils # (A) 11.4 k/uL (1.3-7.7); Neutrophils % (A) 81 %; Platelet Count 253 k/uL (150-450); RBC 4.93 m/uL (4.30-5.90); RDW 13.6 % (11.5-15.5); WBC 14.1 k/uL (3.8-10.6)
--- NOTE | 2022-08-13 16:11 | XR ---
EXAMINATION TYPE: XR KUB DATE OF EXAM: 08/13/2022 COMPARISON: 08/08/2022 HISTORY: Abdominal pain TECHNIQUE: 2 views upright FINDINGS: No sign of intestinal obstruction or pneumoperitoneum. Fecal pattern is normal. No evidence of a mass. No pathologic calcification over the kidneys. Lung bases are clear. No evidence of a mass . IMPRESSION: Nonacute abdomen. There is clearing of the distended loops of large bowel compared to old exam.
[2022-08-13 16:17] LABS: Prothrombin Time 10.5 sec (9.0-12.0)
[2022-08-13 16:35] LABS: Albumin 3.9 g/dL (3.5-5.0); Calcium 8.8 mg/dL (8.4-10.2); Magnesium 1.2 mg/dL (1.6-2.3); Potassium 4.2 mmol/L (3.5-5.1); Total Bilirubin 0.4 mg/dL (0.2-1.3); Total Protein 6.6 g/dL (6.3-8.2)
[2022-08-13 17:21] LABS: Appearance,Urine Cloudy (Clear); Bilirubin,Urine 1+ (Negative); Blood,Urine Negative (Negative); Calcium Oxalate Crystals,Urine Few /hpf; Color,Urine Yellow; Glucose,Urine (UA) Negative (Negative); Hyaline Casts,Urine 4 /lpf (0-2); Ketones,Urine Negative (Negative); Leukocyte Esterase,Urine Trace (Negative); Mucus,Urine Moderate /hpf; Nitrite,Urine Negative (Negative); PH, Urine 5.5 (5.0-8.0); Protein,Urine 1+ (Negative); RBC,Urine 2 /hpf (0-5); Specific Gravity,Urine 1.025 (1.001-1.035); Squamous Epithelial Cell,Urine <1 /hpf (0-4); WBC,Urine 5 /hpf (0-5)
[2022-08-13 17:35] LABS: RBC Morphology Normal
--- NOTE | 2022-08-13 17:45 | ED ---
Abdominal Pain HPI - General Chief Complaint: Abdominal Pain Stated Complaint: Abd Pain Time Seen by Provider: 08/13/22 15:12 Source: patient, family, EMS, RN notes reviewed, old records reviewed Mode of arrival: EMS Limitations: no limitations - History of Present Illness Initial Comments: 58-year-old male presents with complaints of abdominal discomfort this generalized with nausea he's had diarrhea no vomiting today. He states he has similar episode several days ago discharged home. He states he felt well until this morning. He states now he is feeling much improved however. No overt fevers chills sweats cough phlegm production currently no abdominal pain no dysuria no hematuria. MD Complaint: abdominal pain, other - Related Data Home Medications Medication Instructions Recorded Confirmed Montelukast [Singulair] 10 mg PO DAILY 09/25/13 06/28/21 Albuterol Sulfate [Ventolin HFA] 1 - 2 puff INHALATION RT-QID PRN 02/21/14 06/28/21 Fenofibrate [Lofibra] 160 mg PO DAILY 02/21/14 06/28/21 Doxazosin Mesylate [Cardura] 16 mg PO HS 10/20/15 06/28/21 Cetirizine HCl [Zyrtec] 10 - 20 mg PO DAILY PRN 09/24/16 06/28/21 Desvenlafaxine [Pristiq ER] 100 mg PO DAILY 09/24/16 06/28/21 clonazePAM [KlonoPIN] 1 mg PO BID PRN 09/24/16 06/28/21 Acetaminophen-Codeine 300-30mg 1 - 2 tab PO Q6H PRN 10/21/18 06/28/21 [Tylenol w/codeine #3] Metoprolol Tartrate [Lopressor] 25 mg PO BID 10/21/18 06/28/21 sitaGLIPtin PHOS/metFORMIN HCL 1 tab PO HS 10/21/18 06/28/21 [Janumet Xr 50-500 mg Tablet] Insulin Degludec [Tresiba 100 units SQ HS 11/22/18 06/28/21 Flextouch U-200 Pen] Losartan [Cozaar] 50 mg PO DAILY 06/28/21 06/28/21 Rosuvastatin Calcium [Crestor] 40 mg PO HS 06/28/21 06/28/21 Previous Rx's Medication Instructions Recorded Dicyclomine [Bentyl] 20 mg PO QID PRN #15 tablet 08/08/22 Ondansetron Odt [Zofran Odt] 4 mg PO Q8HR PRN #10 tab 08/08/22 Allergies Allergy/AdvReac Type Severity Reaction Status Date / Time cat dander Allergy watery Verified 08/08/22 07:17 eyes, congestion, sneezing dog dander Allergy watery Verified 08/08/22 07:17 eyes, congestion, sneezing Review of Systems ROS Statement: Those systems with pertinent positive or pertinent negative responses have been documented in the HPI. ROS Other: All systems not noted in ROS Statement are negative. Past Medical History Past Medical History: Asthma, COPD, Diabetes Mellitus, GERD/Reflux, Hyperlipidemia, Hypertension, Osteoarthritis (OA), Prostate Disorder, Skin Disorder Additional Past Medical History / Comment(s): positive c-diff 11/22/18, relapse of diarrhea after course of antibx, but stool was neg for C-diff, hx of colon polyps, DDD History of Any Multi-Drug Resistant Organisms: C-DIFF Date of last positivie culture/infection: 11-22-18 MDRO Source:: stool Past Surgical History: Hernia Repair, Orthopedic Surgery, Tonsillectomy Additional Past Surgical History / Comment(s): right chest wall cyst removed, nerve surgery left elbow Past Anesthesia/Blood Transfusion Reactions: No Reported Reaction Past Psychological History: Anxiety, Panic Disorder Smoking Status: Never smoker Past Alcohol Use History: None Reported Past Drug Use History: None Reported - Past Family History Father Family Medical History: Myocardial Infarction ([place]) Mother Family Medical History: No Reported History General Exam - General Exam Comments Initial Comments: Is a well-developed well-nourished awake alert oriented 4 male Limitations: no limitations General appearance: alert, in no apparent distress Head exam: Present: atraumatic, normocephalic, normal inspection Eye exam: Present: normal appearance, PERRL, EOMI. Absent: scleral icterus, conjunctival injection, periorbital swelling ENT exam: Present: normal exam, mucous membranes moist Neck exam: Present: normal inspection, full ROM, other (No surgery or bruits). Absent: tenderness, meningismus, lymphadenopathy Respiratory exam: Present: normal lung sounds bilaterally. Absent: respiratory distress, wheezes, rales, rhonchi, stridor Cardiovascular Exam: Present: normal rhythm, tachycardia, normal heart sounds. Absent: systolic murmur, diastolic murmur, rubs, gallop, clicks GI/Abdominal exam: Present: soft, normal bowel sounds. Absent: distended, tenderness, guarding, rebound, rigid Extremities exam: Present: normal inspection, full ROM, normal capillary refill. Absent: tenderness, pedal edema, joint swelling, calf tenderness Back exam: Present: normal inspection Neurological exam: Present: alert, oriented X3, CN II-XII intact Psychiatric exam: Present: normal affect, normal mood Skin exam: Present: warm, dry, intact, normal color. Absent: rash Course Vital Signs 08/13/22 08/13/22 15:05 18:10 Temperature 99.3 F 98.2 F Pulse Rate 120 H 100 Respiratory 20 16 Rate Blood Pressure 101/65 98/61 O2 Sat by Pulse 94 L 93 L Oximetry Medical Decision Making - Medical Decision Making I did discuss findings with the patient family patient remains asymptomatic this time he did have hypomagnesemia he did require IV magnesium and emergency department he is feeling improved he'll be discharged after this is completed he still has antidiarrheal medications at home he is a follow-up with his doctor on Monday today being Monday and return if any problems also did encourage him to increase oral fluids as he was dehydrated - Lab Data Result diagrams: 08/13/22 15:22 08/13/22 15:47 Lab Results 08/13/22 08/13/22 08/13/22 Range/Units 15:22 15:22 15:22 WBC 14.1 H (3.8-10.6) k/uL RBC 4.93 (4.30-5.90) m/uL Hgb 14.3 (13.0-17.5) gm/dL Hct 42.3 (39.0-53.0) % MCV 85.9 (80.0-100.0) fL MCH 29.0 (25.0-35.0) pg MCHC 33.8 (31.0-37.0) g/dL RDW 13.6 (11.5-15.5) % Plt Count 253 (150-450) k/uL MPV 7.4 Neutrophils % 81 % Lymphocytes % 8 % Monocytes % 8 % Eosinophils % 2 % Basophils % 0 % Neutrophils # 11.4 H (1.3-7.7) k/uL Lymphocytes # 1.1 (1.0-4.8) k/uL Monocytes # 1.1 H (0-1.0) k/uL Eosinophils # 0.3 (0-0.7) k/uL Basophils # 0.1 (0-0.2) k/uL Manual Slide Review Performed RBC Morphology Normal PT (9.0-12.0) sec INR (<1.2) APTT (22.0-30.0) sec Sodium (137-145) mmol/L Potassium (3.5-5.1) mmol/L Chloride (98-107) mmol/L Carbon Dioxide (22-30) mmol/L Anion Gap mmol/L BUN (9-20) mg/dL Creatinine (0.66-1.25) mg/dL Est GFR (CKD-EPI)AfAm (>60 ml/min/1.73 sqM) Est GFR (CKD-EPI)NonAf (>60 ml/min/1.73 sqM) Glucose (74-99) mg/dL Plasma Lactic Acid Brooks (0.7-2.0) mmol/L Calcium (8.4-10.2) mg/dL Magnesium (1.6-2.3) mg/dL Total Bilirubin (0.2-1.3) mg/dL AST (17-59) U/L ALT (4-49) U/L Alkaline Phosphatase (38-126) U/L Troponin I (0.000-0.034) ng/mL Total Protein (6.3-8.2) g/dL Albumin (3.5-5.0) g/dL Amylase (30-110) U/L Lipase (23-300) U/L Urine Color Yellow Urine Appearance Cloudy (Clear) Urine pH 5.5 (5.0-8.0) Ur Specific Chandler 1.025 (1.001-1.035) Urine Protein 1+ H (Negative) Urine Glucose (UA) Negative (Negative) Urine Ketones Negative (Negative) Urine Blood Negative (Negative) Urine Nitrite Negative (Negative) Urine Bilirubin 1+ H (Negative) Urine Urobilinogen 2.0 (<2.0) mg/dL Ur Leukocyte Esterase Trace H (Negative) Urine RBC 2 (0-5) /hpf Urine WBC 5 (0-5) /hpf Ur Squamous Epith Cells <1 (0-4) /hpf Calcium Oxalate Crystal Few H (None) /hpf Hyaline Casts 4 H (0-2) /lpf Urine Mucus Moderate H (None) /hpf C. difficile (EIA) Intrp Negative (Negative) Blood Type Blood Type Recheck Bld Type Recheck Status Antibody Screen Spec Expiration Date 08/13/22 08/13/22 08/13/22 Range/Units 15:47 15:47 15:47 WBC (3.8-10.6) k/uL RBC (4.30-5.90) m/uL Hgb (13.0-17.5) gm/dL Hct (39.0-53.0) % MCV (80.0-100.0) fL MCH (25.0-35.0) pg MCHC (31.0-37.0) g/dL RDW (11.5-15.5) % Plt Count (150-450) k/uL MPV Neutrophils % % Lymphocytes % % Monocytes % % Eosinophils % % Basophils % % Neutrophils # (1.3-7.7) k/uL Lymphocytes # (1.0-4.8) k/uL Monocytes # (0-1.0) k/uL Eosinophils # (0-0.7) k/uL Basophils # (0-0.2) k/uL Manual Slide Review RBC Morphology PT 10.5 (9.0-12.0) sec INR 1.0 (<1.2) APTT 22.0 (22.0-30.0) sec Sodium 138 (137-145) mmol/L Potassium 4.2 (3.5-5.1) mmol/L Chloride 103 (98-107) mmol/L Carbon Dioxide 25 (22-30) mmol/L Anion Gap 10 mmol/L BUN 22 H (9-20) mg/dL Creatinine 1.14 (0.66-1.25) mg/dL Est GFR (CKD-EPI)AfAm 76 (>60 ml/min/1.73 sqM) Est GFR (CKD-EPI)NonAf 66 (>60 ml/min/1.73 sqM) Glucose 149 H (74-99) mg/dL Plasma Lactic Acid Brooks 1.8 (0.7-2.0) mmol/L Calcium 8.8 (8.4-10.2) mg/dL Magnesium 1.2 L (1.6-2.3) mg/dL Total Bilirubin 0.4 (0.2-1.3) mg/dL AST 27 (17-59) U/L ALT 26 (4-49) U/L Alkaline Phosphatase 50 (38-126) U/L Troponin I (0.000-0.034) ng/mL Total Protein 6.6 (6.3-8.2) g/dL Albumin 3.9 (3.5-5.0) g/dL Amylase 63 (30-110) U/L Lipase 120 (23-300) U/L Urine Color Urine Appearance (Clear) Urine pH (5.0-8.0) Ur Specific Chandler (1.001-1.035) Urine Protein (Negative) Urine Glucose (UA) (Negative) Urine Ketones (Negative) Urine Blood (Negative) Urine Nitrite (Negative) Urine Bilirubin (Negative) Urine Urobilinogen (<2.0) mg/dL Ur Leukocyte Esterase (Negative) Urine RBC (0-5) /hpf Urine WBC (0-5) /hpf Ur Squamous Epith Cells (0-4) /hpf Calcium Oxalate Crystal (None) /hpf Hyaline Casts (0-2) /lpf Urine Mucus (None) /hpf C. difficile (EIA) Intrp (Negative) Blood Type Blood Type Recheck Bld Type Recheck Status Antibody Screen Spec Expiration Date 08/13/22 08/13/22 Range/Units 15:47 15:47 WBC (3.8-10.6) k/uL RBC (4.30-5.90) m/uL Hgb (13.0-17.5) gm/dL Hct (39.0-53.0) % MCV (80.0-100.0) fL MCH (25.0-35.0) pg MCHC (31.0-37.0) g/dL RDW (11.5-15.5) % Plt Count (150-450) k/uL MPV Neutrophils % % Lymphocytes % % Monocytes % % Eosinophils % % Basophils % % Neutrophils # (1.3-7.7) k/uL Lymphocytes # (1.0-4.8) k/uL Monocytes # (0-1.0) k/uL Eosinophils # (0-0.7) k/uL Basophils # (0-0.2) k/uL Manual Slide Review RBC Morphology PT (9.0-12.0) sec INR (<1.2) APTT (22.0-30.0) sec Sodium (137-145) mmol/L Potassium (3.5-5.1) mmol/L Chloride (98-107) mmol/L Carbon Dioxide (22-30) mmol/L Anion Gap mmol/L BUN (9-20) mg/dL Creatinine (0.66-1.25) mg/dL Est GFR (CKD-EPI)AfAm (>60 ml/min/1.73 sqM) Est GFR (CKD-EPI)NonAf (>60 ml/min/1.73 sqM) Glucose (74-99) mg/dL Plasma Lactic Acid Brooks (0.7-2.0) mmol/L Calcium (8.4-10.2) mg/dL Magnesium (1.6-2.3) mg/dL Total Bilirubin (0.2-1.3) mg/dL AST (17-59) U/L ALT (4-49) U/L Alkaline Phosphatase (38-126) U/L Troponin I <0.012 (0.000-0.034) ng/mL Total Protein (6.3-8.2) g/dL Albumin (3.5-5.0) g/dL Amylase (30-110) U/L Lipase (23-300) U/L Urine Color Urine Appearance (Clear) Urine pH (5.0-8.0) Ur Specific Chandler (1.001-1.035) Urine Protein (Negative) Urine Glucose (UA) (Negative) Urine Ketones (Negative) Urine Blood (Negative) Urine Nitrite (Negative) Urine Bilirubin (Negative) Urine Urobilinogen (<2.0) mg/dL Ur Leukocyte Esterase (Negative) Urine RBC (0-5) /hpf Urine WBC (0-5) /hpf Ur Squamous Epith Cells (0-4) /hpf Calcium Oxalate Crystal (None) /hpf Hyaline Casts (0-2) /lpf Urine Mucus (None) /hpf C. difficile (EIA) Intrp (Negative) Blood Type A Positive Blood Type Recheck A Pos Bld Type Recheck Status No Antibody Screen NEGATIVE Spec Expiration Date 08/16/2022 - 5966 - Radiology Data Interpreted by me: Imaging reviewed by me no acute processes seen Disposition Clinical Impression: Gastroenteritis, Dehydration, Hypomagnesemia Disposition: HOME SELF-CARE Condition: Good Instructions (If sedation given, give patient instructions): Dehydration (ED), Gastroenteritis (ED), Hypomagnesemia (ED) Additional Instructions: Okay to take your antidiarrheal medication that you have at home, follow-up with your private medical doctor in 2 days Is patient prescribed a controlled substance at d/c from ED?: No Referrals: Anu Plata MD [Primary Care Provider] - 1-2 days Decision Date: 08/13/22 Decision Time: 20:23
[2022-08-13 18:12] VITALS: RESP 16; TEMP 98.2
[2022-08-13] MEDS: MAGNESIUM SULFATE-D5W PMX 1 GM in DEXTROSE/WATER 1 100ML.BAG IVPB SCH ×2 (18:59→19:51)
[2022-08-13 21:23] VITALS: BP 110/85; PULSE 95
== END 2022-08-13 21:55 | disposition home or self-care (01) ==
LOC: EC 15:01
DX: E83.42 Hypomagnesemia (principal); E86.0 Dehydration; K52.9 Noninfective gastroenteritis and colitis, unspecified; E11.9 Type 2 diabetes mellitus without complications; E78.5 Hyperlipidemia, unspecified; J44.9 Chronic obstructive pulmonary disease, unspecified; K21.9 Gastro-esophageal reflux disease without esophagitis; I10 Essential (primary) hypertension; Z79.4 Long term (current) use of insulin; Z79.899 Other long term (current) drug therapy
CPT/HCPCS: 36415; 86900; 86901; 80053; 82150; 83605; 83690; 83735; 84484; 85025; 85610; 85730; 86850; 81001; 87040; 87324; 74018; 99284; 96365; 96366; 96361; J3475

== ENCOUNTER 2022-08-24 20:31 | Inpatient (IN) | payer MEDICARE, OTHER ==
[2022-08-24] MEDS ORDERED: SODIUM CHLORIDE 0.9% 1,000 ML IV STA (20:54)
[2022-08-24] MEDS ORDERED: ONDANSETRON 4 MG/2 ML VIAL IVP STA (20:54)
[2022-08-24] MEDS ORDERED: IBUPROFEN 600 MG TAB PO STA (20:55)
[2022-08-24] MEDS ORDERED: ACETAMINOPHEN TAB 325 MG TAB PO STA ×2 (20:55→23:21)
--- NOTE | 2022-08-24 21:05 | ED ---
General Adult HPI - General Chief complaint: Headache Stated complaint: CHILLS/FEVER/ABD PAIN Time Seen by Provider: 08/24/22 20:42 Source: patient Mode of arrival: ambulatory Limitations: no limitations - History of Present Illness Initial comments: Patient is a 66-year-old male presenting with chief complaint of abdominal pain. Patient states that he's recently been having episodes of diarrhea, he took an Imodium about 2-3 days ago, he has not had diarrhea since, however he is experiencing. Umbilical abdominal pain. He is also complaining of headache and chills. States that he feels feverish but does not have a thermometer to check. Admits to urinary urgency and frequency. No vomiting. No hematochezia or melena. No dysuria or hematuria. No flank pain. No chest pain or difficulty breathing. - Related Data Home Medications Medication Instructions Recorded Confirmed Montelukast [Singulair] 10 mg PO DAILY 09/25/13 06/28/21 Albuterol Sulfate [Ventolin HFA] 1 - 2 puff INHALATION RT-QID PRN 02/21/14 06/28/21 Fenofibrate [Lofibra] 160 mg PO DAILY 02/21/14 06/28/21 Doxazosin Mesylate [Cardura] 16 mg PO HS 10/20/15 06/28/21 Cetirizine HCl [Zyrtec] 10 - 20 mg PO DAILY PRN 09/24/16 06/28/21 Desvenlafaxine [Pristiq ER] 100 mg PO DAILY 09/24/16 06/28/21 clonazePAM [KlonoPIN] 1 mg PO BID PRN 09/24/16 06/28/21 Acetaminophen-Codeine 300-30mg 1 - 2 tab PO Q6H PRN 10/21/18 06/28/21 [Tylenol w/codeine #3] Metoprolol Tartrate [Lopressor] 25 mg PO BID 10/21/18 06/28/21 sitaGLIPtin PHOS/metFORMIN HCL 1 tab PO HS 10/21/18 06/28/21 [Janumet Xr 50-500 mg Tablet] Insulin Degludec [Tresiba 100 units SQ HS 11/22/18 06/28/21 Flextouch U-200 Pen] Losartan [Cozaar] 50 mg PO DAILY 06/28/21 06/28/21 Rosuvastatin Calcium [Crestor] 40 mg PO HS 06/28/21 06/28/21 Previous Rx's Medication Instructions Recorded Dicyclomine [Bentyl] 20 mg PO QID PRN #15 tablet 08/08/22 Ondansetron Odt [Zofran Odt] 4 mg PO Q8HR PRN #10 tab 08/08/22 Allergies Allergy/AdvReac Type Severity Reaction Status Date / Time cat dander Allergy watery Verified 08/24/22 20:38 eyes, congestion, sneezing dog dander Allergy watery Verified 08/24/22 20:38 eyes, congestion, sneezing Review of Systems ROS Statement: Those systems with pertinent positive or pertinent negative responses have been documented in the HPI. ROS Other: All systems not noted in ROS Statement are negative. Past Medical History Past Medical History: Asthma, COPD, Diabetes Mellitus, GERD/Reflux, Hyperlipidemia, Hypertension, Osteoarthritis (OA), Prostate Disorder, Skin Disorder Additional Past Medical History / Comment(s): positive c-diff 11/22/18, relapse of diarrhea after course of antibx, but stool was neg for C-diff, hx of colon polyps, DDD History of Any Multi-Drug Resistant Organisms: C-DIFF Date of last positivie culture/infection: 11-22-18 MDRO Source:: stool Past Surgical History: Hernia Repair, Orthopedic Surgery, Tonsillectomy Additional Past Surgical History / Comment(s): right chest wall cyst removed, nerve surgery left elbow Past Anesthesia/Blood Transfusion Reactions: No Reported Reaction Past Psychological History: Anxiety, Panic Disorder Smoking Status: Never smoker Past Alcohol Use History: None Reported Past Drug Use History: None Reported - Past Family History Father Family Medical History: Myocardial Infarction (SC) Mother Family Medical History: No Reported History General Exam Limitations: no limitations General appearance: alert, in no apparent distress Head exam: Present: atraumatic, normocephalic, normal inspection Eye exam: Present: normal appearance Neck exam: Present: normal inspection, full ROM Respiratory exam: Present: normal lung sounds bilaterally. Absent: respiratory distress, wheezes, rales, rhonchi, stridor Cardiovascular Exam: Present: normal rhythm, tachycardia, normal heart sounds. Absent: systolic murmur, diastolic murmur, rubs, gallop, clicks GI/Abdominal exam: Present: soft, tenderness (Right-sided). Absent: distended, guarding, rebound, rigid Neurological exam: Present: alert, oriented X3, CN II-XII intact Psychiatric exam: Present: normal affect, normal mood Skin exam: Present: warm, dry, intact, normal color. Absent: rash Course Vital Signs 08/24/22 08/24/22 08/24/22 20:36 21:25 22:10 Temperature 100.4 F H 100.9 F H Pulse Rate 146 H 133 H 120 H Respiratory 18 24 18 Rate Blood Pressure 105/69 123/76 127/55 O2 Sat by Pulse 95 95 95 Oximetry 08/24/22 08/24/22 23:05 23:40 Temperature 101.2 F H 98.5 F Pulse Rate 110 H 103 H Respiratory 19 18 Rate Blood Pressure 119/65 114/66 O2 Sat by Pulse 95 96 Oximetry EKG Findings - EKG Comments: EKG Findings:: Sinus tachycardia possible atrial flutter. Ventricular rate 140. CT interval 150. QRS 98. QT 281. QTC 362. Normal axis. No ischemic kelley ges. Procedures - Sepsis Sepsis Focused Exam #1 Time Sepsis Criteria Met: 20:40 Sepsis Focused Exam Date: 08/24/22 Sepsis Focused Exam Time: 23:28 Sepsis Focused Exam Complete: Yes Vital Signs & RN Notes Reviewed: Yes Capillary Refill: < 2 Seconds: Fingers Peripheral Pulses: Normal: Radial (R) Skin Color: Normal for Patient Respiratory Exam: normal lung sounds Cardiovascular Exam: tachycardia Medical Decision Making - Medical Decision Making Was pt. sent in by a medical professional or institution (, PA, NUCLEAR WEAPONS CUSTODIAN, urgent care, hospital, or assisted...) When possible be specific @ -No Did you speak to anyone other than the patient for history (EMS, parent, family, police, friend...)? What history was obtained from this source @ -No Did you review nursing and triage notes (agree or disagree)? Why? @ -I reviewed and agree with nursing and triage notes Were old charts reviewed (outside hosp., previous admission, EMS record, old EKG, old radiological studies, urgent care reports/EKG's, assisted records)? Report findings @ -No old charts were reviewed Differential Diagnosis (chest pain, altered mental status, abdominal pain women, abdominal pain men, vaginal bleeding, weakness, fever, dyspnea, syncope, headache, dizziness, GI bleed, back pain, seizure, CVA, palpatations, mental health, musculoskeletal)? @ -[facility] Differential Abdominal Pain Men: Appendicitis, cholecystitis, diverticulosis, ischemic bowel, pancreatitis, hepatitis, UTI, gastroenteritis, AAA, incarcerated hernia, bowel obstruction, constipation, inflammatory bowel, hepatitis, peptic ulcer disease, splenic infarction, perforated viscus, testicular torsion... This is not meant to be an all-inclusive list EKG interpreted by me (3pts min.). @ -As above X-rays interpreted by me (1pt min.). @ -None done CT interpreted by me (1pt min.). @ -CT shows diffuse scattered left lower lobe airspace opacities as well as prostatomegaly with evidence of chronic bladder outlet obstruction. U/S interpreted by me (1pt. min.). @ -None done What testing was considered but not performed or refused? (CT, X-rays, U/S, labs)? Why? @ -None What meds were considered but not given or refused? Why? @ -None Did you discuss the management of the patient with other professionals (professionals i.e. , PA, NUCLEAR WEAPONS CUSTODIAN, lab, RT, psych nurse, social work manager, coat room attendant, teacher, accounting officer, child support case officer)? Give summary @ -leigh godfrey Was smoking cessation discussed for >3mins.? @ -No Was critical care preformed (if so, how long)? @ -No Were there social determinants of health that impacted care today? How? (Homelessness, low income, unemployed, alcoholism, drug addiction, transportation, low edu. Level, literacy, decrease access to med. care, skilled nursing, rehab)? @ -No Was there de-escalation of care discussed even if they declined (Discuss DNR or withdrawal of care, Hospice)? DNR status @ -No What co-morbidities impacted this encounter? (DM, HTN, Smoking, COPD, CAD, Cancer, CVA, ARF, Chemo, Hep., AIDS, mental health diagnosis, sleep apnea, morbid obesity)? @ -Diabetes, hypertension, hyperlipidemia Was patient admitted / discharged? Hospital course, mention meds given and route, prescriptions, significant lab abnormalities, going to OR and other pertinent info. @ -Patient was admitted for sepsis due to UTI. Patient is 66-year-old male presenting with chief complaint of fever, abdominal pain, diarrhea, headache, chills. On physical examination there is diffuse abdominal tenderness. Patient is febrile and tachycardic. He is given Motrin and Tylenol and started on IV fluids. Laboratory shows WBC 14.5. Sodium 130. Lactic acid 3.6. Urine shows evidence of infection, possible kidney stone. Patient was given [address] of abdomen and pelvis shows a large prostate with chronic bladder outlet obstruction. There is also questionable pneumonia in the left lower lobe. Patient is given a dose of azithromycin for prophylaxis. Patient meets sepsis criteria and will be admitted. I spoke with the admitting provider Leigh from [facility] hospitalist group who accepted admission. Patient is agreeable with this plan. I discussed this case with my attending Dr. Tiwari Undiagnosed new problem with uncertain prognosis? @ -No Drug Therapy requiring intensive monitoring for toxicity (Heparin, Nitro, Insuli n, Cardizem)? @ -No Were any procedures done? @ -No Diagnosis/symptom? @ -Sepsis due to UTI Acute, or Chronic, or Acute on Chronic? @ -Acute Uncomplicated (without systemic symptoms) or Complicated (systemic symptoms)? @ -Complicated Side effects of treatment? @ -No Exacerbation, Progression, or Severe Exacerbation? @ -No Poses a threat to life or bodily function? How? (Chest pain, USA, SC, pneumonia, PE, COPD, DKA, ARF, appy, cholecystitis, CVA, Diverticulitis, Homicidal, Suicidal, threat to staff... and all critical care pts) @ -Yes - Lab Data Result diagrams: 08/24/22 21:04 08/24/22 21:04 Lab Results 08/24/22 08/24/22 08/24/22 Range/Units 21:04 21:04 21:04 WBC 14.5 H (3.8-10.6) k/uL RBC 5.00 (4.30-5.90) m/uL Hgb 14.4 (13.0-17.5) gm/dL Hct 42.2 (39.0-53.0) % MCV 84.5 (80.0-100.0) fL MCH 28.8 (25.0-35.0) pg MCHC 34.1 (31.0-37.0) g/dL RDW 13.1 (11.5-15.5) % Plt Count 220 (150-450) k/uL MPV 7.8 Neutrophils % 85 % Lymphocytes % 7 % Monocytes % 6 % Eosinophils % 0 % Basophils % 0 % Neutrophils # 12.3 H (1.3-7.7) k/uL Lymphocytes # 1.0 (1.0-4.8) k/uL Monocytes # 0.9 (0-1.0) k/uL Eosinophils # 0.0 (0-0.7) k/uL Basophils # 0.0 (0-0.2) k/uL PT (9.0-12.0) sec INR (<1.2) APTT (22.0-30.0) sec Sodium 130 L (137-145) mmol/L Potassium 4.5 (3.5-5.1) mmol/L Chloride 93 L (98-107) mmol/L Carbon Dioxide 22 (22-30) mmol/L Anion Gap 15 mmol/L BUN 17 (9-20) mg/dL Creatinine 1.15 (0.66-1.25) mg/dL Est GFR (CKD-EPI)AfAm 76 (>60 ml/min/1.73 sqM) Est GFR (CKD-EPI)NonAf 66 (>60 ml/min/1.73 sqM) Glucose 238 H (74-99) mg/dL Lactic Ac Sepsis Rflx Plasma Lactic Acid Brooks 3.6 H* (0.7-2.0) mmol/L Calcium 9.4 (8.4-10.2) mg/dL Total Bilirubin 0.8 (0.2-1.3) mg/dL AST 21 (17-59) U/L ALT 26 (4-49) U/L Alkaline Phosphatase 76 (38-126) U/L Total Protein 7.0 (6.3-8.2) g/dL Albumin 4.1 (3.5-5.0) g/dL Amylase 34 (30-110) U/L Lipase 43 (23-300) U/L Urine Color Urine Appearance (Clear) Urine pH (5.0-8.0) Ur Specific [place] (1.001-1.035) Urine Protein (Negative) Urine Glucose (UA) (Negative) Urine Ketones (Negative) Urine Blood (Negative) Urine Nitrite (Negative) Urine Bilirubin (Negative) Urine Urobilinogen (<2.0) mg/dL Ur Leukocyte Esterase (Negative) Urine RBC (0-5) /hpf Urine WBC (0-5) /hpf Urine WBC Clumps (None) /hpf Ur Squamous Epith Cells (0-4) /hpf Urine Mucus (None) /hpf Influenza Type A (PCR) (Not Detectd) Influenza Type B (PCR) (Not Detectd) RSV (PCR) (Not Detectd) SARS-CoV-2 (PCR) (Not Detectd) 08/24/22 08/24/22 08/24/22 Range/Units 21:04 21:04 21:04 WBC (3.8-10.6) k/uL RBC (4.30-5.90) m/uL Hgb (13.0-17.5) gm/dL Hct (39.0-53.0) % MCV (80.0-100.0) fL MCH (25.0-35.0) pg MCHC (31.0-37.0) g/dL RDW (11.5-15.5) % Plt Count (150-450) k/uL MPV Neutrophils % % Lymphocytes % % Monocytes % % Eosinophils % % Basophils % % Neutrophils # (1.3-7.7) k/uL Lymphocytes # (1.0-4.8) k/uL Monocytes # (0-1.0) k/uL Eosinophils # (0-0.7) k/uL Basophils # (0-0.2) k/uL PT 11.0 (9.0-12.0) sec INR 1.0 (<1.2) APTT 23.5 (22.0-30.0) sec Sodium (137-145) mmol/L Potassium (3.5-5.1) mmol/L Chloride (98-107) mmol/L Carbon Dioxide (22-30) mmol/L Anion Gap mmol/L BUN (9-20) mg/dL Creatinine (0.66-1.25) mg/dL Est GFR (CKD-EPI)AfAm (>60 ml/min/1.73 sqM) Est GFR (CKD-EPI)NonAf (>60 ml/min/1.73 sqM) Glucose (74-99) mg/dL Lactic Ac Sepsis Rflx Plasma Lactic Acid Brooks (0.7-2.0) mmol/L Calcium (8.4-10.2) mg/dL Total Bilirubin (0.2-1.3) mg/dL AST (17-59) U/L ALT (4-49) U/L Alkaline Phosphatase (38-126) U/L Total Protein (6.3-8.2) g/dL Albumin (3.5-5.0) g/dL Amylase (30-110) U/L Lipase (23-300) U/L Urine Color Yellow Urine Appearance Cloudy (Clear) Urine pH 5.5 (5.0-8.0) Ur Specific [place] 1.021 (1.001-1.035) Urine Protein 1+ H (Negative) Urine Glucose (UA) 4+ H (Negative) Urine Ketones Negative (Negative) Urine Blood Large H (Negative) Urine Nitrite Negative (Negative) Urine Bilirubin Negative (Negative) Urine Urobilinogen <2.0 (<2.0) mg/dL Ur Leukocyte Esterase Large H (Negative) Urine RBC >182 H (0-5) /hpf Urine WBC >182 H (0-5) /hpf Urine WBC Clumps Few H (None) /hpf Ur Squamous Epith Cells 2 (0-4) /hpf Urine Mucus Occasional H (None) /hpf Influenza Type A (PCR) Not Detected (Not Detectd) Influenza Type B (PCR) Not Detected (Not Detectd) RSV (PCR) Not Detected (Not Detectd) SARS-CoV-2 (PCR) Not Detected (Not Detectd) 08/24/22 Range/Units 22:04 WBC (3.8-10.6) k/uL RBC (4.30-5.90) m/uL Hgb (13.0-17.5) gm/dL Hct (39.0-53.0) % MCV (80.0-100.0) fL MCH (25.0-35.0) pg MCHC (31.0-37.0) g/dL RDW (11.5-15.5) % Plt Count (150-450) k/uL MPV Neutrophils % % Lymphocytes % % Monocytes % % Eosinophils % % Basophils % % Neutrophils # (1.3-7.7) k/uL Lymphocytes # (1.0-4.8) k/uL Monocytes # (0-1.0) k/uL Eosinophils # (0-0.7) k/uL Basophils # (0-0.2) k/uL PT (9.0-12.0) sec INR (<1.2) APTT (22.0-30.0) sec Sodium (137-145) mmol/L Potassium (3.5-5.1) mmol/L Chloride (98-107) mmol/L Carbon Dioxide (22-30) mmol/L Anion Gap mmol/L BUN (9-20) mg/dL Creatinine (0.66-1.25) mg/dL Est GFR (CKD-EPI)AfAm (>60 ml/min/1.73 sqM) Est GFR (CKD-EPI)NonAf (>60 ml/min/1.73 sqM) Glucose (74-99) mg/dL Lactic Ac Sepsis Rflx Y Plasma Lactic Acid Brooks (0.7-2.0) mmol/L Calcium (8.4-10.2) mg/dL Total Bilirubin (0.2-1.3) mg/dL AST (17-59) U/L ALT (4-49) U/L Alkaline Phosphatase (38-126) U/L Total Protein (6.3-8.2) g/dL Albumin (3.5-5.0) g/dL Amylase (30-110) U/L Lipase (23-300) U/L Urine Color Urine Appearance (Clear) Urine pH (5.0-8.0) Ur Specific [place] (1.001-1.035) Urine Protein (Negative) Urine Glucose (UA) (Negative) Urine Ketones (Negative) Urine Blood (Negative) Urine Nitrite (Negative) Urine Bilirubin (Negative) Urine Urobilinogen (<2.0) mg/dL Ur Leukocyte Esterase (Negative) Urine RBC (0-5) /hpf Urine WBC (0-5) /hpf Urine WBC Clumps (None) /hpf Ur Squamous Epith Cells (0-4) /hpf Urine Mucus (None) /hpf Influenza Type A (PCR) (Not Detectd) Influenza Type B (PCR) (Not Detectd) RSV (PCR) (Not Detectd) SARS-CoV-2 (PCR) (Not Detectd) Disposition Clinical Impression: Sepsis, UTI (urinary tract infection) Disposition: ADMITTED IP TO THIS HOSP Condition: Serious Time of Disposition: 23:50
[2022-08-24 21:53] LABS: Albumin 4.1 g/dL (3.5-5.0); Calcium 9.4 mg/dL (8.4-10.2); Potassium 4.5 mmol/L (3.5-5.1); Total Bilirubin 0.8 mg/dL (0.2-1.3)
[2022-08-24 21:54] LABS: Partial Thromboplastin Time 23.5 sec (22.0-30.0)
[2022-08-24 22:02] LABS: Appearance,Urine Cloudy (Clear); Bilirubin,Urine Negative (Negative); Blood,Urine Large (Negative); Color,Urine Yellow; Glucose,Urine (UA) 4+ (Negative); Ketones,Urine Negative (Negative); Leukocyte Esterase,Urine Large (Negative); Mucus,Urine Occasional /hpf; Nitrite,Urine Negative (Negative); PH, Urine 5.5 (5.0-8.0); Protein,Urine 1+ (Negative); RBC,Urine >182 /hpf (0-5); Specific Gravity,Urine 1.021 (1.001-1.035); Squamous Epithelial Cell,Urine 2 /hpf (0-4); Urobilinogen,Urine <2.0 mg/dL (<2.0); WBC,Urine >182 /hpf (0-5)
[2022-08-24] MEDS ORDERED: cefTRIAXone IN SWFI 1,000 MG/10 ML SYRINGE IVP STA (22:12)
[2022-08-24 22:14] LABS: Basophils % (A) 0 %; Eosinophils % (A) 0 %; HCT 42.2 % (39.0-53.0); HGB 14.4 gm/dL (13.0-17.5); Lymphocytes % (A) 7 %; MCH 28.8 pg (25.0-35.0); MCHC 34.1 g/dL (31.0-37.0); MCV 84.5 fL (80.0-100.0); Mean Platelet Volume 7.8; Monocytes # (A) 0.9 k/uL (0-1.0); Monocytes % (A) 6 %; Neutrophils # (A) 12.3 k/uL (1.3-7.7); Neutrophils % (A) 85 %; Platelet Count 220 k/uL (150-450); RDW 13.1 % (11.5-15.5); WBC 14.5 k/uL (3.8-10.6)
[2022-08-24] MEDS ORDERED: SODIUM CHLORIDE 0.9% 1,000 ML IV ONE (22:15)
--- NOTE | 2022-08-24 22:56 | CT ---
EXAMINATION TYPE: CT abdomen pelvis w con CT DLP: 2538.8 mGycm, Automated exposure control for dose reduction was used. DATE OF EXAM: 08/24/2022 10:43 PM COMPARISON: 08/08/2022 CLINICAL INDICATION:Male, 66 years old with history of abdominal pain; fever and chills TECHNIQUE: Axial CT of the abdomen and pelvis. Sagittal and coronal reformats were created on a [employer] workstation. Contrast used:70 mL of Isovue 300 with IV Contrast, Oral contrast used: without Oral Contrast FINDINGS: LOWER CHEST: Minimal asymmetric left lower lobe airspace opacities. ABDOMEN LIVER: Diffusely hypoattenuating parenchyma. GALLBLADDER AND BILE DUCTS: Unremarkable. PANCREAS: Unremarkable. SPLEEN: Unremarkable. ADRENAL GLANDS: Unremarkable. KIDNEYS AND URETERS: No evidence of hydronephrosis or renal calculus. The ureters are unremarkable. PELVIS BLADDER: Circumferential bladder wall thickening measuring up to 13 mm. REPRODUCTIVE: Prostate is enlarged in size measuring 5.8 cm in transverse dimension. ABDOMEN & PELVIS STOMACH AND BOWEL: No evidence of bowel obstruction. PERITONEUM/RETROPERITONEUM: No evidence of pneumoperitoneum or free fluid. VASCULATURE: Pelvic phleboliths are present MUSCULOSKELETAL: No acute osseous abnormalities LYMPH NODES: No gross evidence for lymphadenopathy. SOFT TISSUE/ABDOMINAL WALL: Unremarkable IMPRESSION: 1. Few scattered left lower lobe airspace opacities correlate for developing pneumonia versus aspira tion. 2. Prostatomegaly with evidence of chronic bladder outlet obstruction. Correlate with urinalysis for superimposed cholecystitis. 3. Hepatic steatosis.
[2022-08-24] MEDS: SODIUM CHLORIDE 0.9% 1,000 ML IV SCH (23:03)
[2022-08-24] MEDS ORDERED: IBUPROFEN 200 MG TAB PO STA (23:21)
[2022-08-24] MEDS ORDERED: AZITHROMYCIN 500 MG in SODIUM CHLORIDE 0.9% 250 ML IVPB STA (23:29)
[2022-08-24] MEDS ORDERED: IBUPROFEN 400 MG TAB PO PRN (23:43)
[2022-08-24] MEDS ORDERED: ONDANSETRON 4 MG/2 ML VIAL IVP PRN (23:43)
[2022-08-24] MEDS ORDERED: NALOXONE 0.4 MG/ML 1 ML VIAL IV PRN (23:43)
[2022-08-24] MEDS ORDERED: ACETAMINOPHEN TAB 325 MG TAB PO PRN (23:43)
[2022-08-24] MEDS ORDERED: KETOROLAC 15 MG/ML 1 ML VIAL IVP PRN (23:43)
[2022-08-25 06:07] LABS: Basophils % (A) 0 %; Eosinophils # (A) 0.1 k/uL (0-0.7); Eosinophils % (A) 1 %; HCT 36.5 % (39.0-53.0); HGB 12.5 gm/dL (13.0-17.5); Lymphocytes # (A) 0.9 k/uL (1.0-4.8); Lymphocytes % (A) 7 %; MCH 29.2 pg (25.0-35.0); MCHC 34.2 g/dL (31.0-37.0); MCV 85.4 fL (80.0-100.0); Mean Platelet Volume 7.1; Monocytes # (A) 0.7 k/uL (0-1.0); Monocytes % (A) 6 %; Neutrophils # (A) 9.5 k/uL (1.3-7.7); Neutrophils % (A) 83 %; Platelet Count 225 k/uL (150-450); RBC 4.27 m/uL (4.30-5.90); RDW 13.2 % (11.5-15.5); WBC 11.5 k/uL (3.8-10.6)
[2022-08-25 06:31] LABS: Albumin 3.4 g/dL (3.5-5.0); Calcium 8.8 mg/dL (8.4-10.2); Potassium 3.9 mmol/L (3.5-5.1); Total Bilirubin 0.6 mg/dL (0.2-1.3); Total Protein 6.4 g/dL (6.3-8.2)
[2022-08-25] MEDS: SODIUM CHLORIDE 0.9% 1,000 ML IV SCH ×3 (06:50→23:36)
[2022-08-25] MEDS ORDERED: DEXTROSE 50% SYRINGE 50 ML IVP PRN ×2 (07:09)
[2022-08-25 07:37] LABS: Glucose,Whole Blood 143 mg/dL (70-110)
[2022-08-25] MEDS: INSULIN ASPART (NovoLOG) 100 UNIT/ML VIAL SQ SCH ×4 (07:38→21:10)
[2022-08-25] MEDS ORDERED: ALBUTEROL NEBULIZED 2.5 MG/3 ML INHALATION PRN (12:04)
[2022-08-25] MEDS ORDERED: FUROSEMIDE 40 MG TAB PO PRN (12:04)
[2022-08-25] MEDS ORDERED: Acetaminophen-Codeine 300-30mg TAB PO PRN (12:04)
[2022-08-25] MEDS ORDERED: NON FORMULARY DRUG (Celecoxib 100 MG Cap) PO PRN (12:04)
[2022-08-25] MEDS ORDERED: clonazePAM 1 MG TAB PO PRN (12:04)
--- NOTE | 2022-08-25 12:36 | XR ---
EXAMINATION TYPE: XR chest 1V portable DATE OF EXAM: 08/25/2022 COMPARISON: 12/18/2018 HISTORY: Shortness of breath TECHNIQUE: Single frontal view of the chest is obtained. FINDINGS: There is subsegmental changes at the left lung base. Mild hyperinflation. There is no Pleu ral effusion, or pneumothorax seen. The cardiac silhouette size is within normal limits. The osseo us structures are intact. IMPRESSION: 1. Suspect COPD and left basilar atelectasis or scar favored over pneumonia correlate clinically.
[2022-08-25 12:44] LABS: Glucose,Whole Blood 212 mg/dL (70-110)
[2022-08-25] MEDS: PANTOPRAZOLE 40 MG TABLET PO SCH (12:52)
--- NOTE | 2022-08-25 13:18 | HP ---
HISTORY AND PHYSICAL CHIEF COMPLAINTS: Chills, fever, and abdominal pain. HISTORY OF PRESENT ILLNESS: This is a 66-year-old gentleman with a past medical history of multiple medical problems including asthma, COPD, diabetes mellitus type 2, was admitted with chills, fever and some diarrhea. The patient was found to have a UTI with possible sepsis and the patient was admitted for further evaluation and treatment. There is no history of any fever, rigors, or chills at this time. PAST MEDICAL HISTORY: Reviewed, include asthma, COPD. Rest of the history and rest of the chart is also reviewed. HOME MEDICATIONS: Reviewed include Ozempic. Doses and rest of medications noted. ALLERGIES: Cat dander and dog dander. FAMILY HISTORY: History of myocardial infarction. SOCIAL HISTORY: Quit smoking 25 years ago. REVIEW OF SYSTEMS: A 14-point review is negative except as mentioned earlier. PHYSICAL EXAMINATION: VITAL SIGNS: Pulse is 109, blood pressure 170/81, respirations 18. HEENT: Conjunctivae normal. NECK: No JVD. CARDIOVASCULAR: S1, S2 muffled. RESPIRATIONS: Breath sounds diminished at the bases. A few scattered rhonchi. ABDOMEN: Soft, obese. LEGS: No edema. NERVOUS SYSTEM: Nonfocal. LABORATORY DATA: WBC 11.5, hemoglobin 12.5. ASSESSMENT: 1. Acute urinary tract infection with sepsis. 2. Benign prostatic hypertrophy. 3. Asthma, chronic obstructive pulmonary disease. 4. Diabetes mellitus, type 2. 5. Multiple medical issues. RECOMMENDATIONS AND DISCUSSION: This is a 66-year-old gentleman who presented with multiple complex medical issues. We will monitor the patient closely. I would recommend to continue the current medications, broad-spectrum IV antibiotics. Infectious Disease evaluation. Otherwise, I recommend resume the home medications once they are confirmed. Prognosis guarded. Further recommendations to follow. See orders for further details. Urology evaluation. MMODL / IJN: [id number] /
[2022-08-25] MEDS: IPRATROPIUM 0.5 MG/2.5 ML NEBU INHALATION SCH ×2 (16:02→19:45)
[2022-08-25 17:17] LABS: Glucose,Whole Blood 198 mg/dL (70-110)
--- NOTE | 2022-08-25 17:20 | US ---
EXAMINATION TYPE: US kidneys/renal and bladder DATE OF EXAM: 08/25/2022 COMPARISON: CT abdomen and pelvis from yesterday CLINICAL HISTORY: Urinary tract infection, history of bph. EXAM MEASUREMENTS: Right Kidney: 12.5 x 6.7 x 5.2 cm Left Kidney: 12.9 x 6.9 x 6.0 cm * Exam limited by overlying bowel gas, patient body habitus. Right Kidney: wnl Left Kidney: wnl Bladder: wnl Bilateral Jets seen: Yes Suboptimal due to large body habitus. Kidneys symmetric and normal in size. No hydronephrosis seen. C ortical medullary differentiation maintained. No concerning solid or cystic masses identified on imag es saved. Bladder adequately distended without intraluminal mass or wall thickening. Bilateral distal ureter jets are visualized. IMPRESSION: Suboptimal but unremarkable study.
[2022-08-25] MEDS: SYMBICORT 80-4.5 MCG INHALER INHALATION SCH (19:45)
[2022-08-25 20:29] LABS: Glucose,Whole Blood 255 mg/dL (70-110)
[2022-08-25] MEDS: INSULIN DETEMIR (LEVEMIR) 100 UNIT/ML SYR SQ SCH (21:10)
[2022-08-25] MEDS: DOXAZOSIN 4 MG TAB PO SCH (21:11)
[2022-08-25] MEDS: ATORVASTATIN 80 MG TAB PO SCH (21:11)
[2022-08-25] MEDS: TAMSULOSIN 0.4 MG CAP.ER.24H PO SCH (21:11)
[2022-08-25] MEDS: METOPROLOL TARTRATE 25 MG TAB PO SCH (21:11)
[2022-08-26] MEDS: SODIUM CHLORIDE 0.9% 1,000 ML IV SCH ×2 (05:04→15:53)
[2022-08-26 07:15] LABS: Glucose,Whole Blood 71 mg/dL (70-110)
[2022-08-26] MEDS: INSULIN ASPART (NovoLOG) 100 UNIT/ML VIAL SQ SCH ×4 (07:25→21:58)
[2022-08-26] MEDS: SYMBICORT 80-4.5 MCG INHALER INHALATION SCH ×2 (07:49→20:23)
[2022-08-26] MEDS: IPRATROPIUM 0.5 MG/2.5 ML NEBU INHALATION SCH ×4 (07:49→20:22)
[2022-08-26] MEDS: PANTOPRAZOLE 40 MG TABLET PO SCH (08:13)
[2022-08-26] MEDS: METOPROLOL TARTRATE 25 MG TAB PO SCH ×2 (08:59→21:58)
[2022-08-26] MEDS: ASPIRIN 81 MG PO SCH (08:59)
[2022-08-26] MEDS: FENOFIBRATE 160 MG TAB PO SCH (08:59)
[2022-08-26] MEDS: DESVENLAFAXINE SUCCINATE 50 MG TAB.ER.24H PO SCH (08:59)
[2022-08-26] MEDS: TAMSULOSIN 0.4 MG CAP.ER.24H PO SCH ×2 (08:59→21:58)
[2022-08-26] MEDS: LOSARTAN 50 MG TAB PO SCH (08:59)
[2022-08-26] MEDS: MONTELUKAST 10 MG TAB PO SCH (08:59)
[2022-08-26] MEDS ORDERED: NON FORMULARY DRUG (Semaglutide [Ozempic] 0.25 MG/0.2 ML Each) SQ SCH (09:00)
[2022-08-26 11:14] LABS: Glucose,Whole Blood 130 mg/dL (70-110)
[2022-08-26 11:20] LABS: Basophils # (A) 0.06 X 10*3/uL (0.00-0.10); Basophils % (A) 0.7 %; Eosinophils # (A) 0.27 X 10*3/uL (0.04-0.35); Eosinophils % (A) 3.1 %; HCT 30.5 % (39.6-50.0); HGB 10.1 g/dL (13.0-17.0); Immature Grans, Automated 0.9 %; Lymphocytes # (A) 1.64 X 10*3/uL (0.90-5.00); Lymphocytes % (A) 18.9 %; MCH 28.3 pg (27.0-32.0); MCHC 33.1 g/dL (32.0-37.0); MCV 85.4 fL (80.0-97.0); Mean Platelet Volume 9.3 fL (9.5-12.2); Monocytes # (A) 0.97 X 10*3/uL (0.20-1.00); Monocytes % (A) 11.2 %; NRBC Per 100 WBC 0 /100 WBCS (0.0-0.0); Neutrophils # (A) 5.66 X 10*3/uL (1.80-7.70); Neutrophils % (A) 65.2 %; Platelet Count 224 X 10*3/uL (140-440); RBC 3.57 X 10*6/uL (4.40-5.60); RDW 13.2 % (11.5-14.5); WBC 8.68 X 10*3/uL (4.50-10.00)
[2022-08-26 11:25] LABS: African American GFR (CKD) 80.4 (60.0-200.0); BUN/Creat Ratio 12.84 Ratio (12.00-20.00); Calcium 8.9 mg/dL (8.7-10.3); Carbon Dioxide 25.1 mmol/L (20.0-27.5); Non-African American GFR(CKD) 69.4 (60.0-200.0); Potassium 3.6 mmol/L (3.5-5.5)
--- NOTE | 2022-08-26 12:50 | P.GSCN ---
History of Present Illness Consult date: 08/26/22 Reason for Consult: UTI, BPH History of present illness: This is a 66-year-old male admitted to the hospital with UTI. Patient was septic on presentation. He does have history of recurrent UTIs and BPH. He is currently taking Flomax for his BPH. He previously followed up with the urologist, he is unsure who, he was recommended to start Flomax. He indicated he's been taking the Flomax regularly but continues to have obstructive urinary symptoms. Does complain weak stream, straining frequency at baseline. On presentation to the hospital he was complaining of worsening urinary symptoms with urgency and dysuria. He was also complaining of fevers. Underwent a CT abdomen and pelvis on presentation showed no evidence of obstructive stones, but evidence of an enlarged prostate with thickened bladder wall. The bladder was decompressed on CT imaging. Denies any gross hematuria or previous history of urinary retention. No previous history of kidney stones Review of Systems - Constitutional Reports fever, Reports lethargy, Denies chills - EENT Ears, nose, mouth and throat: Denies dysphagia - Cardiovascular Denies chest pain, Denies shortness of breath - Respiratory Denies cough, Denies 7 - Gastrointestinal Reports abdominal pain - Genitourinary Reports dysuria, Denies flank pain, Denies kidney stones - Integumentary Denies rash, Denies unusual bruising - Neurological Denies headaches, Denies syncope Past Medical History Past Medical History: Asthma, COPD, Diabetes Mellitus, GERD/Reflux, Hyperlipidemia, Hypertension, Osteoarthritis (OA), Prostate Disorder Additional Past Medical History / Comment(s): positive c-diff 11/22/18, hx of colon polyps, DDD History of Any Multi-Drug Resistant Organisms: C-DIFF Year Discovered:: 11-22-18 MDRO Source:: stool Past Surgical History: Hernia Repair, Orthopedic Surgery, Tonsillectomy Additional Past Surgical History / Comment(s): right chest wall cyst removed, nerve surgery left elbow Past Anesthesia/Blood Transfusion Reactions: No Reported Reaction Past Psychological History: Anxiety, Panic Disorder Smoking Status: Former smoker Past Alcohol Use History: None Reported Additional Past Alcohol Use History / Comment(s): smoked for 18 yrs- 2 PPD Past Drug Use History: None Reported Additional Drug Use History / Comment(s): patient used to drink alcohol and s moke marijuana but doesn't anymore. - Past Family History Father Family Medical History: Myocardial Infarction ([place]) Additional Family Medical History / Comment(s): about 30 years ago from [place] per patient Mother Family Medical History: No Reported History Additional Family Medical History / Comment(s): from lung issues. Medications and Allergies Home Medications Medication Instructions Recorded Confirmed Type Montelukast [Singulair] 10 mg PO DAILY 09/25/13 08/25/22 History Fenofibrate [Lofibra] 160 mg PO DAILY 02/21/14 08/25/22 History Doxazosin Mesylate [Cardura] 16 mg PO HS 10/20/15 08/25/22 History Cetirizine HCl [Zyrtec] 10 - 20 mg PO DAILY PRN 09/24/16 08/25/22 History Desvenlafaxine [Pristiq ER] 100 mg PO DAILY 09/24/16 08/25/22 History clonazePAM [KlonoPIN] 1 mg PO BID PRN 09/24/16 08/25/22 History Metoprolol Tartrate [Lopressor] 25 mg PO BID 10/21/18 08/25/22 History Insulin Degludec [Tresiba 110 units SQ HS 11/22/18 08/25/22 History Flextouch U-200 Pen] Losartan [Cozaar] 50 mg PO DAILY 06/28/21 08/25/22 History Rosuvastatin Calcium [Crestor] 40 mg PO HS 06/28/21 08/25/22 History Acetaminophen with Codeine 1 tab PO Q6H PRN 08/25/22 08/25/22 History [Tylenol #4 Tablet] Albuterol Nebulized [Ventolin 2.5 mg INHALATION RT-QID PRN 08/25/22 08/25/22 History Nebulized] Aspirin EC [Ecotrin Low Dose] 81 mg PO DAILY 08/25/22 08/25/22 History Celecoxib [CeleBREX] 100 mg PO DAILY PRN 08/25/22 08/25/22 History Fluticasone/Umeclidin/Vilanter 1 puff INHALATION RT-DAILY 08/25/22 08/25/22 History [Trelegy Ellipta 200-62.5-25] Furosemide [Lasix] 40 mg PO DAILY PRN 08/25/22 08/25/22 History Semaglutide [Ozempic] 0.25 mg SQ Q7D 08/25/22 08/25/22 History Allergies Allergy/AdvReac Type Severity Reaction Status Date / Time cat dander Allergy watery Verified 08/25/22 09:51 eyes, congestion, sneezing dog dander Allergy watery Verified 08/25/22 09:51 eyes, congestion, sneezing Surgical - Exam Vital Signs Temp Pulse Resp BP Pulse Ox 100.4 F H 146 H 18 105/69 95 08/24/22 20:36 08/24/22 20:36 08/24/22 20:36 08/24/22 20:36 08/24/22 20:36 - General no distress, no pain - Eyes normal ocular movement, no pale - ENT normal nares, normal mucosa - Respiratory normal expansion, normal respiratory effort - Abdomen Abdomen: soft, non tender - Psychiatric oriented to time, oriented to person, oriented to place Results - Labs 08/26/22 06:30 08/26/22 06:30 Abnormal Lab Results - Last 24 Hours (Table) 08/25/22 08/25/22 08/25/22 Range/Units 12:42 17:16 20:27 RBC (4.40-5.60) X 10*6/uL Hgb (13.0-17.0) g/dL Hct (39.6-50.0) % MPV (9.5-12.2) fL Immature Gran # (0.00-0.04) X 10*3/uL Anion Gap (10.00-18.00) mmol/L Glucose (70-110) mg/dL POC Glucose (mg/dL) 212 H 198 H 255 H (70-110) mg/dL 08/26/22 08/26/22 08/26/22 Range/Units 06:30 06:30 11:13 RBC 3.57 L (4.40-5.60) X 10*6/uL Hgb 10.1 L (13.0-17.0) g/dL Hct 30.5 L (39.6-50.0) % MPV 9.3 L (9.5-12.2) fL Immature Gran # 0.08 H (0.00-0.04) X 10*3/uL Anion Gap 9.00 L (10.00-18.00) mmol/L Glucose 68 L (70-110) mg/dL POC Glucose (mg/dL) 130 H (70-110) mg/dL Microbiology - Last 24 Hours (Table) 08/24/22 23:06 Urine Culture - Preliminary Urine,Voided Gram Neg Bacilli 08/24/22 23:00 Blood Culture - Preliminary Blood No Growth after 24 hours 08/24/22 22:45 Blood Culture - Preliminary Blood No Growth after 24 hours Diabetes panel 08/26/22 Range/Units 06:30 Sodium 141 (135-145) mmol/L Potassium 3.6 (3.5-5.5) mmol/L Chloride 107 (96-109) mmol/L Carbon Dioxide 25.1 (20.0-27.5) mmol/L BUN 14.0 (9.0-27.0) mg/dL Creatinine 1.1 (0.6-1.5) mg/dL Glucose 68 L (70-110) mg/dL Calcium 8.9 (8.7-10.3) mg/dL Calcium panel 08/26/22 Range/Units 06:30 Calcium 8.9 (8.7-10.3) mg/dL Pituitary panel 08/26/22 Range/Units 06:30 Sodium 141 (135-145) mmol/L Potassium 3.6 (3.5-5.5) mmol/L Chloride 107 (96-109) mmol/L Carbon Dioxide 25.1 (20.0-27.5) mmol/L BUN 14.0 (9.0-27.0) mg/dL Creatinine 1.1 (0.6-1.5) mg/dL Glucose 68 L (70-110) mg/dL Calcium 8.9 (8.7-10.3) mg/dL Adrenal panel 08/26/22 Range/Units 06:30 Sodium 141 (135-145) mmol/L Potassium 3.6 (3.5-5.5) mmol/L Chloride 107 (96-109) mmol/L Carbon Dioxide 25.1 (20.0-27.5) mmol/L BUN 14.0 (9.0-27.0) mg/dL Creatinine 1.1 (0.6-1.5) mg/dL Glucose 68 L (70-110) mg/dL Calcium 8.9 (8.7-10.3) mg/dL Assessment and Plan Assessment: 66-year-old male with history of recurrent UTIs, BPH on Flomax. Admitted to the hospital with UTI. Discussed with him given his history of recurrent UTIs and urinary symptoms at baseline he might benefit from surgical intervention for his prostate this can be arranged for him as an outpatient. This time I recommend continued treatment for his UTI, and he can follow-up as an outpatient to discuss further intervention for his prostate -Recommend keeping the hospital culture is finalized, recommend discharging on 14 days of antibiotic based on culture sensitivity -We can follow-up as an outpatient to discuss intervention for his prostate. At this time recommend continuing Flomax We'll obtain a bladder scan to assess bladder emptying
[2022-08-26 17:09] LABS: Glucose,Whole Blood 145 mg/dL (70-110)
[2022-08-26 20:58] LABS: Glucose,Whole Blood 216 mg/dL (70-110)
[2022-08-26] MEDS: DOXAZOSIN 4 MG TAB PO SCH (21:58)
[2022-08-26] MEDS: ATORVASTATIN 80 MG TAB PO SCH (21:58)
[2022-08-26] MEDS: INSULIN DETEMIR (LEVEMIR) 100 UNIT/ML SYR SQ SCH (21:59)
--- NOTE | 2022-08-26 23:43 | P.CONS ---
History of Present Illness - Reason for Consult Consult date: 08/26/22 - History of Present Illness Patient is a 66-year-old male with a past medical history being for diabetes mellitus reflux hypertension hyperlipidemia history of prostate disorder and COPD presenting to the hospital with abdominal pain and apparently did have episode of diarrhea symptom has been going on for the last 2 to 3 days patient also complaining of headache and chills he did have urinary urgency and frequency but no suprapubic or flank pain and no hematuria patient on presentation to the hospital did have a fever of 101.2 F patient was tachycardic did have elevated to 14.5 kidney function was normal liver enzymes are normal did have a positive UA influenza RSV and COVID testing was negative blood cultures obtained which are currently pending patient did have a CT of abdominal pelvis few scattered left lower lobe airspace opacity correlate for developing pneumonia prostatomegaly with evidence of chronic bladder outlet obstruction patient also have a abdominal bladder ultrasound suboptimal study patient has been treated with Rocephin infectious disease was consulted for further management of antibiotic therapy Past Medical History Past Medical History: Asthma, COPD, Diabetes Mellitus, GERD/Reflux, Hyperlipidemia, Hypertension, Osteoarthritis (OA), Prostate Disorder Additional Past Medical History / Comment(s): positive c-diff 11/22/18, hx of colon polyps, DDD History of Any Multi-Drug Resistant Organisms: C-DIFF Year Discovered:: 11-22-18 MDRO Source:: stool Past Surgical History: Hernia Repair, Orthopedic Surgery, Tonsillectomy Additional Past Surgical History / Comment(s): right chest wall cyst removed, nerve surgery left elbow Past Anesthesia/Blood Transfusion Reactions: No Reported Reaction Past Psychological History: Anxiety, Panic Disorder Smoking Status: Former smoker Past Alcohol Use History: None Reported Additional Past Alcohol Use History / Comment(s): smoked for 18 yrs- 2 PPD Past Drug Use History: None Reported Additional Drug Use History / Comment(s): patient used to drink alcohol and smoke marijuana but doesn't anymore. - Past Family History Father Family Medical History: Myocardial Infarction ([place]) Additional Family Medical History / Comment(s): about 30 years ago from [place] per patient Mother Family Medical History: No Reported History Additional Family Medical History / Comment(s): from lung issues. Medications and Allergies Home Medications Medication Instructions Recorded Confirmed Type Montelukast [Singulair] 10 mg PO DAILY 09/25/13 08/25/22 History Fenofibrate [Lofibra] 160 mg PO DAILY 02/21/14 08/25/22 History Doxazosin Mesylate [Cardura] 16 mg PO HS 10/20/15 08/25/22 History Cetirizine HCl [Zyrtec] 10 - 20 mg PO DAILY PRN 09/24/16 08/25/22 History Desvenlafaxine [Pristiq ER] 100 mg PO DAILY 09/24/16 08/25/22 History clonazePAM [KlonoPIN] 1 mg PO BID PRN 09/24/16 08/25/22 History Metoprolol Tartrate [Lopressor] 25 mg PO BID 10/21/18 08/25/22 History Insulin Degludec [Tresiba 110 units SQ HS 11/22/18 08/25/22 History Flextouch U-200 Pen] Losartan [Cozaar] 50 mg PO DAILY 06/28/21 08/25/22 History Rosuvastatin Calcium [Crestor] 40 mg PO HS 06/28/21 08/25/22 History Acetaminophen with Codeine 1 tab PO Q6H PRN 08/25/22 08/25/22 History [Tylenol #4 Tablet] Albuterol Nebulized [Ventolin 2.5 mg INHALATION RT-QID PRN 08/25/22 08/25/22 History Nebulized] Aspirin EC [Ecotrin Low Dose] 81 mg PO DAILY 08/25/22 08/25/22 History Celecoxib [CeleBREX] 100 mg PO DAILY PRN 08/25/22 08/25/22 History Fluticasone/Umeclidin/Vilanter 1 puff INHALATION RT-DAILY 08/25/22 08/25/22 History [Trelegy Ellipta 200-62.5-25] Furosemide [Lasix] 40 mg PO DAILY PRN 08/25/22 08/25/22 History Semaglutide [Ozempic] 0.25 mg SQ Q7D 08/25/22 08/25/22 History Allergies Allergy/AdvReac Type Severity Reaction Status Date / Time cat dander Allergy watery Verified 08/25/22 09:51 eyes, congestion, sneezing dog dander Allergy watery Verified 08/25/22 09:51 eyes, congestion, sneezing Physical Exam Vitals: Vital Signs Temp Pulse Pulse Resp BP BP Pulse Ox 08/26/22 12:07 97.6 F 85 18 111/43 97 08/26/22 08:02 106 H 08/26/22 07:52 103 H 08/26/22 07:14 97.7 F 91 18 121/70 95 08/26/22 03:50 99.8 F H 94 16 122/65 93 L 08/25/22 20:29 99.1 F 08/25/22 20:00 16 08/25/22 19:56 110 H 08/25/22 19:46 114 H 08/25/22 19:22 100.5 F H 110 H 16 171/75 96 08/25/22 16:20 108 H 08/25/22 16:02 104 H 08/25/22 14:45 98.4 F 111 H 18 133/68 95 08/25/22 14:22 98.7 F 102 H 20 143/73 95 Intake and Output 08/25/22 08/26/22 08/26/22 22:59 06:59 14:59 Output Total 500 Balance -500 Output: Urine 500 Other: Voiding Method Toilet Toilet # Voids 2 Weight 129.274 kg Results CBC & Chem 7: 08/26/22 06:30 08/26/22 06:30 Labs: Abnormal Lab Results - Last 24 Hours (Table) 08/25/22 08/25/22 08/25/22 Range/Units 12:42 17:16 20:27 RBC (4.40-5.60) X 10*6/uL Hgb (13.0-17.0) g/dL Hct (39.6-50.0) % MPV (9.5-12.2) fL Immature Gran # (0.00-0.04) X 10*3/uL Anion Gap (10.00-18.00) mmol/L Glucose (70-110) mg/dL POC Glucose (mg/dL) 212 H 198 H 255 H (70-110) mg/dL 08/26/22 08/26/22 08/26/22 Range/Units 06:30 06:30 11:13 RBC 3.57 L (4.40-5.60) X 10*6/uL Hgb 10.1 L (13.0-17.0) g/dL Hct 30.5 L (39.6-50.0) % MPV 9.3 L (9.5-12.2) fL Immature Gran # 0.08 H (0.00-0.04) X 10*3/uL Anion Gap 9.00 L (10.00-18.00) mmol/L Glucose 68 L (70-110) mg/dL POC Glucose (mg/dL) 130 H (70-110) mg/dL Microbiology - Last 24 Hours (Table) 08/24/22 23:06 Urine Culture - Preliminary Urine,Voided Gram Neg Bacilli 08/24/22 23:00 Blood Culture - Preliminary Blood No Growth after 24 hours 08/24/22 22:45 Blood Culture - Preliminary Blood No Growth after 24 hours Assessment and Plan Plan: 1patient presented to hospital with sepsis in this patient with fever tachycard ia elevated white count patient did have urinary symptoms likely secondary to urinary source and likely from enteric gram-negative pathogen possible Rocephin sensitive pathogen in view of clinical response in this patient with evidence of bladder outlet obstruction with prostatomegaly and features of cystitis on the CT. 2patient to continue with Rocephin 1 g daily while waiting for the culture to finalize We will follow on clinical condition and cultures to further adjust medication if needed Thank you for this consultation we will follow the patient along with you Time with Patient: Greater than 30
[2022-08-27] MEDS: SODIUM CHLORIDE 0.9% 1,000 ML IV SCH ×2 (04:00→14:14)
[2022-08-27 04:22] LABS: Glucose,Whole Blood 61 mg/dL (70-110)
[2022-08-27 04:40] LABS: Glucose,Whole Blood 69 mg/dL (70-110)
--- NOTE | 2022-08-27 05:05 | P.PN ---
Subjective Progress Note Date: 08/26/22 This is a 66-year-old male who was recently admitted with fever along with abdominal pain and diarrhea and was found to have an acute urinary tract infection with possible sepsis admitted with infectious disease and urology evaluation. Patient does have a history of enlarged prostate and reports has no t followed up with the urologist in a few years. Patient reports he was having fevers and decreased urine output as well. Patient is maintained on IV ceftriaxone and was evaluated by urology recommending no plans for intervention and continuing antibiotics and outpatient follow-up. Patient will continue on IV antibiotics and await finalized cultures to determine appropriate discharge antibiotics. Patient is currently afebrile with no reports of chest pain or shortness of breath. Patient denies nausea or vomiting and tolerating diet. Patient reports he feels significantly improved and requesting to go home. Will await infectious disease evaluation. Review of systems: Constitutional: No reports of fatigue, fever, or chills Cardiovascular: No reports of chest pain or palpitations Respiratory: No reports of shortness of breath or cough GI: no reports of nausea, no reports of vomiting, diarrhea improved : No reports of dysuria or retention Neurovascular: no reports of generalized weakness All medications have been reviewed Active Medications Acetaminophen (Acetaminophen Tab 325 Mg Tab) 650 mg PO Q6HR PRN PRN Reason: Mild Pain or Fever > 100.5 Last Admin: 08/26/22 03:54 Dose: 650 mg Acetaminophen/Codeine Phosphate (Acetaminophen-Codeine 300-30mg Tab) 1 each PO Q6H PRN PRN Reason: Pain Last Admin: 08/26/22 22:03 Dose: 1 each Albuterol Sulfate (Albuterol Nebulized 2.5 Mg/3 Ml) 2.5 mg INHALATION RT-QID PRN PRN Reason: Shortness Of Breath Last Admin: 08/25/22 16:02 Dose: 2.5 mg Aspirin (Aspirin 81 Mg) 81 mg PO DAILY JAYNE Last Admin: 08/26/22 08:59 Dose: 81 mg Atorvastatin Calcium (Atorvastatin 80 Mg Tab) 80 mg PO HS [facility] Last Admin: 08/26/22 21:58 Dose: 80 mg Budesonide/Formoterol Fumarate (Symbicort 80-4.5 Mcg Inhaler) 2 puff INHALATION RT-BID [facility] Last Admin: 08/26/22 20:23 Dose: 2 puff Clonazepam (Clonazepam 1 Mg Tab) 1 mg PO BID PRN PRN Reason: Anxiety Last Admin: 08/26/22 22:03 Dose: 1 mg Desvenlafaxine Succinate (Desvenlafaxine Succinate 50 Mg Tab.Er.24h) 100 mg PO DAILY [facility] Last Admin: 08/26/22 08:59 Dose: 100 mg Dextrose/Water (Dextrose 50% Syringe 50 Ml) 25 ml IVP PER PROTOCOL PRN; P rotocol PRN Reason: Hypoglycemia Dextrose/Water (Dextrose 50% Syringe 50 Ml) 50 ml IVP PER PROTOCOL PRN; Protocol PRN Reason: Hypoglycemia Doxazosin Mesylate (Doxazosin 4 Mg Tab) 16 mg PO HS [facility] Last Admin: 08/26/22 21:58 Dose: 16 mg Fenofibrate (Fenofibrate 160 Mg Tab) 160 mg PO DAILY [facility] Last Admin: 08/26/22 08:59 Dose: 160 mg Furosemide (Furosemide 40 Mg Tab) 40 mg PO DAILY PRN PRN Reason: swelling Sodium Chloride (Saline 0.9%) 1,000 mls @ 75 mls/hr IV .[id number] [facility] Last Admin: 08/27/22 04:00 Dose: 75 mls/hr Ceftriaxone Sodium 1 gm/ (Sodium Chloride) 50 mls @ 100 mls/hr IVPB Q24HR [facility]; Protocol Last Admin: 08/26/22 08:59 Dose: 100 mls/hr Ibuprofen (Ibuprofen 400 Mg Tab) 400 mg PO Q6HR PRN PRN Reason: Mild Pain or Fever > 100.5 Insulin Aspart (Insulin Aspart (Novolog) 100 Unit/Ml Vial) 0 unit SQ ACHS [facility]; Protocol Last Admin: 08/26/22 21:58 Dose: 2 unit Insulin Detemir (Insulin Detemir (Levemir) 100 Unit/Ml Syr) 110 unit SQ HS [facility] Last Admin: 08/26/22 21:59 Dose: 100 unit Ipratropium Hobson (Ipratropium 0.5 Mg/2.5 Ml Nebu) 0.5 mg INHALATION RT-QID [facility] Last Admin: 08/26/22 20:22 Dose: 0.5 mg Ketorolac Tromethamine (Ketorolac 15 Mg/Ml 1 Ml Vial) 15 mg IVP Q6HR PRN PRN Reason: Moderate Pain (Scale 4 to 6) Stop: 08/27/22 23:44 Losartan Potassium (Losartan 50 Mg Tab) 50 mg PO DAILY [facility] Last Admin: 08/26/22 08:59 Dose: 50 mg Metoprolol Tartrate (Metoprolol Tartrate 25 Mg Tab) 25 mg PO BID [facility] Last Admin: 08/26/22 21:58 Dose: 25 mg Montelukast Sodium (Montelukast 10 Mg Tab) 10 mg PO DAILY [facility] Last Admin: 08/26/22 08:59 Dose: 10 mg Naloxone HCl (Naloxone 0.4 Mg/Ml 1 Ml Vial) 0.2 mg IV Q2M PRN PRN Reason: Opioid Reversal Non-Formulary Medication (Semaglutide [Ozempic]) 0.25 mg SQ Q7D [facility] Last Admin: 08/26/22 09:48 Dose: Not Given Ondansetron HCl (Ondansetron 4 Mg/2 Ml Vial) 4 mg IVP Q8HR PRN PRN Reason: Nausea And Vomiting Pantoprazole Sodium (Pantoprazole 40 Mg Tablet) 40 mg PO AC-[id number] [facility] Last Admin: 08/26/22 08:13 Dose: 40 mg Tamsulosin HCl (Tamsulosin 0.4 Mg Cap.Er.24h) 0.4 mg PO BID [facility] Last Admin: 08/26/22 21:58 Dose: 0.4 mg PHYSICAL EXAMINATION: GENERAL: The patient is alert and oriented x4, Well developed, well nourished. Obese HEENT: Pupils are round and equally reacting to light. EOMI. no scleral icterus. No conjunctival pallor. Normocephalic, atraumatic. No pharyngeal erythema. No thyromegaly. CARDIOVASCULAR: S1 and S2 muffled PULMONARY: diminished breath sounds bilaterally with no wheezing or rhonchi noted. ABDOMEN: soft. Nontender on exam. obese. non-distended, normoactive bowel sounds. No palpable organomegaly. MUSCULOSKELETAL: No joint swelling or deformity. EXTREMITIES: No cyanosis, clubbing, or pedal edema. NEUROLOGICAL: Gross neurological examination did not reveal any focal deficits. SKIN: No rashes. Assessment: Acute urinary tract infection, present on admission sepsis Benign prostatic hypertrophy history Asthma/COPD history and exacerbation Diabetes mellitus, type II Obesity with BMI of 36.6 GI prophylaxis DVT prophylaxis Full code Plan: Recommend to continue with current medications and management with urology and infectious disease consultation Patient is continued on antibiotics in the form of ceftriaxone with preliminary culture showing gram-negative bacilli. Will await finalized cultures to determine discharge antibiotics Patient reports he feels much better and continues to request to call home and discussed with him the importance of appropriate antibiotics and treat infection and is agreeable to stay. Urology evaluated the patient with no plans for surgical intervention recommending continuing on antibiotics for 2 week course once finalized cultures have been obtained and outpatient follow-up Blood cultures remain negative and preliminary showing gram-negative and will follow-up with finalized cultures Recommend continue monitoring Accu-Cheks before meals and at bedtime and will use current regimen sliding scale. Recommend follow-up labs in the a.m. and will continue to monitor closely Multiple complex medical issues, prognosis is guarded Possible discharge in 24 hours The impression and plan of care has been dictated by Elizabeth Lucas, nurse practitioner as directed. Dr. Errol MD I have performed a history and examination and MDM of this patient, discussed the same with the dictator, and agree with the dictator's assessment and plan as written ,documented as a scribe. Based on total visit time, I have performed more than 50% of the visit. Any additional findings or plans will be noted. Objective - Vital Signs Vital signs: Vital Signs Temp 97.6 F 08/26/22 12:07 Pulse 85 08/26/22 12:07 Resp 18 08/26/22 12:07 BP 111/43 08/26/22 12:07 Pulse Ox 97 08/26/22 12:07 FiO2 Intake & Output 08/25/22 08/26/22 08/26/22 18:59 06:59 18:59 Output Total 500 Balance -500 Weight 129.274 kg Output: Urine 500 Other: Voiding Method Toilet Toilet # Voids 2 - Labs CBC & Chem 7: 08/26/22 06:30 08/26/22 06:30 Labs: Abnormal Lab Results - Last 24 Hours (Table) 08/25/22 08/25/22 08/26/22 Range/Units 17:16 20:27 06:30 RBC 3.57 L (4.40-5.60) X 10*6/uL Hgb 10.1 L (13.0-17.0) g/dL Hct 30.5 L (39.6-50.0) % MPV 9.3 L (9.5-12.2) fL Immature Gran # 0.08 H (0.00-0.04) X 10*3/uL Anion Gap (10.00-18.00) mmol/L Glucose (70-110) mg/dL POC Glucose (mg/dL) 198 H 255 H (70-110) mg/dL 08/26/22 08/26/22 Range/Units 06:30 11:13 RBC (4.40-5.60) X 10*6/uL Hgb (13.0-17.0) g/dL Hct (39.6-50.0) % MPV (9.5-12.2) fL Immature Gran # (0.00-0.04) X 10*3/uL Anion Gap 9.00 L (10.00-18.00) mmol/L Glucose 68 L (70-110) mg/dL POC Glucose (mg/dL) 130 H (70-110) mg/dL Microbiology - Last 24 Hours (Table) 08/24/22 23:06 Urine Culture - Preliminary Urine,Voided Gram Neg Bacilli 08/24/22 23:00 Blood Culture - Preliminary Blood No Growth after 24 hours 08/24/22 22:45 Blood Culture - Preliminary Blood No Growth after 24 hours
[2022-08-27 05:07] LABS: Glucose,Whole Blood 94 mg/dL (70-110)
[2022-08-27 07:03] LABS: Glucose,Whole Blood 119 mg/dL (70-110)
[2022-08-27 07:33] VITALS: RESP 18
[2022-08-27] MEDS: INSULIN ASPART (NovoLOG) 100 UNIT/ML VIAL SQ SCH ×2 (08:04→12:33)
[2022-08-27] MEDS: SYMBICORT 80-4.5 MCG INHALER INHALATION SCH (08:53)
[2022-08-27] MEDS: IPRATROPIUM 0.5 MG/2.5 ML NEBU INHALATION SCH ×2 (08:53→12:01)
[2022-08-27] MEDS: ASPIRIN 81 MG PO SCH (08:56)
[2022-08-27] MEDS: FENOFIBRATE 160 MG TAB PO SCH (08:56)
[2022-08-27] MEDS: TAMSULOSIN 0.4 MG CAP.ER.24H PO SCH (08:56)
[2022-08-27] MEDS: LOSARTAN 50 MG TAB PO SCH (08:56)
[2022-08-27] MEDS: METOPROLOL TARTRATE 25 MG TAB PO SCH (08:56)
[2022-08-27] MEDS: MONTELUKAST 10 MG TAB PO SCH (08:56)
[2022-08-27] MEDS: PANTOPRAZOLE 40 MG TABLET PO SCH (08:56)
[2022-08-27] MEDS: DESVENLAFAXINE SUCCINATE 50 MG TAB.ER.24H PO SCH (08:56)
--- NOTE | 2022-08-27 09:54 | P.PN ---
Subjective Progress Note Date: 08/27/22 No acute overnight events, denies any voiding dysfunction. Urine culture growing gram-negative bacilli Objective - Vital Signs Vital signs: Vital Signs Temp 98.1 F 08/27/22 07:03 Pulse 86 08/27/22 07:03 Resp 18 08/27/22 07:03 BP 187/73 08/27/22 07:03 Pulse Ox 97 08/27/22 07:03 FiO2 Intake & Output 08/26/22 08/27/22 08/27/22 18:59 06:59 18:59 Intake Total 900 Balance 900 Intake: Intake, IV Titration 900 Amount Sodium Chloride 0.9% 1, 900 000 ml @ 75 mls/hr IV . [id number] [facility] Rx#:[id number] Other: Voiding Method Toilet Toilet # Voids 3 # Bowel Movements 1 - Constitutional General appearance: Present: no acute distress - Gastrointestinal General gastrointestinal: Present: soft. Absent: tenderness - Labs CBC & Chem 7: 08/26/22 06:30 08/26/22 06:30 Labs: Abnormal Lab Results - Last 24 Hours (Table) 08/26/22 08/26/22 08/26/22 Range/Units 06:30 06:30 11:13 RBC 3.57 L (4.40-5.60) X 10*6/uL Hgb 10.1 L (13.0-17.0) g/dL Hct 30.5 L (39.6-50.0) % MPV 9.3 L (9.5-12.2) fL Immature Gran # 0.08 H (0.00-0.04) X 10*3/uL Anion Gap 9.00 L (10.00-18.00) mmol/L Glucose 68 L (70-110) mg/dL POC Glucose (mg/dL) 130 H (70-110) mg/dL 08/26/22 08/26/22 08/27/22 Range/Units 17:07 20:56 04:19 RBC (4.40-5.60) X 10*6/uL Hgb (13.0-17.0) g/dL Hct (39.6-50.0) % MPV (9.5-12.2) fL Immature Gran # (0.00-0.04) X 10*3/uL Anion Gap (10.00-18.00) mmol/L Glucose (70-110) mg/dL POC Glucose (mg/dL) 145 H 216 H 61 L (70-110) mg/dL 08/27/22 08/27/22 Range/Units 04:38 07:02 RBC (4.40-5.60) X 10*6/uL Hgb (13.0-17.0) g/dL Hct (39.6-50.0) % MPV (9.5-12.2) fL Immature Gran # (0.00-0.04) X 10*3/uL Anion Gap (10.00-18.00) mmol/L Glucose (70-110) mg/dL POC Glucose (mg/dL) 69 L 119 H (70-110) mg/dL Microbiology - Last 24 Hours (Table) 08/24/22 23:00 Blood Culture - Preliminary Blood No Growth after 48 hours 08/24/22 22:45 Blood Culture - Preliminary Blood No Growth after 48 hours 08/24/22 23:06 Urine Culture - Preliminary Urine,Voided Gram Neg Bacilli Assessment and Plan Assessment: 66-year-old male with history of recurrent UTIs, BPH on Flomax. Admitted to the hospital with UTI. Discussed with him given his history of recurrent UTIs and urinary symptoms at baseline he might benefit from surgical intervention for his prostate this can be arranged for him as an outpatient. This time I recommend continued treatment for his UTI, and he can follow-up as an outpatient to discuss further intervention for his prostate -Recommend keeping the hospital culture is finalized, recommend discharging on 14 days of antibiotic based on culture sensitivity -We can follow-up as an outpatient to discuss intervention for his prostate. At this time recommend continuing Flomax
[2022-08-27 11:16] LABS: Glucose,Whole Blood 88 mg/dL (70-110)
[2022-08-27 12:05] LABS: African American GFR (CKD) 89.2 (60.0-200.0); Anion Gap 11.3 mmol/L (10.00-18.00); BUN/Creat Ratio 9.7 Ratio (12.00-20.00); Blood Urea Nitrogen 9.7 mg/dL (9.0-27.0); Calcium 9.1 mg/dL (8.7-10.3); Carbon Dioxide 23.7 mmol/L (20.0-27.5); Potassium 3.6 mmol/L (3.5-5.5)
[2022-08-27 13:12] VITALS: BP 159/72; PULSE 92; TEMP 97.9
--- NOTE | 2022-08-27 14:03 | P.PN ---
Subjective Progress Note Date: 08/27/22 Principal diagnosis: Urinary tract infection Patient is a 66-year-old male with a past medical history being for diabetes mellitus reflux hypertension hyperlipidemia history of prostate disorder and COPD presenting to the hospital with abdominal pain, patient did have a urinary symptoms of difficulty urination and burning did have a positive UA concerning for urinary tract infection. On today's evaluation and that is 08/27/2022, the patient denies having any fever or chills, the patient is breathing comfortably no chest pain shortness of breath or cough no nausea no vomiting no abdominal pain or diarrhea Objective - Vital Signs Vital signs: Vital Signs Temp 98.1 F 08/27/22 07:03 Pulse 86 08/27/22 08:55 Resp 18 08/27/22 08:55 BP 187/73 08/27/22 07:03 Pulse Ox 97 08/27/22 07:03 FiO2 Intake & Output 08/26/22 08/27/22 08/27/22 18:59 06:59 18:59 Intake Total 900 Balance 900 Intake: Intake, IV Titration 900 Amount Sodium Chloride 0.9% 1, 900 000 ml @ 75 mls/hr IV . [id number] [facility] Rx#:[id number] Other: Voiding Method Toilet Toilet Toilet # Voids 3 # Bowel Movements 1 - Exam GENERAL DESCRIPTION: An elderly male lying in bed in no distress RESPIRATORY SYSTEM: Unlabored breathing , decreased breath sounds at bases HEART: S1 S2 regular rate and rhythm , ABDOMEN: Soft , no tenderness EXTREMITIES: No edema feet - Labs CBC & Chem 7: 08/26/22 06:30 08/27/22 05:26 Labs: Abnormal Lab Results - Last 24 Hours (Table) 08/26/22 08/26/22 08/27/22 Range/Units 17:07 20:56 04:19 BUN/Creatinine Ratio (12.00-20.00) Ratio Glucose (70-110) mg/dL POC Glucose (mg/dL) 145 H 216 H 61 L (70-110) mg/dL 08/27/22 08/27/22 08/27/22 Range/Units 04:38 05:26 07:02 BUN/Creatinine Ratio 9.70 L (12.00-20.00) Ratio Glucose 113 H (70-110) mg/dL POC Glucose (mg/dL) 69 L 119 H (70-110) mg/dL Microbiology - Last 24 Hours (Table) 08/24/22 23:00 Blood Culture - Preliminary Blood No Growth after 48 hours 08/24/22 22:45 Blood Culture - Preliminary Blood No Growth after 48 hours 08/24/22 23:06 Urine Culture - Preliminary Urine,Voided Gram Neg Bacilli Assessment and Plan (1) UTI (urinary tract infection) Current Visit: Yes Status: Acute Code(s): N39.0 - URINARY TRACT INFECTION, SITE NOT SPECIFIED SNOMED Code(s): 92779592 Plan: 1patient presented to hospital with sepsis in this patient with fever tachycardia elevated white count patient did have urinary symptoms likely secondary to urinary source and likely from enteric gram-negative pathogen possible Rocephin sensitive pathogen in view of clinical response in this p atient with evidence of bladder outlet obstruction with prostatomegaly and features of cystitis on the CT. 2patient urine cultures currently growing gram-negative bacilli with ID sensitivities pending, patient to continue with Rocephin 1 g daily while waiting for the culture to finalize Time with Patient: Less than 30
--- NOTE | 2022-08-29 23:25 | P.DS ---
Providers Date of admission: 08/24/22 23:44 Expected date of discharge: 08/27/22 Attending physician: Yanet Norton Consults: 08/25/22 15:44 Consult Physician Urgent Consulting Provider: Arsen Navarrete Consult Reason/Comments: UTI Do you want consulting provider notified?: Yes 08/25/22 15:45 Consult Physician Urgent Consulting Provider: Ruben Alvares Consult Reason/Comments: uti, hx of bph Do you want consulting provider notified?: Yes Primary care physician: Anu Plata Hospital Course: Final diagnosis Acute urinary tract infection, present on admission, sepsis Benign prostatic hypertrophy history Asthma/COPD history and exacerbation Diabetes mellitus, type II Obesity with BMI of 36.6 GI prophylaxis DVT prophylaxis Full code Discharge disposition Patient is being discharged in a stable condition with guarded prognosis to home. Patient will follow-up with Dr. martha garner ing in the outpatient setting upon discharge. Patient is to continue with oral Cipro twice daily for the next 10 days with close outpatient follow-up with infectious disease and urology as scheduled. Total time taken is greater than 35 minutes. Hospital course This is a 66-year-old male who was recently admitted with UTI with features of sepsis, present on admission. Patient does have BPH history and has not seen a neurologist in quite some time. Patient also with some acute kidney injury on admission with no signs of hydronephrosis. Patient did have urine cultures finalized with E. coli with multiple sensitivities with infectious disease following recommend Cipro twice daily for the next few days to complete course. Patient has been cleared by consultations for discharge and will follow-up with urology outpatient. Please refer to other consultation notes for further HPI Currently no reports of chest pain, shortness of breath, or palpitations. Patient is afebrile. No reports of nausea or vomiting and patient is tolerating diet. Patient will be discharged home today. Guarded prognosis. Physical exam: Gen: This is a 66-year-old male who is awake, alert and oriented 3, well- developed, well-nourished, obese HEENT: Head is atraumatic, normocephalic. Pupils equal, round. Sclerae is anicteric. NECK: Supple. No JVD. No lymphadenopathy. No thyromegaly. LUNGS: Clear to auscultation. No wheezes or rhonchi. No intercostal retractions. HEART: Regular rate and rhythm. No murmur. ABDOMEN: Soft. Bowel sounds are present. No masses. No tenderness. EXTREMITIES: No pedal edema. No calf tenderness. NEUROLOGICAL: Patient is awake, alert and oriented x3. Cranial nerves 2 through 12 are grossly intact. Please refer to medication reconciliation sheet for a list of medications. The impression and plan of care has been dictated by Elizabeth Lucas, Nurse Practitioner as directed. Dr. Errol MD I have performed a history and examination and MDM of this patient, discussed the same with the dictator, and agree with the dictator's assessment and plan as written ,documented as a scribe. Based on total visit time, I have performed more than 50% of the visit. Patient Condition at Discharge: Fair Plan - Discharge Summary Discharge Rx Participant: Yes New Discharge Prescriptions: New Tamsulosin [Flomax] 0.4 mg PO BID #60 cap Acetaminophen Tab [Tylenol] 650 mg PO Q6HR PRN tab PRN Reason: Mild Pain Or Fever > 100.5 Ciprofloxacin HCl [Cipro] 500 mg PO Q12HR 7 Days #14 tab Tamsulosin [Flomax] 0.4 mg PO BID #60 cap Continue Montelukast [Singulair] 10 mg PO DAILY Fenofibrate [Lofibra] 160 mg PO DAILY Doxazosin Mesylate [Cardura] 16 mg PO HS Desvenlafaxine [Pristiq ER] 100 mg PO DAILY clonazePAM [KlonoPIN] 1 mg PO BID PRN PRN Reason: Anxiety Cetirizine HCl [Zyrtec] 10 - 20 mg PO DAILY PRN PRN Reason: Allergy Symptoms Metoprolol Tartrate [Lopressor] 25 mg PO BID Insulin Degludec [Tresiba Flextouch U-200 Pen] 110 units SQ HS Rosuvastatin Calcium [Crestor] 40 mg PO HS Losartan [Cozaar] 50 mg PO DAILY Aspirin EC [Ecotrin Low Dose] 81 mg PO DAILY Albuterol Nebulized [Ventolin Nebulized] 2.5 mg INHALATION RT-QID PRN PRN Reason: Shortness Of Breath Semaglutide [Ozempic] 0.25 mg SQ Q7D Fluticasone/Umeclidin/Vilanter [Trelegy Ellipta 200-62.5-25] 1 puff INHALATION RT-DAILY Celecoxib [CeleBREX] 100 mg PO DAILY PRN PRN Reason: Pain Furosemide [Lasix] 40 mg PO DAILY PRN PRN Reason: swelling Acetaminophen with Codeine [Tylenol #4 Tablet] 1 tab PO Q6H PRN PRN Reason: Pain Discharge Medication List Montelukast [Singulair] 10 mg PO DAILY 09/25/13 [History] Fenofibrate [Lofibra] 160 mg PO DAILY 02/21/14 [History] Doxazosin Mesylate [Cardura] 16 mg PO HS 10/20/15 [History] Cetirizine HCl [Zyrtec] 10 - 20 mg PO DAILY PRN 09/24/16 [History] Desvenlafaxine [Pristiq ER] 100 mg PO DAILY 09/24/16 [History] clonazePAM [KlonoPIN] 1 mg PO BID PRN 09/24/16 [History] Metoprolol Tartrate [Lopressor] 25 mg PO BID 10/21/18 [History] Insulin Degludec [Tresiba Flextouch U-200 Pen] 110 units SQ HS 11/22/18 [History] Losartan [Cozaar] 50 mg PO DAILY 06/28/21 [History] Rosuvastatin Calcium [Crestor] 40 mg PO HS 06/28/21 [History] Acetaminophen with Codeine [Tylenol #4 Tablet] 1 tab PO Q6H PRN 08/25/22 [History] Albuterol Nebulized [Ventolin Nebulized] 2.5 mg INHALATION RT-QID PRN 08/25/22 [History] Aspirin EC [Ecotrin Low Dose] 81 mg PO DAILY 08/25/22 [History] Celecoxib [CeleBREX] 100 mg PO DAILY PRN 08/25/22 [History] Fluticasone/Umeclidin/Vilanter [Trelegy Ellipta 200-62.5-25] 1 puff INHALATION RT-DAILY 08/25/22 [History] Furosemide [Lasix] 40 mg PO DAILY PRN 08/25/22 [History] Semaglutide [Ozempic] 0.25 mg SQ Q7D 08/25/22 [History] Acetaminophen Tab [Tylenol] 650 mg PO Q6HR PRN tab 08/27/22 [Rx] Ciprofloxacin HCl [Cipro] 500 mg PO Q12HR 7 Days #14 tab 08/27/22 [Rx] Tamsulosin [Flomax] 0.4 mg PO BID #60 cap 08/27/22 [Rx] Tamsulosin [Flomax] 0.4 mg PO BID #60 cap 08/27/22 [Rx] Follow up Appointment(s)/Referral(s): [facility] [NON-STAFF] - 1 Week Anu Plata MD [Primary Care Provider] - 1 Week Ruben Alvares MD [STAFF PHYSICIAN] - 4 Weeks [facility],Infusion [NON-STAFF] - 1 Week [facility], [REFERRING] - 1 Week Ambulatory/Diagnostic Orders: Complete Blood Count w/diff [LAB.AMB] Time Frame: 3 Days, Location: None Selected Patient Instructions/Handouts: Urinary Tract Infection in Men (DC) Activity/Diet/Wound Care/Special Instructions: Activity Limited until follow-up Follow-up with primary care provider on discharge follow-up with urology outpatient Continue taking medications as prescribed Patient continue on oral Cipro twice daily for the next 1 week Diet as tolerated Discharge Disposition: HOME SELF-CARE
== END 2022-08-27 15:35 | disposition home health service (06) | DRG 872 ==
LOC: EC 20:31 → 5NMEDONC 23:44
PROVIDERS: ADMIT Hospitalist; ATTEND Hospitalist
DX: A41.51 Sepsis due to Escherichia coli [E. coli] (principal); N39.0 Urinary tract infection, site not specified; J44.1 Chronic obstructive pulmonary disease with (acute) exacerbation; J45.901 Unspecified asthma with (acute) exacerbation; N17.9 Acute kidney failure, unspecified; E66.9 Obesity, unspecified; E78.5 Hyperlipidemia, unspecified; Z87.891 Personal history of nicotine dependence; E11.9 Type 2 diabetes mellitus without complications; Z20.822 Contact with and (suspected) exposure to COVID-19; F41.0 Panic disorder [episodic paroxysmal anxiety]; I10 Essential (primary) hypertension; M19.90 Unspecified osteoarthritis, unspecified site; Z86.010 Personal history of colon polyps; N40.0 Benign prostatic hyperplasia without lower urinary tract symptoms; Z68.36 Body mass index [BMI] 36.0-36.9, adult; Z79.1 Long term (current) use of non-steroidal anti-inflammatories (NSAID); Z79.4 Long term (current) use of insulin; Z79.82 Long term (current) use of aspirin; Z79.899 Other long term (current) drug therapy; Z82.49 Family history of ischemic heart disease and other diseases of the circulatory system; Z87.440 Personal history of urinary (tract) infections
CPT/HCPCS: 36415; 71045; 74177; 76770; 80048; 80053; 81001; 82150; 83036; 83605; 83690; 85025; 85610; 85730; 87040; 87077; 87086; 87186; 87636; 93005; 94640; 96361; 96365; 96366; 96367; 96375; 99285

== ENCOUNTER 2022-11-30 12:16 | Inpatient (IN) | payer MEDICARE, OTHER ==
[2022-11-30] MEDS ORDERED: DIPHENOX-ATROP 2.5-0.025 MG 1 EACH TAB PO STA (12:40)
[2022-11-30] MEDS ORDERED: SODIUM CHLORIDE 0.9% 1,000 ML IV ONE (12:43)
--- NOTE | 2022-11-30 12:56 | ED ---
General Adult HPI - General Chief complaint: Nausea/Vomiting/Diarrhea Stated complaint: Nausea,Weakness Time Seen by Provider: 11/30/22 12:30 Source: patient, EMS, RN notes reviewed, old records reviewed Mode of arrival: EMS Limitations: no limitations - History of Present Illness Initial comments: This is a 67-year-old male who presents emergency Department complaining of generalized weakness since last night when he started having diarrhea. Patient states the diarrhea got much worse today and he became much more fatigued and weak per patient states the last time using for weakness he had a very low magnesium. Patient denies any fever chills per patient denies any chest pain difficulty breathing shortest breath. Patient states his abdomen feels a little full no actual pain. Patient denies any back pain. Patient denies any dysuria hematuria urinary frequency. - Related Data Home Medications Medication Instructions Recorded Confirmed Montelukast [Singulair] 10 mg PO DAILY 09/25/13 08/25/22 Fenofibrate [Lofibra] 160 mg PO DAILY 02/21/14 08/25/22 Doxazosin Mesylate [Cardura] 16 mg PO HS 10/20/15 08/25/22 Cetirizine HCl [Zyrtec] 10 - 20 mg PO DAILY PRN 09/24/16 08/25/22 Desvenlafaxine [Pristiq ER] 100 mg PO DAILY 09/24/16 08/25/22 clonazePAM [KlonoPIN] 1 mg PO BID PRN 09/24/16 08/25/22 Metoprolol Tartrate [Lopressor] 25 mg PO BID 10/21/18 08/25/22 Insulin Degludec [Tresiba 110 units SQ HS 11/22/18 08/25/22 Flextouch U-200 Pen] Losartan [Cozaar] 50 mg PO DAILY 06/28/21 08/25/22 Rosuvastatin Calcium [Crestor] 40 mg PO HS 06/28/21 08/25/22 Acetaminophen with Codeine 1 tab PO Q6H PRN 08/25/22 08/25/22 [Tylenol #4 Tablet] Albuterol Nebulized [Ventolin 2.5 mg INHALATION RT-QID PRN 08/25/22 08/25/22 Nebulized] Aspirin EC [Ecotrin Low Dose] 81 mg PO DAILY 08/25/22 08/25/22 Celecoxib [CeleBREX] 100 mg PO DAILY PRN 08/25/22 08/25/22 Fluticasone/Umeclidin/Vilanter 1 puff INHALATION RT-DAILY 08/25/22 08/25/22 [Trelegy Ellipta 200-62.5-25] Furosemide [Lasix] 40 mg PO DAILY PRN 08/25/22 08/25/22 Semaglutide [Ozempic] 0.25 mg SQ Q7D 08/25/22 08/25/22 Previous Rx's Medication Instructions Recorded Acetaminophen Tab [Tylenol] 650 mg PO Q6HR PRN tab 08/27/22 Ciprofloxacin HCl [Cipro] 500 mg PO Q12HR 7 Days #14 tab 08/27/22 Tamsulosin [Flomax] 0.4 mg PO BID #60 cap 08/27/22 Tamsulosin [Flomax] 0.4 mg PO BID #60 cap 08/27/22 Allergies Allergy/AdvReac Type Severity Reaction Status Date / Time cat dander Allergy watery Verified 11/30/22 12:28 eyes, congestion, sneezing dog dander Allergy watery Verified 11/30/22 12:28 eyes, congestion, sneezing Review of Systems ROS Statement: Those systems with pertinent positive or pertinent negative responses have been documented in the HPI. ROS Other: All systems not noted in ROS Statement are negative. Past Medical History Past Medical History: Asthma, COPD, Diabetes Mellitus, GERD/Reflux, Hyperlipidemia, Hypertension, Osteoarthritis (OA), Prostate Disorder Additional Past Medical History / Comment(s): positive c-diff 11/22/18, hx of colon polyps, DDD History of Any Multi-Drug Resistant Organisms: C-DIFF Date of last positivie culture/infection: 11-22-18 MDRO Source:: stool Past Surgical History: Hernia Repair, Orthopedic Surgery, Tonsillectomy Additional Past Surgical History / Comment(s): right chest wall cyst removed, nerve surgery left elbow Past Anesthesia/Blood Transfusion Reactions: No Reported Reaction Past Psychological History: Anxiety, Panic Disorder Smoking Status: Former smoker Past Alcohol Use History: None Reported Past Drug Use History: None Reported - Past Family History Father Family Medical History: Myocardial Infarction ([place]) Additional Family Medical History / Comment(s): about 30 years ago from [place] per patient Mother Family Medical History: No Reported History Additional Family Medical History / Comment(s): from lung issues. General Exam - General Exam Comments Initial Comments: GENERAL: Patient is well-developed and well-nourished. Patient is nontoxic and well- hydrated and is in no acute distress. ENT: Neck is soft and supple. No significant lymphadenopathy is noted. Oropharynx is clear. Moist mucous membranes. Neck has full range of motion without eliciting any pain. EYES: The sclera were anicteric and conjunctiva were pink and moist. Extraocular movements were intact and pupils were equal round and reactive to light. Eyelid s were unremarkable. PULMONARY: Unlabored respirations. Good breath sounds bilaterally. No audible rales rhonchi or wheezing was noted. CARDIOVASCULAR: There is a regular rate and rhythm without any murmurs gallops or rubs. ABDOMEN: Soft and nontender with normal bowel sounds. SKIN: Skin is clear with no lesions or rashes and otherwise unremarkable. NEUROLOGIC: Patient is alert and oriented x3. Cranial nerves II through XII are grossly intact. Motor and sensory are also intact. Normal speech, volume and content. Symmetrical smile. MUSCULOSKELETAL: Normal extremities with adequate strength and full range of motion. LYMPHATICS: No significant lymphadenopathy is noted PSYCHIATRIC: Normal psychiatric evaluation. Limitations: no limitations Course Vital Signs 11/30/22 12:28 Temperature 97.3 F L Pulse Rate 97 Respiratory 16 Rate Blood Pressure 116/63 O2 Sat by Pulse 92 L Oximetry Medical Decision Making - Medical Decision Making Was pt. sent in by a medical professional or institution ([facility], COMPUTER HARDWARE ENGINEER, urgent care, hospital, or fci...) When possible be specific @ -No Did you speak to anyone other than the patient for history (EMS, parent, family, police, friend...)? What history was obtained from this source @ -No Did you review nursing and triage notes (agree or disagree)? Why? @ -I reviewed and agree with nursing and triage notes Were old charts reviewed (outside hosp., previous admission, EMS record, old EKG, old radiological studies, urgent care reports/EKG's, fci records)? Report findings @ -View prior lab work on this patient and he consistently has had a low magnesium Differential Diagnosis (chest pain, altered mental status, abdominal pain women, abdominal pain men, vaginal bleeding, weakness, fever, dyspnea, syncope, headache, dizziness, GI bleed, back pain, seizure, CVA, palpatations, mental health, musculoskeletal)? @ -Differential Weakness: Hypoglycemia, shock, sepsis, hyponatremia, anemia, infection, [place], ETOH, adverse medicine reaction, overdose, stroke, this is not meant to be an all-inclusive list. EKG interpreted by me (3pts min.). @ -As above X-rays interpreted by me (1pt min.). @ -None done CT interpreted by me (1pt min.). @ -None done U/S interpreted by me (1pt. min.). @ -None done What testing was considered but not performed or refused? (CT, X-rays, U/S, labs)? Why? @ -None What meds were considered but not given or refused? Why? @ -None Did you discuss the management of the patient with other professionals (professionals i.e. , PA, COMPUTER HARDWARE ENGINEER, lab, RT, psych nurse, social media marketing specialist, hris developer, teacher, banking services officer, case mgr)? Give summary @ -I spoke with Dr. Prasad he agreed to admit the patient Was smoking cessation discussed for >3mins.? @ -No Was critical care preformed (if so, how long)? @ -No Were there social determinants of health that impacted care today? How? (Homelessness, low income, unemployed, alcoholism, drug addiction, transportation, low edu. Level, literacy, decrease access to med. care, senior living, rehab)? @ -No Was there de-escalation of care discussed even if they declined (Discuss DNR or withdrawal of care, Hospice)? DNR status @ -No What co-morbidities impacted this encounter? (DM, HTN, Smoking, COPD, CAD, Cancer, CVA, ARF, Chemo, Hep., AIDS, mental health diagnosis, sleep apnea, morbid obesity)? @ -None Was patient admitted / discharged? Hospital course, mention meds given and route, prescriptions, significant lab abnormalities, going to OR and other pertinent info. @ -Patient was given Lomotil for diarrhea. Patient also was given 3 g of magnesium sulfate because his magnesium is 1.2. Spoke with Dr. Prasad he agreed to admit the patient I admitted the patient I wrote admitting orders Undiagnosed new problem with uncertain prognosis? @ -No Drug Therapy requiring intensive monitoring for toxicity (Heparin, Nitro, Insulin, Cardizem)? @ -No Were any procedures done? @ -No Diagnosis/symptom? @ -Hypomagnesemia Acute, or Chronic, or Acute on Chronic? @ -Acute Uncomplicated (without systemic symptoms) or Complicated (systemic symptoms)? @ -Complicated Side effects of treatment? @ -No Exacerbation, Progression, or Severe Exacerbation? @ -No Poses a threat to life or bodily function? How? (Chest pain, [place], [place], pneumonia, PE, COPD, DKA, ARF, appy, cholecystitis, CVA, Diverticulitis, Homicidal, Suicidal, threat to staff... and all critical care pts) @ -No Diagnosis/symptom? @ -Acute diarrhea Acute, or Chronic, or Acute on Chronic? @ -default Uncomplicated (without systemic symptoms) or Complicated (systemic symptoms)? @ -Uncomplicated Side effects of treatment? @ -none Exacerbation, Progression, or Severe Exacerbation] @ -no Poses a threat to life or bodily function? @ -no - Lab Data Result diagrams: 11/30/22 12:57 11/30/22 12:57 Lab Results 11/30/22 11/30/22 Range/Units 12:57 12:57 WBC 12.8 H (3.8-10.6) k/uL RBC 4.75 (4.30-5.90) m/uL Hgb 13.7 (13.0-17.5) gm/dL Hct 41.0 (39.0-53.0) % MCV 86.3 (80.0-100.0) fL MCH 28.8 (25.0-35.0) pg MCHC 33.4 (31.0-37.0) g/dL RDW 13.5 (11.5-15.5) % Plt Count 197 (150-450) k/uL MPV 7.0 Neutrophils % 87 % Lymphocytes % 6 % Monocytes % 4 % Eosinophils % 2 % Basophils % 0 % Neutrophils # 11.1 H (1.3-7.7) k/uL Lymphocytes # 0.8 L (1.0-4.8) k/uL Monocytes # 0.5 (0-1.0) k/uL Eosinophils # 0.3 (0-0.7) k/uL Basophils # 0.0 (0-0.2) k/uL Sodium 135 L (137-145) mmol/L Potassium 4.5 (3.5-5.1) mmol/L Chloride 101 (98-107) mmol/L Carbon Dioxide 24 (22-30) mmol/L Anion Gap 10 mmol/L BUN 19 (9-20) mg/dL Creatinine 0.93 (0.66-1.25) mg/dL Est GFR (CKD-EPI)AfAm >90 (>60 ml/min/1.73 sqM) Est GFR (CKD-EPI)NonAf 84 (>60 ml/min/1.73 sqM) Glucose 227 H (74-99) mg/dL Calcium 8.8 (8.4-10.2) mg/dL Magnesium 1.2 L (1.6-2.3) mg/dL Total Bilirubin 0.5 (0.2-1.3) mg/dL AST 32 (17-59) U/L ALT 26 (4-49) U/L Alkaline Phosphatase 47 (38-126) U/L Total Protein 6.6 (6.3-8.2) g/dL Albumin 3.8 (3.5-5.0) g/dL Disposition Clinical Impression: Hypomagnesemia, Acute diarrhea Disposition: ADMITTED IP TO THIS HOSP Referrals: Anu Plata MD [Primary Care Provider] - 1-2 days Time of Disposition: 14:20
[2022-11-30 13:15] LABS: Basophils % (A) 0 %; Eosinophils # (A) 0.3 k/uL (0-0.7); Eosinophils % (A) 2 %; HGB 13.7 gm/dL (13.0-17.5); Lymphocytes # (A) 0.8 k/uL (1.0-4.8); Lymphocytes % (A) 6 %; MCH 28.8 pg (25.0-35.0); MCHC 33.4 g/dL (31.0-37.0); MCV 86.3 fL (80.0-100.0); Monocytes # (A) 0.5 k/uL (0-1.0); Monocytes % (A) 4 %; Neutrophils # (A) 11.1 k/uL (1.3-7.7); Neutrophils % (A) 87 %; Platelet Count 197 k/uL (150-450); RBC 4.75 m/uL (4.30-5.90); RDW 13.5 % (11.5-15.5); WBC 12.8 k/uL (3.8-10.6)
[2022-11-30 13:28] LABS: ALT 26 U/L (4-49); African American GFR (CKD) >90 (>60 ml/min/1.73 sqM); Albumin 3.8 g/dL (3.5-5.0); Anion Gap 10 mmol/L; Blood Urea Nitrogen 19 mg/dL (9-20); Calcium 8.8 mg/dL (8.4-10.2); Carbon Dioxide 24 mmol/L (22-30); Chloride 101 mmol/L (98-107); Glucose 227 mg/dL (74-99); Non-African American GFR(CKD) 84 (>60 ml/min/1.73 sqM); Sodium 135 mmol/L (137-145); Total Bilirubin 0.5 mg/dL (0.2-1.3); Total Protein 6.6 g/dL (6.3-8.2)
[2022-11-30 13:31] LABS: AST 32 U/L (17-59); Alkaline Phosphatase 47 U/L (38-126); Magnesium 1.2 mg/dL (1.6-2.3); Potassium 4.5 mmol/L (3.5-5.1)
[2022-11-30] MEDS ORDERED: DIPHENOX-ATROP 2.5-0.025 MG 1 EACH TAB PO PRN (14:21)
[2022-11-30] MEDS: MAGNESIUM SULFATE-D5W PMX 1 GM in DEXTROSE/WATER 1 100ML.BAG IVPB SCH ×3 (16:23→20:41)
[2022-11-30] MEDS ORDERED: ONDANSETRON 4 MG/2 ML VIAL IVP PRN (20:01)
[2022-11-30] MEDS ORDERED: clonazePAM 1 MG TAB PO PRN (20:30)
[2022-11-30] MEDS ORDERED: Acetaminophen-Codeine 300-30mg TAB PO PRN (20:30)
[2022-11-30 20:42] LABS: Glucose,Whole Blood 170 mg/dL (70-110)
[2022-11-30] MEDS ORDERED: DOXAZOSIN 4 MG TAB PO SCH (21:00)
[2022-11-30] MEDS: INSULIN DETEMIR (LEVEMIR) 100 UNIT/ML SYR SQ SCH (22:15)
[2022-11-30] MEDS: metFORMIN 500 MG TAB PO SCH (22:15)
[2022-11-30] MEDS: METOPROLOL TARTRATE 25 MG TAB PO SCH (22:15)
[2022-12-01 05:58] LABS: Glucose,Whole Blood 91 mg/dL (70-110)
[2022-12-01] MEDS: INSULIN DETEMIR (LEVEMIR) 100 UNIT/ML SYR SQ SCH (06:42)
[2022-12-01] MEDS: metFORMIN 500 MG TAB PO SCH (06:42)
[2022-12-01 07:50] VITALS: RESP 16
[2022-12-01] MEDS ORDERED: SYMBICORT 80-4.5 MCG INHALER INHALATION SCH (08:00)
[2022-12-01] MEDS ORDERED: LOSARTAN 50 MG TAB PO SCH (09:00)
[2022-12-01] MEDS ORDERED: MONTELUKAST 10 MG TAB PO SCH (09:00)
[2022-12-01] MEDS ORDERED: FUROSEMIDE 40 MG TAB PO SCH (09:00)
[2022-12-01] MEDS ORDERED: DESVENLAFAXINE SUCCINATE 50 MG TAB.ER.24H PO SCH (09:00)
[2022-12-01] MEDS ORDERED: ATORVASTATIN 80 MG TAB PO SCH (09:00)
[2022-12-01] MEDS ORDERED: FENOFIBRATE 160 MG TAB PO SCH (09:00)
[2022-12-01] MEDS ORDERED: LINAGLIPTIN 5 MG TABLET PO SCH (09:00)
[2022-12-01] MEDS: IPRATROPIUM 0.5 MG/2.5 ML NEBU INHALATION SCH ×4 (09:03→15:16)
[2022-12-01] MEDS: METOPROLOL TARTRATE 25 MG TAB PO SCH (10:44)
[2022-12-01 11:55] LABS: Glucose,Whole Blood 112 mg/dL (70-110)
[2022-12-01 15:12] VITALS: BP 137/77; PULSE 88; TEMP 98.2
[2022-12-01 16:51] LABS: Glucose,Whole Blood 143 mg/dL (70-110)
--- NOTE | 2022-12-01 17:01 | P.HPIM ---
History of Present Illness H&P Date: 12/01/22 Yobani Leblanc, is a 67-year-old male who presented to [facility] emergency room with a chief complaint of generalized weakness and fatigue and diarrhea. He was evaluated in the emergency room vital examination on presentation revealed a temperature of 97.3 pulse 97 respiration 16 and blood pressure 116/63 pulse ox 92% on room air Laboratory data revealed a white blood count of 12.8 hemoglobin 13.7 platelet count 197 sodium 135 potassium 4.5 chloride 101 CO2 24 BUN 19 creatinine 0.93 glucose level to 27 magnesium level I.2 Patient was admitted to medical floor for further evaluation and treatment, he was given IV magnesium on admission. Past medical history is significant for history of hypertension, history of hyperlipidemia, history of insulin-dependent diabetes mellitus, history of COPD, history of osteoarthritis, history of depression, and previous history of low magnesium level. On review of systems patient is alert and oriented 3 in no apparent distress he is complaining of generalized weakness, and diarrhea otherwise he denies any complaints there is no fever or chills no headache or dizziness no chest pain no shortness of breath no cough no nausea or vomiting no abdominal pain no blood in the stools no burning with urination no frequency or urgency and no hematuria. Past Medical History Past Medical History: Asthma, COPD, Diabetes Mellitus, GERD/Reflux, Hyperlipidemia, Hypertension, Osteoarthritis (OA), Prostate Disorder Additional Past Medical History / Comment(s): positive c-diff 11/22/18, hx of colon polyps, DDD History of Any Multi-Drug Resistant Organisms: C-DIFF Date of last positivie culture/infection: 11-22-18 MDRO Source:: stool Past Surgical History: Hernia Repair, Orthopedic Surgery, Tonsillectomy Additional Past Surgical History / Comment(s): right chest wall cyst removed, nerve surgery left elbow Past Anesthesia/Blood Transfusion Reactions: No Reported Reaction Past Psychological History: Anxiety, Panic Disorder Smoking Status: Former smoker Past Alcohol Use History: None Reported Additional Past Alcohol Use History / Comment(s): smoked for 18 yrs- 2 PPD Past Drug Use History: None Reported Additional Drug Use History / Comment(s): patient used to drink alcohol and smoke marijuana but doesn't anymore. - Past Family History Father Family Medical History: Myocardial Infarction ([place]) Additional Family Medical History / Comment(s): about 30 years ago from [place] per patient Mother Family Medical History: No Reported History Additional Family Medical History / Comment(s): from lung issues. Medications and Allergies Home Medications Medication Instructions Recorded Confirmed Type Montelukast [Singulair] 10 mg PO DAILY 09/25/13 11/30/22 History Fenofibrate [Lofibra] 160 mg PO DAILY 02/21/14 11/30/22 History Doxazosin Mesylate [Cardura] 16 mg PO HS 10/20/15 11/30/22 History Cetirizine HCl [Zyrtec] 10 - 20 mg PO DAILY PRN 09/24/16 11/30/22 History Desvenlafaxine [Pristiq ER] 100 mg PO DAILY 09/24/16 11/30/22 History clonazePAM [KlonoPIN] 1 mg PO BID PRN 09/24/16 11/30/22 History Metoprolol Tartrate [Lopressor] 25 mg PO BID 10/21/18 11/30/22 History Insulin Degludec [Tresiba 64 units SQ BID 11/22/18 11/30/22 History Flextouch U-200 Pen] Losartan [Cozaar] 50 mg PO DAILY 06/28/21 11/30/22 History Rosuvastatin Calcium [Crestor] 40 mg PO DAILY 06/28/21 11/30/22 History Acetaminophen with Codeine 1 tab PO Q6H PRN 08/25/22 11/30/22 History [Tylenol #4 Tablet] Fluticasone/Umeclidin/Vilanter 1 puff INHALATION RT-DAILY 08/25/22 11/30/22 History [Trelegy Ellipta 200-62.5-25] Furosemide [Lasix] 40 mg PO DAILY 08/25/22 11/30/22 History Semaglutide [Ozempic] 0.5 mg SQ BLAS 08/25/22 11/30/22 History sitaGLIPtin PHOS/metFORMIN HCL 1 tab PO BID 11/30/22 11/30/22 History [Janumet Xr 50-500 mg Tablet] Allergies Allergy/AdvReac Type Severity Reaction Status Date / Time cat dander Allergy watery Verified 11/30/22 16:09 eyes, congestion, sneezing dog dander Allergy watery Verified 11/30/22 16:09 eyes, congestion, sneezing Physical Exam Vitals: Vital Signs Temp Pulse Pulse Resp BP BP Pulse Ox 12/01/22 07:50 98.0 F 84 16 127/70 92 L 12/01/22 01:22 97.5 F L 93 15 100/64 95 11/30/22 18:50 97.8 F 101 H 18 137/76 99 11/30/22 15:11 98.1 F 99 18 115/76 96 11/30/22 14:00 98.6 F 101 H 18 120/79 96 11/30/22 12:28 97.3 F L 97 16 116/63 92 L Intake and Output 11/30/22 12/01/22 12/01/22 22:59 06:59 14:59 Intake Total 240 Balance 240 Intake: Oral 240 Other: # Voids 2 # Bowel Movements 2 In general patient is alert and oriented x 3 in no distress HEENT head normocephalic and atraumatic Neck is supple no JVD no goiter no lymphadenopathy no carotid bruit Chest examination is clear to auscultation no crackles no wheezing Cardiac exam reveals regular heart sounds S1 and S2 no gallops no murmurs Abdomen is soft nontender no organomegaly with normal bowel sounds Extremity exam reveals no edema no cyanosis or clubbing Neurological examination reveals no gross focal deficits Results CBC & Chem 7: 11/30/22 12:57 11/30/22 12:57 Labs: Abnormal Lab Results - Last 24 Hours (Table) 11/30/22 11/30/22 11/30/22 Range/Units 12:57 12:57 20:41 WBC 12.8 H (3.8-10.6) k/uL Neutrophils # 11.1 H (1.3-7.7) k/uL Lymphocytes # 0.8 L (1.0-4.8) k/uL Sodium 135 L (137-145) mmol/L Glucose 227 H (74-99) mg/dL POC Glucose (mg/dL) 170 H (70-110) mg/dL Magnesium 1.2 L (1.6-2.3) mg/dL Thrombosis Risk Factor Assmnt - Choose All That Apply Each Factor Represents 1 point: Abnormal pulmonary function (COPD), Obesity (BMI >25) Other Risk Factors: No Each Risk Factor Represents 2 Points: Age 61-74 years Thrombosis Risk Factor Assessment Total Risk Factor Score: 4 Thrombosis Risk Factor Assessment Level: Moderate Risk Assessment and Plan Plan: Generalized weakness Gastroenteritis with diarrhea likely viral syndrome, stools for C. diff was ordered Hypomagnesemia, correcting. Underlying history of hypertension Underlying history of hyperlipidemia Underlying history of insulin-dependent diabetes mellitus Underlying history of osteoarthritis Previous history of C. difficile colitis in November 2018 Underlying history of depression with anxiety disorder At this time patient is admitted to medical floor Home medications reviewed and reordered Patient was given IV magnesium will recheck magnesium level Will checks stools for C. diff Will follow closely
--- NOTE | 2022-12-01 17:26 | P.DS ---
Providers Date of admission: 11/30/22 14:21 Expected date of discharge: 12/01/22 Attending physician: Martine Prasad Primary care physician: Anu Plata [facility] Course: Diagnosis on discharge: Generalized weakness Gastroenteritis with diarrhea likely viral syndrome, stools for C. diff was ordered Hypomagnesemia, correcting. Underlying history of hypertension Underlying history of hyperlipidemia Underlying history of insulin-dependent diabetes mellitus Underlying history of osteoarthritis Previous history of C. difficile colitis in November 2018 Underlying history of depression with anxiety disorder Hospital course: Yobani Leblanc, is a 67-year-old male who presented to [facility] emergency room with a chief complaint of generalized weakness and fatigue and diarrhea. He was evaluated in the emergency room vital examination on presentation revealed a temperature of 97.3 pulse 97 respiration 16 and blood pressure 116/63 pulse ox 92% on room air Laboratory data revealed a white blood count of 12.8 hemoglobin 13.7 platelet count 197 sodium 135 potassium 4.5 chloride 101 CO2 24 BUN 19 creatinine 0.93 glucose level to 27 magnesium level I.2 Patient was admitted to medical floor for further evaluation and treatment, he was given IV magnesium on admission. Past medical history is significant for history of hypertension, history of hyperlipidemia, history of insulin-dependent diabetes mellitus, history of COPD, history of osteoarthritis, history of depression, and previous history of low magnesium level. On review of systems patient is alert and oriented 3 in no apparent distress he is complaining of generalized weakness, and diarrhea otherwise he denies any complaints there is no fever or chills no headache or dizziness no chest pain no shortness of breath no cough no nausea or vomiting no abdominal pain no blood in the stools no burning with urination no frequency or urgency and no hematuria. On 12/01/2022 patient was seen and examined on the medical floor he is alert and oriented 3 in no apparent distress, he received IV magnesium and his magnesium level is up to 1.7, stools for C. diff was ordered however diarrhea stopped and patient was not able to give a sample to check for C. diff. He was feeling better and was requesting to be discharged home. Patient was given a prescription for magnesium oxide 400 mg by mouth twice daily, he was advised to follow-up with his primary care physician Dr. buchanan within 1 week, he was advised to return to emergency room if diarrhea restarts. Plan - Discharge Summary Discharge Rx Participant: No New Discharge Prescriptions: New Magnesium Oxide [Mag-Ox] 400 mg PO BID 60 Days #30 tablet Continue Montelukast [Singulair] 10 mg PO DAILY Fenofibrate [Lofibra] 160 mg PO DAILY Doxazosin Mesylate [Cardura] 16 mg PO HS Desvenlafaxine [Pristiq ER] 100 mg PO DAILY clonazePAM [KlonoPIN] 1 mg PO BID PRN PRN Reason: Anxiety Cetirizine HCl [Zyrtec] 10 - 20 mg PO DAILY PRN PRN Reason: Allergy Symptoms Metoprolol Tartrate [Lopressor] 25 mg PO BID Insulin Degludec [Tresiba Flextouch U-200 Pen] 64 units SQ BID Rosuvastatin Calcium [Crestor] 40 mg PO DAILY Losartan [Cozaar] 50 mg PO DAILY Semaglutide [Ozempic] 0.5 mg SQ BLAS Fluticasone/Umeclidin/Vilanter [Trelegy Ellipta 200-62.5-25] 1 puff INHALATION RT-DAILY Furosemide [Lasix] 40 mg PO DAILY Acetaminophen with Codeine [Tylenol #4 Tablet] 1 tab PO Q6H PRN PRN Reason: Pain sitaGLIPtin PHOS/metFORMIN HCL [Janumet Xr 50-500 mg Tablet] 1 tab PO BID Discharge Medication List Montelukast [Singulair] 10 mg PO DAILY 09/25/13 [History] Fenofibrate [Lofibra] 160 mg PO DAILY 02/21/14 [History] Doxazosin Mesylate [Cardura] 16 mg PO HS 10/20/15 [History] Cetirizine HCl [Zyrtec] 10 - 20 mg PO DAILY PRN 09/24/16 [History] Desvenlafaxine [Pristiq ER] 100 mg PO DAILY 09/24/16 [History] clonazePAM [KlonoPIN] 1 mg PO BID PRN 09/24/16 [History] Metoprolol Tartrate [Lopressor] 25 mg PO BID 10/21/18 [History] Insulin Degludec [Tresiba Flextouch U-200 Pen] 64 units SQ BID 11/22/18 [History] Losartan [Cozaar] 50 mg PO DAILY 06/28/21 [History] Rosuvastatin Calcium [Crestor] 40 mg PO DAILY 06/28/21 [History] Acetaminophen with Codeine [Tylenol #4 Tablet] 1 tab PO Q6H PRN 08/25/22 [History] Fluticasone/Umeclidin/Vilanter [Trelegy Ellipta 200-62.5-25] 1 puff INHALATION RT-DAILY 08/25/22 [History] Furosemide [Lasix] 40 mg PO DAILY 08/25/22 [History] Semaglutide [Ozempic] 0.5 mg SQ BLAS 08/25/22 [History] sitaGLIPtin PHOS/metFORMIN HCL [Janumet Xr 50-500 mg Tablet] 1 tab PO BID 11/30/22 [History] Magnesium Oxide [Mag-Ox] 400 mg PO BID 60 Days #30 tablet 12/01/22 [Rx] Follow up Appointment(s)/Referral(s): Anu Plata MD [Primary Care Provider] - 1-2 days
== END 2022-12-01 18:36 | disposition home or self-care (01) | DRG 641 ==
LOC: EC 12:16 → 4SSUR 14:21
PROVIDERS: ADMIT Internal Medicine; ATTEND Internal Medicine
DX: E83.42 Hypomagnesemia (principal); K52.9 Noninfective gastroenteritis and colitis, unspecified; E78.5 Hyperlipidemia, unspecified; F41.0 Panic disorder [episodic paroxysmal anxiety]; I10 Essential (primary) hypertension; J44.9 Chronic obstructive pulmonary disease, unspecified; E11.9 Type 2 diabetes mellitus without complications; K21.9 Gastro-esophageal reflux disease without esophagitis; Z79.1 Long term (current) use of non-steroidal anti-inflammatories (NSAID); Z79.4 Long term (current) use of insulin; Z79.82 Long term (current) use of aspirin; Z79.899 Other long term (current) drug therapy; Z82.49 Family history of ischemic heart disease and other diseases of the circulatory system; Z86.19 Personal history of other infectious and parasitic diseases; Z87.19 Personal history of other diseases of the digestive system; Z87.891 Personal history of nicotine dependence; Z91.048 Other nonmedicinal substance allergy status
CPT/HCPCS: 36415; 80053; 83735; 85025; 94640; 96360; 99285

== ENCOUNTER 2023-09-17 08:28 | Emergency (ER) | payer MEDICARE, OTHER ==
--- NOTE | 2023-09-17 08:49 | ED ---
General Adult HPI - General Chief complaint: Abdominal Pain Stated complaint: ABD pain Time Seen by Provider: 09/17/23 08:31 Source: patient, EMS, RN notes reviewed Mode of arrival: ambulatory Limitations: no limitations - History of Present Illness Initial comments: Patient is a 67-year-old male presenting to the emergency department with nausea vomiting diarrhea and abdominal discomfort. Onset of symptoms was just a couple hours ago. Patient has vomited and had diarrhea couple times each. Patient has mid abdominal discomfort. No history of similar symptoms previously. No fever. Discomfort is moderate and mid abdomen. - Related Data Home Medications Medication Instructions Recorded Confirmed Montelukast [Singulair] 10 mg PO DAILY 09/25/13 11/30/22 Fenofibrate [Lofibra] 160 mg PO DAILY 02/21/14 11/30/22 Doxazosin Mesylate [Cardura] 16 mg PO HS 10/20/15 11/30/22 Cetirizine HCl [Zyrtec] 10 - 20 mg PO DAILY PRN 09/24/16 11/30/22 Desvenlafaxine [Pristiq ER] 100 mg PO DAILY 09/24/16 11/30/22 clonazePAM [KlonoPIN] 1 mg PO BID PRN 09/24/16 11/30/22 Metoprolol Tartrate [Lopressor] 25 mg PO BID 10/21/18 11/30/22 Insulin Degludec [Tresiba 64 units SQ BID 11/22/18 11/30/22 Flextouch U-200 Pen] Losartan [Cozaar] 50 mg PO DAILY 06/28/21 11/30/22 Rosuvastatin Calcium [Crestor] 40 mg PO DAILY 06/28/21 11/30/22 Acetaminophen with Codeine 1 tab PO Q6H PRN 08/25/22 11/30/22 [Tylenol #4 Tablet] Fluticasone/Umeclidin/Vilanter 1 puff INHALATION RT-DAILY 08/25/22 11/30/22 [Trelegy Ellipta 200-62.5-25] Furosemide [Lasix] 40 mg PO DAILY 08/25/22 11/30/22 Semaglutide [Ozempic] 0.5 mg SQ BLAS 08/25/22 11/30/22 sitaGLIPtin PHOS/metFORMIN HCL 1 tab PO BID 11/30/22 11/30/22 [Janumet Xr 50-500 mg Tablet] Previous Rx's Medication Instructions Recorded Magnesium Oxide [Mag-Ox] 400 mg PO BID 60 Days #30 tablet 12/01/22 Ondansetron Odt [Zofran Odt] 4 mg PO Q8HR PRN #10 tab 09/17/23 Allergies Allergy/AdvReac Type Severity Reaction Status Date / Time cat dander Allergy watery Verified 11/30/22 16:09 eyes, congestion, sneezing dog dander Allergy watery Verified 11/30/22 16:09 eyes, congestion, sneezing Review of Systems ROS Statement: Those systems with pertinent positive or pertinent negative responses have been documented in the HPI. ROS Other: All systems not noted in ROS Statement are negative. Constitutional: Denies: fever Eyes: Denies: eye pain ENT: Denies: ear pain Cardiovascular: Denies: chest pain Gastrointestinal: Reports: as per HPI, abdominal pain, nausea, vomiting, diarrhea Musculoskeletal: Denies: back pain Past Medical History Past Medical History: Asthma, COPD, Diabetes Mellitus, GERD/Reflux, Hyperlipidemia, Hypertension, Osteoarthritis (OA), Prostate Disorder Additional Past Medical History / Comment(s): positive c-diff 11/22/18, hx of colon polyps, DDD History of Any Multi-Drug Resistant Organisms: C-DIFF Date of last positivie culture/infection: 11-22-18 MDRO Source:: stool Past Surgical History: Hernia Repair, Orthopedic Surgery, Tonsillectomy Additional Past Surgical History / Comment(s): right chest wall cyst removed, nerve surgery left elbow Past Anesthesia/Blood Transfusion Reactions: No Reported Reaction Past Psychological History: Anxiety, Panic Disorder Smoking Status: Former smoker Past Alcohol Use History: None Reported Past Drug Use History: None Reported - Past Family History Father Family Medical History: Myocardial Infarction ([place]) Additional Family Medical History / Comment(s): about 30 years ago from [place] per patient Mother Family Medical History: No Reported History Additional Family Medical History / Comment(s): from lung issues. General Exam Limitations: no limitations General appearance: alert, in no apparent distress Head exam: Present: normocephalic Eye exam: Present: normal appearance, PERRL Neck exam: Present: normal inspection Respiratory exam: Present: normal lung sounds bilaterally Cardiovascular Exam: Present: regular rate, normal rhythm Expanded Peripheral pulses: 2+: Posterior Tibialis (R), Posterior Tibialis (L) GI/Abdominal exam: Present: soft, tenderness (Mild epigastric tenderness). Absent: distended, guarding, rebound, rigid, pulsatile mass Extremities exam: Present: normal inspection. Absent: pedal edema, calf te nderness Neurological exam: Present: alert Psychiatric exam: Present: normal affect, normal mood Skin exam: Present: normal color Course Vital Signs 09/17/23 08:32 Temperature 97.5 F L Pulse Rate 88 Respiratory 18 Rate Blood Pressure 128/67 O2 Sat by Pulse 100 Oximetry Medical Decision Making - Medical Decision Making Was pt. sent in by a medical professional or institution (, PA, CAR SEAT COVERER, urgent care, hospital, or group home...) When possible be specific @ -No Did you speak to anyone other than the patient for history (EMS, parent, family, police, friend...)? What history was obtained from this source @ -No Did you review nursing and triage notes (agree or disagree)? Why? @ -I reviewed and agree with nursing and triage notes Were old charts reviewed (outside hosp., previous admission, EMS record, old EKG, old radiological studies, urgent care reports/EKG's, group home records)? Report findings @ -No old charts were reviewed Differential Diagnosis (chest pain, altered mental status, abdominal pain women, abdominal pain men, vaginal bleeding, weakness, fever, dyspnea, syncope, he adache, dizziness, GI bleed, back pain, seizure, CVA, palpatations, mental health, musculoskeletal)? @ -Differential Abdominal Pain Men: Appendicitis, cholecystitis, diverticulosis, ischemic bowel, pancreatitis, hepatitis, UTI, gastroenteritis, AAA, incarcerated hernia, bowel obstruction, constipation, inflammatory bowel, hepatitis, peptic ulcer disease, splenic infarction, perforated viscus, testicular torsion, this is not meant to be an all-inclusive list EKG interpreted by me (3pts min.). @ -As above X-rays interpreted by me (1pt min.). @ -None done CT interpreted by me (1pt min.). @ -CT scan abdomen pelvis does not reveal acute abnormality. U/S interpreted by me (1pt. min.). @ -None done What testing was considered but not performed or refused? (CT, X-rays, U/S, labs)? Why? @ -None What meds were considered but not given or refused? Why? @ -None Did you discuss the management of the patient with other professionals (professionals i.e. , PA, CAR SEAT COVERER, lab, RT, psych nurse, social professionals, hospital product specialist, teacher, chief safety officer, casework supervisor)? Give summary @ -No Was smoking cessation discussed for >3mins.? @ -No Was critical care preformed (if so, how long)? @ -No Were there social determinants of health that impacted care today? How? (Homelessness, low income, unemployed, alcoholism, drug addiction, transportation, low edu. Level, literacy, decrease access to med. care, [facility], rehab)? @ -No Was there de-escalation of care discussed even if they declined (Discuss DNR or withdrawal of care, Hospice)? DNR status @ -No What co-morbidities impacted this encounter? (DM, HTN, Smoking, COPD, CAD, Cancer, CVA, ARF, Chemo, Hep., AIDS, mental health diagnosis, sleep apnea, morb id obesity)? @ -None Was patient admitted / discharged? Hospital course, mention meds given and rou te, prescriptions, significant lab abnormalities, going to OR and other pertinent info. @ -Patient reevaluated and feeling much better. Abdomen soft nontender. Patient and family are updated on results and need for follow-up. Undiagnosed new problem with uncertain prognosis? @ -No Drug Therapy requiring intensive monitoring for toxicity (Heparin, Nitro, Insulin, Cardizem)? @ -No Were any procedures done? @ -No Diagnosis/symptom? @ -Abdominal pain, nausea and vomiting Acute, or Chronic, or Acute on Chronic? @ -Acute, acute Uncomplicated (without systemic symptoms) or Complicated (systemic symptoms)? @ -Default Side effects of treatment? @ -No Exacerbation, Progression, or Severe Exacerbation? @ -No Poses a threat to life or bodily function? How? (Chest pain, [place], PA, pneumonia, PE, COPD, DKA, ARF, appy, cholecystitis, CVA, Diverticulitis, Homicidal, Suicidal, threat to staff... and all critical care pts) @ -No - Lab Data Result diagrams: 09/17/23 08:49 09/17/23 08:49 Lab Results 04/28/24 04/28/24 04/28/24 Range/Units 08:49 08:49 08:49 WBC 16.6 H (3.8-10.6) k/uL RBC 4.99 (4.30-5.90) m/uL Hgb 14.2 (13.0-17.5) gm/dL Hct 42.7 (39.0-53.0) % MCV 85.5 (80.0-100.0) fL MCH 28.6 (25.0-35.0) pg MCHC 33.4 (31.0-37.0) g/dL RDW 14.0 (11.5-15.5) % Plt Count 246 (150-450) k/uL MPV 7.5 Neutrophils % 80 % Lymphocytes % 10 % Monocytes % 6 % Eosinophils % 2 % Basophils % 1 % Neutrophils # 13.3 H (1.3-7.7) k/uL Lymphocytes # 1.7 (1.0-4.8) k/uL Monocytes # 1.0 (0-1.0) k/uL Eosinophils # 0.4 (0-0.7) k/uL Basophils # 0.1 (0-0.2) k/uL PT 10.3 (10.0-12.5) sec INR 0.9 (<1.2) APTT 22.3 (22.0-30.0) sec Sodium 139 (137-145) mmol/L Potassium 3.9 (3.5-5.1) mmol/L Chloride 104 (98-107) mmol/L Carbon Dioxide 24 (22-30) mmol/L Anion Gap 11 mmol/L BUN 23 H (9-20) mg/dL Creatinine 1.01 (0.66-1.25) mg/dL Est GFR (CKD-EPI)AfAm 88 (>60 ml/min/1.73 sqM) Est GFR (CKD-EPI)NonAf 76 (>60 ml/min/1.73 sqM) Glucose 104 H (74-99) mg/dL Calcium 9.8 (8.4-10.2) mg/dL Total Bilirubin 0.5 (0.2-1.3) mg/dL AST 33 (17-59) U/L ALT 32 (4-49) U/L Alkaline Phosphatase 58 (38-126) U/L Total Protein 7.2 (6.3-8.2) g/dL Albumin 4.2 (3.5-5.0) g/dL Amylase 64 (30-110) U/L Lipase 156 (23-300) U/L Influenza Type A (PCR) (Not Detectd) Influenza Type B (PCR) (Not Detectd) RSV (PCR) (Not Detectd) SARS-CoV-2 (PCR) (Not Detectd) 09/17/23 Range/Units 09:50 WBC (3.8-10.6) k/uL RBC (4.30-5.90) m/uL Hgb (13.0-17.5) gm/dL Hct (39.0-53.0) % MCV (80.0-100.0) fL MCH (25.0-35.0) pg MCHC (31.0-37.0) g/dL RDW (11.5-15.5) % Plt Count (150-450) k/uL MPV Neutrophils % % Lymphocytes % % Monocytes % % Eosinophils % % Basophils % % Neutrophils # (1.3-7.7) k/uL Lymphocytes # (1.0-4.8) k/uL Monocytes # (0-1.0) k/uL Eosinophils # (0-0.7) k/uL Basophils # (0-0.2) k/uL PT (10.0-12.5) sec INR (<1.2) APTT (22.0-30.0) sec Sodium (137-145) mmol/L Potassium (3.5-5.1) mmol/L Chloride (98-107) mmol/L Carbon Dioxide (22-30) mmol/L Anion Gap mmol/L BUN (9-20) mg/dL Creatinine (0.66-1.25) mg/dL Est GFR (CKD-EPI)AfAm (>60 ml/min/1.73 sqM) Est GFR (CKD-EPI)NonAf (>60 ml/min/1.73 sqM) Glucose (74-99) mg/dL Calcium (8.4-10.2) mg/dL Total Bilirubin (0.2-1.3) mg/dL AST (17-59) U/L ALT (4-49) U/L Alkaline Phosphatase (38-126) U/L Total Protein (6.3-8.2) g/dL Albumin (3.5-5.0) g/dL Amylase (30-110) U/L Lipase (23-300) U/L Influenza Type A (PCR) Not Detected (Not Detectd) Influenza Type B (PCR) Not Detected (Not Detectd) RSV (PCR) Not Detected (Not Detectd) SARS-CoV-2 (PCR) Not Detected (Not Detectd) Disposition Clinical Impression: Abdominal pain, Acute diarrhea, Vomiting Disposition: HOME SELF-CARE Condition: Stable Instructions (If sedation given, give patient instructions): Abdominal Pain (ED), Acute Nausea and Vomiting (ED) Additional Instructions: Prescription sent to pharmacy. Please do follow-up with your primary care physician in the next couple of days for recheck. Have primary care physician review CT results. Return for increased pain, uncontrolled vomiting, fever, worsening or changing symptoms or other concerns. Prescriptions: Ondansetron Odt [Zofran Odt] 4 mg PO Q8HR PRN #10 tab PRN Reason: Nausea Is patient prescribed a controlled substance at d/c from ED?: No Referrals: Kenny Allison MD [STAFF PHYSICIAN] - 1-2 days Time of Disposition: 13:22
[2023-09-17] MEDS: FAMOTIDINE 20 MG/2 ML VIAL IV STA (08:53)
[2023-09-17] MEDS: ONDANSETRON 4 MG/2 ML VIAL IVP STA (08:53)
[2023-09-17] MEDS: DICYCLOMINE 10 MG/ML 2 ML AMP IM STA (08:53)
[2023-09-17] MEDS: SODIUM CHLORIDE 0.9% 1,000 ML IV STA (08:53)
[2023-09-17 09:15] VITALS: RESP 18; TEMP 97.5
[2023-09-17 09:17] LABS: Basophils # (A) 0.1 k/uL (0-0.2); Basophils % (A) 1 %; Eosinophils # (A) 0.4 k/uL (0-0.7); Eosinophils % (A) 2 %; HCT 42.7 % (39.0-53.0); HGB 14.2 gm/dL (13.0-17.5); Lymphocytes # (A) 1.7 k/uL (1.0-4.8); Lymphocytes % (A) 10 %; MCH 28.6 pg (25.0-35.0); MCHC 33.4 g/dL (31.0-37.0); MCV 85.5 fL (80.0-100.0); Mean Platelet Volume 7.5; Monocytes % (A) 6 %; Neutrophils # (A) 13.3 k/uL (1.3-7.7); Neutrophils % (A) 80 %; Platelet Count 246 k/uL (150-450); RBC 4.99 m/uL (4.30-5.90); WBC 16.6 k/uL (3.8-10.6)
[2023-09-17 09:23] LABS: ALT 32 U/L (4-49); AST 33 U/L (17-59); African American GFR (CKD) 88 (>60 ml/min/1.73 sqM); Albumin 4.2 g/dL (3.5-5.0); Alkaline Phosphatase 58 U/L (38-126); Amylase 64 U/L (30-110); Anion Gap 11 mmol/L; Blood Urea Nitrogen 23 mg/dL (9-20); Calcium 9.8 mg/dL (8.4-10.2); Carbon Dioxide 24 mmol/L (22-30); Chloride 104 mmol/L (98-107); Glucose 104 mg/dL (74-99); Lipase 156 U/L (23-300); Non-African American GFR(CKD) 76 (>60 ml/min/1.73 sqM); Sodium 139 mmol/L (137-145); Total Bilirubin 0.5 mg/dL (0.2-1.3); Total Protein 7.2 g/dL (6.3-8.2)
[2023-09-17 09:28] LABS: Potassium 3.9 mmol/L (3.5-5.1)
[2023-09-17 10:02] LABS: INR 0.9 (<1.2); Partial Thromboplastin Time 22.3 sec (22.0-30.0); Prothrombin Time 10.3 sec (10.0-12.5)
--- NOTE | 2023-09-17 12:00 | CT ---
EXAMINATION TYPE: CT abdomen pelvis w con CT DLP: 2990.3 mGycm, Automated exposure control for dose reduction was used. DATE OF EXAM: 09/17/2023 9:58 AM COMPARISON: CT 08/24/2022 CLINICAL INDICATION:Male, 67 years old with history of abdominal pain; abd pain TECHNIQUE: Axial CT of the abdomen and pelvis. Sagittal and coronal reformats were created on a [employer] workstation. Contrast used:100 mL of Isovue 300 with IV Contrast, (none if empty) Oral contrast used: without Oral Contrast (none if empty) FINDINGS: LOWER CHEST: Thin linear opacities in the lung bases suggest scarring and/or subsegmental atelectasis . Heart size is normal. Trace pericardial effusion similar to before. ABDOMEN LIVER: Stable. No evidence of mass. Small hypodensity towards the dome, likely benign. Suspected mild steatosis. GALLBLADDER AND BILE DUCTS: Bile filled but nondistended without inflammatory changes. No calcified g allstones. Normal caliber bile ducts. PANCREAS: Stable. SPLEEN: Stable. ADRENAL GLANDS: Stable. KIDNEYS AND URETERS: Kidneys enhance symmetrically without evidence of mass or hydronephrosis. No vis ible calculi. Mild perinephric stranding likely chronic without urinary symptoms. PELVIS BLADDER: Incompletely distended with a mildly thickened appearance of the wall which appears less pro minent than before. REPRODUCTIVE: Prostate appears slightly less bulky, now measuring about 5.4 cm transverse. ABDOMEN & PELVIS STOMACH AND BOWEL: Stomach is mildly distended with heterogeneous material, likely food stuffs. Scatt ered fluid throughout small bowel loops without evidence of obstruction. Appendix appears within norm al limits. Small amount of radiodense material in the cecum. Fluid contents are suggested throughout much of the colon, correlate for diarrheal illness. No focal abnormality is demonstrated. PERITONEUM/RETROPERITONEUM: No evidence of pneumoperitoneum or free fluid. VASCULATURE: Moderate atherosclerotic calcifications are present throughout the abdominal aorta and i ts branches. No evidence of aortic aneurysm. Portal veins, SMV, splenic veins are enhancing. LYMPH NODES: No enlarged nodes by CT size criteria. SOFT TISSUE/ABDOMINAL WALL: No acute abnormality. Small areas of wispy increased attenuation in the s ubcutaneous fat across the abdomen could be from medication injections. MUSCULOSKELETAL: No acute osseous abnormalities. Moderate disc degeneration changes are present throu ghout the thoracolumbar spine. Mild anterior wedging L1 is chronic in appearance. IMPRESSION: 1. No acute abnormality demonstrated to explain abdominal pain. 2. Slightly decreased prostatomegaly and bladder wall thickening compared to prior. 3. Probable mild hepatic steatosis. Small hypodensity towards the dome, likely cyst or hemangioma. 4. Fluid contents are suggested throughout much of the colon, correlate for diarrheal illness. No ev idence of bowel obstruction or free air.
[2023-09-17 13:53] VITALS: BP 138/69; PULSE 78
== END 2023-09-17 13:28 | disposition home or self-care (01) ==
LOC: EC 08:28
DX: R10.13 Epigastric pain (principal); R11.2 Nausea with vomiting, unspecified; R19.7 Diarrhea, unspecified; Z91.048 Other nonmedicinal substance allergy status; Z87.891 Personal history of nicotine dependence
CPT/HCPCS: 36415; 80053; 82150; 83690; 85025; 85610; 85730; 87636; 74177; 99284; 96374; 96375; 96361 ×5; 96372; J0500; J2405; J3490; Q9967

== ENCOUNTER 2023-10-17 14:59 | Emergency (ER) | payer MEDICARE, OTHER ==
[2023-10-17 15:12] LABS: Glucose,Whole Blood 140 mg/dL (70-110)
--- NOTE | 2023-10-17 15:25 | ED ---
General Adult HPI - General Chief complaint: Nausea/Vomiting/Diarrhea Stated complaint: NVD Time Seen by Provider: 10/17/23 15:07 Source: patient, EMS, RN notes reviewed Mode of arrival: EMS Limitations: no limitations - History of Present Illness Initial comments: Patient is a pleasant 67-year-old male present to the emergency department with nausea vomiting. Patient states symptoms just under an hour or so ago. No history of chronic similar symptoms. Patient has nausea with several episodes of vomiting. No appetite at this time. Patient had an episode of diarrhea as well. Patient has mild abdominal discomfort. No fever. - Related Data Home Medications Medication Instructions Recorded Confirmed Montelukast [Singulair] 10 mg PO DAILY 09/25/13 11/30/22 Fenofibrate [Lofibra] 160 mg PO DAILY 02/21/14 11/30/22 Doxazosin Mesylate [Cardura] 16 mg PO HS 10/20/15 11/30/22 Cetirizine HCl [Zyrtec] 10 - 20 mg PO DAILY PRN 09/24/16 11/30/22 Desvenlafaxine [Pristiq ER] 100 mg PO DAILY 09/24/16 11/30/22 clonazePAM [KlonoPIN] 1 mg PO BID PRN 09/24/16 11/30/22 Metoprolol Tartrate [Lopressor] 25 mg PO BID 10/21/18 11/30/22 Insulin Degludec [Tresiba 64 units SQ BID 11/22/18 11/30/22 Flextouch U-200 Pen] Losartan [Cozaar] 50 mg PO DAILY 06/28/21 11/30/22 Rosuvastatin Calcium [Crestor] 40 mg PO DAILY 06/28/21 11/30/22 Acetaminophen with Codeine 1 tab PO Q6H PRN 08/25/22 11/30/22 [Tylenol #4 Tablet] Fluticasone/Umeclidin/Vilanter 1 puff INHALATION RT-DAILY 08/25/22 11/30/22 [Trelegy Ellipta 200-62.5-25] Furosemide [Lasix] 40 mg PO DAILY 08/25/22 11/30/22 Semaglutide [Ozempic] 0.5 mg SQ BLAS 08/25/22 11/30/22 sitaGLIPtin PHOS/metFORMIN HCL 1 tab PO BID 11/30/22 11/30/22 [Janumet Xr 50-500 mg Tablet] Previous Rx's Medication Instructions Recorded Magnesium Oxide [Mag-Ox] 400 mg PO BID 60 Days #30 tablet 12/01/22 Ondansetron Odt [Zofran Odt] 4 mg PO Q8HR PRN #10 tab 09/17/23 Ondansetron Odt [Zofran Odt] 4 mg PO Q8HR PRN #10 tab 10/17/23 Allergies Allergy/AdvReac Type Severity Reaction Status Date / Time cat dander Allergy watery Verified 10/17/23 15:07 eyes, congestion, sneezing dog dander Allergy watery Verified 10/17/23 15:07 eyes, congestion, sneezing Review of Systems ROS Statement: Those systems with pertinent positive or pertinent negative responses have been documented in the HPI. ROS Other: All systems not noted in ROS Statement are negative. Constitutional: Denies: fever Eyes: Denies: eye pain ENT: Denies: ear pain Respiratory: Denies: cough, dyspnea Cardiovascular: Denies: chest pain Endocrine: Denies: fatigue Gastrointestinal: Reports: as per HPI, nausea, vomiting Genitourinary: Denies: dysuria Musculoskeletal: Denies: back pain Past Medical History Past Medical History: Asthma, COPD, Diabetes Mellitus, GERD/Reflux, Hyperlipidemia, Hypertension, Osteoarthritis (OA), Prostate Disorder Additional Past Medical History / Comment(s): positive c-diff 11/22/18, hx of colon polyps, DDD History of Any Multi-Drug Resistant Organisms: C-DIFF Date of last positivie culture/infection: 11-22-18 MDRO Source:: stool Past Surgical History: Hernia Repair, Orthopedic Surgery, Tonsillectomy Additional Past Surgical History / Comment(s): right chest wall cyst removed, nerve surgery left elbow Past Anesthesia/Blood Transfusion Reactions: No Reported Reaction Past Psychological History: Anxiety, Panic Disorder Smoking Status: Former smoker Past Alcohol Use History: None Reported Past Drug Use History: None Reported - Past Family History Father Family Medical History: Myocardial Infarction (NH) Additional Family Medical History / Comment(s): about 30 years ago from NH per patient Mother Family Medical History: No Reported History Additional Family Medical History / Comment(s): from lung issues. General Exam Limitations: no limitations General appearance: alert, in no apparent distress Head exam: Present: normocephalic Eye exam: Present: normal appearance Neck exam: Present: normal inspection Respiratory exam: Present: normal lung sounds bilaterally Cardiovascular Exam: Present: regular rate, normal rhythm Expanded Peripheral pulses: 2+: Posterior Tibialis (R), Posterior Tibialis (L) GI/Abdominal exam: Present: soft. Absent: distended, tenderness, guarding, rebound, rigid, pulsatile mass Extremities exam: Present: normal inspection. Absent: pedal edema, calf tenderness Neurological exam: Present: alert Psychiatric exam: Present: normal affect, normal mood Skin exam: Present: normal color Course Vital Signs 10/17/23 10/17/23 10/17/23 15:02 15:06 16:00 Temperature 98.2 F Pulse Rate 91 92 90 Respiratory 16 18 18 Rate Blood Pressure 109/72 121/70 109/72 O2 Sat by Pulse 97 97 97 Oximetry 10/17/23 17:36 Temperature Pulse Rate 100 Respiratory 16 Rate Blood Pressure 153/85 O2 Sat by Pulse 97 Oximetry EKG Findings - EKG Results: EKG: interpreted by MARVIN (Left axis. Incomplete right bundle branch block.), sinus rhythm, normal ST/T Medical Decision Making - Medical Decision Making Was pt. sent in by a medical professional or institution (, PA, NETWORKER, urgent care, hospital, or long term...) When possible be specific @ -No Did you speak to anyone other than the patient for history (EMS, parent, family, police, friend...)? What history was obtained from this source @ -Patient family is present and helps right history including onset of symptoms Did you review nursing and triage notes (agree or disagree)? Why? @ -I reviewed and agree with nursing and triage notes Were old charts reviewed (outside hosp., previous admission, EMS record, old EKG, old radiological studies, urgent care reports/EKG's, long term records)? Report findings @ -No old charts were reviewed Differential Diagnosis (chest pain, altered mental status, abdominal pain women, abdominal pain men, vaginal bleeding, weakness, fever, dyspnea, syncope, headache, dizziness, GI bleed, back pain, seizure, CVA, palpatations, mental health, musculoskeletal)? @ -Differential Abdominal Pain Men: Appendicitis, cholecystitis, diverticulosis, ischemic bowel, pancreatitis, hepatitis, UTI, gastroenteritis, AAA, incarcerated hernia, bowel obstruction, constipation, inflammatory bowel, hepatitis, peptic ulcer disease, splenic infarction, perforated viscus, testicular torsion, this is not meant to be an all-inclusive list EKG interpreted by me (3pts min.). @ -As above X-rays interpreted by me (1pt min.). @ -None done CT interpreted by me (1pt min.). @ -None done U/S interpreted by me (1pt. min.). @ -None done What testing was considered but not performed or refused? (CT, X-rays, U/S, labs)? Why? @ -None What meds were considered but not given or refused? Why? @ -None Did you discuss the management of the patient with other professionals (professionals i.e. , PA, NETWORKER, lab, RT, psych nurse, social services aide, loss control consultant, teacher, crime prevention police officer, supervisor case loading)? Give summary @ -No Was smoking cessation discussed for >3mins.? @ -No Was critical care preformed (if so, how long)? @ -No Were there social determinants of health that impacted care today? How? (Homelessness, low income, unemployed, alcoholism, drug addiction, transportation, low edu. Level, literacy, decrease access to med. care, care home, rehab)? @ -No Was there de-escalation of care discussed even if they declined (Discuss DNR or withdrawal of care, Hospice)? DNR status @ -No What co-morbidities impacted this encounter? (DM, HTN, Smoking, COPD, CAD, Cancer, CVA, ARF, Chemo, Hep., AIDS, mental health diagnosis, sleep apnea, mo rbid obesity)? @ -None Was patient admitted / discharged? Hospital course, mention meds given and r oute, prescriptions, significant lab abnormalities, going to OR and other pertinent info. @ -Patient reevaluated and feeling much better. Abdomen soft and nontender. Patient is updated on results and need for follow-up. Patient is receptive to prescription for antiemetic. Undiagnosed new problem with uncertain prognosis? @ -No Drug Therapy requiring intensive monitoring for toxicity (Heparin, Nitro, Insulin, Cardizem)? @ -No Were any procedures done? @ -No Diagnosis/symptom? @ -Nausea and vomiting Acute, or Chronic, or Acute on Chronic? @ -Acute Uncomplicated (without systemic symptoms) or Complicated (systemic symptoms)? @ -Default Side effects of treatment? @ -No Exacerbation, Progression, or Severe Exacerbation? @ -No Poses a threat to life or bodily function? How? (Chest pain, [place], NH, pneumonia, PE, COPD, DKA, ARF, appy, cholecystitis, CVA, Diverticulitis, Homicidal, Ivania cidal, threat to staff... and all critical care pts) @ -No - Lab Data Result diagrams: 10/17/23 15:44 10/17/23 15:44 Lab Results 10/17/23 10/17/23 10/17/23 Range/Units 15:11 15:44 15:44 WBC 9.3 (3.8-10.6) k/uL RBC 5.18 (4.30-5.90) m/uL Hgb 15.1 (13.0-17.5) gm/dL Hct 45.2 (39.0-53.0) % MCV 87.2 (80.0-100.0) fL MCH 29.1 (25.0-35.0) pg MCHC 33.3 (31.0-37.0) g/dL RDW 13.9 (11.5-15.5) % Plt Count 228 (150-450) k/uL MPV 7.8 Neutrophils % 81 % Lymphocytes % 11 % Monocytes % 6 % Eosinophils % 1 % Basophils % 1 % Neutrophils # 7.5 (1.3-7.7) k/uL Lymphocytes # 1.1 (1.0-4.8) k/uL Monocytes # 0.5 (0-1.0) k/uL Eosinophils # 0.1 (0-0.7) k/uL Basophils # 0.1 (0-0.2) k/uL PT 10.4 (10.0-12.5) sec INR 0.9 (<1.2) APTT 21.8 L (22.0-30.0) sec Sodium (137-145) mmol/L Potassium (3.5-5.1) mmol/L Chloride (98-107) mmol/L Carbon Dioxide (22-30) mmol/L Anion Gap mmol/L BUN (9-20) mg/dL Creatinine (0.66-1.25) mg/dL Est GFR (CKD-EPI)AfAm (>60 ml/min/1.73 sqM) Est GFR (CKD-EPI)NonAf (>60 ml/min/1.73 sqM) Glucose (74-99) mg/dL POC Glucose (mg/dL) 140 H (70-110) mg/dL POC Glu [employer] Cook ID Xiomara Banerjee Calcium (8.4-10.2) mg/dL Total Bilirubin (0.2-1.3) mg/dL AST (17-59) U/L ALT (4-49) U/L Alkaline Phosphatase (38-126) U/L Total Protein (6.3-8.2) g/dL Albumin (3.5-5.0) g/dL Amylase (30-110) U/L Lipase (23-300) U/L 10/17/23 Range/Units 15:44 WBC (3.8-10.6) k/uL RBC (4.30-5.90) m/uL Hgb (13.0-17.5) gm/dL Hct (39.0-53.0) % MCV (80.0-100.0) fL MCH (25.0-35.0) pg MCHC (31.0-37.0) g/dL RDW (11.5-15.5) % Plt Count (150-450) k/uL MPV Neutrophils % % Lymphocytes % % Monocytes % % Eosinophils % % Basophils % % Neutrophils # (1.3-7.7) k/uL Lymphocytes # (1.0-4.8) k/uL Monocytes # (0-1.0) k/uL Eosinophils # (0-0.7) k/uL Basophils # (0-0.2) k/uL PT (10.0-12.5) sec INR (<1.2) APTT (22.0-30.0) sec Sodium 137 (137-145) mmol/L Potassium 3.9 (3.5-5.1) mmol/L Chloride 103 (98-107) mmol/L Carbon Dioxide 23 (22-30) mmol/L Anion Gap 11 mmol/L BUN 19 (9-20) mg/dL Creatinine 0.97 (0.66-1.25) mg/dL Est GFR (CKD-EPI)AfAm >90 (>60 ml/min/1.73 sqM) Est GFR (CKD-EPI)NonAf 80 (>60 ml/min/1.73 sqM) Glucose 139 H (74-99) mg/dL POC Glucose (mg/dL) (70-110) mg/dL POC Glu [employer] Cook ID Calcium 10.0 (8.4-10.2) mg/dL Total Bilirubin 0.4 (0.2-1.3) mg/dL AST 37 (17-59) U/L ALT 31 (4-49) U/L Alkaline Phosphatase 69 (38-126) U/L Total Protein 7.2 (6.3-8.2) g/dL Albumin 4.6 (3.5-5.0) g/dL Amylase 60 (30-110) U/L Lipase 162 (23-300) U/L Disposition Clinical Impression: Vomiting Disposition: HOME SELF-CARE Condition: Stable Instructions (If sedation given, give patient instructions): Acute Nausea and Vomiting (ED) Additional Instructions: Prescription sent to pharmacy. [id number] Pepcid as needed. Please do follow-up with your primary care physician in the next couple of days for recheck. Return for uncontrolled vomiting, pain, fever, worsening symptoms or other concerns. Prescriptions: Ondansetron Odt [Zofran Odt] 4 mg PO Q8HR PRN #10 tab PRN Reason: Nausea Is patient prescribed a controlled substance at d/c from ED?: No Referrals: Anu Plata MD [Primary Care Provider] - 1-2 days Time of Disposition: 18:05
[2023-10-17] MEDS: SODIUM CHLORIDE 0.9% 1,000 ML IV STA (15:39)
[2023-10-17 15:41] VITALS: TEMP 98.2
[2023-10-17] MEDS: ONDANSETRON 4 MG/2 ML VIAL IVP STA (15:41)
[2023-10-17] MEDS: DICYCLOMINE 10 MG/ML 2 ML AMP IM STA (15:41)
[2023-10-17] MEDS: FAMOTIDINE 20 MG/2 ML VIAL IV STA (15:41)
[2023-10-17 16:30] LABS: Basophils # (A) 0.1 k/uL (0-0.2); Basophils % (A) 1 %; Eosinophils # (A) 0.1 k/uL (0-0.7); Eosinophils % (A) 1 %; HCT 45.2 % (39.0-53.0); HGB 15.1 gm/dL (13.0-17.5); Lymphocytes # (A) 1.1 k/uL (1.0-4.8); Lymphocytes % (A) 11 %; MCH 29.1 pg (25.0-35.0); MCHC 33.3 g/dL (31.0-37.0); MCV 87.2 fL (80.0-100.0); Mean Platelet Volume 7.8; Monocytes # (A) 0.5 k/uL (0-1.0); Monocytes % (A) 6 %; Neutrophils # (A) 7.5 k/uL (1.3-7.7); Neutrophils % (A) 81 %; Platelet Count 228 k/uL (150-450); RBC 5.18 m/uL (4.30-5.90); RDW 13.9 % (11.5-15.5); WBC 9.3 k/uL (3.8-10.6)
[2023-10-17 16:47] LABS: INR 0.9 (<1.2); Prothrombin Time 10.4 sec (10.0-12.5)
[2023-10-17 16:49] LABS: Partial Thromboplastin Time 21.8 sec (22.0-30.0)
[2023-10-17 17:02] LABS: ALT 31 U/L (4-49); AST 37 U/L (17-59); African American GFR (CKD) >90 (>60 ml/min/1.73 sqM); Albumin 4.6 g/dL (3.5-5.0); Alkaline Phosphatase 69 U/L (38-126); Amylase 60 U/L (30-110); Anion Gap 11 mmol/L; Blood Urea Nitrogen 19 mg/dL (9-20); Carbon Dioxide 23 mmol/L (22-30); Chloride 103 mmol/L (98-107); Glucose 139 mg/dL (74-99); Lipase 162 U/L (23-300); Non-African American GFR(CKD) 80 (>60 ml/min/1.73 sqM); Potassium 3.9 mmol/L (3.5-5.1); Sodium 137 mmol/L (137-145); Total Bilirubin 0.4 mg/dL (0.2-1.3); Total Protein 7.2 g/dL (6.3-8.2)
[2023-10-17 17:27] VITALS: RESP 18
[2023-10-17 18:14] VITALS: BP 153/85; PULSE 72
== END 2023-10-17 18:14 | disposition home or self-care (01) ==
LOC: EC 14:59
DX: R11.2 Nausea with vomiting, unspecified (principal); Z87.891 Personal history of nicotine dependence; Z91.048 Other nonmedicinal substance allergy status
CPT/HCPCS: 36415; 93005; 80053; 82150; 83690; 85025; 85610; 85730; 99284; 96372; 96374; 96375; 96361; J0500; J2405; J3490

== ENCOUNTER 2023-11-15 14:14 | Emergency (ER) | payer MEDICARE, OTHER ==
[2023-11-15 15:16] LABS: ALT 22 U/L (4-49); African American GFR (CKD) >90 (>60 ml/min/1.73 sqM); Amylase 72 U/L (30-110); Anion Gap 9 mmol/L; Blood Urea Nitrogen 18 mg/dL (9-20); Calcium 8.7 mg/dL (8.4-10.2); Carbon Dioxide 21 mmol/L (22-30); Chloride 108 mmol/L (98-107); Glucose 160 mg/dL (74-99); Lipase 230 U/L (23-300); Non-African American GFR(CKD) 80 (>60 ml/min/1.73 sqM); Sodium 138 mmol/L (137-145); Total Bilirubin 0.7 mg/dL (0.2-1.3); Total Protein 6.7 g/dL (6.3-8.2)
[2023-11-15 15:22] LABS: Basophils % (A) 0 %; Eosinophils # (A) 0.1 k/uL (0-0.7); Eosinophils % (A) 2 %; HCT 46.2 % (39.0-53.0); HGB 14.5 gm/dL (13.0-17.5); Lymphocytes # (A) 0.4 k/uL (1.0-4.8); Lymphocytes % (A) 5 %; MCH 28.4 pg (25.0-35.0); MCHC 31.5 g/dL (31.0-37.0); MCV 90.3 fL (80.0-100.0); Mean Platelet Volume 7.7; Monocytes # (A) 0.8 k/uL (0-1.0); Monocytes % (A) 9 %; Neutrophils # (A) 6.7 k/uL (1.3-7.7); Neutrophils % (A) 82 %; Platelet Count 195 k/uL (150-450); RBC 5.11 m/uL (4.30-5.90); WBC 8.2 k/uL (3.8-10.6)
[2023-11-15 15:24] LABS: AST 33 U/L (17-59); Alkaline Phosphatase 57 U/L (38-126); Potassium 4.3 mmol/L (3.5-5.1)
[2023-11-15] MEDS: ONDANSETRON 4 MG/2 ML VIAL IVP STA (15:26)
[2023-11-15] MEDS: MORPHINE SULFATE 4 MG/ML SYRINGE IVP STA (15:27)
[2023-11-15] MEDS: SODIUM CHLORIDE 0.9% 500 ML 500 ML IV STA (15:29)
--- NOTE | 2023-11-15 15:37 | XR ---
EXAMINATION TYPE: XR KUB DATE OF EXAM: 11/15/2023 3:21 PM CLINICAL INDICATION:Male, 68 years old with history of abdominal pain; [facility] COMPARISON: 08/13/2022 TECHNIQUE: One radiographic view of the abdomen was obtained. FINDINGS: The bowel gas pattern is nonspecific without dilated loops of small or large bowel. There i s no evidence for organomegaly or pneumoperitoneum. The osseous structures are intact. No abnormal calcifications are present. Fecal material and gas are demonstrated throughout the colon and rectum. IMPRESSION: Nonspecific bowel gas pattern without radiographic evidence for acute process.
--- NOTE | 2023-11-15 15:48 | ED ---
General Adult HPI - General Chief complaint: Abdominal Pain Stated complaint: ABD pain Time Seen by Provider: 11/15/23 14:18 Source: patient, EMS, RN notes reviewed, old records reviewed Mode of arrival: EMS Limitations: no limitations - History of Present Illness Initial comments: 68-year-old male presenting for evaluation of generalized abdominal pain, nausea vomiting. Patient has additionally had intermittent diarrhea. Symptoms have been present on and off for the past several months. He has been seen in the emergency department with similar symptoms on several occasions. He denies fever. He has had several episodes of vomiting in the last 24 hours. - Related Data Home Medications Medication Instructions Recorded Confirmed Montelukast [Singulair] 10 mg PO DAILY 09/25/13 11/30/22 Fenofibrate [Lofibra] 160 mg PO DAILY 02/21/14 11/30/22 Doxazosin Mesylate [Cardura] 16 mg PO HS 10/20/15 11/30/22 Cetirizine HCl [Zyrtec] 10 - 20 mg PO DAILY PRN 09/24/16 11/30/22 Desvenlafaxine [Pristiq ER] 100 mg PO DAILY 09/24/16 11/30/22 clonazePAM [KlonoPIN] 1 mg PO BID PRN 09/24/16 11/30/22 Metoprolol Tartrate [Lopressor] 25 mg PO BID 10/21/18 11/30/22 Insulin Degludec [Tresiba 64 units SQ BID 11/22/18 11/30/22 Flextouch U-200 Pen] Losartan [Cozaar] 50 mg PO DAILY 06/28/21 11/30/22 Rosuvastatin Calcium [Crestor] 40 mg PO DAILY 06/28/21 11/30/22 Acetaminophen with Codeine 1 tab PO Q6H PRN 08/25/22 11/30/22 [Tylenol #4 Tablet] Fluticasone/Umeclidin/Vilanter 1 puff INHALATION RT-DAILY 08/25/22 11/30/22 [Trelegy Ellipta 200-62.5-25] Furosemide [Lasix] 40 mg PO DAILY 08/25/22 11/30/22 Semaglutide [Ozempic] 0.5 mg SQ BLAS 08/25/22 11/30/22 sitaGLIPtin PHOS/metFORMIN HCL 1 tab PO BID 11/30/22 11/30/22 [Janumet Xr 50-500 mg Tablet] Previous Rx's Medication Instructions Recorded Magnesium Oxide [Mag-Ox] 400 mg PO BID 60 Days #30 tablet 12/01/22 Ondansetron Odt [Zofran Odt] 4 mg PO Q8HR PRN #10 tab 09/17/23 Ondansetron Odt [Zofran Odt] 4 mg PO Q8HR PRN #10 tab 10/17/23 Allergies Allergy/AdvReac Type Severity Reaction Status Date / Time cat dander Allergy watery Verified 11/15/23 18:25 eyes, congestion, sneezing dog dander Allergy watery Verified 11/15/23 18:25 eyes, congestion, sneezing Review of Systems ROS Statement: Those systems with pertinent positive or pertinent negative responses have been documented in the HPI. ROS Other: All systems not noted in ROS Statement are negative. Past Medical History Past Medical History: Asthma, COPD, Diabetes Mellitus, GERD/Reflux, Hyperlipidemia, Hypertension, Osteoarthritis (OA), Prostate Disorder Additional Past Medical History / Comment(s): positive c-diff 11/22/18, hx of colon polyps, DDD History of Any Multi-Drug Resistant Organisms: C-DIFF Date of last positivie culture/infection: 11-22-18 MDRO Source:: stool Past Surgical History: Hernia Repair, Orthopedic Surgery, Tonsillectomy Additional Past Surgical History / Comment(s): right chest wall cyst removed, nerve surgery left elbow Past Anesthesia/Blood Transfusion Reactions: No Reported Reaction Past Psychological History: Anxiety, Panic Disorder Smoking Status: Former smoker Past Alcohol Use History: None Reported Past Drug Use History: None Reported - Past Family History Father Family Medical History: Myocardial Infarction ([place]) Additional Family Medical History / Comment(s): about 30 years ago from [place] per patient Mother Family Medical History: No Reported History Additional Family Medical History / Comment(s): from lung issues. General Exam General appearance: alert, in no apparent distress Head exam: Present: atraumatic, normocephalic Eye exam: Present: normal appearance, PERRL ENT exam: Present: normal exam Neck exam: Present: normal inspection. Absent: tenderness, meningismus Respiratory exam: Present: normal lung sounds bilaterally. Absent: respiratory distress, wheezes Cardiovascular Exam: Present: normal rhythm, tachycardia GI/Abdominal exam: Present: soft, distended, tenderness Extremities exam: Present: normal inspection, normal capillary refill. Absent: pedal edema, calf tenderness Neurological exam: Present: alert, oriented X3 Psychiatric exam: Present: normal affect, normal mood Skin exam: Present: warm, dry, intact. Absent: cyanosis, diaphoretic Course Vital Signs 11/15/23 11/15/23 11/15/23 14:18 15:33 17:25 Temperature 98.3 F Pulse Rate 97 112 H 88 Respiratory 18 24 18 Rate Blood Pressure 101/65 112/62 122/58 O2 Sat by Pulse 98 93 L 95 Oximetry 11/15/23 19:03 Temperature Pulse Rate 82 Respiratory 18 Rate Blood Pressure 113/68 O2 Sat by Pulse 96 Oximetry Medical Decision Making - Medical Decision Making Was pt. sent in by a medical professional or institution (, PA, LOG CUTTER, urgent care, hospital, or detention...) When possible be specific @ -No Did you speak to anyone other than the patient for history (EMS, parent, family, police, friend...)? What history was obtained from this source @ -No Did you review nursing and triage notes (agree or disagree)? Why? @ -I reviewed and agree with nursing and triage notes Were old charts reviewed (outside hosp., previous admission, EMS record, old EKG, old radiological studies, urgent care reports/EKG's, detention records)? Report findings @ -No old charts were reviewed Differential Abdominal Pain Men: Appendicitis, cholecystitis, diverticulosis, ischemic bowel, pancreatitis, hepatitis, UTI, gastroenteritis, AAA, incarcerated hernia, bowel obstruction, constipation, inflammatory bowel, hepatitis, peptic ulcer disease, splenic infarction, perforated viscus, testicular torsion, this is not meant to be an all-inclusive list EKG interpreted by me (3pts min.). @ -Sinus tachycardia rate of 110, TN interval 170, QRS duration 92, QTc [address] segment changes. X-rays interpreted by me (1pt min.). @KUB negative for obstruction or intraperitoneal free air. No constipation. CT interpreted by me (1pt min.). @ -CT negative for acute process, possible enteritis U/S interpreted by me (1pt. min.). @ -None done What testing was considered but not performed or refused? (CT, X-rays, U/S, labs)? Why? @ -None What meds were considered but not given or refused? Why? @ -None Did you discuss the management of the patient with other professionals (professionals i.e. , PA, LOG CUTTER, lab, RT, psych nurse, addiction social worker, medical educator, teacher, equal employment opportunity officer, director of casework services)? Give summary @ -No Was smoking cessation discussed for >3mins.? @ -No Was critical care preformed (if so, how long)? @ -No Were there social determinants of health that impacted care today? How? (Homelessness, low income, unemployed, alcoholism, drug addiction, transportation, low edu. Level, literacy, decrease access to med. care, group home, rehab)? @ -No Was there de-escalation of care discussed even if they declined (Discuss DNR or withdrawal of care, Hospice)? DNR status @ -No What co-morbidities impacted this encounter? (DM, HTN, Smoking, COPD, CAD, Cancer, CVA, ARF, Chemo, Hep., AIDS, mental health diagnosis, sleep apnea, morbid obesity)? @ -Recurrent abdominal pain Was patient admitted / discharged? Hospital course, mention meds given and rou te, prescriptions, significant lab abnormalities, going to OR and other pertinent info. @ 68-year-old male presenting with generalized abdominal pain, patient has had recurrent episodes similar to this in the past. His laboratory test including CBC, CMP, urinalysis is unremarkable. Given the age and recurrent nature of this pain I did perform CT imaging which was negative for acute process, pos sible enteritis. Patient feels better on reevaluation. He is scheduled for evaluation by gastroenterology. He should maintain this appointment. Return parameters are discussed. Undiagnosed new problem with uncertain prognosis? @ -No Drug Therapy requiring intensive monitoring for toxicity (Heparin, Nitro, Insulin, Cardizem)? @ -No Were any procedures done? @ -No Diagnosis/symptom? @ -Ab pain, nausea vomiting diarrhea. Acute, or Chronic, or Acute on Chronic? @ -acute Uncomplicated (without systemic symptoms) or Complicated (systemic symptoms)? @ -Default Side effects of treatment? @ -No Exacerbation, Progression, or Severe Exacerbation? @ -No Poses a threat to life or bodily function? How? (Chest pain, [place], [place], pneumonia, PE, COPD, DKA, ARF, appy, cholecystitis, CVA, Diverticulitis, Homicidal, Suicidal, threat to staff... and all critical care pts) @ -No - Lab Data Result diagrams: 11/15/23 14:48 11/15/23 14:48 Lab Results 11/15/23 11/15/23 11/15/23 Range/Units 14:48 14:48 14:48 WBC 8.2 (3.8-10.6) k/uL RBC 5.11 (4.30-5.90) m/uL Hgb 14.5 (13.0-17.5) gm/dL Hct 46.2 (39.0-53.0) % MCV 90.3 (80.0-100.0) fL MCH 28.4 (25.0-35.0) pg MCHC 31.5 (31.0-37.0) g/dL RDW 13.0 (11.5-15.5) % Plt Count 195 (150-450) k/uL MPV 7.7 Neutrophils % 82 % Lymphocytes % 5 % Monocytes % 9 % Eosinophils % 2 % Basophils % 0 % Neutrophils # 6.7 (1.3-7.7) k/uL Lymphocytes # 0.4 L (1.0-4.8) k/uL Monocytes # 0.8 (0-1.0) k/uL Eosinophils # 0.1 (0-0.7) k/uL Basophils # 0.0 (0-0.2) k/uL APTT 18.4 L (22.0-30.0) sec Sodium (137-145) mmol/L Potassium (3.5-5.1) mmol/L Chloride (98-107) mmol/L Carbon Dioxide (22-30) mmol/L Anion Gap mmol/L BUN (9-20) mg/dL Creatinine (0.66-1.25) mg/dL Est GFR (CKD-EPI)AfAm (>60 ml/min/1.73 sqM) Est GFR (CKD-EPI)NonAf (>60 ml/min/1.73 sqM) Glucose (74-99) mg/dL Plasma Lactic Acid Brooks (0.7-2.0) mmol/L Calcium (8.4-10.2) mg/dL Total Bilirubin (0.2-1.3) mg/dL AST (17-59) U/L ALT (4-49) U/L Alkaline Phosphatase (38-126) U/L Total Protein (6.3-8.2) g/dL Albumin (3.5-5.0) g/dL Amylase (30-110) U/L Lipase (23-300) U/L Urine Color Yellow Urine Appearance Clear (Clear) Urine pH 5.5 (5.0-8.0) Ur Specific [place] 1.023 (1.001-1.035) Urine Protein Trace H (Negative) Urine Glucose (UA) 1+ H (Negative) Urine Ketones Negative (Negative) Urine Blood Negative (Negative) Urine Nitrite Negative (Negative) Urine Bilirubin Negative (Negative) Urine Urobilinogen <2.0 (<2.0) mg/dL Ur Leukocyte Esterase Negative (Negative) 11/15/23 11/15/23 Range/Units 14:48 14:48 WBC (3.8-10.6) k/uL RBC (4.30-5.90) m/uL Hgb (13.0-17.5) gm/dL Hct (39.0-53.0) % MCV (80.0-100.0) fL MCH (25.0-35.0) pg MCHC (31.0-37.0) g/dL RDW (11.5-15.5) % Plt Count (150-450) k/uL MPV Neutrophils % % Lymphocytes % % Monocytes % % Eosinophils % % Basophils % % Neutrophils # (1.3-7.7) k/uL Lymphocytes # (1.0-4.8) k/uL Monocytes # (0-1.0) k/uL Eosinophils # (0-0.7) k/uL Basophils # (0-0.2) k/uL APTT (22.0-30.0) sec Sodium 138 (137-145) mmol/L Potassium 4.3 (3.5-5.1) mmol/L Chloride 108 H (98-107) mmol/L Carbon Dioxide 21 L (22-30) mmol/L Anion Gap 9 mmol/L BUN 18 (9-20) mg/dL Creatinine 0.96 (0.66-1.25) mg/dL Est GFR (CKD-EPI)AfAm >90 (>60 ml/min/1.73 sqM) Est GFR (CKD-EPI)NonAf 80 (>60 ml/min/1.73 sqM) Glucose 160 H (74-99) mg/dL Plasma Lactic Acid Brooks 2.0 (0.7-2.0) mmol/L Calcium 8.7 (8.4-10.2) mg/dL Total Bilirubin 0.7 (0.2-1.3) mg/dL AST 33 (17-59) U/L ALT 22 (4-49) U/L Alkaline Phosphatase 57 (38-126) U/L Total Protein 6.7 (6.3-8.2) g/dL Albumin 4.0 (3.5-5.0) g/dL Amylase 72 (30-110) U/L Lipase 230 (23-300) U/L Urine Color Urine Appearance (Clear) Urine pH (5.0-8.0) Ur Specific [place] (1.001-1.035) Urine Protein (Negative) Urine Glucose (UA) (Negative) Urine Ketones (Negative) Urine Blood (Negative) Urine Nitrite (Negative) Urine Bilirubin (Negative) Urine Urobilinogen (<2.0) mg/dL Ur Leukocyte Esterase (Negative) Disposition Clinical Impression: Abdominal pain Disposition: HOME SELF-CARE Condition: Fair Instructions (If sedation given, give patient instructions): Abdominal Pain (ED) Is patient prescribed a controlled substance at d/c from ED?: No Referrals: Anu Plata MD [Primary Care Provider] - 1-2 days Time of Disposition: 19:23
[2023-11-15] MEDS: METOCLOPRAMIDE 5 MG/ML 2 ML VIAL IVP STA (16:53)
[2023-11-15 17:27] VITALS: RESP 18
[2023-11-15 17:28] LABS: Appearance,Urine Clear (Clear); Bilirubin,Urine Negative (Negative); Blood,Urine Negative (Negative); Color,Urine Yellow; Glucose,Urine (UA) 1+ (Negative); Ketones,Urine Negative (Negative); Leukocyte Esterase,Urine Negative (Negative); Nitrite,Urine Negative (Negative); PH, Urine 5.5 (5.0-8.0); Protein,Urine Trace (Negative); Specific Gravity,Urine 1.023 (1.001-1.035); Urobilinogen,Urine <2.0 mg/dL (<2.0)
--- NOTE | 2023-11-15 19:14 | CT ---
EXAMINATION TYPE: CT abdomen pelvis w con DATE OF EXAM: 11/15/2023 COMPARISON: 09/17/2023 HISTORY: 68-year-old male abdominal pain, nausea, vomiting TECHNIQUE: Contiguous axial scanning of the abdomen and pelvis following administration of 100 ml Iso corinne 300 IV contrast. Delayed images through the kidneys and coronal/sagittal reconstructions perform ed. CT DLP: 2882.4 mGycm Automated exposure control for dose reduction was used. FINDINGS: Heart normal size without pericardial effusion. Bronchial wall thickening in the lower lung s, possible underlying bronchitis or asthma. No pleural effusion. Low-attenuation hepatic parenchyma compatible with fatty infiltration. The gallbladder is mildly hyd ropic at 4.4 cm wide but without any surrounding inflammation. Portal venous system is patent. No biliary ductal dilatation. Adrenal glands, spleen, and pancreas within normal limits. No excretion of contrast seen from either kidney on delayed phase. Correlate with kidney function to exclude ELIZABETH. No dilated small bowel, free fluid, or free air. Scattered prominent fluid-filled small bowel loops t hroughout and liquid stool also scattered throughout the colon. No significant stool burden. No peric olonic inflammatory change. Normal appendix. Moderate atherosclerotic calcifications infrarenal abdominal aorta. Moderate circumferential bladder wall thickening may be due to nondistention. Prostate gland enlarged at 5.4 cm wide. No abnormal fluid collection in the pelvis or pelvic lymphadenopathy. Bones: Mild degenerative change of the hips. Moderate spondylotic changes throughout the lumbar spine with degenerative grade 1 retrolisthesis L2-L3, L3-L4, and L4-L5. IMPRESSION: 1. NO EXCRETION OF CONTRAST ON THE DELAYED SCAN. CORRELATE WITH KIDNEY FUNCTION TO EXCLUDE ELIZABETH. 2. PROMINENT FLUID-FILLED SMALL BOWEL LOOPS THROUGHOUT AND SCATTERED LIQUID STOOL THROUGHOUT THE COLO N. CORRELATE FOR ENTERITIS/DIARRHEAL STATE. 3. MODERATE CIRCUMFERENTIAL BLADDER WALL THICKENING MAY BE CHRONIC FOR THE PATIENT. CORRELATE TO EXCL UDE CYSTITIS. 4. PROSTATOMEGALY AT 5.4 CM WIDE.
[2023-11-15 19:49] VITALS: BP 117/68; PULSE 86; TEMP 98.9
== END 2023-11-15 19:46 | disposition home or self-care (01) ==
LOC: EC 14:14
DX: R10.9 Unspecified abdominal pain (principal); R11.2 Nausea with vomiting, unspecified; R19.7 Diarrhea, unspecified; Z88.8 Allergy status to other drugs, medicaments and biological substances; Z87.891 Personal history of nicotine dependence
CPT/HCPCS: 36415; 93005; 80053; 82150; 83605; 83690; 85025; 85730; 81003; 74018; 74177; 99285; 96374; 96375 ×2; 96361; J2270; J2765; J2405; Q9967

== ENCOUNTER 2023-12-11 13:10 | Emergency (ER) | payer MEDICARE, OTHER ==
[2023-12-11 13:18] VITALS: RESP 16; TEMP 97.5
[2023-12-11] MEDS: SODIUM CHLORIDE 0.9% 500 ML 500 ML IV STA (13:31)
[2023-12-11] MEDS: diphenhydrAMINE 50 MG/ML 1 ML VIAL IVP STA (13:31)
[2023-12-11] MEDS: SODIUM CHLORIDE 0.9% 1,000 ML IV STA (13:31)
[2023-12-11] MEDS: METOCLOPRAMIDE 5 MG/ML 2 ML VIAL IVP STA (13:32)
[2023-12-11 13:42] LABS: ALT 33 U/L (4-49); AST 32 U/L (17-59); African American GFR (CKD) >90 (>60 ml/min/1.73 sqM); Albumin 4.4 g/dL (3.5-5.0); Alkaline Phosphatase 60 U/L (38-126); Anion Gap 12 mmol/L; Blood Urea Nitrogen 19 mg/dL (9-20); Carbon Dioxide 23 mmol/L (22-30); Chloride 105 mmol/L (98-107); Glucose 183 mg/dL (74-99); Lipase 162 U/L (23-300); Magnesium 1.6 mg/dL (1.6-2.3); Non-African American GFR(CKD) 82 (>60 ml/min/1.73 sqM); Potassium 3.8 mmol/L (3.5-5.1); Sodium 140 mmol/L (137-145); Total Bilirubin 0.4 mg/dL (0.2-1.3); Total Protein 7.2 g/dL (6.3-8.2)
--- NOTE | 2023-12-11 13:44 | ED ---
Nausea/Vomiting/Diarrhea HPI - General Chief complaint: Nausea/Vomiting/Diarrhea Stated complaint: NV Time Seen by Provider: 12/11/23 13:16 Source: patient, EMS, RN notes reviewed Mode of arrival: EMS Limitations: no limitations - History of Present Illness Initial comments: This is a 68-year-old male presents emergency department with chief complaint of nausea vomiting abdominal pain this been an ongoing issue. Patient scheduled for EGD. Patient states started having symptoms today. Patient was given Zofran by EMS. Patient complains of diffuse abdominal comfort denies chest pain shortness of breath no fevers or chills. Patient denies any dysuria no rectal bleeding. - Related Data Home Medications Medication Instructions Recorded Confirmed Fenofibrate [Lofibra] 160 mg PO DAILY 02/21/14 12/11/23 Doxazosin Mesylate [Cardura] 16 mg PO HS 10/20/15 12/11/23 Cetirizine HCl [Zyrtec] 10 - 20 mg PO DAILY 09/24/16 12/11/23 Desvenlafaxine [Pristiq ER] 100 mg PO DAILY 09/24/16 12/11/23 clonazePAM [KlonoPIN] 1 mg PO BID 09/24/16 12/11/23 Metoprolol Tartrate [Lopressor] 25 mg PO BID 10/21/18 12/11/23 Insulin Degludec [Tresiba 56 units SQ BID 11/22/18 12/11/23 Flextouch U-200 Pen] Losartan [Cozaar] 50 mg PO DAILY 06/28/21 12/11/23 Rosuvastatin Calcium [Crestor] 40 mg PO DAILY 06/28/21 12/11/23 Acetaminophen with Codeine 1 tab PO Q6H 08/25/22 12/11/23 [Tylenol #4 Tablet] Fluticasone/Umeclidin/Vilanter 1 puff INHALATION RT-DAILY 08/25/22 12/11/23 [Trelegy Ellipta 200-62.5-25] Furosemide [Lasix] 40 mg PO DAILY 08/25/22 12/11/23 sitaGLIPtin PHOS/metFORMIN HCL 1 tab PO DAILY 11/30/22 12/11/23 [Janumet Xr 50-500 mg Tablet] Albuterol Sulfate [Ventolin HFA] 1 - 2 puff INHALATION RT-QID PRN 12/11/23 12/11/23 Cholecalciferol [Vitamin D3 (25 25 mcg PO DAILY 12/11/23 12/11/23 Mcg = 1000 Iu)] Magnesium Oxide [Mag-Ox] 400 mg PO DAILY 12/11/23 12/11/23 Semaglutide [Ozempic] 1 mg SQ BLAS 12/11/23 12/11/23 Previous Rx's Medication Instructions Recorded Metoclopramide [Reglan] 10 mg PO TID PRN #15 tab 12/11/23 Allergies Allergy/AdvReac Type Severity Reaction Status Date / Time cat dander Allergy watery Verified 12/11/23 14:53 eyes, congestion, sneezing dog dander Allergy watery Verified 12/11/23 14:53 eyes, congestion, sneezing Review of Systems ROS Statement: Those systems with pertinent positive or pertinent negative responses have been documented in the HPI. ROS Other: All systems not noted in ROS Statement are negative. Past Medical History Past Medical History: Asthma, COPD, Diabetes Mellitus, GERD/Reflux, Hyperlipidemia, Hypertension, Osteoarthritis (OA), Prostate Disorder Additional Past Medical History / Comment(s): positive c-diff 11/22/18, hx of colon polyps, DDD History of Any Multi-Drug Resistant Organisms: None Reported, C-DIFF Date of last positivie culture/infection: 11-22-18 MDRO Source:: stool Past Surgical History: Hernia Repair, Orthopedic Surgery, Tonsillectomy Additional Past Surgical History / Comment(s): right chest wall cyst removed, nerve surgery left elbow Past Anesthesia/Blood Transfusion Reactions: No Reported Reaction Past Psychological History: Anxiety, Panic Disorder Smoking Status: Former smoker Past Alcohol Use History: None Reported Past Drug Use History: None Reported - Past Family History Father Family Medical History: Myocardial Infarction ([place]) Additional Family Medical History / Comment(s): about 30 years ago from [place] per patient Mother Family Medical History: No Reported History Additional Family Medical History / Comment(s): from lung issues. General Exam Limitations: no limitations General appearance: alert, in no apparent distress Head exam: Present: atraumatic, normocephalic, normal inspection Eye exam: Present: normal appearance, PERRL, EOMI. Absent: scleral icterus, conjunctival injection, periorbital swelling ENT exam: Present: normal exam, mucous membranes moist Neck exam: Present: normal inspection, full ROM. Absent: tenderness, meningismus, lymphadenopathy Respiratory exam: Present: normal lung sounds bilaterally. Absent: respiratory distress, wheezes, rales, rhonchi, stridor Cardiovascular Exam: Present: regular rate, normal rhythm, normal heart sounds. Absent: systolic murmur, diastolic murmur, rubs, gallop, clicks GI/Abdominal exam: Present: soft, tenderness, normal bowel sounds. Absent: distended, guarding, rebound, rigid Course Vital Signs 12/11/23 12/11/23 13:15 14:48 Temperature 97.5 F L Pulse Rate 90 99 Respiratory 16 16 Rate Blood Pressure 140/70 119/72 O2 Sat by Pulse 97 99 Oximetry Medical Decision Making - Medical Decision Making Was pt. sent in by a medical professional or institution ([employer], SENIOR DYNAMICS CRM DEVELOPER, urgent care, hospital, or intermediate...) When possible be specific @ -No Did you speak to anyone other than the patient for history (EMS, parent, family, police, friend...)? What history was obtained from this source @ -No Did you review nursing and triage notes (agree or disagree)? Why? @ -I reviewed and agree with nursing and triage notes Were old charts reviewed (outside hosp., previous admission, EMS record, old EKG, old radiological studies, urgent care reports/EKG's, intermediate records)? Report findings @ -Reviewed recent CT, abdomen pelvis, CBC, comp Differential Diagnosis (chest pain, altered mental status, abdominal pain women, abdominal pain men, vaginal bleeding, weakness, fever, dyspnea, syncope, headache, dizziness, GI bleed, back pain, seizure, CVA, palpatations, mental health, musculoskeletal)? @ -Differential Abdominal Pain Men: Appendicitis, cholecystitis, diverticulosis, ischemic bowel, pancreatitis, hep atitis, UTI, gastroenteritis, AAA, incarcerated hernia, bowel obstruction, constipation, inflammatory bowel, hepatitis, peptic ulcer disease, splenic infarction, perforated viscus, testicular torsion, this is not meant to be an all-inclusive list EKG interpreted by me (3pts min.). @ -None X-rays interpreted by me (1pt min.). @ -None done CT interpreted by me (1pt min.). @ -None done U/S interpreted by me (1pt. min.). @ -None done What testing was considered but not performed or refused? (CT, X-rays, U/S, labs)? Why? @ -None What meds were considered but not given or refused? Why? @ -None Did you discuss the management of the patient with other professionals (professionals i.e. , PA, SENIOR DYNAMICS CRM DEVELOPER, lab, RT, psych nurse, school social worker, brass polisher, teacher, event security officer, clinical case manager)? Give summary @ -No Was smoking cessation discussed for >3mins.? @ -No Was critical care preformed (if so, how long)? @ -No Were there social determinants of health that impacted care today? How? (Homelessness, low income, unemployed, alcoholism, drug addiction, transportation, low edu. Level, literacy, decrease access to med. care, prison, rehab)? @ -No Was there de-escalation of care discussed even if they declined (Discuss DNR or withdrawal of care, Hospice)? DNR status @ -No What co-morbidities impacted this encounter? (DM, HTN, Smoking, COPD, CAD, Cancer, CVA, ARF, Chemo, Hep., AIDS, mental health diagnosis, sleep apnea, morbid obesity)? @ -None Was patient admitted / discharged? Hospital course, mention meds given and route, prescriptions, significant lab abnormalities, going to OR and other pertinent info. @ -Discharge laboratory studies unremarkable. Patient given antiemetics IV fluids feels improved. Patient is scheduled for EGD as his main ongoing issue we discharged in stable condition return parameters ector. Undiagnosed new problem with uncertain prognosis? @ -No Drug Therapy requiring intensive monitoring for toxicity (Heparin, Nitro, Insulin, Cardizem)? @ -No Were any procedures done? @ -No Diagnosis/symptom? @ -Nausea vomiting, abdominal pain Acute, or Chronic, or Acute on Chronic? @ -Acute Uncomplicated (without systemic symptoms) or Complicated (systemic symptoms)? @ -Uncomplicated Side effects of treatment? @ -No Exacerbation, Progression, or Severe Exacerbation? @ -No Poses a threat to life or bodily function? How? (Chest pain, [place], [place], pneumonia, PE, COPD, DKA, ARF, appy, cholecystitis, CVA, Diverticulitis, Homicidal, Suicidal, threat to staff... and all critical care pts) @ -No - Lab Data Result diagrams: 12/11/23 13:25 12/11/23 13:25 Lab Results 12/11/23 12/11/23 Range/Units 13:25 13:25 WBC 9.9 (3.8-10.6) k/uL RBC 5.17 (4.30-5.90) m/uL Hgb 14.9 (13.0-17.5) gm/dL Hct 45.2 (39.0-53.0) % MCV 87.5 (80.0-100.0) fL MCH 28.9 (25.0-35.0) pg MCHC 33.0 (31.0-37.0) g/dL RDW 12.8 (11.5-15.5) % Plt Count 288 (150-450) k/uL MPV 6.6 Neutrophils % 74 % Lymphocytes % 19 % Monocytes % 4 % Eosinophils % 3 % Basophils % 1 % Neutrophils # 7.3 (1.3-7.7) k/uL Lymphocytes # 1.8 (1.0-4.8) k/uL Monocytes # 0.4 (0-1.0) k/uL Eosinophils # 0.3 (0-0.7) k/uL Basophils # 0.1 (0-0.2) k/uL Sodium 140 (137-145) mmol/L Potassium 3.8 (3.5-5.1) mmol/L Chloride 105 (98-107) mmol/L Carbon Dioxide 23 (22-30) mmol/L Anion Gap 12 mmol/L BUN 19 (9-20) mg/dL Creatinine 0.94 (0.66-1.25) mg/dL Est GFR (CKD-EPI)AfAm >90 (>60 ml/min/1.73 sqM) Est GFR (CKD-EPI)NonAf 82 (>60 ml/min/1.73 sqM) Glucose 183 H (74-99) mg/dL Calcium 10.0 (8.4-10.2) mg/dL Magnesium 1.6 (1.6-2.3) mg/dL Total Bilirubin 0.4 (0.2-1.3) mg/dL AST 32 (17-59) U/L ALT 33 (4-49) U/L Alkaline Phosphatase 60 (38-126) U/L Total Protein 7.2 (6.3-8.2) g/dL Albumin 4.4 (3.5-5.0) g/dL Lipase 162 (23-300) U/L - EKG Data -: EKG Interpreted by Me EKG shows normal: sinus rhythm EKG Comments: Sinus rhythm rate of 94 CT 165 QRS 105 QT/QTc 375/426 Disposition Clinical Impression: Abdominal pain, Nausea & vomiting Disposition: HOME SELF-CARE Condition: Stable Instructions (If sedation given, give patient instructions): Acute Nausea and Vomiting (ED) Additional Instructions: Please return emergency department for any worsening, changing of symptoms or any other concerns Prescriptions: Metoclopramide [Reglan] 10 mg PO TID PRN #15 tab PRN Reason: Nausea Is patient prescribed a controlled substance at d/c from ED?: No Referrals: Anu Plata MD [Primary Care Provider] - 1-2 days Time of Disposition: 14:32
[2023-12-11 13:45] LABS: Basophils # (A) 0.1 k/uL (0-0.2); Basophils % (A) 1 %; Eosinophils # (A) 0.3 k/uL (0-0.7); Eosinophils % (A) 3 %; HCT 45.2 % (39.0-53.0); HGB 14.9 gm/dL (13.0-17.5); Lymphocytes # (A) 1.8 k/uL (1.0-4.8); Lymphocytes % (A) 19 %; MCH 28.9 pg (25.0-35.0); MCV 87.5 fL (80.0-100.0); Mean Platelet Volume 6.6; Monocytes # (A) 0.4 k/uL (0-1.0); Monocytes % (A) 4 %; Neutrophils # (A) 7.3 k/uL (1.3-7.7); Neutrophils % (A) 74 %; Platelet Count 288 k/uL (150-450); RBC 5.17 m/uL (4.30-5.90); RDW 12.8 % (11.5-15.5); WBC 9.9 k/uL (3.8-10.6)
[2023-12-11] MEDS: droPERidol 5 MG/2 ML VIAL IVP ONE (14:21)
[2023-12-11 14:49] VITALS: BP 119/72; PULSE 99
== END 2023-12-11 14:52 | disposition home or self-care (01) ==
LOC: EC 13:10
DX: R11.2 Nausea with vomiting, unspecified (principal); R10.9 Unspecified abdominal pain; Z87.891 Personal history of nicotine dependence; Z91.048 Other nonmedicinal substance allergy status
CPT/HCPCS: 36415; 93005; 80053; 83690; 83735; 85025; 99284; 96374; 96375 ×2; 96361; J1200; J2765; J1790

== ENCOUNTER 2023-12-15 11:07 | Emergency (ER) | payer MEDICARE, OTHER ==
--- NOTE | 2023-12-15 11:18 | ED ---
General Adult HPI - General Chief complaint: Abdominal Pain Stated complaint: Abd Pain Time Seen by Provider: 12/15/23 11:09 Source: patient, EMS, RN notes reviewed Mode of arrival: EMS Limitations: no limitations - History of Present Illness Initial comments: Patient is a 68-year-old male presenting to the emergency department with concerns for abdominal problems. Onset of symptoms was today. Patient has nausea without vomiting. Patient is some discomfort of left lower abdomen. Patient has had around 3 episodes of diarrhea. No fever. - Related Data Home Medications Medication Instructions Recorded Confirmed Fenofibrate [Lofibra] 160 mg PO DAILY 02/21/14 12/11/23 Doxazosin Mesylate [Cardura] 16 mg PO HS 10/20/15 12/11/23 Cetirizine HCl [Zyrtec] 10 - 20 mg PO DAILY 09/24/16 12/11/23 Desvenlafaxine [Pristiq ER] 100 mg PO DAILY 09/24/16 12/11/23 clonazePAM [KlonoPIN] 1 mg PO BID 09/24/16 12/11/23 Metoprolol Tartrate [Lopressor] 25 mg PO BID 10/21/18 12/11/23 Insulin Degludec [Tresiba 56 units SQ BID 11/22/18 12/11/23 Flextouch U-200 Pen] Losartan [Cozaar] 50 mg PO DAILY 06/28/21 12/11/23 Rosuvastatin Calcium [Crestor] 40 mg PO DAILY 06/28/21 12/11/23 Acetaminophen with Codeine 1 tab PO Q6H 08/25/22 12/11/23 [Tylenol #4 Tablet] Fluticasone/Umeclidin/Vilanter 1 puff INHALATION RT-DAILY 08/25/22 12/11/23 [Trelegy Ellipta 200-62.5-25] Furosemide [Lasix] 40 mg PO DAILY 08/25/22 12/11/23 sitaGLIPtin PHOS/metFORMIN HCL 1 tab PO DAILY 11/30/22 12/11/23 [Janumet Xr 50-500 mg Tablet] Albuterol Sulfate [Ventolin HFA] 1 - 2 puff INHALATION RT-QID PRN 12/11/23 0 12/11/23 Cholecalciferol [Vitamin D3 (25 25 mcg PO DAILY 12/11/23 12/11/23 Mcg = 1000 Iu)] Magnesium Oxide [Mag-Ox] 400 mg PO DAILY 12/11/23 12/11/23 Semaglutide [Ozempic] 1 mg SQ BALS 12/11/23 12/11/23 Previous Rx's Medication Instructions Recorded Metoclopramide [Reglan] 10 mg PO TID PRN #15 tab 12/11/23 Allergies Allergy/AdvReac Type Severity Reaction Status Date / Time cat dander Allergy watery Verified 12/15/23 11:15 eyes, congestion, sneezing dog dander Allergy watery Verified 12/15/23 11:15 eyes, congestion, sneezing Review of Systems ROS Statement: Those systems with pertinent positive or pertinent negative responses have been documented in the HPI. ROS Other: All systems not noted in ROS Statement are negative. Constitutional: Denies: fever Cardiovascular: Denies: chest pain Gastrointestinal: Reports: as per HPI, abdominal pain, nausea, diarrhea. Denies: vomiting Musculoskeletal: Denies: back pain Past Medical History Past Medical History: Asthma, COPD, Diabetes Mellitus, GERD/Reflux, Hyperlipidemia, Hypertension, Osteoarthritis (OA), Prostate Disorder Additional Past Medical History / Comment(s): positive c-diff 11/22/18, hx of colon polyps, DDD History of Any Multi-Drug Resistant Organisms: None Reported, C-DIFF Date of last positivie culture/infection: 11-22-18 MDRO Source:: stool Past Surgical History: Hernia Repair, Orthopedic Surgery, Tonsillectomy Additional Past Surgical History / Comment(s): right chest wall cyst removed, nerve surgery left elbow Past Anesthesia/Blood Transfusion Reactions: No Reported Reaction Past Psychological History: Anxiety, Panic Disorder Smoking Status: Former smoker Past Alcohol Use History: None Reported Past Drug Use History: None Reported - Past Family History Father Family Medical History: Myocardial Infarction ([place]) Additional Family Medical History / Comment(s): about 30 years ago from [place] per patient Mother Family Medical History: No Reported History Additional Family Medical History / Comment(s): from lung issues. General Exam Limitations: no limitations General appearance: alert Head exam: Present: normocephalic Eye exam: Present: normal appearance Neck exam: Present: normal inspection Respiratory exam: Present: normal lung sounds bilaterally Cardiovascular Exam: Present: regular rate, normal rhythm GI/Abdominal exam: Present: soft, tenderness (Mild tenderness left lower abdomen). Absent: distended, pulsatile mass Extremities exam: Present: normal inspection Neurological exam: Present: alert Psychiatric exam: Present: normal affect, normal mood Skin exam: Present: normal color Course Vital Signs 12/15/23 12/15/23 11:11 12:15 Temperature 98.8 F Pulse Rate 111 H 88 Respiratory 20 20 Rate Blood Pressure 103/63 122/76 O2 Sat by Pulse 96 94 L Oximetry Medical Decision Making - Medical Decision Making Was pt. sent in by a medical professional or institution (, PA, MANAGER FLEET, urgent care, hospital, or fci...) When possible be specific @ -No Did you speak to anyone other than the patient for history (EMS, parent, family, police, friend...)? What history was obtained from this source @ -No Did you review nursing and triage notes (agree or disagree)? Why? @ -I reviewed and agree with nursing and triage notes Were old charts reviewed (outside hosp., previous admission, EMS record, old EKG, old radiological studies, urgent care reports/EKG's, fci records)? Report findings @ -Previous CT scan and visits reviewed Differential Diagnosis (chest pain, altered mental status, abdominal pain women, abdominal pain men, vaginal bleeding, weakness, fever, dyspnea, syncope, headache, dizziness, GI bleed, back pain, seizure, CVA, palpatations, mental health, musculoskeletal)? @ -Differential Abdominal Pain Men: Appendicitis, cholecystitis, diverticulosis, ischemic bowel, pancreatitis, hepatitis, UTI, gastroenteritis, AAA, incarcerated hernia, bowel obstruction, constipation, inflammatory bowel, hepatitis, peptic ulcer disease, splenic infarction, perforated viscus, testicular torsion, this is not meant to be an all-inclusive list EKG interpreted by me (3pts min.). @ -As above X-rays interpreted by me (1pt min.). @ -None done CT interpreted by me (1pt min.). @ -CT scan shows appendix 10 mm U/S interpreted by me (1pt. min.). @ -None done What testing was considered but not performed or refused? (CT, X-rays, U/S, labs)? Why? @ -None What meds were considered but not given or refused? Why? @ -None Did you discuss the management of the patient with other professionals (bia harris i.e., Dr., PA, MANAGER FLEET, lab, RT, psych nurse, social services analyst, pharmacognosy teacher, teacher, wildlife conservation officer, continuous pillowcase cutter)? Give summary @ -After reevaluation Case was discussed with Dr. Kerr who is comfortable with discharge the patient Was smoking cessation discussed for >3mins.? @ -No Was critical care preformed (if so, how long)? @ -No Were there social determinants of health that impacted care today? How? (Homelessness, low income, unemployed, alcoholism, drug addiction, transportation, low edu. Level, literacy, decrease access to med. care, senior living, rehab)? @ -No Was there de-escalation of care discussed even if they declined (Discuss DNR or withdrawal of care, Hospice)? DNR status @ -No What co-morbidities impacted this encounter? (DM, HTN, Smoking, COPD, CAD, Cancer, CVA, ARF, Chemo, Hep., AIDS, mental health diagnosis, sleep apnea, morbid obesity)? @ -None Was patient admitted / discharged? Hospital course, mention meds given and route, prescriptions, significant lab abnormalities, going to OR and other pertinent info. @ -Patient reevaluated and feeling much better. Abdomen soft and nontender. Patient and family are updated on results. Patient is requesting discharge home. Patient is made aware of CT findings and plan Undiagnosed new problem with uncertain prognosis? @ -No Drug Therapy requiring intensive monitoring for toxicity (Heparin, Nitro, Insulin, Cardizem)? @ -No Were any procedures done? @ -No Diagnosis/symptom? @ -Abdominal pain Acute, or Chronic, or Acute on Chronic? @ -Acute Uncomplicated (without systemic symptoms) or Complicated (systemic symptoms)? @ -Default Side effects of treatment? @ -No Exacerbation, Progression, or Severe Exacerbation? @ -No Poses a threat to life or bodily function? How? (Chest pain, [place], [place], pneumonia, PE, COPD, DKA, ARF, appy, cholecystitis, CVA, Diverticulitis, Homicidal, Suicidal, threat to staff... and all critical care pts) @ -No - Lab Data Result diagrams: 12/15/23 11:18 12/15/23 11:18 Lab Results 12/15/23 12/15/23 12/15/23 Range/Units 11:18 11:18 11:18 WBC 13.1 H (3.8-10.6) k/uL RBC 4.51 (4.30-5.90) m/uL Hgb 13.3 (13.0-17.5) gm/dL Hct 39.6 (39.0-53.0) % MCV 87.7 (80.0-100.0) fL MCH 29.4 (25.0-35.0) pg MCHC 33.5 (31.0-37.0) g/dL RDW 13.4 (11.5-15.5) % Plt Count 224 (150-450) k/uL MPV 7.3 Neutrophils % 79 % Lymphocytes % 9 % Monocytes % 9 % Eosinophils % 2 % Basophils % 0 % Neutrophils # 10.4 H (1.3-7.7) k/uL Lymphocytes # 1.1 (1.0-4.8) k/uL Monocytes # 1.1 H (0-1.0) k/uL Eosinophils # 0.3 (0-0.7) k/uL Basophils # 0.0 (0-0.2) k/uL PT 10.9 (10.0-12.5) sec INR 1.0 (<1.2) APTT 23.1 (22.0-30.0) sec Sodium 136 L (137-145) mmol/L Potassium 3.7 (3.5-5.1) mmol/L Chloride 105 (98-107) mmol/L Carbon Dioxide 23 (22-30) mmol/L Anion Gap 8 mmol/L BUN 20 (9-20) mg/dL Creatinine 0.91 (0.66-1.25) mg/dL Est GFR (CKD-EPI)AfAm >90 (>60 ml/min/1.73 sqM) Est GFR (CKD-EPI)NonAf 85 (>60 ml/min/1.73 sqM) Glucose 116 H (74-99) mg/dL Calcium 8.6 (8.4-10.2) mg/dL Total Bilirubin 0.4 (0.2-1.3) mg/dL AST 23 (17-59) U/L ALT 19 (4-49) U/L Alkaline Phosphatase 51 (38-126) U/L Total Protein 5.8 L (6.3-8.2) g/dL Albumin 3.5 (3.5-5.0) g/dL Amylase 36 (30-110) U/L Lipase 53 (23-300) U/L Disposition Clinical Impression: Abdominal pain Disposition: HOME SELF-CARE Condition: Stable Instructions (If sedation given, give patient instructions): Abdominal Pain (ED) Additional Instructions: Please do follow-up with your primary care physician and surgeon in the next couple of days for recheck. Return for fever, increased pain, vomiting, worsening or changing symptoms or other concerns. Is patient prescribed a controlled substance at d/c from ED?: No Referrals: Anu Plata MD [Primary Care Provider] - 1-2 days Velia Mullins MD [STAFF PHYSICIAN] - 1-2 days Time of Disposition: 14:56
[2023-12-15 11:39] LABS: Basophils % (A) 0 %; Eosinophils # (A) 0.3 k/uL (0-0.7); Eosinophils % (A) 2 %; HCT 39.6 % (39.0-53.0); HGB 13.3 gm/dL (13.0-17.5); Lymphocytes # (A) 1.1 k/uL (1.0-4.8); Lymphocytes % (A) 9 %; MCH 29.4 pg (25.0-35.0); MCHC 33.5 g/dL (31.0-37.0); MCV 87.7 fL (80.0-100.0); Mean Platelet Volume 7.3; Monocytes # (A) 1.1 k/uL (0-1.0); Monocytes % (A) 9 %; Neutrophils # (A) 10.4 k/uL (1.3-7.7); Neutrophils % (A) 79 %; Platelet Count 224 k/uL (150-450); RBC 4.51 m/uL (4.30-5.90); RDW 13.4 % (11.5-15.5); WBC 13.1 k/uL (3.8-10.6)
[2023-12-15 11:46] VITALS: TEMP 98.8
[2023-12-15] MEDS: FAMOTIDINE 20 MG/2 ML VIAL IV STA (11:52)
[2023-12-15] MEDS: ONDANSETRON 4 MG/2 ML VIAL IVP STA (11:52)
[2023-12-15 11:53] LABS: ALT 19 U/L (4-49); AST 23 U/L (17-59); African American GFR (CKD) >90 (>60 ml/min/1.73 sqM); Albumin 3.5 g/dL (3.5-5.0); Alkaline Phosphatase 51 U/L (38-126); Amylase 36 U/L (30-110); Anion Gap 8 mmol/L; Blood Urea Nitrogen 20 mg/dL (9-20); Calcium 8.6 mg/dL (8.4-10.2); Carbon Dioxide 23 mmol/L (22-30); Chloride 105 mmol/L (98-107); Glucose 116 mg/dL (74-99); Lipase 53 U/L (23-300); Non-African American GFR(CKD) 85 (>60 ml/min/1.73 sqM); Potassium 3.7 mmol/L (3.5-5.1); Sodium 136 mmol/L (137-145); Total Bilirubin 0.4 mg/dL (0.2-1.3); Total Protein 5.8 g/dL (6.3-8.2)
[2023-12-15] MEDS: DICYCLOMINE 10 MG/ML 2 ML AMP IM STA (11:53)
[2023-12-15] MEDS: SODIUM CHLORIDE 0.9% 1,000 ML IV STA (11:53)
[2023-12-15 11:54] LABS: Partial Thromboplastin Time 23.1 sec (22.0-30.0); Prothrombin Time 10.9 sec (10.0-12.5)
--- NOTE | 2023-12-15 12:52 | CT ---
EXAMINATION TYPE: CT abdomen pelvis w con CT DLP: 2769.4 mGycm, Automated exposure control for dose reduction was used. DATE OF EXAM: 12/15/2023 12:21 PM COMPARISON: CT abdomen pelvis most recent from CLINICAL INDICATION:Male, 68 years old with history of abdominal pain; LOWER ABDOMINAL PAIN WITH NAUS EA, VOMITING AND DIARRHEA TECHNIQUE: Axial CT abdomen pelvis w con;Sagittal and coronal reformats were created on a separate w orkstation. Contrast used:100 ml mL of Isovue 300 with IV Contrast, (none if empty) Oral contrast used: without Oral Contrast (none if empty) FINDINGS: LOWER CHEST: Opacity posterior platelike atelectasis. Focus of airspace disease measuring 4 cm in the inferior lingula. ABDOMEN LIVER: Unremarkable GALLBLADDER AND BILE DUCTS: Unremarkable. PANCREAS: Unremarkable. No pancreatitis. SPLEEN: Unremarkable. ADRENAL GLANDS: Unremarkable. KIDNEYS AND URETERS: No evidence of hydronephrosis or renal calculus. The ureters are unremarkable. PELVIS BLADDER: Unremarkable REPRODUCTIVE: Unremarkable. ABDOMEN & PELVIS STOMACH AND BOWEL: Appendix dilated to 10 mm. No wall enhancement or periappendiceal fat stranding no evidence of pericolonic fat stranding or diverticulitis. No evidence of bowel obstruction. PERITONEUM/RETROPERITONEUM: No evidence of pneumoperitoneum or free fluid. VASCULATURE: No evidence of aortic aneurysm. MUSCULOSKELETAL: No acute osseous abnormalities. Multilevel degenerative disc disease with loss of disc height and endplate spondylosis. LYMPH NODES: No gross evidence for lymphadenopathy. SOFT TISSUE/ABDOMINAL WALL: Unremarkable IMPRESSION: 1. 4 cm patch of airspace disease or fibrosis in the inferior lingula. 2. Appendix dilated to 10 mm. No wall enhancement or periappendiceal fat stranding.
[2023-12-15 15:18] VITALS: BP 145/71; PULSE 83; RESP 18
== END 2023-12-15 15:19 | disposition home or self-care (01) ==
LOC: EC 11:07
DX: R10.32 Left lower quadrant pain (principal); R19.7 Diarrhea, unspecified; Z87.891 Personal history of nicotine dependence; Z91.048 Other nonmedicinal substance allergy status
CPT/HCPCS: 99284 ×2; 96374 ×2; 96375 ×2; 96361 ×4; 96372 ×2; 36415; 80053; 82150; 83690; 85025; 85610; 85730; 74177; J0500; J2405; J3490; Q9967

== ENCOUNTER 2024-02-09 05:55 | Day surgery (SDC) | payer MEDICARE, OTHER ==
[2024-02-09 07:12] VITALS: TEMP 97.5
[2024-02-09] MEDS: IV FLUID CONTINUATION 1,000 ML IV ONE (07:13)
[2024-02-09] MEDS ORDERED: PROPOFOL 10 MG/ML 20 ML VIAL IV ONE (07:15)
[2024-02-09] MEDS: LACTATED RINGERS 1,000 ML IV SCH (07:15)
[2024-02-09] MEDS ORDERED: LIDOCAINE 2% (PF) 20 MG/ML 5 ML VIAL ONE (07:15)
[2024-02-09 07:17] LABS: Glucose,Whole Blood 160 mg/dL (70-110)
--- NOTE | 2024-02-09 07:36 | P.PCN ---
Date of Procedure: 02/09/24 Procedure(s) Performed: Brief history: Patient is a pleasant 68-year-old white male scheduled for an elective upper endoscopy as well as colonoscopy as a part of evaluation of abdominal pain associate with intermittent nausea vomiting and diarrhea for the last several months duration Procedure performed: Esophagogastroduodenoscopy with biopsy Colonoscopy with biopsy Preoperative diagnosis: Abdominal pain and intermittent nausea vomiting Chronic diarrhea Anesthesia: MAC Procedure: After informed consent was obtained from the patient was brought into the endoscopy unit and IV sedation was administered by anesthesia under continuous monitoring. Initially upper endoscopy was done. The Olympus GF 160 video endoscope was inserted inserted into the mouth and esophagus intubated without any difficulty and was gradually advanced into the stomach and duodenum and carefully examined. The bulb and second part of the duodenum appeared normal. Biopsies were done from the duodenum rule out celiac disease the scope was then withdrawn into the stomach adequately insufflated with air and upon careful examination the antrum had scattered erosions and erythema consistent with gastritis and biopsies were done from this area. Mucosa of the body, cardia and fundus appeared normal. The scope was then withdrawn into the esophagus. Small hiatal hernia noted. The GE junction was located at 40 cm to the incisors. It appeared regular with no erythema erosions or ulcerations. Rest of the esophagu s appeared normal. These were done from the distal esophagus. Patient tolerated the procedure well. At this time the patient continued to remain sedation. Initial digital rectal examination was normal. Olympus CF 160 video colonoscope was then inserted into the rectum and gradually advanced to the cecum without any difficulty. Careful examination was performed as the scope was gradually being withdrawn. The prep was excellent. The cecum, ascending colon, transverse colon, descending colon, sigmoid colon and rectum appeared normal. Random biopsies were done from the ascending and descending colon to rule out microscopic/collagenous colitis retroflexion was performed in the rectum and no lesions were noted. Patient tolerated the procedure well. Impression: 1. Upper endoscopy revealed mild gastritis and small hiatal hernia 2. Colonoscopy was within normal limits with no evidence of colitis or colorectal neoplasia Recommendations: Findings of this examination were discussed with the patient as well as his family. He was advised to follow-up with the biopsy results. Recommended repeat screening colonoscopy in 10 years. Follow-up in the office in 2 to 3 weeks.
[2024-02-09 07:42] VITALS: RESP 16
[2024-02-09 07:44] LABS: Glucose,Whole Blood 152 mg/dL (70-110)
[2024-02-09 08:10] VITALS: BP 129/79; PULSE 91
== END 2024-02-09 08:23 | disposition home or self-care (01) ==
LOC: ORWHC2ENDO 05:55
PROVIDERS: ATTEND Internal Medicine Gastroenterology
CPT/HCPCS: 43239; 45380; 88305; 88342